=== PATIENT | female | born 1980 | race Caucasian/White ===

== ENCOUNTER 2020-08-15 17:21 | Emergency (ER) | payer BC, SELFPAY ==
--- NOTE | ~2020-08-15 | XR_ITS ---
EXAMINATION: XR hand LT min 3V EXAM DATE: 08/15/2020 17:31 INDICATION: pain after lifting bag yesterday. Pain1-2nd metacarpals . TECHNIQUE: Left hand frontal, lateral and oblique projections obtained and reviewed. Comparison is ma de to prior examination from 07/24/2017. FINDINGS: Left metacarpal bones are unremarkable. There are no acute fractures or dislocations ident ified. There is no subcutaneous gas. The soft tissue is unremarkable. There are no radiopaque for eign bodies. IMPRESSION: 1. Unremarkable XR hand LT min 3V exam. Reviewed, dictated and finalized at location A.
[2020-08-15 17:33] VITALS: BP 154/100; PULSE 81; RESP 20; TEMP 36.4; O2SAT 100
--- NOTE | 2020-08-15 17:37 | ED.UPPEXIN ---
HPI - Extremity Injury (Upper) General Chief Complaint: Extremity Injury, Upper Stated Complaint: L HAND INJURY Time Seen by Provider: 08/15/20 17:38 Source: patient and RN notes reviewed Mode of arrival: ambulatory Limitations: no limitations History of Present Illness HPI narrative: 32-year-old female presents with concern for hand pain between the first and second digits. Reports yesterday she was picking up a bag using her first and second digits of her left hand when she heard a pop and felt pain in that area. She reports swelling. Reports she has been using ice and elevation with no pain relief. MD complaint: injury to: left and hand Related Data Home Medications Medication Instructions Recorded Confirmed norgestimate-ethinyl estradiol tablet 09/02/19 [Tri-Sprintec (28)] Allergies Allergy/AdvReac Type Severity Reaction Status Date / Time No Known Allergies Allergy Verified 09/26/19 16:38 Review of Systems Review of Systems: Narrative: CONSTITUTIONAL: Denies malaise, chills, sweats, or fever. SKIN: Denies bruising, redness, open skin MUSCULOSKELETAL: Reports hand pain between the first and second digits NEUROLOGIC: Denies numbness, weakness All systems reviewed & are unremarkable except as noted in HPI and below PMFSH Comments At time of signature, agree with nursing past medical, surgical, social and family history. There is no relevant family history pertinent to the presenting complaint Exam Narrative: Exam Narrative: GENERAL: Well-appearing, well-nourished, and in no acute distress. HEAD: Normocephalic EYES: PERRLA, conjunctivae clear NECK: Supple. CHEST: Speaks in full sentences. No respiratory distress. HEART: Regular rate and rhythm. Normal and equal peripheral pulses. EXTREMITIES: First and second digits of left hand have normal sensation. 4/5 strength with digit flexion, extension. Range of motion right-sided, likely due to swelling and pain. No clubbing, cyanosis. Small amount of edema and tenderness between the first and second digits. Skin intact. Normal digital cascade with flexion of fingers, median, ulnar and radial nerve intact. Normal sensation of each side of finger. Can perform 'okay' sign, and 'thumbs up' sign. Patient unable to fully ' complete cross over finger test of index and middle fingers'. no scissoring. Normal thumb opposition. Good capillary refill and radial pulse. Distal capillary refill less than 3 seconds. SKIN: Warn, dry, intact, pink. No rash NEURO: Alert and oriented x3. PSYCH: Normal mood and affect Course Course Emergency Course: Patient is aware of diagnosis, understands and agrees to treatment plan. Anticipatory guidance given. Patient agrees to follow-up as directed and is aware of reasons to seek care at the emergency department. Portions of this record may have been created with voice recognition software Vital Signs Vital signs: Vital Signs Temperature 97.6 F 08/15/20 17:33 Pulse Rate 81 08/15/20 17:33 Respiratory Rate 20 08/15/20 17:33 Blood Pressure 154/100 H 08/15/20 17:33 Pulse Oximetry 100 08/15/20 17:33 Temperature 97.6 F 08/15/20 17:33 Pulse Rate 81 08/15/20 17:33 Respiratory Rate 20 08/15/20 17:33 Blood Pressure 154/100 H 08/15/20 17:33 Pulse Oximetry 100 08/15/20 17:33 Reviewed. MDM - Extremity Injury (Upper) MDM Narrative Medical decision making narrative: Patients injury and pain is consistent with musculoskeletal etiology. No signs of neurological or vascular compromise on exam. Compartments and tissues are soft without signs of compartment syndrome. Pain is felt appropriate for further evaluation on an outpatient basis. Imaging Data My impression: Images reviewed, interpreted by radiologist, agree, see report. Radiologist's impression: EXAMINATION: XR hand LT min 3V EXAM DATE: 08/15/2020 17:31 INDICATION: pain after lifting bag yesterday. Pain1-2nd metacarpals . TECHNIQUE: Left hand frontal, lat
== END 2020-08-15 17:55 | disposition home or self-care (01) ==
PROVIDERS: Emergency Provider Nurse Practitioner
DX: S69.92XA Unspecified injury of left wrist, hand and finger(s), initial encounter (principal); X50.0XXA Overexertion from strenuous movement or load, initial encounter
CPT/HCPCS: 73130; 99213; G0463

== ENCOUNTER 2021-09-24 12:41 | Emergency (ER) | payer BC, SELFPAY ==
[2021-09-24] VITALS (32 sets, daily range): BP systolic 131–165; BP diastolic 85–104; PULSE 91–112; RESP 18; TEMP 36.2; O2SAT 96–100
--- NOTE | ~2021-09-24 | CT_ITS ---
EXAMINATION: CT abdomen pelvis w con DATE: 09/24/2021 22:36 INDICATION: Epigastric abdominal pain. TECHNIQUE: Computed tomography (CT) of the abdomen and pelvis was performed with 100 mL Omnipaque 350 intravenous contrast. Automated exposure control and iterative reconstruction technique were employe d. The dose-length product was 1284.25 mGy-cm. COMPARISON: None. FINDINGS: The visualized portions of the lung bases demonstrate mild atelectasis. No pleural effusion . The heart size is normal. No pericardial effusion. The liver, gallbladder, spleen, adrenal glands, and kidneys are normal. There is fat stranding between the duodenum and pancreas. There are no dilate d loops of bowel. The appendix is not visualized. There are no pathologically enlarged lymph nodes. T here is no free intraperitoneal fluid. There is lumbar levoscoliosis and mild spondylosis. IMPRESSION: 1. Fat stranding between the duodenum and pancreas suspicious for duodenitis versus acute interstitia l pancreatitis. Reviewed, dictated and finalized at location A. ER SERVICE TECHNICIAN IMPRESSION: 1. Fat stranding between the duodenum and pancreas suspicious for duodenitis ve rsus acute interstitial pancreatitis.
--- NOTE | 2021-09-24 13:34 | ECG_ITS ---
Measurements Intervals [place] Rate: 95 P: 52 WI: 150 QRS: 15 QRSD: 87 T: 30 QT: 325 QTc: 410 Interpretive Statements SINUS RHYTHM LOW QRS VOLTAGE IN PRECORDIAL LEADS BASELINE ARTIFACT- I, III, AVR, AVL, AVF BORDERLINE ECG Electronically Signed On 09-24-2021 17:51:57 ANVIL WORKER by Ken Robert D.O.
--- NOTE | 2021-09-24 18:59 | ED.ABDPAIN ---
HPI - Abdominal Pain General Chief Complaint: Abdominal Pain Stated Complaint: ABD PAIN X2WKS Time Seen by Provider: 09/24/21 18:48 Source: patient Mode of arrival: ambulatory Limitations: no limitations History of Present Illness HPI narrative: Patient is a 41-year-old female complaining of epigastric pain, burning, nonradiating, 5 out of 10, intermittent x1 month but constant today. Patient denies any chest pain, shortness of breath, nausea, vomiting, diarrhea, fever or chills. Related Data Home Medications Medication Instructions Recorded Confirmed norgestimate-ethinyl estradiol tablet 09/02/19 [Tri-Sprintec (28)] Allergies Allergy/AdvReac Type Severity Reaction Status Date / Time No Known Allergies Allergy Verified 09/26/19 16:38 Review of Systems Review of Systems: All systems reviewed & are unremarkable except as noted in HPI and below Constitutional: Constitutional: Denies body ache(s), Denies chills, Denies excessive sweating, Denies fatigue, Denies fever(s), Denies headache(s), Denies lethargy, Denies malaise, Denies weakness and Denies weight loss Eyes: Eyes: Denies blurry vision, Denies change in vision and Denies loss of vision ENT: Denies dizziness, Denies ear discharge, Denies headache(s), Denies lip swelling, Denies epistaxis, Denies nasal congestion, Denies neck pain, Denies throat swelling and Denies tongue swelling Cardiovascular: Cardiovascular: Denies chest pain, Denies chest pain at rest, Denies chest pain with activity, Denies diaphoresis, Denies rapid heart rate, Denies edema, Denies irregular heart rhythm, Denies lightheadedness, Denies palpitations, Denies dyspnea and Denies dyspnea on exertion Respiratory: Respiratory: Denies chest congestion, Denies cough, Denies hemoptysis, Denies dyspnea and Denies dyspnea on exertion Gastrointestinal: Gastrointestinal: Denies melena, Denies hematochezia, Denies diarrhea, Denies nausea, Denies vomiting and Denies hematemesis Musculoskeletal: Musculoskeletal: Denies abnormal gait, Denies deformity, Denies joint swelling, Denies limited range of motion, Denies neck pain and Denies numbness Neurologic: Denies Abnormal speech present, Denies abnormal gait, Denies confusion, Denies dizziness, Denies headache(s), Denies focal weakness, Denies loss of vision, Denies numbness, Denies Other visual disturbances, Denies Sensory deficit (Neuro) and Denies weakness Psychiatric: Psychiatric: Denies confusion, Denies depression, Denies auditory hallucinations, Denies homicidal ideation and Denies suicidal ideation Endocrine: Endocrine: Denies cold intolerance, Denies excessive sweating, Denies fatigue, Denies heat intolerance and Denies palpitations Hematologic/Lymphatic: Hematologic/Lymphatic: Denies easy bleeding and Denies easy bruising Allergic/Immunologic: Allergic/Immunologic: Denies lip swelling, Denies throat swelling and Denies tongue swelling PMFSH Comments Past medical history: None Family history: Unknown Social history: Non-smoker no EtOH or drug use Exam Const: General: cooperative, healthy appearing, comfortable, no acute distress, well developed, alert and awake; No confusion Orientation/consciousness: oriented to person, oriented to place, oriented to time, patient oriented x3 and No confusion Limitations: no limitations HENMT: Head: normal to inspection, normocephalic and atraumatic Ears: hearing grossly normal bilaterally, TM normal on the right and TM normal on the left General nose exam: Normal external nose present, Normal nares present and No nasal discharge present Face and sinus: normal facial exam Mouth: Yes Normal oral and palatal mucosa present, Yes lip normal, Yes tongue normal and Yes oropharynx normal Throat: posterior oropharynx normal, tonsils normal and uvula midline Eyes: General: appearance normal, both eyes and all related structures Pupils: Equal, round and reactive pupils present EOM: EOMs intact bilaterally Neck: Neck
[2021-09-24 19:41] LABS: Alanine Aminotransferase 22 U/L (4-35); Albumin Level 4.4 g/dL (3.5-5.1); Alkaline Phosphatase 81 U/L (38-126); Anion Gap 8 mmol/L (8-16); Aspartate Amino Transferase 27 U/L (14-36); Bilirubin,Total 0.5 mg/dL (0.2-1.3); Blood Urea Nitrogen 12 mg/dL (7-17); Calcium 9.2 mg/dL (8.4-10.2); Carbon Dioxide 24 mmol/L (22-30); Chloride 102 mmol/L (98-107); Estimated CRCL calculation 115 ml/min; Estimated Glomerular Filt Rate > 60; Glucose 92 mg/dL (65-110); Lipase 80 U/L (23-300); Sodium 134 mmol/L (137-145)
[2021-09-24 19:53] LABS: Basophils Percent Auto 0.4 % (0.2-1.2); Eosinophils Absolute Auto 0.1 K/mm3 (0-0.3); Eosinophils Percent Auto 1.9 % (0-4.4); Hematocrit 37.5 % (37.0-47.0); Hemoglobin 12.4 g/dL (12.0-15.0); Immature Granulocyte Absolute 0.01 K/mm3 (0.00-0.031); Immature Granulocyte Percent A 0.2 % (0-0.5); Lymphocytes Absolute Auto 1.46 K/mm3 (0.9-3.2); Lymphocytes Percent Auto 31.3 % (18.3-44.2); Mean Corpuscular HGB Conc 33.1 g/dl (32-36); Mean Corpuscular Volume 90.8 fl (80-100); Mean Platelet Volume 9.1 fl (7.4-10.4); Monocytes Absolute Auto 0.4 K/mm3 (0.1-0.6); Monocytes Percent Auto 9.2 % (2.6-8.5); Neutrophils Absolute Auto 2.7 K/mm3 (1.3-6.7); Platelet Count Result 242 k/mm3 (150-375); Red Blood Count 4.13 M/mm3 (4.2-5.4); Red Cell Distribution Width 12.7 % (11.5-14.5); White Blood Count 4.7 K/mm3 (4.5-10.0)
[2021-09-24 19:53] LABS: Troponin I < 0.012 ng/mL (0.000-0.034)
--- NOTE | 2021-09-24 23:00 | PC.NURSE ---
Assuming care of pt.
[2021-09-24] MEDS: PANTOPRAZOLE 40 MG TABLET PO (23:55)
[2021-09-25 00:20] VITALS: BP 134/86; PULSE 88; RESP 16; O2SAT 97
== END 2021-09-25 00:21 | disposition home or self-care (01) ==
PROVIDERS: Emergency Provider Emergency Medicine; PCP Internal Medicine
DX: K29.80 Duodenitis without bleeding (principal)
CPT/HCPCS: 36415; 74177; 80053; 81025; 83690; 84484; 85025; 93005; 99284; A9270; Q9967

== ENCOUNTER 2021-11-13 17:01 | Emergency (ER) | payer BC, SELFPAY ==
--- NOTE | ~2021-11-13 | XR_ITS ---
EXAMINATION: XR forearm RT 2V DATE: 11/13/2021 17:14 INDICATION: Right forearm pain. Fall. TECHNIQUE: 2 views of right forearm were obtained. COMPARISON: Right forearm radiograph 07/22/2015 FINDINGS: Bone alignment is normal. No fracture. 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 No elbow joint effusion. IMPRESSION: 1. No fracture. Reviewed, dictated and finalized at location A. NEERING SUPERVISOR IMPRESSION: 1. No fracture.
[2021-11-13 17:07] VITALS: BP 136/102; PULSE 86; RESP 16; TEMP 36.4; O2SAT 99
--- NOTE | 2021-11-13 17:20 | ED.UPPEXIN ---
HPI - Extremity Injury (Upper) General Chief Complaint: Extremity Injury, Upper Stated Complaint: fall/injured r arm History of Present Illness HPI narrative: This is a 41-year-old female comes in complaining of a fall states that she fell coming down some stairs before coming on her right forearm patient is worried that she might have fractured her arm. Patient denies taking anything for symptoms Related Data Home Medications Medication Instructions Recorded Confirmed norgestimate-ethinyl estradiol tablet 09/02/19 [Tri-Sprintec (28)] Allergies Allergy/AdvReac Type Severity Reaction Status Date / Time No Known Allergies Allergy Verified 09/26/19 16:38 Review of Systems Review of Systems: Right forearm pain with some erythema All systems reviewed & are unremarkable except as noted in HPI and below PMFSH Comments At time as signature, I have reviewed and agree with nursing past medical, social, surgical and family history. Please see nursing chart for further information. There is no relevant family history pertinent to the presenting complaint. Exam Narrative: GENERAL:Well-appearing, well-nourished, and in no acute distress. HEAD:Normocephalic HEART: Regular rate and rhythm. ABDOMEN: Soft, EXTREMITIES: Decreased right arm range of motion. Mild edema with erythema. SKIN: Warm, dry, no rash. NEURO: No focal deficits. Alert and oriented x3. Course Course Emergency Course: X-ray shows no fractures noted Level of Care: Express Care Visit Vital Signs Vital signs: Vital Signs Temperature 97.6 F 11/13/21 17:07 Pulse Rate 86 11/13/21 17:07 Respiratory Rate 16 11/13/21 17:07 Blood Pressure 136/102 H 11/13/21 17:07 Pulse Oximetry 99 11/13/21 17:07 Temperature 97.6 F 11/13/21 17:07 Pulse Rate 86 11/13/21 17:07 Respiratory Rate 16 11/13/21 17:07 Blood Pressure 136/102 H 11/13/21 17:07 Pulse Oximetry 99 11/13/21 17:07 MDM - Extremity Injury (Upper) Differential Diagnosis Differential diagnosis: Likely sprain and strain of wrist, fracture of wrist, finger sprain, dislocation of finger, fracture of hand, fracture of humerus and fracture of clavicle Discharge Plan Discharge Clinical Impression: Forearm sprain Qualifiers: Encounter type: initial encounter Laterality: right Qualified Code(s): S63.501A - Unspecified sprain of right wrist, initial encounter Patient Disposition: Home, Self-Care Condition: Stable Instructions: Antibiotic Form, Elbow Sprain (ED), Fall Prevention (ED) Additional Instructions: Avoid weight bearing until the pain subsides. Ice to the area 20-30 minutes 4-6 times a day Elevate above heart Elastic wrap or orthopedic splint as directed for comfort for the next 5-7 days Tylenol for lesser pain Ibuprofen regularly for the next 2-3 days for the inflammation Follow up with your primary care provider if the condition is not improving within 1 week or sooner if the condition worsens with numbness, tingling, decrease sensation with weakness to seek ER. Prescriptions: New ibuprofen 600 mg tablet 600 mg PO TID PRN (Reason: fever or pain) Qty: 20 RF: 0 No Action norgestimate-ethinyl estradiol [Tri-Sprintec (28)] 0.18/0.215/0.25 mg-35 mcg (28) tablet RF: 0 esomeprazole magnesium [Nexium] 40 mg capsule,delayed release(DR/EC) 40 mg PO DAILY Qty: 7 RF: 0 Follow-up/Referrals: Phuong,[place] [Primary Care Provider] - Time of Disposition: 17:22
== END 2021-11-13 17:32 | disposition home or self-care (01) ==
PROVIDERS: Emergency Provider Nurse Practitioner Family; PCP Registered Nurse
DX: S63.501A Unspecified sprain of right wrist, initial encounter (principal); W10.9XXA Fall (on) (from) unspecified stairs and steps, initial encounter
CPT/HCPCS: 73090; 99213; A4565; G0463

== ENCOUNTER 2024-04-12 18:26 | Emergency (ER) | payer BC, SELFPAY ==
--- NOTE | ~2024-04-12 | XR_ITS ---
EXAM: XR wrist RT min 3V DATE: 04/12/2024 18:48 HISTORY: rt medial wrist pain , injury . COMPARISON: 11/13/2021. FINDINGS: Normal mineralization. Old ulnar styloid fracture. No acute fracture or dislocation. No ly tic or blastic lesion. Joint spaces are maintained. No erosion or periosteal change. Soft tissues wit hin normal limits. IMPRESSION: No acute osseous finding in the right wrist. Reviewed, dictated and finalized at location K.
[2024-04-12 18:32] VITALS: BP 130/96; PULSE 100; RESP 16; TEMP 36.4; O2SAT 100
--- NOTE | 2024-04-12 18:33 | ED.UPPEXIN ---
HPI - Extremity Injury (Upper) General Chief Complaint: Extremity Injury, Upper Stated Complaint: Injured Right wrist Time Seen by Provider: 04/12/24 18:28 Source: patient Mode of arrival: ambulatory Limitations: no limitations History of Present Illness HPI narrative: Patient is a 43-year-old female who presents with right wrist pain after picking up heavy bag 2 days ago. Patient states she felt pop now has pain to pinky side of hand and wrist. Patient still able to move all fingers but it does hurt to move 4th and 5th digits. Denies any numbness, tingling or weakness. Has been alternating Tylenol and ibuprofen. Has splint from previous surgery that she has been wearing. Related Data Allergies Allergy/AdvReac Type Severity Reaction Status Date / Time No Known Allergies Allergy Verified 04/12/24 18:39 Review of Systems Review of Systems: All systems reviewed & are unremarkable except as noted in HPI and below Constitutional: Constitutional: Denies body ache(s), Denies chills, Denies fatigue, Denies fever(s), Denies headache(s), Denies malaise and Denies weakness Eyes: Eyes: Denies blurry vision, Denies irritation and Denies loss of vision ENT: Denies otalgia, Denies headache(s), Denies nasal discharge, Denies sinus pain and Denies sore throat Cardiovascular: Cardiovascular: Denies chest pain, Denies irregular heart rhythm and Denies dyspnea Respiratory: Respiratory: Denies dyspnea Gastrointestinal: Gastrointestinal: Denies abdominal pain, Denies melena, Denies hematochezia, Denies diarrhea, Denies nausea and Denies vomiting Musculoskeletal: Musculoskeletal: Denies back pain, Denies myalgias and Reports arthralgias Integumentary/Breasts: Skin/Breast: Denies pruritus and Denies rash Neurologic: Denies headache(s), Denies loss of vision and Denies weakness Psychiatric: Psychiatric: Reports no additional psychiatric complaints Endocrine: Endocrine: Denies fatigue PMFSH Past Medical History Medical History Chronic GERD Morbid obesity with BMI of 40.0-44.9, adult Partial thickness tear of left rotator cuff PONV (postoperative nausea and vomiting) Social History Social History Smoking status: Never smoker Alcohol intake: current Alcohol use details: RARE Substance use: never Substance use type: does not use Living arrangements: with family Spiritual care concerns: No Comments At time of signature, agree with nursing past medical, surgical, social and family history. There is no relevant family history pertinent to the presenting complaint. Exam Const: General: cooperative, healthy appearing, comfortable, no acute distress and well nourished Nutritional Appearance: well nourished Orientation/consciousness: patient oriented x3 Limitations: no limitations HENMT: Head: normal to inspection, normocephalic and atraumatic Ears: hearing grossly normal bilaterally and external ears normal Face/Nose/Sinus: Normal external nose present, normal facial exam and face symmetric Face and sinus: normal facial exam and face symmetric Mouth: Yes lip normal Eyes: General: appearance normal, both eyes and all related structures Alignment and Position: alignment normal and position normal Periorbital: periorbital findings normal Eyelids: eyelids normal Pupils: Equal, round and reactive pupils present EOM: EOMs intact bilaterally Neck: Neck: normal visual inspection, full ROM and supple Chest: Chest palpation & inspection: normal inspection of the chest Resp: Effort & Inspection: normal respiratory effort and able to speak in complete sentences Auscultation: clear to auscultation bilaterally Cardio: Rate: regular rate Rhythm: regular rhythm Heart sounds: S1 normal heart sound present and S2 normal heart sound present GI: Inspection: normal to inspection Skin: General skin exam: normal color a
== END 2024-04-12 19:11 | disposition home or self-care (01) ==
PROVIDERS: Emergency Provider Nurse Practitioner Family
DX: S63.501A Unspecified sprain of right wrist, initial encounter (principal); S66.911A Strain of unspecified muscle, fascia and tendon at wrist and hand level, right hand, initial encounter; X50.0XXA Overexertion from strenuous movement or load, initial encounter; K21.9 Gastro-esophageal reflux disease without esophagitis; E66.01 Morbid (severe) obesity due to excess calories; Z68.38 Body mass index [BMI] 38.0-38.9, adult
CPT/HCPCS: 73110; 99213; G0463

== ENCOUNTER 2024-05-20 16:35 | Outpatient (CLI) | payer BC, SELFPAY ==
--- NOTE | ~2024-05-20 | MR_ITS ---
MRI of the right wrist Technique: Coronal T1 weighted and proton density fat sat images, and axial and sagittal proton-densi ty and proton-density fat-sat images were acquired. Following intravenous administration of 20 cc Mul tiHance gadolinium, T1-weighted fat-sat imaging was performed in the axial, coronal, and sagittal duane marcie. Clinical History: Sprain Findings: Scapholunate ligament appears intact, and there is no widening of the scapholunate interval . Lunotriquetral ligament is probably intact. Central articular disc of the TFCC is probably intact. No TFCC tear/perforation evident. No significant bone marrow signal abnormality seen. Joint spaces in the wrist are relatively well-pre served. No evidence for erosive arthropathy or synovitis. No significant joint effusion. Flexor tendons in the carpal tunnel are unremarkable. Extensor tendons are intact. No soft tissue mas s or fluid collection evident. No abnormal or suspicious postcontrast enhancement identified. IMPRESSION: No significant abnormality seen. Reviewed, dictated and finalized at location .
== END 2024-05-20 16:36 | disposition home or self-care (01) ==
LOC: ANHIMG 16:38
PROVIDERS: Visit Provider Physician Assistant Surgical
DX: S66.911A Strain of unspecified muscle, fascia and tendon at wrist and hand level, right hand, initial encounter (principal); Z87.39 Personal history of other diseases of the musculoskeletal system and connective tissue; X58.XXXA Exposure to other specified factors, initial encounter
CPT/HCPCS: 73223; A9577

== ENCOUNTER 2024-09-07 16:40 | Emergency (ER) | payer BC, SELFPAY ==
--- NOTE | ~2024-09-07 | XR_ITS ---
EXAMINATION: XR elbow RT min 3V DATE: 09/07/2024 16:58 INDICATION: Right elbow injury. Fall. TECHNIQUE: 4 views of right elbow were obtained. COMPARISON: Right forearm radiograph 11/13/2021 FINDINGS: Alignment is normal. No fracture. There is mild osteoarthritis of the elbow joint character ized by tiny osteophytes. No elbow joint effusion. IMPRESSION: 1. Mild elbow joint osteoarthritis. Reviewed, dictated and finalized at location A. [employer]
--- NOTE | 2024-09-07 16:48 | ED.UPPEXIN ---
HPI - Extremity Injury (Upper) General Chief Complaint: Extremity Injury, Upper Stated Complaint: Right Elbow injury Time Seen by Provider: 09/07/24 16:48 Source: patient Mode of arrival: ambulatory Limitations: no limitations History of Present Illness HPI narrative: 44 y/o female presented for c/o right elbow pain after falling this morning. States she slipped in the bathtub, and struck the elbow on the tub. Endorses pain with range of motion. Denies numbness, tingling or weakness, or pain radiating to the wrist. Taking Tylenol and ibuprofen today. Denies any other injury. Related Data Home Medications Medication Instructions Recorded Confirmed loratadine 10 mg tablet (Claritin) 10 mg PO DAILY 04/18/24 Allergies Allergy/AdvReac Type Severity Reaction Status Date / Time No Known Allergies Allergy Verified 09/07/24 16:51 Review of Systems Review of Systems: CONSTITUTIONAL: Denies body aches, fever, chills CARDIOVASCULAR: Denies chest pain, palpitations, or edema. RESPIRATORY: Denies cough or dyspnea. SKIN: Denies rash, itching, or wounds. MUSCULOSKELETAL: per HPI NEUROLOGIC: Denies numbness, tingling, or weakness. All systems reviewed & are unremarkable except as noted in HPI and below PMFSH Past Medical History Medical History Chronic GERD Morbid obesity with BMI of 40.0-44.9, adult Partial thickness tear of left rotator cuff PONV (postoperative nausea and vomiting) Social History Social History Social History: Caffeine-daily Smoking status: Never smoker Alcohol intake: current Alcohol use details: RARE Substance use: never Substance use type: does not use Do You Feel Safe in your Home?: Yes Lack of Transportation: No Lack of Food: Never True Current Housing: I Have Housing Concerned About Future Housing: No Difficulty Paying Gas/Electric Bills: No Difficulty Paying for Meds: No Currently Unemployed: No Education: Bachelor's Degree Difficulty w/ Childcare or Family Care: No Living arrangements: with family Spiritual care concerns: No Comments At time of signature, I have reviewed and agree with nursing past medical, surgical, social and family history unless otherwise noted. Please see nursing chart for further information. There is no relevant family history pertinent to the presenting complaint Exam Narrative: GENERAL: Well-appearing, CHEST: Speaks in full sentences. No respiratory distress. HEART: Regular rate and rhythm. Normal and equal peripheral pulses. EXTREMITIES: RURoberth has normal strength and sensation, decreased range of motion at elbow due to pain with flexion/extension. Mild swelling noted to elbow; tender with palpation. No ecchymosis, No open wounds, or obvious deformity; alignment normal, pulse palpable and equal bilaterally, skin warm, dry, pink. Capillary refill less than 3 seconds. SKIN: Warm, dry, no wound NEURO: Alert and oriented x3. PSYCH: Normal mood and affect Course Course Emergency Course: Patient is aware of diagnosis, understands and agrees to treatment plan. Anticipatory guidance given. Patient agrees to follow-up as directed and is aware of reasons to seek care at the emergency department. Portions of this record may have been created with voice recognition software Level of Care: Express Care Visit Vital Signs Vital signs: Reviewed MDM - Extremity Injury (Upper) MDM Narrative Medical decision making narrative: Discussed physical exam findings and elbow xray. CHENCHO applied. Advised supportive measures and signs/symptoms to go to the ER. Pt is appropriate for outpt treatment and f/u. Differential Diagnosis Differential diagnosis: Likely other (osteoarthritis, elbow dislocation, septic bursitis, epicondylitis, biceps tendon rupture) Imaging Data Radiologist's impression: Patient: Kaitlin Abraham : 1980 MR#: [id number] Age: 44 Acct:[id number] Loc: [facility] ADM Date: 09/07/24Attending Dr: Ordering Physician: Fiona Bañuelos APRN Date of Service: 09/07/24 Procedure(s): XR elbow RT min 3V Accession Number(s): [id number] cc: Fiona Bañuelos APRN; [employer] SURVEYOR PHYSICIAN~ EXAMINATION: XR elbow RT min 3V DATE: 09/07/2024 16:58 INDICATION: Right elbow injury. Fall. TECHNIQUE: 4 views of right elbow were obtained. COMPARISON: Right forearm radiograph 11/13/2021 FINDINGS: Alignment is normal. No fracture. There is mild osteoarthritis of the elbow joint characterized by tiny osteophytes. No elbow joint effusion. IMPRESSION: 1. Mild elbow joint osteoarthritis. Discharge Plan Discharge Clinical Impression: Contusion of elbow, right Patient Disposition: Home, Self-Care Condition: Stable Instructions: Antibiotic Form, Elbow Fracture (ED) Additional Instructions: Rest. Avoid pushing, pulling, lifting or anything that worsens the symptoms Tylenol 1000mg every 8 hours as needed, You can alternate with ibuprofen 800mg Alternate ice/heat to the site. Lidocaine or salon pas pain patch or use pain cream like icy/hot or biofreeze. Recommended Chencho wrap or a soft elbow support sleeve Follow up with your primary care provider as needed in 1 week Go to the ER for worsening symptoms or concerns Prescriptions: New ibuprofen 800 mg tablet 800 mg PO TID PRN (Reason: pain) Qty: 15 0RF No Action loratadine [Claritin] 10 mg tablet 10 mg PO DAILY Follow-up/Referrals: PHYSICIAN,SHIP'S SURVEYOR [Primary Care Provider] - Time of Disposition: 17:10
[2024-09-07 16:49] VITALS: BP 153/96; PULSE 85; RESP 16; TEMP 36.5; O2SAT 99
--- NOTE | 2024-09-07 17:14 | PC.NURSE ---
+PMS POST LUCILA APPLICATION
== END 2024-09-07 17:15 | disposition home or self-care (01) ==
PROVIDERS: Emergency Provider Nurse Practitioner Family
DX: S50.01XA Contusion of right elbow, initial encounter (principal); W18.2XXA Fall in (into) shower or empty bathtub, initial encounter; K21.9 Gastro-esophageal reflux disease without esophagitis; E66.01 Morbid (severe) obesity due to excess calories; Z68.38 Body mass index [BMI] 38.0-38.9, adult
CPT/HCPCS: 73080; 99213; G0463

== ENCOUNTER 2024-12-02 20:01 | Emergency (ER) | payer BC, SELFPAY ==
--- NOTE | ~2024-12-02 | CT_ITS ---
EXAMINATION: CT abdomen pelvis w con DATE: 12/03/2024 00:48 INDICATION: Right lower quadrant abdominal pain. TECHNIQUE: Computed tomography (CT) of the abdomen and pelvis was performed with 100 mL Omnipaque 350 intravenous contrast. Automated exposure control and iterative reconstruction technique were employe d. The dose-length product was 1437.55 mGy-cm. COMPARISON: CT abdomen and pelvis 09/24/2021 FINDINGS: The visualized portions of the lung bases demonstrate mild atelectasis. No pleural effusion . The heart size is normal. No pericardial effusion. The liver, gallbladder, spleen, pancreas, adrena l glands, and right kidney are normal. There is a 2 mm stone in left kidney. There is a 3.4 cm cyst i n the right ovary. There are no dilated loops of bowel. The appendix is normal. There are no patholog ically enlarged lymph nodes. There is no free intraperitoneal fluid. There is mild thoracic and lumba r spondylosis. Lumbar levoscoliosis is noted. IMPRESSION: 1. 3.4 cm cyst in the right ovary, likely a follicular cyst. Reviewed, dictated and finalized at location A. DOCK OPERATOR
--- NOTE | ~2024-12-02 | US_ITS ---
EXAMINATION: US pelvic complete w TV DATE: 12/03/2024 03:51 INDICATION: Right lower quadrant abdominal pain. Right ovarian torsion. TECHNIQUE: Multiple transabdominal and transvaginal sonographic images of the pelvis were obtained. COMPARISON: CT abdomen and pelvis 12/03/2024 FINDINGS: TRANSABDOMINAL ULTRASOUND: The uterus measures 10.7 x 5.5 x 5.7 cm. There is no free fluid in the pelvis. TRANSVAGINAL ULTRASOUND: The endometrial complex measures 12 mm in thickness. There is a scar in the low anterior uterine segm ent from prior section. The right ovary measures 4.8 x 2.9 x 4.0 cm. There is a 3.4 cm cyst in right ovary. The left ovary measures 2.9 x 0.9 x 2.4 cm. There is normal vascular flow in the ovar ies. IMPRESSION: 1. 3.4 cm cyst in right ovary, likely a follicular cyst. Reviewed, dictated and finalized at location A. STERED NURSE TEACHER
--- OUTSIDE RECORDS SUMMARY | 2024-12-02 20:03 | XMS_ITS | Data Portability ---
Author Organization [place] - [facility], Main Office Address [address] [place] [id number] Assessment Encounter Date Assessment Date Assessment LastModified by Organization Details LastModified Time 01/13/2023 01/13/2023 Patient returns shoulder pain left. She has got tenderness over the left shoulder particularly the AC joint she has pain to palpation manipulation worse with activity somewhat relieved by rest. She has got a whole lot of relief from conservative treatment if it does get better she is probably headed for surgical debridement repair she has at least partial-thickness tearing of the rotator cuff and arthritis in the AC joint. We will try an injection through the AC joint this was done with 20 mg Kenalog 4 cc 1% lidocaine. She will continue with exercises with follow-up in a month if no better we will reassess and discuss surgery with her. [email or web address] Not available 01/13/2023 14:34:31 02/10/2023 02/10/2023 Patient returns shoulder pain left. She has not really had a lot a lot much response she had from injections and therapy and medicine. She remains symptomatic rating her pain 5/6 most of the time with activity and 2-3 when she is not doing much Most of the pain is tender over the AC joint she has pain to palpation manipulation I injected the AC joint 8 mg of numbing medicine this took away most of the pain told her we could take out do a distal clavicle excision see if helps possibly debriding rotator cuff. MRI scan shows tendinitis but not a complete tear mainly AC joint degeneration. She is well aware of the fact that surgery has no guarantee that it would relieve all of her symptoms discussed. [email or web address] Not available 02/10/2023 15:31:29 04/13/2023 04/13/2023 Patient returns status rotator cuff debridement repair distal clavicle excision. This is on the left shoulder. Pain is resolving she is doing fairly well at this point. Recommend she get out and start using it for little things have instructed her on Codman exercises and pendulum swings will begin active and active assisted motion about 3 or 4 weeks in the meantime she can do passive range of motion with somebody helping her. rain Not available 04/13/2023 10:15:20 05/04/2023 05/04/2023 Patient returns status post rotator cuff debridement distal clavicle excision left shoulder. The pain is much better than before the operation she seems to be progressing well. Neurologically she is intact she seemingly has had a nice response to conservative treatment. I am pleased with her progress and will begin active and active assisted motion a week. If she has any changes or problems she will call discussed. [email or web address] Not available 05/04/2023 10:42:29 06/09/2023 06/09/2023 Patient returns status post shoulder surgery left. The pain for the most part is resolved she has had a nice response to surgical intervention she has full motion she is getting her strength back recommend she continue with exercises that she is doing. I will see her back in a month for hopefully final follow-up if she has any changes or problems she will call. [email or web address] Not available 06/09/2023 14:44:24 Plan of Treatment Reminders Order Date Submit Date Provider Last Modified By Organization Details Last Modified Time Details Appointments None recorded. Lab None recorded. Referral physical therapist referral - Please contact patient to schedule.. ...should start week of May [id number] 023 [facility] [place] [facility], [address], [place], [address], 3 12:10:34 Procedures injection/ aspiration joint/burs a (PROC) - in office procedure, administer ed by provider 2022 023 [email or web address] In-Office Order, Internal Use Only DO Not Attach Compendium DO Not Attach Compendium, Do Not Delete/merge, [id number] 3 14:34:18 injection/ aspiration joint/burs a (PROC) - in office procedure, administer ed by provider 2022 023 [email or web address] In-Office Order, Internal Use Only DO Not Attach Compendium DO Not Attach Compendium, Do Not Delete/merge, [id number] 14:36:51 Surgeries None recorded. Imaging None recorded. Medication Orders Kenalog 10 mg/mL suspension for injection [facility] [facility] [address] [place], [place] [address], [address], [place], [id number], 3 14:35:02 ropivacain e (PF) 5 mg/mL (0.5 %) injection solution 2022 023 [address] [facility], [address] [place], [place], [id number], 3 14:35:02 Kenalog 10 mg/mL suspension for injection 2022 [address] [facility] [address] [place], [place] [address], [address], [place], [id number], 3 14:38:47 ropivacain e (PF) 5 mg/mL (0.5 %) injection solution [address] [facility]90767, [address], [place], [id number], 3 14:38:47 Patient TargetsNo targets recorded. Patient InstructionsNo instructions recorded. Reason for Referral Physical Therapist Referral for Strain of rotator cuff of shoulder Please contact patient to schedule.....should start week of May 11 active and active assisted Referring Physician: Michel Hong, Orthopedic Surgery, Encounter Date: 05/04/2023 Results Created Date Observation Date Name Description Value Unit Range Abnormal Flag Note LastModifiedBy Organization Detail LastModifiedTime 12/17/19 23 12/12/2022 MRI, caleb florin, w/o contr ast No observ ation record ed. [id number] [facility] [address], [place], [address], 12/25/2022 01:48:55 Result Notes None recorded. Problems Name Problem SNOMED Code Status Onset Date Resolution Date Notes Provider Name and Address Organization Details Recorded Time Pain of left shoulder joint 4943212300217 9109 Active 2022 Not Available [facility] 3 01:48:21 Tendinitis of left rotator cuff 1188220327477 9101 Active 2022 Not Available [facility] 3 01:48:21 Partial thickness rotator cuff tear 571321604 Active 2022 Not Available [facility] 3 01:48:21 Strain of rotator cuff of shoulder 813723903 Active 2022 Not Available [facility] 3 01:48:21 Arthritis of acromiocla vicular joint 520385248 Active 2022 Michel Hong MD [address], [place], [address] , [employer] [facility] [employer] 3 14:45:13 Problem Notes None recorded. Procedures Surgical History Date Name Laterality Status Provider Name and Address Organization Details Recorded Time 3 Ortho - Cortisone Injection completed Michel Hong MD [address], [place], [address], [employer] [facility] [employer] 02/10/2023 15:29:36 3 Ortho - Cortisone Injection completed Michel Hong MD [address], [place], [address], [employer] [facility] 01/13/2023 14:33:36 Knee completed Not Available [facility] 11/2022 01:47:59 section completed Not Available [facility] 12/25/2022 01:47:59 procedure on wrist completed Not Available [facility] 12/25/2022 01:47:59 Imaging Results Imaging Date Name Status LastModified by Organiz ation Details LastModified Time 12/12/2022 MRI, shoulder, w/o contrast completed [id number] [facility] [address], [place], [address], 12/25/2022 01:48:55 Procedure Notes None recorded. Medical Equipment None Reported. Medications Name Sig Start Date Stop Date Status Note LastModified by Organization Details LastModified Time prednisone 10 mg tablet active Not Available Not Available Not Available tizanidine 4 mg tablet TAKE 1 TABLET BY MOUTH EVERY 8 HOURS NEEDED active Not Available Not Available No t Available prednisone 10 mg tablets in a dose pack Take 1 tab by mouth, 3 times a day for 3 daysTake 1 tab by mouth 2 times a day for 2 daysTake 1 tab by mouth once a day for 1 day active Not Available Not Available No t Available Kenalog 10 mg/mL suspension for injection Take 40 mg by injection route. 2022 active [facility]: 0003- 0494- 20 Not Available Not Available Not Available hydrocodone 7.5 mg-acetamin ophen 325 mg tablet TAKE 1 TABLET BY MOUTH EVERY 4 HOURS NEEDED FOR PAIN active Not Available Not Available No t Available diclofenac sodium 75 mg tablet,pat yed release Take 1 tablet twice a day by oral route. active Not Available Not Available No t Available methylpredn isolone 4 mg tablets in a dose pack FOLLOW PACKAGE DIRECTION S 11/06 completed Not Available Not Available Not Available ropivacaine (PF) 5 mg/mL (0.5 %) injection solution Take 20 mg by injection route. 2022 active Not Available Not Available Not Avai lable Vitals Date Recorded Body height Body mass index (BMI) Body weight Provider Name and Address Organization Details Last Updated DateTime 01/13/2023 177.8 cm 40.2 kg/m2 765406.86 g ABBI Valdez [employer] 01/13/2023 14:24:20 Date Recorded Body height Body mass index (BMI) Body weight Provider Name and Address Organization Details Last Updated DateTime 02/10/2023 177.8 cm 40.2 kg/m2 858881.86 g ABBI Valdez [employer] [facility] 02/10/2023 14:11:36 Date Recorded Body height Body mass index (BMI) Body weight Provider Name and Address Organization Details Last Updated DateTime 04/13/2023 177.8 cm 39.5 kg/m2 879193.9 ABBI Valentin [facility] [employer] [facility] 04/13/2023 09:25:14 Date Recorded Body height Body mass index (BMI) Body weight Provider Name and Address Organization Details Last Updated DateTime 05/04/2023 177.8 cm 39.5 kg/m2 317387.9 gerardo Garcia CNA [facility] [employer] [facility] 05/04/2023 10:11:06 Date Recorded Body height Body mass index (BMI) Body weight Provider Name and Address Organization Details Last Updated DateTime 06/09/2023 177.8 cm 39.5 kg/m2 413553.9 gerardo Ramos Pro [facility] [employer] [facility] 06/09/2023 14:19:06 Social History Question Answer Notes LastModified by [employer] Details LastModified Time Tobacco Smoking Status Never Smoker [facility] [employer] [facility] 01/13/2023 14:21:15 What Is Your Level Of Alcohol Consumption? Occasional [id number] Information not available 12/25/2022 Sex: Unknown Functional Status None recorded. Mental Status None recorded. Family History Relationship Description Onset Age of this Age Resolved Age Notes LastModified by Organization Details LastModified Time Father Heart disease [id number] Not available 12/25/2022 01:48:00 Father Hypertensive disorder [id number] Not available 12/25/2022 01:48:00 Father Diabetes mellitus [id number] Not available 12/25/2022 01:48:00 Father Cerebrovascu lar accident [email or web address] Not available 14:21:15 Mother Family history of malignant neoplasm [email or web address] Not available 01/13 14:21:15 Mother Hypertensive disorder [id number] Not available 12/25/2022 01:48:00 Medical History No medical history recorded. Gynecological HistoryNo gynecological history recorded. Obstetrics History GPAL:G 0 P 0 0 0 0 Past Encounters Encounter ID Performer Location Encounter Start Date Encounter Closed Date Diagnosis/Indication Diagnosis SNOMED-CT Code Diagnosis ICD10 Code Diagnosis Note [id number] [facility] [address] [place] [address] 11/06/2022 00:00:00 11/06/2022 14:16:52 [id number] [facility] [place] [facility] [address] [place] [address] 12/04/2022 00:00:00 12/04/2022 15:31:33 [id number] [facility] [place] [address] [place] [address] 12/16/2022 00:00:00 12/16/2022 15:52:05 [id number] Michel Hong MD [facility] [place] [address] [place] [address] 01/13/2023 14:19:14 01/13/2023 15:17:10 Tendinitis of left rotator cuff 3361980280 5348238 M67.814 Strain of rotator cuff of shoulder 846602313 S46.011D [id number] Michel Hong MD [facility] [place] [address] [place] [address] 02/10/2023 14:07:16 02/10/2023 16:00:45 Tendinitis of left rotator cuff 8658982434 8969181 M67.814 Strain of rotator cuff of shoulder 625360258 S46.011D [id number] Michel Hong MD [facility] [place] [address] [place] [address] 04/13/2023 09:22:56 04/13/2023 11:08:14 Strain of rotator cuff of shoulder 599276701 S46.011D Tendinitis of left rotator cuff 9629858271 4587736 M67.814 [id number] Michel Hong MD [facility] [place] [address] [place] [address] 05/04/2023 10:04:56 05/04/2023 11:02:02 Tendinitis of left rotator cuff 3107111030 0107188 M67.814 Strain of rotator cuff of shoulder 652041252 S46.011D Postoperative visit 1836 03664 Z09 [id number] Michel Hong MD [facility] [address] [place] [address] 06/09/2023 14:14:51 06/09/2023 15:42:32 Tendinitis of left rotator cuff 2604410055 8824810 M67.814 Partial th ickness rotator cuff tear 740385850 M75.102 Arthritis of acromioclavicular joint 859211853 M13.819 M13.812 Health Concerns Section Related Observation LastModified by Organization Detai ls LastModified Time None Recorded Concern Status LastModified by Organization Details LastModified Time None Recorded Advance Directives Directive None Recorded Payers Encounter Date Sequence Insurance Name Policy Number Policy Schulte Covered Member ID Schulte Member ID Guarantor Name 01/13/2023 1 *SELF PAY* Kebede delacruz Singler 02/10/2023 1 *SELF PAY* Kebede delacruz Singler 04/13/2023 1 *SELF PAY* Kebede delacruz Singler 05/04/2023 1 *SELF PAY* Kebede delacruz Singler 06/09/2023 1 *SELF PAY* Kebede delacruz Singler Notes Date Note Type Note Provider Name and Address Organization Details Recorded Time 01/13/2023 text/html Patient returns shoulder pain left. She remains symptomatic has tenderness palpation pain to manipulation. Unfortunately despite cortisone therapy prednisone anti-inflammatory medication and time she has not gotten a whole lot better. Michel Hong MD [address] [place] [address], [place], [address], [employer] 01/13/2023 14:34:58 02/10/2023 text/html Patient returns shoulder pain left. She remains symptomatic as pain in left shoulder particularly with overhead activity. She is weak in abduction external rotation over lot of the pain is over acromioclavicular joint. She states she only got some relief from the injection unfortunately the pain persists she says the level of 5/6 when she is active in 2-3 otherwise. Michel Hong MD [address], [address] [address], [place], [address], [employer] 02/10/2023 15:31:32 04/13/2023 text/html Patient returns status post rotator cuff debridement repair left distal clavicle excision. She is doing okay pain is tolerable and she is moving arm reasonably well. Michel Hong MD [address], [place], [address], [employer] 04/13/2023 10:15:53 05/04/2023 text/html Patient returns status post rotator cuff debridement repair left distal clavicle excision. She is doing okay pain is tolerable and she is moving arm reasonably well. The pain is improved quite a bit over the last month and she is doing much better than she was before surgery. Michel Hong MD [address], [place], [address], [employer] 05/04/2023 11:00:40 06/09/2023 text/html Patient returns status post rotator cuff debridement repair left distal clavicle excision. She is doing okay pain is tolerable and she is moving arm reasonably well. The pain is improved quite a bit over the last month and she is doing much better than she was before surgery. Michel Hong MD [address], [place], [address], [employer] 06/09/2023 14:45:47 OBGyn Episode No OBEpisode recorded.
--- OUTSIDE RECORDS SUMMARY | 2024-12-02 20:03 | XMS_ITS | Clinical Summary ---
Author Organization [facility] [address] Address [address] [place] [address] [address] [place] [address] Care Team Providers Care Inspector And Sorter Name Role Phone Nicole Aguayo NP Primary Care Provider [phone] Allergies No known active allergies Medications No known medications Active Problems Problem Noted Date Diagnosed Date Mass of upper outer quadrant of right breast 09/2024 Encounter for medical examination to establish c are 10/06/2024 Arthralgia 10/06/2024 Screening for diabetes mellitus 10/06/2024 Screening, anemia, deficiency, iron 10/06/2024 Screening for lipid disorders 10/06/2024 Screening for thyroid disorder 10/06/2024 Encounter for hepatitis C sc reening test for low risk patient 10/06/2024 Need for hepatitis B screening test 10/06/2024 Encounter for screening mamm ogram for malignant neoplasm of breast 10/06/2024 Allergic rhinitis 10/06/2024 Encounters Date Type Department Care Team Description 11/17/2024 7:49 AM BROILER SUPERVISOR - 11/17/2024 11:59 PM BROILER SUPERVISOR Hospital Encounter [facility] [address] [place] [id number] Mass of upper outer quadrant of right breast Discharge Disposition: Discharge to home or self care 11/17/2024 7:48 AM BROILER SUPERVISOR - 11/17/2024 11:59 PM BROILER SUPERVISOR Hospital Encounter [facility] [address] [place] [id number] Mass of upper outer quadrant of right breast Discharge Disposition: Discharge to home or self care 10/06/2024 8:40 AM BROILER SUPERVISOR - 10/06/2024 11:59 PM BROILER SUPERVISOR Hospital Encounter [address] [address] Screening, anemia, deficiency, iron; Screening for diabetes mellitus; Screening for lipid disorders; Screening for thyroid disorder; Encounter for hepatitis C screening test for low risk patient; Need for hepatitis B screening test; Arthralgia, unspecified joint Discharge Disposition: Discharge to home or self care 10/06/2024 8:30 AM BROILER SUPERVISOR Lab [facility] Medical [facility] Outpatient Lab at [address] [phone] Pain in joint, multiple sites (Primary Dx); Screening examination for poliomyelitis; Screening for diabetes mellitus; Screening for thyroid disorder; Screening for lipoid disorders; Screening for iron deficiency anemia 10/06/2024 7:30 AM BROILER SUPERVISOR Office Visit [facility] Primary Care at [address] [phone] Nicole Aguayo NP Encounter for medical examination to establish care (Primary Dx); Mass of upper outer quadrant of right breast; Arthralgia, unspecified joint; Allergic rhinitis, unspecified seasonality, unspecified trigger; Screening for diabetes mellitus; Screening, anemia, deficiency, iron; Screening for lipid disorders; Screening for thyroid disorder; Encounter for hepatitis C screening test for low risk patient; Need for hepatitis B screening test; Encounter for screening mammogram for malignant neoplasm of breast from Last 3 Months Immunizations Name Administration Dates Next Due Influenza, Unspecified 10/05/2024(Deferr ed: Patient Refused),08/03/2023(Deferred: Patient Refused) Surgical History Surgery Date Site/Laterality Comments SECTION 2005 and 2008 Medical History Medical History Date Comments Arthritis Family History Medical History Relation Name Comments Diabetes Father Moe Heart disease Father Moe Hypertension Father Moe Stroke Father Moe Arthritis Mother Maggie Cancer Mother Maggie Hypertension Mother Maggie Melanoma Mother Maggie Breast cancer Mother's Sister Cancer Paternal Grandfather Kelvin Arthritis Sister Xi Diabetes Sister Xi Ovarian cancer Neg Hx Thyroid cancer Neg Hx Relation Name Status Comments Father Moe Mother Maggie Mother's Sister Paternal Grandfather Kelvin Sister Xi Social History Tobacco Use Types Packs/Day Years Used Date Smoking Tobacco: Never Cigarettes Smokeless Tobacco: Never Tobacco Cessation:Counseling Given: Not Answered Comments Unknown Sex and Gender Information Value Date Recorded Sex Assigned at Not on file Legal Sex Female 8:59 AM BROILER SUPERVISOR Gender Identity Not on file Sexual Orientation Not on file Obstetrics History Para Term AB IAB SAB Ectopic Multiple Livin g Live Births 2 Date Outcome GA Total Labor Labor/2nd/3rd Weight Sex Type Anes PTL Sivan A1 A5 Name Clin Last Filed Vital Signs Vital Sign Reading Time Taken Comments Blood Pressure 124/72 10/06/2024 7:23 AM BROILER SUPERVISOR Pulse 84 10/06/2024 7:23 AM BROILER SUPERVISOR Temperature 36.2 C (97.2 F) 10/06/2024 7:23 AM BROILER SUPERVISOR Respiratory Rate - - Oxygen Saturation 99% 10/06/2024 7:23 AM BROILER SUPERVISOR Inhaled Oxygen Concentration - - Weight 122.5 kg (270 lb) 10/06/2024 7:23 AM BROILER SUPERVISOR Height 177.8 cm (5' 10 ) 11/17/2024 8:02 AM BROILER SUPERVISOR Body Mass Index 38.74 10/06/2024 7:23 AM BROILER SUPERVISOR Plan of Treatment Health Maintenance Due Date Last Done Comments Cervical Cancer Screening 1982 Depression Screening 1982 DTaP/Tdap/Td Vaccine (1 - Tdap) 1993 Varicella Vaccines (1 of 2 - 13+ 2-dose series) 1995 Influenza Vaccine (#1) 2024 Regular Well Visit/Exam 18-64 10/06/2025 10/06/2024 Breast Cancer Screening-Mammogram 11/17/2025 025 Hepatitis B Screening Completed 10/06/2024 Hepatitis C Screening Completed 10/06/2024 HPV Vaccines Aged Out No longer eligi ble based on patient's age to complete this topic Pneumococcal vaccine <65 Aged Out No longer eligible based on patient's age to complete this topic Procedures Procedure Name Priority Date/Time Associated Diagnosis Comments US BREAST RIGHT LIMITED Schedule Routine, Read Routine (OP Routine) 11/17/2024 8:46 AM BROILER SUPERVISOR Mass of upper outer quadrant of right breast DIAGNOSTIC MAMMOGRAM BILATERAL W BETHANY Schedule Routine, Read Routine (OP Routine) 11/17/2024 8:03 AM BROILER SUPERVISOR Mass of upper outer quadrant of right breast EGFR Routine 10/06/2024 8:40 AM BROILER SUPERVISOR Screening for diabetes mellitus DIFFERENTIAL AUTO Routine 10/06/2024 8:4 0 AM BROILER SUPERVISOR Screening, anemia, deficiency, iron RHEUMATOID FACTOR Routine 10/06/2024 8:4 0 AM BROILER SUPERVISOR Arthralgia, unspecified joint ERYTHROCYTE SEDIMENTATION RATE Routine 10/06/2024 8:40 AM BROILER SUPERVISOR Arthralgia, unspecified joint HEMOGLOBIN A1C Routine 10/06/2024 8:40 AM BROILER SUPERVISOR Screening for diabetes mellitus TSH Routine 10/06/2024 8:40 AM BROILER SUPERVISOR Screening for thyroid disorder LIPID PANEL Routine 10/06/2024 8:40 AM BROILER SUPERVISOR Screening for lipid disorders COMPREHENSIVE METABOLIC PANEL Routine 10/06/2024 8:40 AM BROILER SUPERVISOR Screening for diabetes mellitus CBC WITH AUTO DIFFERENTIAL Routine 10/06/2024 8:40 AM BROILER SUPERVISOR Screening, anemia, deficiency, iron HEPATITIS B SURFACE ANTIGEN Routine 10/06/2024 8:40 AM BROILER SUPERVISOR Need for hepatitis B screening test HEPATITIS B SURFACE ANTIBODY (IMMUNE STATUS) Routine 10/06/2024 8:40 AM BROILER SUPERVISOR Need for hepatitis B screening test HEPATITIS B CORE ANTIBODY, TOTAL Routine 10/06/2024 8:40 AM BROILER SUPERVISOR Need for hepatitis B screening test HEPATITIS C ANTIBODY Routine 10/06/2024 8:40 AM BROILER SUPERVISOR Encounter for hepatitis C screening test for low risk patient from Last 3 Months Results * US Breast Right Limited (11/17/2024 8:46 AM BROILER SUPERVISOR) Anatomical Region Laterality Modality Breast Right Ultrasound 11/17/2024 9:00 AM BROILER SUPERVISOR Impressions 11/17/2024 9:00 AM BROILER SUPERVISOR No mammographic or sonographic evidence of malignancy. Clinical management of the palpable area of concern is recommended Follow-up in 1 year with screening mammography is recommended. BI-RADS: 1 - Negative. The patient has been or will be contacted. The patient will be entered into a reminder system with a target due date of 1 year for her next mammogram. Electronically signed by: Fitz Turcios M.D. Narrative 11/17/2024 9:00 AM BROILER SUPERVISOR EXAMINATION: DIAGNOSTIC MAMMOGRAM BILATERAL W BETHANY, US BREAST RIGHT LIMITED ORDERING HEALTHCARE PROVIDER: NICOLE AGUAYO HISTORY: Palpable mass right breast. COMPARISON: None TECHNIQUE: CC and MLO routine views of the Bilateral breasts were obtained with digital technique using breast tomosynthesis with C view. Computer aided detection was utilized. This was followed by targeted right breast sonography. FINDINGS: There are scattered areas of fibroglandular density. There are no suspicious masses, calcifications, or architectural distortion in either breast on the mammogram or targeted right breast ultrasound. us Nicole Aguayo WELDING EQUIPMENT REPAIRER SUPERVISOR IMG MAMMO PROCEDURES Final Re sult * DIAGNOSTIC MAMMOGRAM BILATERAL W BETHANY (11/17/2024 8:03 AM BROILER SUPERVISOR) Anatomical Region Laterality Modality Breast Bilateral Mammography 11/17/2024 9:00 AM BROILER SUPERVISOR Impressions 11/17/2024 9:00 AM BROILER SUPERVISOR No mammographic or sonographic evidence of malignancy. Clinical management of the palpable area of concern is recommended Follow-up in 1 year with screening mammography is recommended. BI-RADS: 1 - Negative. The patient has been or will be contacted. The patient will be entered into a reminder system with a target due date of 1 year for her next mammogram. Electronically signed by: Fitz Turcios M.D. Narrative 11/17/2024 9:00 AM BROILER SUPERVISOR EXAMINATION: DIAGNOSTIC MAMMOGRAM BILATERAL W BETHANY, US BREAST RIGHT LIMITED ORDERING HEALTHCARE PROVIDER: NICOLE AGUAYO HISTORY: Palpable mass right breast. COMPARISON: None TECHNIQUE: CC and MLO routine views of the Bilateral breasts were obtained with digital technique using breast tomosynthesis with C view. Computer aided detection was utilized. This was followed by targeted right breast sonography. FINDINGS: There are scattered areas of fibroglandular density. There are no suspicious masses, calcifications, or architectural distortion in either breast on the mammogram or targeted right breast ultrasound. Nicole Aguayo NP IMG MAMMO PROCEDURES Final Re sult * eGFR (10/06/2024 8:40 AM BROILER SUPERVISOR) eGFR >90 >=60 mL/min/1. 73 m2 Comment: Interpretive Data Reference Interval Normal >/= 90 mL/min/1.73m2 Mildly decreased* 60 - 89 mL/min/1.73m2 Mildly to moderately decreased 45 - 59 mL/min/1.73m2 Moderately to severely decreased 30 - 44 mL/min/1.73m2 Severely decreased 15 - 29 mL/min/1.73m2 Kidney Failure < 15 mL/min/1.73m2 *Relative to young adult level Estimated glomerular filtration rate is determined by the 2020 CKD-EPI equation recommended by the National Kidney Foundation (A Unifying Approach to GFR Estimation: Recommendations of the NKF-ASK Task Force on Reassessing the Inclusion of Race in Diagnosing Kidney Disease, JASN 2020). The CKD-EPI equation should not be used for patients with unstable renal function and has not been validated in children and those over 70. Current interpretive data was last reviewed 2021. Blood 10/06/2024 8:40 AM BROILER SUPERVISOR 10/06/2024 3:11 PM BROILER SUPERVISOR Nicole Aguayo NP LAB BLOOD ORDERABLES Final Re sult JOAN [id number] Department [place] [address] * Differential, auto (10/06/2024 8:40 AM BROILER SUPERVISOR) Neutrophil abs 2.6 1.5 - 6.5 K/cumm Imm gran abs 0.0 0.0 - 0.1 K/cumm [facility] Lymphocyte abs 0.9 0.8 - 3.3 K/cumm [facility] Monocyte abs 0.3 0.2 - 0.8 K/cumm [facility] Eosinophil abs 0.1 0.0 - 0.5 K/cumm [facility] Basophil abs 0.0 0.0 - 0.1 K/cumm [facility] Neutrophil pct 66.3 % [facility] Comment: Interpretive Data Percent cell count reference ranges are not reported, since discordance with absolute values may lead to misinterpretation of CBC data. Current Interpretive Data was last revised on 2018. Imm gran pct 0.3 % [facility] Comment: Interpretive Data Percent cell count reference ranges are not reported, since discordance with absolute values may lead to misinterpretation of CBC data. Current Interpretive Data was last revised on 2018. Lymphocyte pct 22.0 % [facility] Comment: Interpretive Data Percent cell count reference ranges are not reported, since discordance with absolute values may lead to misinterpretation of CBC data. Current Interpretive Data was last revised on 2018. Monocyte pct 8.6 % [facility] Comment: Interpretive Data Percent cell count reference ranges are not reported, since discordance with absolute values may lead to misinterpretation of CBC data. Current Interpretive Data was last revised on 2018. Eosinophil pct 2.0 % [facility] Comment: Interpretive Data Percent cell count reference ranges are not reported, since discordance with absolute values may lead to misinterpretation of CBC data. Current Interpretive Data was last revised on 2018. Basophil pct 0.8 % [facility] Comment: Interpretive Data Percent cell count reference ranges are not reported, since discordance with absolute values may lead to misinterpretation of CBC data. Current Interpretive Data was last revised on 2018. Blood 10/06/2024 8:40 AM BROILER SUPERVISOR 10/06/2024 3:05 PM BROILER SUPERVISOR us Nicole Aguayo NP LAB BLOOD ORDERABLES Final Re sult [address]AN [id number] Department [place] [address] * (ABNORMAL) CBC with auto differential (10/06/2024 8:40 AM BROILER SUPERVISOR) WBC 4.0 3.8 - 9.9 K/cumm Hgb 12.7 11.9 - 15.5 g/dL [facility] Hct 40.3 35.6 - 45.5 % [facility] Plt 297 150 - 400 K/cumm [facility] MPV 9.4 9.1 - 12.3 fL [facility] RBC 4.32 3.90 - 5.20 M/cumm [facility] MCV 93.3 81.3 - 96.4 fL [facility] MCH 29.4 27.1 - 33.3 pg [facility] MCHC 31.5(L) 32.3 - 35.7 g/dL [facility] RDW CV 12.9 11.1 - 14.9 % [facility] RDW SD 43.8 35.7 - 48.1 fL [facility] NRBC abs 0.00 0.00 - 0.01 K/cumm [facility] Blood 10/06/2024 8:40 AM BROILER SUPERVISOR 10/06/2024 3:05 PM BROILER SUPERVISOR Nicole Aguayo NP LAB BLOOD ORDERABLES Final Re sult Performing Organization Address [facility] de Phone Number JOAN PALOMINO [id number] [place] [address] * Hepatitis C antibody Blood (10/06/2024 8:40 AM BROILER SUPERVISOR) Hep C Ab Nonreactive Nonreactive Comment: Interpretive Data Nonreactive: Antibodies to HCV not detected. Does NOT exclude the possibility of recent exposure to HCV. Equivocal: Equivocal for HCV antibodies. Supplemental molecular testing will be automatically performed to determine infection status in accordance with current CDC screening recommendations. Reactive: Positive for HCV antibodies. This may represent current or past HCV infection. Supplemental molecular testing will be automatically performed to determine current infection status in accordance with current CDC screening recommendations. Interpretive data was last revised on 2020. Blood 10/06/2024 8:40 AM BROILER SUPERVISOR 10/06/2024 3:05 PM BROILER SUPERVISOR Nicole Aguayo NP LAB MICROBIOLOGY - GENERAL OR DERABLES Final Result Performing Organization Address [facility] Co de Phone Number [facility] [id number] [place] [address] * Hepatitis B core antibody, total Blood (10/06/2024 8:40 AM BROILER SUPERVISOR) Pathologist [facility] Hep B core IgG/IgM Nonreactive Nonreactive Comment:Testing performed by : [facility], [address] [facility], [place]., [address] Blood 10/06/2024 8:40 AM BROILER SUPERVISOR 10/07/2024 9:52 AM BROILER SUPERVISOR Nicole Aguayo NP LAB MICROBIOLOGY - GENERAL OR DERABLES Final Result Performing Organization Address [facility] Co de Phone Number ABHISHEK[facility] PALOMINO [id number] [place] [address] * Hepatitis B surface antibody (immune status) Blood (10/06/2024 8:40 AM BROILER SUPERVISOR) Pathologist [facility] HBsAb (immune status) Reactive Comment: Interpretive Data Nonreactive: This result is consistent with a lack of immunity to Hepatitis B Virus when used in the setting of routine screening. Equivocal: The immune status of the individual should be further assessed, if appropriate, after consideration of clinical status, risk factors, and additional diagnostic information. Reactive: This result is consistent with immunity to Hepatitis B Virus when used in the setting of routine screening. Current interpretive data was last revised on 20. HBsAb (immune status) index 27.6 mIUnits/m L JOAN Blood 10/06/2024 8:40 AM BROILER SUPERVISOR 10/06/2024 3:05 PM BROILER SUPERVISOR Nicole Aguayo NP LAB MICROBIOLOGY - GENERAL OR DERABLES Final Result Performing Organization Address [facility] Co de Phone Number JOAN PALOMINO [phone] [place] [address] * Hepatitis B Surface Antigen Blood (10/06/2024 8:40 AM BROILER SUPERVISOR) HepBsAg Nonreactive Nonreactive Blood 10/06/2024 8:40 AM BROILER SUPERVISOR 10/06/2024 3:05 PM BROILER SUPERVISOR us Nicole Aguayo NP LAB MICROBIOLOGY - GENERAL OR DERABLES Final Result Performing Organization Address [facility] Co de Phone Number JOAN PALOMINO [phone] [facility] [address] * Erythrocyte sedimentation rate (10/06/2024 8:40 AM BROILER SUPERVISOR) Erythrocyte sedimentation rate 17 1 - 20 mm/hr Blood 10/06/2024 8:40 AM BROILER SUPERVISOR 10/06/2024 3:05 PM BROILER SUPERVISOR Nicole Aguayo NP LAB BLOOD ORDERABLES Final Re sult Performing Organization Address [facility] de Phone Number JOAN PALOMINO [phone] [place] [address] * Rheumatoid factor (10/06/2024 8:40 AM BROILER SUPERVISOR) Rheumatoid factor, quant <10 <=15 IUnits/mL Blood 10/06/2024 8:40 AM BROILER SUPERVISOR 10/06/2024 3:05 PM BROILER SUPERVISOR us Nicole Aguayo NP LAB BLOOD ORDERABLES Final Re sult Performing Organization Address [facility] de Phone Number JOAN GEORGETTE [phone] [place] [address] * TSH (10/06/2024 8:40 AM BROILER SUPERVISOR) Thyroid Stimulating Hormone 0.78 0.30 - 4.20 mcIUnit/mL Blood 10/06/2024 8:40 AM BROILER SUPERVISOR 10/06/2024 3:05 PM BROILER SUPERVISOR us Nicole Aguayo NP LAB BLOOD ORDERABLES Final Re sult Performing Organization Address [facility] Co de Phone Number ABHISHEKIVON PALOMINO [phone] [place] [address] * Hemoglobin A1c (10/06/2024 8:40 AM BROILER SUPERVISOR) Hgb A1C 5.1 4.0 - 5.6 % Estimated Average Glucose 100 mg/dL JOAN PALOMINO Comment: The ADA recommends reporting an estimated Average Glucose (eAG) with all Hemoglobin A1c results using the equation derived from a study of 507 normal and diabetic adults. Minority populations were underrepresented and children were not included. (Diabetes Care 31:9480-3645, 2008). The eAG is not equivalent to a fasting glucose. Blood 10/06/2024 8:40 AM BROILER SUPERVISOR 10/06/2024 3:05 PM BROILER SUPERVISOR us Nicole Aguayo WELDING EQUIPMENT REPAIRER SUPERVISOR LAB BLOOD ORDERABLES Final Re sult JOAN [id number] [place] [address] * (ABNORMAL) Lipid panel (10/06/2024 8:40 AM BROILER SUPERVISOR) Cholesterol 208(H) 30 - 199 mg/dL Comment: Interpretive Data Ages < or = 19 years Acceptable: <170 mg/dL Borderline high: 170-199 mg/dL High: >or= 200 mg/dL Ages > or = 20 years Desirable: <200 mg/dL Borderline high: 200-239 mg/dL High: >or= 240 mg/dL Literature References: 1. Expert Panel on Integrated Guidelines for Cardiovascular Health and Risk Reduction in Children and Adolescents. Pediatrics 2011;128:S213 2. NCEP Expert Panel. Circulation 2004;110:227 Current Interpretive Data was last revised on 2018. Triglycerides 112 <=149 mg/dL JOAN PALOMINO Comment: Interpretive Data Ages < or = 9 years Acceptable: <75 mg/dL Borderline high: 75-99 mg/dL High: >or= 100 mg/dL Ages 10 to 20 years Acceptable: <90 mg/dL Borderline high: 90-129 mg/dL High: >or= 130 mg/dL Ages > or = 20 years Desirable: <150 mg/dL Borderline high: 150-199 mg/dL High: 200-499 mg/dL Very high: >or= 499 mg/dL Literature References: 1. Expert Panel on Integrated Guidelines for Cardiovascular Health and Risk Reduction in Children and Adolescents. Pediatrics 2011;128:S213 2. NCEP Expert Panel. Circulation 2004;110:227 Current Interpretive Data was last revised on 2018. HDL 63 >=40 mg/dL JOAN PALOMINO Comment: Interpretive Data Ages < or = 19 years Acceptable: >45 mg/dL Borderline low: 40-45 mg/dL Low: <40 mg/dL Ages > or = 20 years Desirable: >or= 60 mg/dL Low: <40 mg/dL Literature References: 1. Expert Panel on Integrated Guidelines for Cardiovascular Health and Risk Reduction in Children and Adolescents. Pediatrics 2011;128:S213 2. NCEP Expert Panel. Circulation 2004;110:227 Current Interpretive Data was last revised on 2018. LDL, calculated 125 <=129 mg/dL JOAN PALOMINO Comment: Interpretive Data Ages < or = 19 years Acceptable: <110 mg/dL Borderline high: 110-129 mg/dL High: >or= 130 mg/dL Ages > or = 20 years Optimal: <100 mg/dL Near optimal: 100-129 mg/dL Borderline high: 130-159 mg/dL High: >160 mg/dL Calculated using the Surjit LDL-C estimating equation. This equation was implemented on 2024. Prior to this date LDL-C was estimated using the Friedewald equation. Literature References: 1. Expert Panel on Integrated Guidelines for Cardiovascular Health and Risk Reduction in Children and Adolescents. Pediatrics 2011;128:S213 2. NCEP Expert Panel. Circulation 2004;110:227 3. Surjit Burgess al. DAHLIA Cardiol. 2020 February 23;5(5):540-548. doi: 10.1001/jamacardio.2020.0013 Current Interpretive Data was last revised on 2024. Non-HDL Cholesterol 145 mg/dL JOAN PALOMINO Comment: Interpretive Data Ages < or = 19 years Acceptable: <120 mg/dL Borderline high: 120-144 mg/dL High: >145 mg/dL Ages > or = 20 years When triglycerides are >200 mg/dL, Non-HDL cholesterol is a secondary target of therapy with treatment goals that are 30 mg/dL greater than the LDL cholesterol target. Literature References: 1. Expert Panel on Integrated Guidelines for Cardiovascular Health and Risk Reduction in Children and Adolescents. Pediatrics 2011;128:S213 2. NCEP Expert Panel. Circulation 2004;110:227 Current Interpretive Data was last revised on 2018. Chol/HDL ratio 3 [facility] Blood 10/06/2024 8:40 AM BROILER SUPERVISOR 10/06/2024 3:05 PM BROILER SUPERVISOR us Nicole Aguayo WELDING EQUIPMENT REPAIRER SUPERVISOR LAB BLOOD ORDERABLES Final Re sult [facility] [address] Department [place] [address] * Comprehensive metabolic panel (10/06/2024 8:40 AM BROILER SUPERVISOR) Sodium 137 135 - 145 mmol/L Potassium, pl 4.3 3.3 - 4.9 mmol/L [facility] Chloride 103 97 - 110 mmol/L [facility] CO2 23 22 - 32 mmol/L [facility] Anion gap 11 2 - 15 mmol/L [facility] BUN 9 6 - 25 mg/dL [facility] Creatinine 0.67 0.60 - 1.10 mg/dL [facility] Glucose 88 70 - 199 mg/dL [facility] Comment: Interpretive Data Fasting glucose >/= 126 mg/dl is diagnostic for diabetes. Fasting is defined as no caloric intake for at least 8 hours. Fasting glucose between 100 mg/dl to 125 mg/dl is diagnostic of prediabetes. In a patient with classic symptoms of hyperglycemia or hyperglycemic crisis, a random glucose >/= 200 mg/dl is diagnostic for diabetes. In the absence of unequivocal hyperglycemia, results should be confirmed by repeat testing. The classification and Diagnosis of Diabetes Diabetes Care 202; 46: S19-S40. Current interpretive data was last revised 2022. Calcium 9.5 8.5 - 10.3 mg/dL [facility] Bilirubin, total 0.3 0.1 - 1.2 mg/dL [facility] Protein, pl 8.0 6.5 - 8.5 g/dL [facility] Albumin 4.3 3.5 - 5.0 g/dL [facility] Alk phos 67 40 - 130 Units/L [facility] ALT 21 7 - 45 Units/L [facility] AST 25 10 - 45 Units/L [facility] Blood 10/06/2024 8:4 0 AM BROILER SUPERVISOR 10/06/2024 3:05 PM BROILER SUPERVISOR Nicole Aguayo NP LAB BLOOD ORDERABLES Final Re sult JOAN [id number] Department [place] [address] from Last 3 Months Insurance [facility] ACCESS CHOICE Care Teams Inspector And Sorter Relationship Specialty Start Date End Date Nicole Aguayo NP [phone] [facility] [address] [place] [address] PCP - General Family Medicine 10/06/24
--- OUTSIDE RECORDS SUMMARY | 2024-12-02 20:04 | XMS_ITS | Referral Summary ---
Author Organization [facility] [address] Address [address] [place] [address] [address] [place] [address] Care Team Providers Care Exhibition Designer Name Role Phone Fanny Aguayo NP Primary Care Provider [phone] Encounters Date Type Department Care Team Description 11/17/2024 7:49 AM SENIOR LIVING SALES COUNSELOR - 11/17/2024 11:59 PM SENIOR LIVING SALES COUNSELOR Hospital Encounter [facility] [address] [place] [address] Mass of upper outer quadrant of right breast Discharge Disposition: Discharge to home or self care 11/17/2024 7:48 AM SENIOR LIVING SALES COUNSELOR - 11/17/2024 11:59 PM SENIOR LIVING SALES COUNSELOR Hospital Encounter [facility] [address] [place] [address] Mass of upper outer quadrant of right breast Discharge Disposition: Discharge to home or self care 10/06/2024 8:40 AM SENIOR LIVING SALES COUNSELOR - 10/06/2024 11:59 PM SENIOR LIVING SALES COUNSELOR Hospital Encounter [address] [address] Screening, anemia, deficiency, iron; Screening for diabetes mellitus; Screening for lipid disorders; Screening for thyroid disorder; Encounter for hepatitis C screening test for low risk patient; Need for hepatitis B screening test; Arthralgia, unspecified joint Discharge Disposition: Discharge to home or self care 10/06/2024 8:30 AM SENIOR LIVING SALES COUNSELOR Lab [facility] Outpatient Lab at [address] [place] [phone] Pain in joint, multiple sites (Primary Dx); Screening examination for poliomyelitis; Screening for diabetes mellitus; Screening for thyroid disorder; Screening for lipoid disorders; Screening for iron deficiency anemia 10/06/2024 7:30 AM SENIOR LIVING SALES COUNSELOR Office Visit [facility] Primary Care at [address] [phone] Fanny Aguayo NP Encounter for medical examination to [...] neoplasm of breast from Last 3 Months Allergies No known active allergies Medications No [...] neoplasm of breast 10/06/2024 Allergic rhinitis 10/06/2024 Immunizations Name Administration Dates Next Due Influenza, Unspecified 10/05/2024(Deferr ed: Patient Refused),08/03/2023(Deferred: Patient Refused) Social History Tobacco Use Types Packs/Day Years Used Date Smoking Tobacco: Never Cigarettes Smokeless Tobacco: Never Tobacco Cessation:Counseling Given: Not Answered Comments Unknown Sex and Gender Information Value Date Recorded Sex Assigned at Not on file Legal Sex Female 8:59 AM SENIOR LIVING SALES COUNSELOR Gender Identity Not on file Sexual Orientation Not on file Last Filed Vital Signs Vital Sign Reading Time Taken Comments Blood Pressure 124/72 10/06/2024 7:23 AM SENIOR LIVING SALES COUNSELOR Pulse 84 10/06/2024 7:23 AM SENIOR LIVING SALES COUNSELOR Temperature 36.2 C (97.2 F) 10/06/2024 7:23 AM SENIOR LIVING SALES COUNSELOR Respiratory Rate - - Oxygen Saturation 99% 10/06/2024 7:23 AM SENIOR LIVING SALES COUNSELOR Inhaled Oxygen Concentration - - Weight 122.5 kg (270 lb) 10/06/2024 7:23 AM SENIOR LIVING SALES COUNSELOR Height 177.8 cm (5' 10 ) 11/17/2024 8:02 AM SENIOR LIVING SALES COUNSELOR Body Mass Index 38.74 10/06/2024 7:23 AM SENIOR LIVING SALES COUNSELOR Plan of Treatment Not on file Procedures Procedure Name Priority Date/Time Associated Diagnosis Comments US BREAST RIGHT LIMITED Schedule Routine, Read Routine (OP Routine) 11/17/2024 8:46 AM SENIOR LIVING SALES COUNSELOR Mass of upper outer quadrant of right breast DIAGNOSTIC MAMMOGRAM BILATERAL W BETHANY Schedule Routine, Read Routine (OP Routine) 11/17/2024 8:03 AM SENIOR LIVING SALES COUNSELOR Mass of upper outer quadrant of right breast EGFR Routine 10/06/2024 8:40 AM SENIOR LIVING SALES COUNSELOR Screening for diabetes mellitus DIFFERENTIAL AUTO Routine 10/06/2024 8:4 0 AM SENIOR LIVING SALES COUNSELOR Screening, anemia, deficiency, iron RHEUMATOID FACTOR Routine 10/06/2024 8:4 0 AM SENIOR LIVING SALES COUNSELOR Arthralgia, unspecified joint ERYTHROCYTE SEDIMENTATION RATE Routine 10/06/2024 8:40 AM SENIOR LIVING SALES COUNSELOR Arthralgia, unspecified joint HEMOGLOBIN A1C Routine 10/06/2024 8:40 AM SENIOR LIVING SALES COUNSELOR Screening for diabetes mellitus TSH Routine 10/06/2024 8:40 AM SENIOR LIVING SALES COUNSELOR Screening for thyroid disorder LIPID PANEL Routine 10/06/2024 8:40 AM SENIOR LIVING SALES COUNSELOR Screening for lipid disorders COMPREHENSIVE METABOLIC PANEL Routine 10/06/2024 8:40 AM SENIOR LIVING SALES COUNSELOR Screening for diabetes mellitus CBC WITH AUTO DIFFERENTIAL Routine 10/06/2024 8:40 AM SENIOR LIVING SALES COUNSELOR Screening, anemia, deficiency, iron HEPATITIS B SURFACE ANTIGEN Routine 10/06/2024 8:40 AM SENIOR LIVING SALES COUNSELOR Need for hepatitis B screening test HEPATITIS B SURFACE ANTIBODY (IMMUNE STATUS) Routine 10/06/2024 8:40 AM SENIOR LIVING SALES COUNSELOR Need for hepatitis B screening test HEPATITIS B CORE ANTIBODY, TOTAL Routine 10/06/2024 8:40 AM SENIOR LIVING SALES COUNSELOR Need for hepatitis B screening test HEPATITIS C ANTIBODY Routine 10/06/2024 8:40 AM SENIOR LIVING SALES COUNSELOR Encounter for hepatitis C screening test for low risk patient from Last 3 Months Results * US Breast Right Limited (11/17/2024 8:46 AM SENIOR LIVING SALES COUNSELOR) Anatomical Region Laterality Modality Breast Right Ultrasound 11/17/2024 9:00 AM SENIOR LIVING SALES COUNSELOR Impressions 11/17/2024 9:00 AM SENIOR LIVING SALES COUNSELOR No mammographic or sonographic evidence of malignancy. [...] Fitz Turcios M.D. Narrative 11/17/2024 9:00 AM SENIOR LIVING SALES COUNSELOR EXAMINATION: DIAGNOSTIC MAMMOGRAM BILATERAL W BETHANY, US BREAST RIGHT LIMITED ORDERING HEALTHCARE PROVIDER: FANNY AGUAYO HISTORY: Palpable mass right breast. COMPARISON: [...] mammogram or targeted right breast ultrasound. us Fanny Aguayo MERCHANDISE FOR RESALE PURCHASING AGENT IMG MAMMO PROCEDURES Final Re sult * DIAGNOSTIC MAMMOGRAM BILATERAL W BETHANY (11/17/2024 8:03 AM SENIOR LIVING SALES COUNSELOR) Anatomical Region Laterality Modality Breast Bilateral Mammography 11/17/2024 9:00 AM SENIOR LIVING SALES COUNSELOR Impressions 11/17/2024 9:00 AM SENIOR LIVING SALES COUNSELOR No mammographic or sonographic evidence of malignancy. [...] Fitz Turcios M.D. Narrative 11/17/2024 9:00 AM SENIOR LIVING SALES COUNSELOR EXAMINATION: DIAGNOSTIC MAMMOGRAM BILATERAL W BETHANY, US BREAST RIGHT LIMITED ORDERING HEALTHCARE PROVIDER: FANNY AGUAYO HISTORY: Palpable mass right breast. COMPARISON: [...] mammogram or targeted right breast ultrasound. us Fanny Aguayo MERCHANDISE FOR RESALE PURCHASING AGENT IMG MAMMO PROCEDURES Final Re sult * eGFR (10/06/2024 8:40 AM SENIOR LIVING SALES COUNSELOR) eGFR >90 >=60 mL/min/1. 73 m2 Comment: [...] last reviewed 2021. Blood 10/06/2024 8:40 AM SENIOR LIVING SALES COUNSELOR 10/06/2024 3:11 PM SENIOR LIVING SALES COUNSELOR us Fanny Aguayo MERCHANDISE FOR RESALE PURCHASING AGENT LAB BLOOD ORDERABLES Final Re sult JOAN [phone] Department [place] [address] * Differential, auto (10/06/2024 8:40 AM SENIOR LIVING SALES COUNSELOR) Neutrophil abs 2.6 1.5 - 6.5 K/cumm Imm gran abs 0.0 0.0 - 0.1 K/cumm [facility] Lymphocyte abs 0.9 0.8 - 3.3 K/cumm [facility] Monocyte abs 0.3 0.2 - 0.8 K/cumm [facility] Eosinophil abs 0.1 0.0 - 0.5 K/cumm [facility] Basophil abs 0.0 0.0 - 0.1 K/cumm [facility] Neutrophil pct 66.3 % [facility] Comment: Interpretive Data Percent cell count reference ranges are not reported, since discordance with absolute values may lead to misinterpretation of CBC data. Current Interpretive Data was last revised on 2018. Imm gran pct 0.3 % [facility] Comment: Interpretive Data Percent cell count reference ranges are not reported, since discordance with absolute values may lead to misinterpretation of CBC data. Current Interpretive Data was last revised on 2018. Lymphocyte pct 22.0 % [facility] Comment: Interpretive Data Percent cell count reference ranges are not reported, since discordance with absolute values may lead to misinterpretation of CBC data. Current Interpretive Data was last revised on 2018. Monocyte pct 8.6 % [facility] Comment: Interpretive Data Percent cell count reference ranges are not reported, since discordance with absolute values may lead to misinterpretation of CBC data. Current Interpretive Data was last revised on 2018. Eosinophil pct 2.0 % [facility] Comment: Interpretive Data Percent cell count reference ranges are not reported, since discordance with absolute values may lead to misinterpretation of CBC data. Current Interpretive Data was last revised on 2018. Basophil pct 0.8 % [facility] Comment: Interpretive Data Percent cell count reference ranges are not reported, since discordance with absolute values may lead to misinterpretation of CBC data. Current Interpretive Data was last revised on 2018. Blood 10/06/2024 8:40 AM SENIOR LIVING SALES COUNSELOR 10/06/2024 3:05 PM SENIOR LIVING SALES COUNSELOR Fanny Aguayo MERCHANDISE FOR RESALE PURCHASING AGENT LAB BLOOD ORDERABLES Final Re sult JOAN PALOMINO [id number] [place] [address] * (ABNORMAL) CBC with auto differential (10/06/2024 8:40 AM SENIOR LIVING SALES COUNSELOR) WBC 4.0 3.8 - 9.9 K/cumm Hgb 12.7 11.9 - 15.5 g/dL [facility] Hct 40.3 35.6 - 45.5 % [facility] Plt 297 150 - 400 K/cumm [facility] MPV 9.4 9.1 - 12.3 fL [facility] RBC 4.32 3.90 - 5.20 M/cumm [facility] MCV 93.3 81.3 - 96.4 fL [facility] MCH 29.4 27.1 - 33.3 pg [facility] MCHC 31.5(L) 32.3 - 35.7 g/dL [facility] RDW CV 12.9 11.1 - 14.9 % [facility] RDW SD 43.8 35.7 - 48.1 fL [facility] NRBC abs 0.00 0.00 - 0.01 K/cumm [facility] Blood 10/06/2024 8:40 AM SENIOR LIVING SALES COUNSELOR 10/06/2024 3:05 PM SENIOR LIVING SALES COUNSELOR Fanny Aguayo NP LAB BLOOD ORDERABLES Final Re sult Performing Organization Address City/[facility]/ZIP Co de Phone Number JOAN PALOMINO [phone] [facility] [place] [address] * Hepatitis C antibody Blood (10/06/2024 8:40 AM SENIOR LIVING SALES COUNSELOR) Hep C Ab Nonreactive Nonreactive Comment: Interpretive [...] revised on 2020. Blood 10/06/2024 8:40 AM SENIOR LIVING SALES COUNSELOR 10/06/2024 3:05 PM SENIOR LIVING SALES COUNSELOR Fanny Aguayo NP LAB MICROBIOLOGY - GENERAL OR DERABLES Final Result Performing Organization Address [facility]/ZIP Co de Phone Number ABHISHEKIVON [phone] [facility] [place] [address] * Hepatitis B core antibody, total Blood (10/06/2024 8:40 AM SENIOR LIVING SALES COUNSELOR) Hep B core IgG/IgM Nonreactive Nonreactive Comment:Testing performed by : [facility], [address] [facility], [place]., [address] Blood 10/06/2024 8:40 AM SENIOR LIVING SALES COUNSELOR 10/07/2024 9:52 AM SENIOR LIVING SALES COUNSELOR Fanny Aguayo NP LAB MICROBIOLOGY - GENERAL OR DERABLES Final Result Performing Organization Address City/[facility] Co de Phone Number JOAN [address] [place] [address] * Hepatitis B surface antibody (immune status) Blood (10/06/2024 8:40 AM SENIOR LIVING SALES COUNSELOR) HBsAb (immune status) Reactive Comment: Interpretive Data [...] HBsAb (immune status) index 27.6 mIUnits/m L [facility] Blood 10/06/2024 8:40 AM SENIOR LIVING SALES COUNSELOR 10/06/2024 3:05 PM SENIOR LIVING SALES COUNSELOR us Fanny Aguayo NP LAB MICROBIOLOGY - GENERAL OR DERABLES Final Result Performing Organization Address [facility] Co de Phone Number [facility] [address] [address] [facility] [place] [address] * Hepatitis B Surface Antigen Blood (10/06/2024 8:40 AM SENIOR LIVING SALES COUNSELOR) HepBsAg Nonreactive Nonreactive Blood 10/06/2024 8:40 AM SENIOR LIVING SALES COUNSELOR 10/06/2024 3:05 PM SENIOR LIVING SALES COUNSELOR Fanny Aguayo NP LAB MICROBIOLOGY - GENERAL OR DERABLES Final Result Performing Organization Address [facility] de Phone Number [facility] [address] [facility] [place] [address] * Erythrocyte sedimentation rate (10/06/2024 8:40 AM SENIOR LIVING SALES COUNSELOR) Pathologist [facility] Erythrocyte sedimentation rate 17 1 - 20 mm/hr Blood 10/06/2024 8:40 AM SENIOR LIVING SALES COUNSELOR 10/06/2024 3:05 PM SENIOR LIVING SALES COUNSELOR Fanny Aguayo NP LAB BLOOD ORDERABLES Final Re sult Performing Organization Address [facility] de Phone Number [facility] [phone] [facility] [place] [address] * Rheumatoid factor (10/06/2024 8:40 AM SENIOR LIVING SALES COUNSELOR) Rheumatoid factor, quant <10 <=15 IUnits/mL Blood 10/06/2024 8:40 AM SENIOR LIVING SALES COUNSELOR 10/06/2024 3:05 PM SENIOR LIVING SALES COUNSELOR Fanny L. Ruma MERCHANDISE FOR RESALE PURCHASING AGENT LAB BLOOD ORDERABLES Final Re sult Performing Organization Address [facility] de Phone Number JOAN [phone] [address] [facility] [place] [address] * TSH (10/06/2024 8:40 AM SENIOR LIVING SALES COUNSELOR) Pathologist [facility] Thyroid Stimulating Hormone 0.78 0.30 - 4.20 mcIUnit/mL Blood 10/06/2024 8:40 AM SENIOR LIVING SALES COUNSELOR 10/06/2024 3:05 PM SENIOR LIVING SALES COUNSELOR Fanny Aguayo NP LAB BLOOD ORDERABLES Final Re sult Performing Organization Address [facility] de Phone Number JOAN [phone] [address] [facility] [place] [address] * Hemoglobin A1c (10/06/2024 8:40 AM SENIOR LIVING SALES COUNSELOR) [facility] Hgb A1C 5.1 4.0 - 5.6 % Estimated Average Glucose 100 mg/dL JOAN PALOMINO Comment: The ADA recommends reporting an estimated Average Glucose (eAG) with all Hemoglobin A1c results using the equation derived from a study of 507 normal and diabetic adults. Minority populations were underrepresented and children were not included. (Diabetes Care 31:9315-3423, 2008). The eAG is not equivalent to a fasting glucose. Blood 10/06/2024 8:40 AM SENIOR LIVING SALES COUNSELOR 10/06/2024 3:05 PM SENIOR LIVING SALES COUNSELOR Fanny Aguayo NP LAB BLOOD ORDERABLES Final Re sult Performing Organization Address [facility] Co de Phone Number JOAN PALOMINO [phone] [place] [address] * (ABNORMAL) Lipid panel (10/06/2024 8:40 AM SENIOR LIVING SALES COUNSELOR) [facility] Cholesterol 208(H) 30 - 199 mg/dL Comment: [...] on 2018. Triglycerides 112 <=149 mg/dL JOAN Comment: Interpretive Data Ages < or = [...] on 2018. HDL 63 >=40 mg/dL JOAN Comment: Interpretive Data Ages < or = [...] 2018. LDL, calculated 125 <=129 mg/dL JOAN Comment: Interpretive Data Ages < or = 19 years Acceptable: <110 mg/dL Borderline high: 110-129 mg/dL High: >or= 130 mg/dL Ages > or = 20 years Optimal: <100 mg/dL Near optimal: 100-129 mg/dL Borderline high: 130-159 mg/dL High: >160 mg/dL Calculated using the Eddy LDL-C estimating equation. This equation was implemented on 2024. Prior to this date LDL-C was estimated using the Friedewald equation. Literature References: 1. Expert Panel on Integrated Guidelines for Cardiovascular Health and Risk Reduction in Children and Adolescents. Pediatrics 2011;128:S213 2. NCEP Expert Panel. Circulation 2004;110:227 3. Surjit M et al. DAHLIA Cardiol. 2020 February 23;5(5):540-548. doi: 10.1001/jamacardio.2020.0013 Current Interpretive Data was last revised on 2024. Non-HDL Cholesterol 145 mg/dL [facility] Comment: Interpretive Data Ages < or = [...] 3 [facility] Blood 10/06/2024 8:40 AM SENIOR LIVING SALES COUNSELOR 10/06/2024 3:05 PM SENIOR LIVING SALES COUNSELOR Fanny Aguayo NP LAB BLOOD ORDERABLES Final Re sult JOAN [phone] Department [place] [address] * Comprehensive metabolic panel (10/06/2024 8:40 AM SENIOR LIVING SALES COUNSELOR) Sodium 137 135 - 145 mmol/L Potassium, pl 4.3 3.3 - 4.9 mmol/L [facility] Chloride 103 97 - 110 mmol/L [facility] CO2 23 22 - 32 mmol/L [facility] Anion gap 11 2 - 15 mmol/L [facility] BUN 9 6 - 25 mg/dL [facility] Creatinine 0.67 0.60 - 1.10 mg/dL [facility] Glucose 88 70 - 199 mg/dL [facility] Comment: Interpretive Data Fasting glucose >/= 126 [...] classification and Diagnosis of Diabetes Diabetes Care 2021; 46: S19-S40. Current interpretive data was last [...] - 45 Units/L [facility] Blood 10/06/2024 8:40 AM SENIOR LIVING SALES COUNSELOR 10/06/2024 3:05 PM SENIOR LIVING SALES COUNSELOR us Fanny Aguayo NP LAB BLOOD ORDERABLES Final Re sult [facility] [phone] Department [place] [address] from Last 3 Months Insurance [facility] ACCESS CHOICE Care Teams Exhibition Designer Relationship Specialty Start Date End Date Fanny Aguayo NP [phone] [facility] [address] [place] [address] PCP - General Family Medicine 10/06/24
[2024-12-02 20:26] VITALS: BP 148/95; PULSE 83; RESP 16; TEMP 36.4; O2SAT 100
[2024-12-02 20:59] LABS: Add Urine Microscopic? YES; Appearance Urine Clear (Clear); Bacteria Urine 1+ /hpf; Bilirubin Urine Negative (Negative); Blood Urine 3+ (Negative); Color Urine Yellow (Yellow); Glucose Urine UA Negative (Negative); Ketones Urine Negative (Negative); Leukocyte Esterase Ur 1+ LEU/UL (Negative); Need Manual Microscopic Reviewed; Nitrate Urine Negative (Negative); Non Pathogenic Casts 0-2; Protein Urine Negative (Negative); RBC Urine 0-2 /hpf (0-2); Specific Grav Ur 1.016 (1.001-1.035); Squamous Epithelial Cell Urine Few /hpf (Few); WBC Urine 0-5 /hpf (0-3)
[2024-12-02 23:21] LABS: BEDSIDEPREGUCG Negative (Negative)
[2024-12-02 23:56] LABS: Basophils Percent Auto 0.8 % (0.2-1.2); Eosinophils Absolute Auto 0.1 K/mm3 (0-0.3); Eosinophils Percent Auto 2.5 % (0-4.4); Hematocrit 36.5 % (37.0-47.0); Immature Granulocyte Absolute 0.01 K/mm3 (0.00-0.031); Immature Granulocyte Percent A 0.2 % (0-0.5); Lymphocytes Absolute Auto 1.45 K/mm3 (0.9-3.2); Lymphocytes Percent Auto 30.3 % (18.3-44.2); Mean Corpuscular HGB Conc 32.9 g/dl (32-36); Mean Corpuscular Hemoglobin 29.7 pg (26-34); Mean Corpuscular Volume 90.3 fl (80-100); Mean Platelet Volume 8.8 fl (7.4-10.4); Monocytes Absolute Auto 0.4 K/mm3 (0.1-0.6); Neutrophils Absolute Auto 2.7 K/mm3 (1.3-6.7); Neutrophils Percent Auto 57.2 % (45.5-73.1); Platelet Count Result 260 k/mm3 (150-375); Red Blood Count 4.04 M/mm3 (4.2-5.4); Red Cell Distribution Width 12.8 % (11.5-14.5); White Blood Count 4.8 K/mm3 (4.5-10.0)
[2024-12-03] VITALS (8 sets, daily range): BP systolic 129–144; BP diastolic 90–96; PULSE 67–79; RESP 16–20; O2SAT 98–100
[2024-12-03 00:05] LABS: Alanine Aminotransferase 18 U/L (6-35); Alkaline Phosphatase 84 U/L (38-126); Anion Gap 11 mmol/L (4-12); Aspartate Amino Transferase 23 U/L (14-36); Bilirubin,Total 0.4 mg/dL (0.2-1.3); Blood Urea Nitrogen 17 mg/dL (7-17); Calcium 9.1 mg/dL (8.4-10.2); Carbon Dioxide 22 mmol/L (22-30); Chloride 105 mmol/L (98-107); Estimated CRCL calculation 133 ml/min; Estimated Glomerular Filt Rate > 60; Glucose 97 mg/dL (65-110); Lipase 79 U/L (23-300); Sodium 138 mmol/L (137-145)
--- OUTSIDE RECORDS SUMMARY | 2024-12-03 00:11 | XMS_ITS | Clinical Summary ---
Author Organization [facility] [address] [place] [address] [address] [place] [address] Care Team Providers Care Monumental Stonemason Name Role Phone Nicole Aguayo NP Primary Care Provider [phone] Allergies No known active allergies Medications No [...] Department Care Team Description 11/17/2024 7:[address] DRILL OPERATOR - 11/17/2024 11:[address] DRILL OPERATOR Hospital Encounter [facility] [address] [place] [id number] Mass of upper outer quadrant of right breast Discharge Disposition: Discharge to home or self care 11/17/2024 7:[address] DRILL OPERATOR - 11/17/2024 11:[address] DRILL OPERATOR Hospital Encounter [facility] [address] [place] [id number] Mass of upper outer quadrant of right breast Discharge Disposition: Discharge to home or self care 10/06/2024 8:[address] DRILL OPERATOR - 10/06/2024 11:[address] DRILL OPERATOR Hospital Encounter [address] [address] Screening, anemia, deficiency, iron; Screening for diabetes mellitus; Screening for lipid disorders; Screening for thyroid disorder; Encounter for hepatitis C screening test for low risk patient; Need for hepatitis B screening test; Arthralgia, unspecified joint Discharge Disposition: Discharge to home or self care 10/06/2024 8:[address] DRILL OPERATOR Lab [facility] Medical [facility] Outpatient Lab at [address] [address] Pain in joint, multiple sites (Primary Dx); Screening examination for poliomyelitis; Screening for diabetes mellitus; Screening for thyroid disorder; Screening for lipoid disorders; Screening for iron deficiency anemia 10/06/2024 7:[address] DRILL OPERATOR Office Visit [facility] Primary Care at [address] [address] Nicole Aguayo NP Encounter for [...] on file Legal Sex Female 8:[address] DRILL OPERATOR Gender Identity Not on file Sexual Orientation Not on file Obstetrics History Para Term AB IAB SAB Ectopic Multiple Livin g Live Births 2 Date Outcome GA Total Labor Labor/2nd/3rd Weight Sex Type Anes PTL Sivan A1 A5 Name Clin Last Filed Vital Signs Vital Sign Reading Time Taken Comments Blood Pressure 124/72 10/06/2024 7:[address] DRILL OPERATOR Pulse 84 10/06/2024 7:[address] DRILL OPERATOR Temperature 36.2 C (97.2 F) 10/06/2024 7:[address] DRILL OPERATOR Respiratory Rate - - Oxygen Saturation 99% 10/06/2024 7:[address] DRILL OPERATOR Inhaled Oxygen Concentration - - Weight 122.5 kg (270 lb) 10/06/2024 7:[address] DRILL OPERATOR Height 177.8 cm (5' 10 ) 11/17/2024 8:[address] DRILL OPERATOR Body Mass Index 38.74 10/06/2024 7:[address] DRILL OPERATOR Plan of Treatment Health Maintenance Due Date [...] Read Routine (OP Routine) 11/17/2024 8:[address] DRILL OPERATOR Mass of upper outer quadrant of right breast DIAGNOSTIC MAMMOGRAM BILATERAL W BETHANY Schedule Routine, Read Routine (OP Routine) 11/17/2024 8:[address] DRILL OPERATOR Mass of upper outer quadrant of right breast EGFR Routine 10/06/2024 8:[address] DRILL OPERATOR Screening for diabetes mellitus DIFFERENTIAL AUTO Routine 10/06/2024 8:[address] DRILL OPERATOR Screening, anemia, deficiency, iron RHEUMATOID FACTOR Routine 10/06/2024 8:[address] DRILL OPERATOR Arthralgia, unspecified joint ERYTHROCYTE SEDIMENTATION RATE Routine 10/06/2024 8:[address] DRILL OPERATOR Arthralgia, unspecified joint HEMOGLOBIN A1C Routine 10/06/2024 8:[address] DRILL OPERATOR Screening for diabetes mellitus TSH Routine 10/06/2024 8:[address] DRILL OPERATOR Screening for thyroid disorder LIPID PANEL Routine 10/06/2024 8:[address] DRILL OPERATOR Screening for lipid disorders COMPREHENSIVE METABOLIC PANEL Routine 10/06/2024 8:[address] DRILL OPERATOR Screening for diabetes mellitus CBC WITH AUTO DIFFERENTIAL Routine 10/06/2024 8:[address] DRILL OPERATOR Screening, anemia, deficiency, iron HEPATITIS B SURFACE ANTIGEN Routine 10/06/2024 8:[address] DRILL OPERATOR Need for hepatitis B screening test HEPATITIS B SURFACE ANTIBODY (IMMUNE STATUS) Routine 10/06/2024 8:[address] DRILL OPERATOR Need for hepatitis B screening test HEPATITIS B CORE ANTIBODY, TOTAL Routine 10/06/2024 8:[address] DRILL OPERATOR Need for hepatitis B screening test HEPATITIS C ANTIBODY Routine 10/06/2024 8:[address] DRILL OPERATOR Encounter for hepatitis C screening test for low risk patient from Last 3 Months Results * US Breast Right Limited (11/17/2024 8:[address] DRILL OPERATOR) Anatomical Region Laterality Modality Breast Right Ultrasound 11/17/2024 9:[address] DRILL OPERATOR Impressions 11/17/2024 9:[address] DRILL OPERATOR No mammographic or sonographic evidence of malignancy. [...] Fitz Turcios M.D. Narrative 11/17/2024 9:[address] DRILL OPERATOR EXAMINATION: DIAGNOSTIC MAMMOGRAM BILATERAL W BETHANY, US [...] targeted right breast ultrasound. us Nicole Aguayo NURSING INFORMATICS CLINICAL ANALYST IMG MAMMO PROCEDURES Final Re sult * DIAGNOSTIC MAMMOGRAM BILATERAL W BETHANY (11/17/2024 8:[address] DRILL OPERATOR) Anatomical Region Laterality Modality Breast Bilateral Mammography 11/17/2024 9:[address] DRILL OPERATOR Impressions 11/17/2024 9:[address] DRILL OPERATOR No mammographic or sonographic evidence of malignancy. [...] Fitz Turcios M.D. Narrative 11/17/2024 9:[address] DRILL OPERATOR EXAMINATION: DIAGNOSTIC MAMMOGRAM BILATERAL W BETHANY, US [...] Re sult * eGFR (10/06/2024 8:[address] DRILL OPERATOR) eGFR >90 >=60 mL/min/1. 73 m2 Comment: [...] last reviewed 2021. Blood 10/06/2024 8:[address] DRILL OPERATOR 10/06/2024 3:[address] DRILL OPERATOR Nicole Aguayo NP LAB BLOOD ORDERABLES Final Re sult JOAN [id number] [place] [address] * Differential, auto (10/06/2024 8:[address] DRILL OPERATOR) Neutrophil abs 2.6 1.5 - 6.5 K/cumm Imm gran abs 0.0 0.0 - 0.1 K/cumm [facility] Lymphocyte abs 0.9 0.8 - 3.3 K/cumm [facility] Monocyte abs 0.3 0.2 - 0.8 K/cumm [facility] Eosinophil abs 0.1 0.0 - 0.5 K/cumm [facility] Basophil abs 0.0 0.0 - 0.1 K/cumm [facility] Neutrophil pct 66.3 % [facility] Comment: Interpretive Data Percent cell count reference ranges are not reported, since discordance with absolute values may lead to misinterpretation of CBC data. Current Interpretive Data was last revised on 2018. Imm gran pct 0.3 % [facility] Comment: Interpretive Data Percent cell count reference ranges are not reported, since discordance with absolute values may lead to misinterpretation of CBC data. Current Interpretive Data was last revised on 2018. Lymphocyte pct 22.0 % [facility] Comment: Interpretive Data Percent cell count reference ranges are not reported, since discordance with absolute values may lead to misinterpretation of CBC data. Current Interpretive Data was last revised on 2018. Monocyte pct 8.6 % [facility] Comment: Interpretive Data Percent cell count reference ranges are not reported, since discordance with absolute values may lead to misinterpretation of CBC data. Current Interpretive Data was last revised on 2018. Eosinophil pct 2.0 % [facility] Comment: Interpretive Data Percent cell count reference ranges are not reported, since discordance with absolute values may lead to misinterpretation of CBC data. Current Interpretive Data was last revised on 2018. Basophil pct 0.8 % [facility] Comment: Interpretive Data Percent cell count reference ranges are not reported, since discordance with absolute values may lead to misinterpretation of CBC data. Current Interpretive Data was last revised on 2018. Blood 10/06/2024 8:[address] DRILL OPERATOR 10/06/2024 3:[address] DRILL OPERATOR us Nicole Aguayo NP LAB BLOOD ORDERABLES Final Re sult JOAN [id number] [place] [address] * (ABNORMAL) CBC with auto differential (10/06/2024 8:[address] DRILL OPERATOR) WBC 4.0 3.8 - 9.9 K/cumm Hgb 12.7 11.9 - 15.5 g/dL [facility] Hct 40.3 35.6 - 45.5 % [facility] Plt 297 150 - 400 K/cumm [facility] MPV 9.4 9.1 - 12.3 fL [facility] RBC 4.32 3.90 - 5.20 M/cumm [facility] MCV 93.3 81.3 - 96.4 fL [facility] MCH 29.4 27.1 - 33.3 pg [facility] MCHC 31.5(L) 32.3 - 35.7 g/dL [facility] RDW CV 12.9 11.1 - 14.9 % [facility] RDW SD 43.8 35.7 - 48.1 fL [facility] NRBC abs 0.00 0.00 - 0.01 K/cumm [facility] Blood 10/06/2024 8:[address] DRILL OPERATOR 10/06/2024 3:[address] DRILL OPERATOR Nicole Aguayo NP LAB BLOOD ORDERABLES Final Re sult Performing Organization Address [facility] de Phone Number JOAN PALOMINO [phone] [place] [address] * Hepatitis C antibody Blood (10/06/2024 8:[address] DRILL OPERATOR) Hep C Ab Nonreactive Nonreactive Comment: Interpretive [...] revised on 2020. Blood 10/06/2024 8:[address] DRILL OPERATOR 10/06/2024 3:[address] DRILL OPERATOR Nicole Aguayo NP LAB MICROBIOLOGY - GENERAL OR DERABLES Final Result Performing Organization Address [facility] Co de Phone Number [facility] [address] [place] [address] * Hepatitis B core antibody, total Blood (10/06/2024 8:[address] DRILL OPERATOR) Pathologist [facility] Hep B core IgG/IgM Nonreactive Nonreactive Comment:Testing performed by : [facility], [address] [facility], [place]., [address] Blood 10/06/2024 8:[address] DRILL OPERATOR 10/07/2024 9:[address] DRILL OPERATOR Nicole Aguayo NP LAB MICROBIOLOGY - GENERAL OR DERABLES Final Result Performing Organization Address [facility] Co de Phone Number ABHISHEKIVON PALOMINO [address] [place] [address] * Hepatitis B surface antibody (immune status) Blood (10/06/2024 8:[address] DRILL OPERATOR) Pathologist [facility] HBsAb (immune status) Reactive Comment: Interpretive Data [...] mIUnits/m L JOAN Blood 10/06/2024 8:[address] DRILL OPERATOR 10/06/2024 3:[address] DRILL OPERATOR Nicole Aguayo NP LAB MICROBIOLOGY - GENERAL OR DERABLES Final Result Performing Organization Address [facility] Co de Phone Number JOAN PALOMINO [phone] [place] [address] * Hepatitis B Surface Antigen Blood (10/06/2024 8:[address] DRILL OPERATOR) HepBsAg Nonreactive Nonreactive Blood 10/06/2024 8:[address] DRILL OPERATOR 10/06/2024 3:[address] DRILL OPERATOR us Nicole Aguayo NP LAB MICROBIOLOGY - GENERAL OR DERABLES Final Result Performing Organization Address [facility] Co de Phone Number JOAN PALOMINO [phone] [facility] [address] [place] [address] * Erythrocyte sedimentation rate (10/06/2024 8:[address] DRILL OPERATOR) Erythrocyte sedimentation rate 17 1 - 20 mm/hr Blood 10/06/2024 8:[address] DRILL OPERATOR 10/06/2024 3:[address] DRILL OPERATOR Nicole Aguayo NP LAB BLOOD ORDERABLES Final Re sult Performing Organization Address [facility] de Phone Number JOAN PALOMINO [phone] [facility] [address] [place] [address] * Rheumatoid factor (10/06/2024 8:[address] DRILL OPERATOR) Rheumatoid factor, quant <10 <=15 IUnits/mL Blood 10/06/2024 8:[address] DRILL OPERATOR 10/06/2024 3:[address] DRILL OPERATOR us Nicole Aguayo NP LAB BLOOD ORDERABLES Final Re sult Performing Organization Address [facility] de Phone Number JOAN GEORGETTE [phone] [facility] [address] [place] [address] * TSH (10/06/2024 8:[address] DRILL OPERATOR) Thyroid Stimulating Hormone 0.78 0.30 - 4.20 mcIUnit/mL Blood 10/06/2024 8:[address] DRILL OPERATOR 10/06/2024 3:[address] DRILL OPERATOR us Nicole Aguayo NP LAB BLOOD ORDERABLES Final Re sult Performing Organization Address [facility] Co de Phone Number ABHISHEKIVON PALOMINO [phone] [facility] [address] [place] [address] * Hemoglobin A1c (10/06/2024 8:[address] DRILL OPERATOR) Hgb A1C 5.1 4.0 - 5.6 % Estimated Average Glucose 100 mg/dL JOAN PALOMINO Comment: The ADA recommends reporting an estimated Average Glucose (eAG) with all Hemoglobin A1c results using the equation derived from a study of 507 normal and diabetic adults. Minority populations were underrepresented and children were not included. (Diabetes Care 31:7205-5116, 2008). The eAG is not equivalent to a fasting glucose. Blood 10/06/2024 8:[address] DRILL OPERATOR 10/06/2024 3:[address] DRILL OPERATOR us Nicole Aguayo NURSING INFORMATICS CLINICAL ANALYST LAB BLOOD ORDERABLES Final Re sult JOAN [id number] [place] [address] * (ABNORMAL) Lipid panel (10/06/2024 8:[address] DRILL OPERATOR) Cholesterol 208(H) 30 - 199 mg/dL Comment: [...] 3 CERNER CH Blood 10/06/2024 8:[address] DRILL OPERATOR 10/06/2024 3:[address] DRILL OPERATOR us Nicole Aguayo NURSING INFORMATICS CLINICAL ANALYST LAB BLOOD ORDERABLES Final Re sult CERNER [address] Department [place] [address] * Comprehensive metabolic panel (10/06/2024 8:[address] DRILL OPERATOR) Sodium 137 135 - 145 mmol/L Potassium, [...] CERNER CH Blood 10/06/2024 8:4 [address] DRILL OPERATOR 10/06/2024 3:[address] DRILL OPERATOR Nicole Aguayo NP LAB BLOOD ORDERABLES Final Re sult JOAN [id number] [place] [address] from Last 3 Months Insurance [facility] ACCESS CHOICE Care Teams Monumental Stonemason Relationship Specialty Start Date End Date Nicole Aguayo NP [id number] [facility] [address] [place] [address] PCP - General Family Medicine 10/06/24
--- OUTSIDE RECORDS SUMMARY | 2024-12-03 00:12 | XMS_ITS | Referral Summary ---
Author Organization [facility] [place] [address] Address [address] [place] [address] [address] [place] [address] Care Team Providers Care Welding Production Supervisor Name Role Phone Fanny Aguayo NP Primary Care Provider [phone] Encounters Date Type Department Care Team Description 11/17/2024 7:49 AM TREE CUTTER - 11/17/2024 11:59 PM TREE CUTTER Hospital Encounter [facility] [address] [place] [address] Mass of upper outer quadrant of right breast Discharge Disposition: Discharge to home or self care 11/17/2024 7:48 AM TREE CUTTER - 11/17/2024 11:59 PM TREE CUTTER Hospital Encounter [facility] [address] [place] [address] Mass of upper outer quadrant of right breast Discharge Disposition: Discharge to home or self care 10/06/2024 8:40 AM TREE CUTTER - 10/06/2024 11:59 PM TREE CUTTER Hospital Encounter [address] [address] Screening, anemia, deficiency, iron; Screening for diabetes mellitus; Screening for lipid disorders; Screening for thyroid disorder; Encounter for hepatitis C screening test for low risk patient; Need for hepatitis B screening test; Arthralgia, unspecified joint Discharge Disposition: Discharge to home or self care 10/06/2024 8:30 AM TREE CUTTER Lab [facility] Outpatient Lab at [address] [place] [phone] Pain in joint, multiple sites (Primary Dx); Screening examination for poliomyelitis; Screening for diabetes mellitus; Screening for thyroid disorder; Screening for lipoid disorders; Screening for iron deficiency anemia 10/06/2024 7:30 AM TREE CUTTER Office Visit [facility] Primary Care at [address] [phone] Fanny Aguayo NP Encounter for [...] on file Legal Sex Female 8:59 AM TREE CUTTER Gender Identity Not on file Sexual Orientation Not on file Last Filed Vital Signs Vital Sign Reading Time Taken Comments Blood Pressure 124/72 10/06/2024 7:23 AM TREE CUTTER Pulse 84 10/06/2024 7:23 AM TREE CUTTER Temperature 36.2 C (97.2 F) 10/06/2024 7:23 AM TREE CUTTER Respiratory Rate - - Oxygen Saturation 99% 10/06/2024 7:23 AM TREE CUTTER Inhaled Oxygen Concentration - - Weight 122.5 kg (270 lb) 10/06/2024 7:23 AM TREE CUTTER Height 177.8 cm (5' 10 ) 11/17/2024 8:02 AM TREE CUTTER Body Mass Index 38.74 10/06/2024 7:23 AM TREE CUTTER Plan of Treatment Not on file Procedures Procedure Name Priority Date/Time Associated Diagnosis Comments US BREAST RIGHT LIMITED Schedule Routine, Read Routine (OP Routine) 11/17/2024 8:46 AM TREE CUTTER Mass of upper outer quadrant of right breast DIAGNOSTIC MAMMOGRAM BILATERAL W BETHANY Schedule Routine, Read Routine (OP Routine) 11/17/2024 8:03 AM TREE CUTTER Mass of upper outer quadrant of right breast EGFR Routine 10/06/2024 8:40 AM TREE CUTTER Screening for diabetes mellitus DIFFERENTIAL AUTO Routine 10/06/2024 8:4 0 AM TREE CUTTER Screening, anemia, deficiency, iron RHEUMATOID FACTOR Routine 10/06/2024 8:4 0 AM TREE CUTTER Arthralgia, unspecified joint ERYTHROCYTE SEDIMENTATION RATE Routine 10/06/2024 8:40 AM TREE CUTTER Arthralgia, unspecified joint HEMOGLOBIN A1C Routine 10/06/2024 8:40 AM TREE CUTTER Screening for diabetes mellitus TSH Routine 10/06/2024 8:40 AM TREE CUTTER Screening for thyroid disorder LIPID PANEL Routine 10/06/2024 8:40 AM TREE CUTTER Screening for lipid disorders COMPREHENSIVE METABOLIC PANEL Routine 10/06/2024 8:40 AM TREE CUTTER Screening for diabetes mellitus CBC WITH AUTO DIFFERENTIAL Routine 10/06/2024 8:40 AM TREE CUTTER Screening, anemia, deficiency, iron HEPATITIS B SURFACE ANTIGEN Routine 10/06/2024 8:40 AM TREE CUTTER Need for hepatitis B screening test HEPATITIS B SURFACE ANTIBODY (IMMUNE STATUS) Routine 10/06/2024 8:40 AM TREE CUTTER Need for hepatitis B screening test HEPATITIS B CORE ANTIBODY, TOTAL Routine 10/06/2024 8:40 AM TREE CUTTER Need for hepatitis B screening test HEPATITIS C ANTIBODY Routine 10/06/2024 8:40 AM TREE CUTTER Encounter for hepatitis C screening test for low risk patient from Last 3 Months Results * US Breast Right Limited (11/17/2024 8:46 AM TREE CUTTER) Anatomical Region Laterality Modality Breast Right Ultrasound 11/17/2024 9:00 AM TREE CUTTER Impressions 11/17/2024 9:00 AM TREE CUTTER No mammographic or sonographic evidence of malignancy. [...] Fitz Turcios M.D. Narrative 11/17/2024 9:00 AM TREE CUTTER EXAMINATION: DIAGNOSTIC MAMMOGRAM BILATERAL W BETHANY, US [...] targeted right breast ultrasound. us Fanny Aguayo VEHICLE INSPECTOR IMG MAMMO PROCEDURES Final Re sult * DIAGNOSTIC MAMMOGRAM BILATERAL W BETHANY (11/17/2024 8:03 AM TREE CUTTER) Anatomical Region Laterality Modality Breast Bilateral Mammography 11/17/2024 9:00 AM TREE CUTTER Impressions 11/17/2024 9:00 AM TREE CUTTER No mammographic or sonographic evidence of malignancy. [...] Fitz Turcios M.D. Narrative 11/17/2024 9:00 AM TREE CUTTER EXAMINATION: DIAGNOSTIC MAMMOGRAM BILATERAL W BETHANY, US [...] targeted right breast ultrasound. us Fanny Aguayo VEHICLE INSPECTOR IMG MAMMO PROCEDURES Final Re sult * eGFR (10/06/2024 8:40 AM TREE CUTTER) eGFR >90 >=60 mL/min/1. 73 m2 Comment: [...] last reviewed 2021. Blood 10/06/2024 8:40 AM TREE CUTTER 10/06/2024 3:11 PM TREE CUTTER us Fanny Aguayo VEHICLE INSPECTOR LAB BLOOD ORDERABLES Final Re sult [address]AN [id number] Department [place] [address] * Differential, auto (10/06/2024 8:40 AM TREE CUTTER) Neutrophil abs 2.6 1.5 - 6.5 K/cumm Imm gran abs 0.0 0.0 - 0.1 K/cumm [facility] Lymphocyte abs 0.9 0.8 - 3.3 K/cumm [facility] Monocyte abs 0.3 0.2 - 0.8 K/cumm [facility] Eosinophil abs 0.1 0.0 - 0.5 K/cumm [facility] Basophil abs 0.0 0.0 - 0.1 K/cumm [facility] Neutrophil pct 66.3 % CERNER Comment: Interpretive Data Percent cell count reference ranges are not reported, since discordance with absolute values may lead to misinterpretation of CBC data. Current Interpretive Data was last revised on 2018. Imm gran pct 0.3 % [facility] Comment: Interpretive Data Percent cell count reference ranges are not reported, since discordance with absolute values may lead to misinterpretation of CBC data. Current Interpretive Data was last revised on 2018. Lymphocyte pct 22.0 % [facility] Comment: Interpretive Data Percent cell [...] revised on 2018. Eosinophil pct 2.0 % [facility] Comment: Interpretive Data Percent cell count reference ranges are not reported, since discordance with absolute values may lead to misinterpretation of CBC data. Current Interpretive Data was last revised on 2018. Basophil pct 0.8 % [facility] Comment: Interpretive Data Percent cell count reference ranges are not reported, since discordance with absolute values may lead to misinterpretation of CBC data. Current Interpretive Data was last revised on 2018. Blood 10/06/2024 8:40 AM TREE CUTTER 10/06/2024 3:05 PM TREE CUTTER Fanny Aguayo VEHICLE INSPECTOR LAB BLOOD ORDERABLES Final Re sult [address]AN [address] [address] * (ABNORMAL) CBC with auto differential (10/06/2024 8:40 AM TREE CUTTER) WBC 4.0 3.8 - 9.9 K/cumm Hgb 12.7 11.9 - 15.5 g/dL [facility] Hct 40.3 35.6 - 45.5 % [facility] Plt 297 150 - 400 K/cumm [facility] MPV 9.4 9.1 - 12.3 fL [facility] RBC 4.32 3.90 - 5.20 M/cumm [facility] MCV 93.3 81.3 - 96.4 fL [facility] MCH 29.4 27.1 - 33.[address] [facility] MCHC 31.5(L) 32.3 - 35.7 g/dL [facility] CH RDW CV 12.9 11.1 - 14.9 % [facility] CH RDW SD 43.8 35.7 - 48.1 fL [facility] NRBC abs 0.00 0.00 - 0.01 K/cumm [facility] Blood 10/06/2024 8:40 AM TREE CUTTER 10/06/2024 3:05 PM TREE CUTTER Fanny Aguayo NP LAB BLOOD ORDERABLES Final Re sult Performing Organization Address City/[facility]/ZIP Co de Phone Number JOAN [address] [facility] [place] [address] * Hepatitis C antibody Blood (10/06/2024 8:40 AM TREE CUTTER) Hep C Ab Nonreactive Nonreactive Comment: Interpretive [...] revised on 2020. Blood 10/06/2024 8:40 AM TREE CUTTER 10/06/2024 3:05 PM TREE CUTTER Fanny Aguayo NP LAB MICROBIOLOGY - GENERAL OR DERABLES Final Result Performing Organization Address [facility]/ZIP Co de Phone Number ABHIS[place]ON [address] [facility] [place] [address] * Hepatitis B core antibody, total Blood (10/06/2024 8:40 AM TREE CUTTER) Hep B core IgG/IgM Nonreactive Nonreactive Comment:Testing performed by : [facility], [address], [place]., [address] Blood 10/06/2024 8:40 AM TREE CUTTER 10/07/2024 9:52 AM TREE CUTTER Fanny Aguayo NP LAB MICROBIOLOGY - GENERAL OR DERABLES Final Result Performing Organization Address City/[facility] Co de Phone Number JOAN [address] [place] [address] * Hepatitis B surface antibody (immune status) Blood (10/06/2024 8:40 AM TREE CUTTER) HBsAb (immune status) Reactive Comment: Interpretive Data [...] HBsAb (immune status) index 27.6 mIUnits/m L [facility] Blood 10/06/2024 8:40 AM TREE CUTTER 10/06/2024 3:05 PM TREE CUTTER us Fanny Aguayo NP LAB MICROBIOLOGY - GENERAL OR DERABLES Final Result Performing Organization Address [facility] Co de Phone Number [facility] [address] [facility] [place] [address] * Hepatitis B Surface Antigen Blood (10/06/2024 8:40 AM TREE CUTTER) HepBsAg Nonreactive Nonreactive Blood 10/06/2024 8:40 AM TREE CUTTER 10/06/2024 3:05 PM TREE CUTTER Fanny Aguayo NP LAB MICROBIOLOGY - GENERAL OR DERABLES Final Result Performing Organization Address [facility] de Phone Number [facility] [address] [facility] [place] [address] * Erythrocyte sedimentation rate (10/06/2024 8:40 AM TREE CUTTER) Pathologist [facility] Erythrocyte sedimentation rate 17 1 - 20 mm/hr Blood 10/06/2024 8:40 AM TREE CUTTER 10/06/2024 3:05 PM TREE CUTTER Fanny Aguayo NP LAB BLOOD ORDERABLES Final Re sult Performing Organization Address [facility] de Phone Number [facility] [address] [facility] [place] [address] * Rheumatoid factor (10/06/2024 8:40 AM TREE CUTTER) Rheumatoid factor, quant <10 <=15 IUnits/mL Blood 10/06/2024 8:40 AM TREE CUTTER 10/06/2024 3:05 PM TREE CUTTER Fanny L. Ruma VEHICLE INSPECTOR LAB BLOOD ORDERABLES Final Re sult Performing Organization Address [facility] de Phone Number JOAN [address] [facility] [place] [address] * TSH (10/06/2024 8:40 AM TREE CUTTER) Pathologist [facility] Thyroid Stimulating Hormone 0.78 0.30 - 4.20 mcIUnit/mL Blood 10/06/2024 8:40 AM TREE CUTTER 10/06/2024 3:05 PM TREE CUTTER Fanny Aguayo NP LAB BLOOD ORDERABLES Final Re sult Performing Organization Address [facility] de Phone Number JOAN [address] [address] [facility] [place] [address] * Hemoglobin A1c (10/06/2024 8:40 AM TREE CUTTER) [facility] Hgb A1C 5.1 4.0 - 5.6 % Estimated Average Glucose 100 mg/dL JOAN PALOMINO Comment: The ADA recommends reporting an estimated Average Glucose (eAG) with all Hemoglobin A1c results using the equation derived from a study of 507 normal and diabetic adults. Minority populations were underrepresented and children were not included. (Diabetes Care 31:6162-7399, 2008). The eAG is not equivalent to a fasting glucose. Blood 10/06/2024 8:40 AM TREE CUTTER 10/06/2024 3:05 PM TREE CUTTER Fanny Aguayo NP LAB BLOOD ORDERABLES Final Re sult Performing Organization Address [facility] Co de Phone Number JOAN PALOMINO [address] [place] [address] * (ABNORMAL) Lipid panel (10/06/2024 8:40 AM TREE CUTTER) [facility] Cholesterol 208(H) 30 - 199 mg/dL Comment: [...] 3 [facility] CH Blood 10/06/2024 8:40 AM TREE CUTTER 10/06/2024 3:05 PM TREE CUTTER Fanny Aguayo NP LAB BLOOD ORDERABLES Final Re sult JOAN [address] Department [place] [address] * Comprehensive metabolic panel (10/06/2024 8:40 AM TREE CUTTER) Sodium 137 135 - 145 mmol/L Potassium, [...] Units/L [facility] CH Blood 10/06/2024 8:40 AM TREE CUTTER 10/06/2024 3:05 PM TREE CUTTER us Fanny Aguayo NP LAB BLOOD ORDERABLES Final Re s[facility] [address] [facility] [place] [address] from Last 3 Months Insurance [facility] Care Teams Welding Production Supervisor Relationship Specialty Start Date End Date Fanny Aguayo NP [address] [facility] [address] [place] [address] PCP - General Family Medicine 10/06/24
[2024-12-03] MEDS: SODIUM CHLORIDE 0.9% IV 2,000 ML 999 ML IV CONT (00:35)
[2024-12-03] MEDS: HYDROmorphone HCL INJ (*CRX) 1 MG/ML SYR 0.5 MG IV PUSH ×3 (00:36→06:36)
[2024-12-03] MEDS: KETOROLAC 15 MG/ML VIAL (*BKC) IV PUSH (00:36)
--- NOTE | 2024-12-03 02:17 | ED.GENADULT ---
HPI - General Adult General Chief complaint: Abdominal Pain Stated complaint: abd pain Time Seen by Provider: 12/03/24 00:02 History of Present Illness HPI narrative: This is a 44-year-old female presenting ED with chief complaint of abdominal pain. Abdominal pain is located the right lower quadrant, it is sharp, nonradiating 8/10 intensity and worsening throughout the day. She has never had symptoms like this before there are no exacerbating alleviating factors. She has had loose stools. She denies fevers chills nausea vomiting chest pain or difficulty breathing or urinary symptoms. She has a history of ovarian cyst. Related Data Home Medications ?Medication ?Instructions ?Recorded ?Confirmed ?Last Taken ?Type loratadine 10 mg tablet (Claritin) 10 mg PO DAILY 04/18/24 Unknown History Allergies Allergy/AdvReac Type Severity Reaction Status Date / Time No Known Allergies Allergy Verified 09/07/24 16:51 [facility] Past Medical History Medical History Morbid obesity with BMI of 40.0-44.9, adult PONV (postoperative nausea and vomiting) Chronic GERD Partial thickness tear of left rotator cuff Social History Social History Social History: Caffeine-daily Smoking status: Never smoker Alcohol intake: current Alcohol use details: RARE Substance use: never Substance use type: does not use Do You Feel Safe in your Home?: Yes Lack of Transportation: No Lack of Food: Never True Current Housing: I Have Housing Concerned About Future Housing: No Difficulty Paying Gas/Electric Bills: No Difficulty Paying for Meds: No Currently Unemployed: No Education: Bachelor's Degree Difficulty w/ Childcare or Family Care: No Living arrangements: with family Spiritual care concerns: No Exam Narrative: APPEARANCE: No apparent distress., well-appearing Head: atraumatic. EYES: EOMI, NOSE: Atraumatic NECK: Trachea midline RESPIRATORY: No increased rate of breathing CTAB CARDIOVASCULAR: RRR, ABDOMINAL: Non-distended, tenderness the right lower quadrant, without guarding or rebound MUSCULOSKELETAl: No obvious deformities NEURO: Alert. Moving 4/4 extremities SKIN:: Warm, dry. Normal color PSYCHIATRIC: Normal affect Course Vital Signs Vital signs: Vital Signs Temperature 97.5 F L 12/02/24 20:26 Pulse Rate 83 12/02/24 20:26 Respiratory Rate 16 12/02/24 20:26 Blood Pressure 148/95 H 12/02/24 20:26 Pulse Oximetry 100 12/02/24 20:26 Oxygen Delivery Room Air 12/02/24 20:26 Temperature 97.5 F L 12/02/24 20:26 Pulse Rate 71 12/03/24 05:31 Respiratory Rate 16 12/03/24 05:31 Blood Pressure 129/90 12/03/24 05:31 Pulse Oximetry 99 12/03/24 05:31 Oxygen Delivery Room Air 12/02/24 20:26 Medical Decision Making MDM Narrative Medical decision making narrative: -Course: 44-year-old female presenting with right lower quadrant pain. CT abdomen pelvis showed no evidence of appendicitis but she does have a 3.5 cm cyst w/ enlarged right ovary. No evidence of torsion on TV ultrasound. Patient's pain was controlled ED. She will be discharged follow-up with her OBGYN. -DDX includes but is not limited to: Ovarian cyst, appendicitis, colitis, ovarian torsion -Co-morbidities complicating care: History of ovarian cysts Vital Signs Vital Signs: Vital Signs Temperature 97.5 F L 12/02/24 20:26 Pulse Rate 83 12/02/24 20:26 Respiratory Rate 16 12/02/24 20:26 Blood Pressure 148/95 H 12/02/24 20:26 Pulse Oximetry 100 12/02/24 20:26 Oxygen Delivery Room Air 12/02/24 20:26 Temperature 97.5 F L 12/02/24 20:26 Pulse Rate 71 12/03/24 05:31 Respiratory Rate 16 12/03/24 05:31 Blood Pressure 129/90 12/03/24 05:31 Pulse Oximetry 99 12/03/24 05:31 Oxygen Delivery Room Air 12/02/24 20:26 Lab Data 12/02/24 23:52 12/02/24 23:52 Labs: Lab Results 12/02/24 12/02/24 12/02/24 Range/Units 20:38 23:19 23:52 WBC 4.8 (4.5-10.0) K/mm3 RBC 4.04 L (4.2-5.4) M/mm3 Hgb 12.0 (12.0-15.0) g/dL Hct 36.5 L (37.0-47.0) % MCV 90.3 (80-100) fl MCH 29.7 (26-34) pg MCHC 32.9 (32-36) g/dl RDW 12.8 (11.5-14.5) % Plt Count 260 (150-375) k/mm3 MPV 8.8 (7.4-10.4) fl Immature Gran % (Auto) 0.2 (0-0.5) % Neut % (Auto) 57.2 (45.5-73.1) % Lymph % (Auto) 30.3 (18.3-44.2) % [place] % (Auto) 9.0 H (2.6-8.5) % Eos % (Auto) 2.5 (0-4.4) % Baso % (Auto) 0.8 (0.2-1.2) % Lymph # (Auto) 1.45 (0.9-3.2) K/mm3 [place] # (Auto) 0.4 (0.1-0.6) K/mm3 Eos # (Auto) 0.1 (0-0.3) K/mm3 Baso # (Auto) 0.0 (0.0-0.1) K/mm3 Abs Immat Gran (auto) 0.01 (0.00-0.031) K/mm3 Absolute Neuts (auto) 2.7 (1.3-6.7) K/mm3 Absolute Nucleated RBC 0.000 (0.0-0.012) K/mm3 Nucleated RBC % 0.0 (0.0-0.2) % Sodium 138 (137-145) mmol/L Potassium 4.0 (3.4-5.0) mmol/L Chloride 105 (98-107) mmol/L Carbon Dioxide 22 (22-30) mmol/L Anion Gap 11 (4-12) mmol/L BUN 17 (7-17) mg/dL Creatinine 0.66 L (0.7-1.0) mg/dL Estim Creat Clear Calc 133 ml/min Estimated GFR > 60 (59 - ) Glucose 97 (65-110) mg/dL Calcium 9.1 (8.4-10.2) mg/dL Total Bilirubin 0.4 (0.2-1.3) mg/dL AST 23 (14-36) U/L ALT 18 (6-35) U/L Alkaline Phosphatase 84 (38-126) U/L Total Protein 8.0 (6.3-8.2) g/dL Albumin 4.0 (3.5-5.1) g/dL Lipase 79 (23-300) U/L Urine Color Yellow (Yellow) Urine Appearance Clear (Clear) Urine pH 6.0 (5.0-9.0) Ur Specific [place] 1.016 (1.001-1.035) Urine Protein Negative (Negative) mg/dL Urine Glucose (UA) Negative (Negative) mg/dL Urine Ketones Negative (Negative) mg/dL Ur Blood (Man) 3+ H (Negative) Urine Nitrate Negative (Negative) Urine Bilirubin Negative (Negative) Urine Urobilinogen 1.0 (<2.0) mg/dL Add Ur Microanalysis Reviewed Leukocyte Esterase Rfl 1+ H (Negative) TOSHIA/UL Urine RBC 0-2 (0-2) /hpf Urine WBC 0-5 (0-3) /hpf Ur Squamous Epith Cells Few (Few) /hpf Urine Bacteria 1+ H /hpf Urine Casts 0-2 POC Urine HCG, Qual Negative (Negative) Discharge Plan Discharge Clinical Impression: Ovarian cyst Patient Disposition: Home, Self-Care Condition: Stable Instructions: Antibiotic Form, Ovarian Cyst (ED) Additional Instructions: You were seen in the emergency department for right lower quadrant pain. You have an ovarian cyst that is causing her pain. Please use Motrin and Tylenol for pain. Please follow-up with your OBGYN for further management. If you develop severe pain, intractable nausea vomiting or feel your condition is getting worse please return to the ED for re-evaluation. Patient Language: Vietnamese Prescriptions: New ibuprofen 800 mg tablet 800 mg PO TID PRN (Reason: pain) 7 Days Qty: 21 0RF acetaminophen 500 mg tablet 1,000 mg PO TID PRN (Reason: arianna) 7 Days Qty: 42 0RF No Action ibuprofen 800 mg tablet 800 mg PO TID PRN (Reason: pain) Qty: 15 0RF loratadine [Claritin] 10 mg tablet 10 mg PO DAILY Follow-up/Referrals: Ruma,Fanny Ayala, CATERING OPERATIONS MANAGER [Primary Care Provider] -
[2024-12-03] MEDS: ACETAMINOPHEN 500 MG TABLET 1000 MG PO (03:07)
== END 2024-12-03 06:44 | disposition home or self-care (01) ==
PROVIDERS: Emergency Provider Emergency Medicine; PCP Nurse Practitioner
DX: N83.201 Unspecified ovarian cyst, right side (principal); K21.9 Gastro-esophageal reflux disease without esophagitis; E66.9 Obesity, unspecified; Z68.37 Body mass index [BMI] 37.0-37.9, adult
CPT/HCPCS: 36415; 74177; 76830; 76856; 80053; 81001; 81025; 83690; 85025; 87086; 96361; 96374; 96375; 96376; 99284; A9270; J1171; J1885; J7030; Q9967

== ENCOUNTER 2024-12-08 09:32 | Day surgery (SDC) | payer BC, SELFPAY ==
[2024-12-08] VITALS (9 sets, daily range): BP systolic 132–150; BP diastolic 75–98; PULSE 67–94; RESP 8–20; TEMP 36.1–36.8; O2SAT 99–100; BMI 39.2
--- NOTE | 2024-12-08 09:43 | P.PNAN_ITS ---
Anes - Initial Pre Proc Eval Procedure: Operation Date: 12/08/24 11:00 Proposed Procedures p Diagnostic Laparoscopy - Oliver Patricia MD Date/Time: 12/08/24 09:43 Surgeon: Oliver Patricia MD Pre Op Diagnosis: ovarian torsion Patient Data Age: 44 Gender: F Height: Weight: Allergies Allergy/AdvReac Type Severity Reaction Status Date / Time No Known Allergies Allergy Verified 09/07/24 16:51 Home Medications ?Medication ?Instructions ?Recorded ?Confirmed ?Type loratadine 10 mg tablet (Claritin) 10 mg PO DAILY 04/18/24 History ibuprofen 800 mg tablet 800 mg PO TID PRN pain #15 tabs 09/07/24 Rx acetaminophen 500 mg tablet 1,000 mg (2 x 500 mg) PO TID PRN 12/03/24 Rx arianna 7 days #42 tabs ibuprofen 800 mg tablet 800 mg PO TID PRN pain 7 days #21 12/03/24 Rx tabs Patient hx anesthesia problems: none Family hx anesthesia problems: none Results Review: All pre-operative results and documents have been reviewed as part of the pre- operative evaluation. [facility] Past Medical History Medical History Morbid obesity with BMI of 40.0-44.9, adult PONV (postoperative nausea and vomiting) Chronic GERD Partial thickness tear of left rotator cuff Surgical History Surgical History (Updated 12/08/24 @ 09:43 by Rah Campbell MD) History of shoulder surgery Social History Social History Social History: Caffeine-daily Smoking status: Never smoker Alcohol intake: current Alcohol use details: RARE Substance use: never Substance use type: does not use Do You Feel Safe in your Home?: Yes Lack of Transportation: No Lack of Food: Never True Current Housing: I Have Housing Concerned About Future Housing: No Difficulty Paying Gas/Electric Bills: No Difficulty Paying for Meds: No Currently Unemployed: No Education: Bachelor's Degree Difficulty w/ Childcare or Family Care: No Living arrangements: with family Spiritual care concerns: No Anes - Eval Final PreProcedure Day of Procedure 12/08/24 09:43 Patient weight: morbidly obese Heart: regular rate and rhythm Lungs: clear to auscultation Airway: Mallampati scale class II Neurological: alert and oriented ASA classification: III Emergent: yes Anesthetic plan: proceed Anesthesia type and monitoring: general ETT and standard monitoring Results Review: All pre-operative results and documents have been reviewed as part of the pre- operative evaluation. Informed Consent: The patient's anesthetic plan and its attendant risks and benefits were discussed with the patient/family/POA. Questions were solicited and answers provided to the satisfaction of the patient/family/POA.
--- OUTSIDE RECORDS SUMMARY | 2024-12-08 09:52 | XMS_ITS | Clinical Summary ---
Author Organization [facility] [address] Address [address] [place] [address] [address] [place] [address] Care Team Providers Care Discovery Manager Name Role Phone Nicole Aguayo NP Primary Care Provider [phone] Allergies No known active allergies Medications No [...] Department Care Team Description 11/17/2024 7:49 AM BACK FACER - 11/17/2024 11:59 PM BACK FACER Hospital Encounter [facility] [address] [place] [id number] Mass of upper outer quadrant of right breast Discharge Disposition: Discharge to home or self care 11/17/2024 7:48 AM BACK FACER - 11/17/2024 11:59 PM BACK FACER Hospital Encounter [facility] [address] [place] [address] Mass of upper outer quadrant of right breast Discharge Disposition: Discharge to home or self care 10/06/2024 8:40 AM BACK FACER - 10/06/2024 11:59 PM BACK FACER Hospital Encounter [address] [address] Screening, anemia, deficiency, iron; Screening for diabetes mellitus; Screening for lipid disorders; Screening for thyroid disorder; Encounter for hepatitis C screening test for low risk patient; Need for hepatitis B screening test; Arthralgia, unspecified joint Discharge Disposition: Discharge to home or self care 10/06/2024 8:30 AM BACK FACER Lab [facility] at [address] [phone] Pain in joint, multiple sites (Primary Dx); Screening examination for poliomyelitis; Screening for diabetes mellitus; Screening for thyroid disorder; Screening for lipoid disorders; Screening for iron deficiency anemia 10/06/2024 7:30 AM BACK FACER Office Visit [facility] at [address] [phone] Nicole Aguayo NP Encounter for [...] on file Legal Sex Female 8:59 AM BACK FACER Gender Identity Not on file Sexual Orientation Not on file Obstetrics History Para Term AB IAB SAB Ectopic Multiple Livin g Live Births 2 Date Outcome GA Total Labor Labor/2nd/3rd Weight Sex Type Anes PTL Sivan A1 A5 Name Clin Last Filed Vital Signs Vital Sign Reading Time Taken Comments Blood Pressure 124/72 10/06/2024 7:23 AM BACK FACER Pulse 84 10/06/2024 7:23 AM BACK FACER Temperature 36.2 C (97.2 F) 10/06/2024 7:23 AM BACK FACER Respiratory Rate - - Oxygen Saturation 99% 10/06/2024 7:23 AM BACK FACER Inhaled Oxygen Concentration - - Weight 122.5 kg (270 lb) 10/06/2024 7:23 AM BACK FACER Height 177.8 cm (5' 10 ) 11/17/2024 8:02 AM BACK FACER Body Mass Index 38.74 10/06/2024 7:23 AM BACK FACER Plan of Treatment Health Maintenance Due Date [...] Read Routine (OP Routine) 11/17/2024 8:46 AM BACK FACER Mass of upper outer quadrant of right breast DIAGNOSTIC MAMMOGRAM BILATERAL W BETHANY Schedule Routine, Read Routine (OP Routine) 11/17/2024 8:03 AM BACK FACER Mass of upper outer quadrant of right breast EGFR Routine 10/06/2024 8:40 AM BACK FACER Screening for diabetes mellitus DIFFERENTIAL AUTO Routine 10/06/2024 8:4 0 AM BACK FACER Screening, anemia, deficiency, iron RHEUMATOID FACTOR Routine 10/06/2024 8:4 0 AM BACK FACER Arthralgia, unspecified joint ERYTHROCYTE SEDIMENTATION RATE Routine 10/06/2024 8:40 AM BACK FACER Arthralgia, unspecified joint HEMOGLOBIN A1C Routine 10/06/2024 8:40 AM BACK FACER Screening for diabetes mellitus TSH Routine 10/06/2024 8:40 AM BACK FACER Screening for thyroid disorder LIPID PANEL Routine 10/06/2024 8:40 AM BACK FACER Screening for lipid disorders COMPREHENSIVE METABOLIC PANEL Routine 10/06/2024 8:40 AM BACK FACER Screening for diabetes mellitus CBC WITH AUTO DIFFERENTIAL Routine 10/06/2024 8:40 AM BACK FACER Screening, anemia, deficiency, iron HEPATITIS B SURFACE ANTIGEN Routine 10/06/2024 8:40 AM BACK FACER Need for hepatitis B screening test HEPATITIS B SURFACE ANTIBODY (IMMUNE STATUS) Routine 10/06/2024 8:40 AM BACK FACER Need for hepatitis B screening test HEPATITIS B CORE ANTIBODY, TOTAL Routine 10/06/2024 8:40 AM BACK FACER Need for hepatitis B screening test HEPATITIS C ANTIBODY Routine 10/06/2024 8:40 AM BACK FACER Encounter for hepatitis C screening test for low risk patient from Last 3 Months Results * US Breast Right Limited (11/17/2024 8:46 AM BACK FACER) Anatomical Region Laterality Modality Breast Right Ultrasound 11/17/2024 9:00 AM BACK FACER Impressions 11/17/2024 9:00 AM BACK FACER No mammographic or sonographic evidence of malignancy. [...] Fitz Turcios M.D. Narrative 11/17/2024 9:00 AM BACK FACER EXAMINATION: DIAGNOSTIC MAMMOGRAM BILATERAL W BETHANY, US [...] targeted right breast ultrasound. us Nicole Aguayo [employer] IMG MAMMO PROCEDURES Final Re sult * DIAGNOSTIC MAMMOGRAM BILATERAL W BETHANY (11/17/2024 8:03 AM BACK FACER) Anatomical Region Laterality Modality Breast Bilateral Mammography 11/17/2024 9:00 AM BACK FACER Impressions 11/17/2024 9:00 AM BACK FACER No mammographic or sonographic evidence of malignancy. [...] Fitz Turcios M.D. Narrative 11/17/2024 9:00 AM BACK FACER EXAMINATION: DIAGNOSTIC MAMMOGRAM BILATERAL W BETHANY, US [...] Re sult * eGFR (10/06/2024 8:40 AM BACK FACER) eGFR >90 >=60 mL/min/1. 73 m2 Comment: [...] last reviewed 2021. Blood 10/06/2024 8:40 AM BACK FACER 10/06/2024 3:11 PM BACK FACER Nicole Aguayo NP LAB BLOOD ORDERABLES Final Re sult JOAN [id number] Department [place] [address] * Differential, auto (10/06/2024 8:40 AM BACK FACER) Neutrophil abs 2.6 1.5 - 6.5 K/cumm Imm gran abs 0.0 0.0 - 0.1 K/cumm [facility] Lymphocyte abs 0.9 0.8 - 3.3 K/cumm [facility] Monocyte abs 0.3 0.2 - 0.8 K/cumm [facility] Eosinophil abs 0.1 0.0 - 0.5 K/cumm [facility] Basophil abs 0.0 0.0 - 0.1 K/cumm [facility] Neutrophil pct 66.3 % [facility] Comment: Interpretive Data Percent cell count reference ranges are not reported, since discordance with absolute values may lead to misinterpretation of CBC data. Current Interpretive Data was last revised on 2018. Imm gran pct 0.3 % [facility] Comment: Interpretive Data Percent cell count reference ranges are not reported, since discordance with absolute values may lead to misinterpretation of CBC data. Current Interpretive Data was last revised on 2018. Lymphocyte pct 22.0 % [facility] Comment: Interpretive Data Percent cell count reference ranges are not reported, since discordance with absolute values may lead to misinterpretation of CBC data. Current Interpretive Data was last revised on 2018. Monocyte pct 8.6 % [facility] Comment: Interpretive Data Percent cell count reference ranges are not reported, since discordance with absolute values may lead to misinterpretation of CBC data. Current Interpretive Data was last revised on 2018. Eosinophil pct 2.0 % [facility] Comment: Interpretive Data Percent cell count reference ranges are not reported, since discordance with absolute values may lead to misinterpretation of CBC data. Current Interpretive Data was last revised on 2018. Basophil pct 0.8 % [facility] Comment: Interpretive Data Percent cell count reference ranges are not reported, since discordance with absolute values may lead to misinterpretation of CBC data. Current Interpretive Data was last revised on 2018. Blood 10/06/2024 8:40 AM BACK FACER 10/06/2024 3:05 PM BACK FACER us Nicole Aguayo NP LAB BLOOD ORDERABLES Final Re sult JOAN [id number] [place] [address] * (ABNORMAL) CBC with auto differential (10/06/2024 8:40 AM BACK FACER) WBC 4.0 3.8 - 9.9 K/cumm Hgb 12.7 11.9 - 15.5 g/dL [facility] Hct 40.3 35.6 - 45.5 % [facility] Plt 297 150 - 400 K/cumm [facility] MPV 9.4 9.1 - 12.3 fL [facility] RBC 4.32 3.90 - 5.20 M/cumm [facility] MCV 93.3 81.3 - 96.4 fL [facility] MCH 29.4 27.1 - 33.3 pg [facility] MCHC 31.5(L) 32.3 - 35.7 g/dL [facility] RDW CV 12.9 11.1 - 14.9 % [facility] RDW SD 43.8 35.7 - 48.1 fL [facility] NRBC abs 0.00 0.00 - 0.01 K/cumm [facility] Blood 10/06/2024 8:40 AM BACK FACER 10/06/2024 3:05 PM BACK FACER Nicole Aguayo NP LAB BLOOD ORDERABLES Final Re sult Performing Organization Address [facility] de Phone Number JOAN PALOMINO [phone] [place] [address] * Hepatitis C antibody Blood (10/06/2024 8:40 AM BACK FACER) Hep C Ab Nonreactive Nonreactive Comment: Interpretive [...] revised on 2020. Blood 10/06/2024 8:40 AM BACK FACER 10/06/2024 3:05 PM BACK FACER Nicole Aguayo NP LAB MICROBIOLOGY - GENERAL OR DERABLES Final Result Performing Organization Address [facility] Co de Phone Number [facility] [phone] [place] [address] * Hepatitis B core antibody, total Blood (10/06/2024 8:40 AM BACK FACER) Pathologist [facility] Hep B core IgG/IgM Nonreactive Nonreactive Comment:Testing performed by : [facility], [address] [facility], [place]., [address] Blood 10/06/2024 8:40 AM BACK FACER 10/07/2024 9:52 AM BACK FACER Nicole Aguayo NP LAB MICROBIOLOGY - GENERAL OR DERABLES Final Result Performing Organization Address [facility] Co de Phone Number ABHISHEK[facility]ON PALOMINO [phone] [place] [address] * Hepatitis B surface antibody (immune status) Blood (10/06/2024 8:40 AM BACK FACER) Pathologist [facility] HBsAb (immune status) Reactive Comment: Interpretive Data [...] mIUnits/m L JOAN Blood 10/06/2024 8:40 AM BACK FACER 10/06/2024 3:05 PM BACK FACER Nicole Aguayo NP LAB MICROBIOLOGY - GENERAL OR DERABLES Final Result Performing Organization Address [facility] Co de Phone Number JOAN PALOMINO [phone] [place] [address] * Hepatitis B Surface Antigen Blood (10/06/2024 8:40 AM BACK FACER) HepBsAg Nonreactive Nonreactive Blood 10/06/2024 8:40 AM BACK FACER 10/06/2024 3:05 PM BACK FACER us Nicole Aguayo NP LAB MICROBIOLOGY - GENERAL OR DERABLES Final Result Performing Organization Address [facility] Co de Phone Number JOAN PALOMINO [phone] [facility] [place] [address] * Erythrocyte sedimentation rate (10/06/2024 8:40 AM BACK FACER) Erythrocyte sedimentation rate 17 1 - 20 mm/hr Blood 10/06/2024 8:40 AM BACK FACER 10/06/2024 3:05 PM BACK FACER Nicole Aguayo NP LAB BLOOD ORDERABLES Final Re sult Performing Organization Address [facility] de Phone Number JOAN PALOMINO [phone] [facility] [place] [address] * Rheumatoid factor (10/06/2024 8:40 AM BACK FACER) Rheumatoid factor, quant <10 <=15 IUnits/mL Blood 10/06/2024 8:40 AM BACK FACER 10/06/2024 3:05 PM BACK FACER us Nicole Aguayo NP LAB BLOOD ORDERABLES Final Re sult Performing Organization Address [facility] de Phone Number JOAN GEORGETTE [phone] [facility] [place] [address] * TSH (10/06/2024 8:40 AM BACK FACER) Thyroid Stimulating Hormone 0.78 0.30 - 4.20 mcIUnit/mL Blood 10/06/2024 8:40 AM BACK FACER 10/06/2024 3:05 PM BACK FACER us Nicole Aguayo NP LAB BLOOD ORDERABLES Final Re sult Performing Organization Address [facility] Co de Phone Number ABHISHEKIVON PALOMINO [phone] [facility] [place] [address] * Hemoglobin A1c (10/06/2024 8:40 AM BACK FACER) Hgb A1C 5.1 4.0 - 5.6 % Estimated Average Glucose 100 mg/dL JOAN PALOMINO Comment: The ADA recommends reporting an estimated Average Glucose (eAG) with all Hemoglobin A1c results using the equation derived from a study of 507 normal and diabetic adults. Minority populations were underrepresented and children were not included. (Diabetes Care 31:4191-9448, 2008). The eAG is not equivalent to a fasting glucose. Blood 10/06/2024 8:40 AM BACK FACER 10/06/2024 3:05 PM BACK FACER us Nicole Aguayo [employer] LAB BLOOD ORDERABLES Final Re sult JOAN [id number] [place] [address] * (ABNORMAL) Lipid panel (10/06/2024 8:40 AM BACK FACER) Cholesterol 208(H) 30 - 199 mg/dL Comment: [...] 3 CERNER CH Blood 10/06/2024 8:40 AM BACK FACER 10/06/2024 3:05 PM BACK FACER us Nicole Aguayo [employer] LAB BLOOD ORDERABLES Final Re sult CERNER [address] Department [place] [address] * Comprehensive metabolic panel (10/06/2024 8:40 AM BACK FACER) Sodium 137 135 - 145 mmol/L Potassium, [...] CERNER CH Blood 10/06/2024 8:4 0 AM BACK FACER 10/06/2024 3:05 PM BACK FACER Nicole Aguayo NP LAB BLOOD ORDERABLES Final Re sult JOAN [id number] [place] [address] from Last 3 Months Insurance [facility] ACCESS CHOICE Care Teams Discovery Manager Relationship Specialty Start Date End Date Nicole Aguayo NP [id number] [facility] [address] [place] [address] PCP - General Family Medicine 10/06/24
--- OUTSIDE RECORDS SUMMARY | 2024-12-08 09:53 | XMS_ITS | Referral Summary ---
Author Organization [facility] [address] Address [address] [place] [address] [address] [place] [address] Care Team Providers Care Child Development Specialist Name Role Phone Fanny Aguayo NP Primary Care Provider [phone] Encounters Date Type Department Care Team Description 11/17/2024 7:49 AM MANAGER STARS - 11/17/2024 11:59 PM MANAGER STARS Hospital Encounter [facility] [address] [place] [address] Mass of upper outer quadrant of right breast Discharge Disposition: Discharge to home or self care 11/17/2024 7:48 AM MANAGER STARS - 11/17/2024 11:59 PM MANAGER STARS Hospital Encounter [facility] [address] [place] [address] Mass of upper outer quadrant of right breast Discharge Disposition: Discharge to home or self care 10/06/2024 8:40 AM MANAGER STARS - 10/06/2024 11:59 PM MANAGER STARS Hospital Encounter [address] [address] Screening, anemia, deficiency, iron; Screening for diabetes mellitus; Screening for lipid disorders; Screening for thyroid disorder; Encounter for hepatitis C screening test for low risk patient; Need for hepatitis B screening test; Arthralgia, unspecified joint Discharge Disposition: Discharge to home or self care 10/06/2024 8:30 AM MANAGER ST[address] Lab [facility] Outpatient Lab at [address] [place] [phone] Pain in joint, multiple sites (Primary Dx); Screening examination for poliomyelitis; Screening for diabetes mellitus; Screening for thyroid disorder; Screening for lipoid disorders; Screening for iron deficiency anemia 10/06/2024 7:30 AM MANAGER STARS Office Visit [facility] Primary Care at [address] [phone] Fanny Aguayo NP Encounter for [...] on file Legal Sex Female 8:59 AM MANAGER STARS Gender Identity Not on file Sexual Orientation Not on file Last Filed Vital Signs Vital Sign Reading Time Taken Comments Blood Pressure 124/72 10/06/2024 7:23 AM MANAGER STARS Pulse 84 10/06/2024 7:23 AM MANAGER STARS Temperature 36.2 C (97.2 F) 10/06/2024 7:23 AM MANAGER STARS Respiratory Rate - - Oxygen Saturation 99% 10/06/2024 7:23 AM MANAGER STARS Inhaled Oxygen Concentration - - Weight 122.5 kg (270 lb) 10/06/2024 7:23 AM MANAGER STARS Height 177.8 cm (5' 10 ) 11/17/2024 8:02 AM MANAGER STARS Body Mass Index 38.74 10/06/2024 7:23 AM MANAGER STARS Plan of Treatment Not on file Procedures Procedure Name Priority Date/Time Associated Diagnosis Comments US BREAST RIGHT LIMITED Schedule Routine, Read Routine (OP Routine) 11/17/2024 8:46 AM MANAGER STARS Mass of upper outer quadrant of right breast DIAGNOSTIC MAMMOGRAM BILATERAL W BETHANY Schedule Routine, Read Routine (OP Routine) 11/17/2024 8:03 AM MANAGER STARS Mass of upper outer quadrant of right breast EGFR Routine 10/06/2024 8:40 AM MANAGER STARS Screening for diabetes mellitus DIFFERENTIAL AUTO Routine 10/06/2024 8:4 0 AM MANAGER STARS Screening, anemia, deficiency, iron RHEUMATOID FACTOR Routine 10/06/2024 8:4 0 AM MANAGER STARS Arthralgia, unspecified joint ERYTHROCYTE SEDIMENTATION RATE Routine 10/06/2024 8:40 AM MANAGER STARS Arthralgia, unspecified joint HEMOGLOBIN A1C Routine 10/06/2024 8:40 AM MANAGER STARS Screening for diabetes mellitus TSH Routine 10/06/2024 8:40 AM MANAGER STARS Screening for thyroid disorder LIPID PANEL Routine 10/06/2024 8:40 AM MANAGER STARS Screening for lipid disorders COMPREHENSIVE METABOLIC PANEL Routine 10/06/2024 8:40 AM MANAGER STARS Screening for diabetes mellitus CBC WITH AUTO DIFFERENTIAL Routine 10/06/2024 8:40 AM MANAGER STARS Screening, anemia, deficiency, iron HEPATITIS B SURFACE ANTIGEN Routine 10/06/2024 8:40 AM MANAGER STARS Need for hepatitis B screening test HEPATITIS B SURFACE ANTIBODY (IMMUNE STATUS) Routine 10/06/2024 8:40 AM MANAGER STARS Need for hepatitis B screening test HEPATITIS B CORE ANTIBODY, TOTAL Routine 10/06/2024 8:40 AM MANAGER STARS Need for hepatitis B screening test HEPATITIS C ANTIBODY Routine 10/06/2024 8:40 AM MANAGER STARS Encounter for hepatitis C screening test for low risk patient from Last 3 Months Results * US Breast Right Limited (11/17/2024 8:46 AM MANAGER STARS) Anatomical Region Laterality Modality Breast Right Ultrasound 11/17/2024 9:00 AM MANAGER STARS Impressions 11/17/2024 9:00 AM MANAGER STARS No mammographic or sonographic evidence of malignancy. [...] Fitz Turcios M.D. Narrative 11/17/2024 9:00 AM MANAGER STARS EXAMINATION: DIAGNOSTIC MAMMOGRAM BILATERAL W BETHANY, US [...] targeted right breast ultrasound. us Fanny Aguayo HOSPITAL EDUCATOR IMG MAMMO PROCEDURES Final Re sult * DIAGNOSTIC MAMMOGRAM BILATERAL W BETHANY (11/17/2024 8:03 AM MANAGER STARS) Anatomical Region Laterality Modality Breast Bilateral Mammography 11/17/2024 9:00 AM MANAGER STARS Impressions 11/17/2024 9:00 AM MANAGER STARS No mammographic or sonographic evidence of malignancy. [...] Fitz Turcios M.D. Narrative 11/17/2024 9:00 AM MANAGER STARS EXAMINATION: DIAGNOSTIC MAMMOGRAM BILATERAL W BETHANY, US [...] targeted right breast ultrasound. us Fanny Aguayo HOSPITAL EDUCATOR IMG MAMMO PROCEDURES Final Re sult * eGFR (10/06/2024 8:40 AM MANAGER STARS) eGFR >90 >=60 mL/min/1. 73 m2 Comment: [...] last reviewed 2021. Blood 10/06/2024 8:40 AM MANAGER STARS 10/06/2024 3:11 PM MANAGER STARS us Fanny Aguayo HOSPITAL EDUCATOR LAB BLOOD ORDERABLES Final Re sult [address]AN [id number] [facility] [place] [address] * Differential, auto (10/06/2024 8:40 AM MANAGER STARS) Neutrophil abs 2.6 1.5 - 6.5 K/cumm Imm gran abs 0.0 0.0 - 0.1 K/cumm [facility] Lymphocyte abs 0.9 0.8 - 3.3 K/cumm [facility] Monocyte abs 0.3 0.2 - 0.8 K/cumm [facility] Eosinophil abs 0.1 0.0 - 0.5 K/cumm [facility] Basophil abs 0.0 0.0 - 0.1 K/cumm [facility] Neutrophil pct 66.3 % [facility] Comment: Interpretive Data Percent cell count reference ranges are not reported, since discordance with absolute values may lead to misinterpretation of CBC data. Current Interpretive Data was last revised on 2018. Imm gran pct 0.3 % [facility] Comment: Interpretive Data Percent cell count reference ranges are not reported, since discordance with absolute values may lead to misinterpretation of CBC data. Current Interpretive Data was last revised on 2018. Lymphocyte pct 22.0 % [facility] Comment: Interpretive Data Percent cell [...] revised on 2018. Eosinophil pct 2.0 % [facility] Comment: Interpretive Data Percent cell count reference ranges are not reported, since discordance with absolute values may lead to misinterpretation of CBC data. Current Interpretive Data was last revised on 2018. Basophil pct 0.8 % [facility] Comment: Interpretive Data Percent cell count reference ranges are not reported, since discordance with absolute values may lead to misinterpretation of CBC data. Current Interpretive Data was last revised on 2018. Blood 10/06/2024 8:40 AM MANAGER STARS 10/06/2024 3:05 PM MANAGER STARS Fanny Aguayo HOSPITAL EDUCATOR LAB BLOOD ORDERABLES Final Re sult JOAN [address] [place] [address] * (ABNORMAL) CBC with auto differential (10/06/2024 8:40 AM MANAGER STARS) WBC 4.0 3.8 - 9.9 K/cumm Hgb 12.7 11.9 - 15.5 g/dL [facility] Hct 40.3 35.6 - 45.5 % [facility] Plt 297 150 - 400 K/cumm [facility] MPV 9.4 9.1 - 12.3 fL [facility] RBC 4.32 3.90 - 5.20 M/cumm [facility] MCV 93.3 81.3 - 96.4 fL [facility] MCH 29.4 27.1 - 33.3 pg [facility] MCHC 31.5(L) 32.3 - 35.7 g/dL [facility] RDW CV 12.9 11.1 - 14.9 % [facility] RDW SD 43.8 35.7 - 48.1 fL [facility] NRBC abs 0.00 0.00 - 0.01 K/cumm [facility] Blood 10/06/2024 8:40 AM MANAGER STARS 10/06/2024 3:05 PM MANAGER STARS Fanny Aguayo NP LAB BLOOD ORDERABLES Final Re sult Performing Organization Address City/[facility]/ZIP Co de Phone Number JOAN PALOM[address] [facility] [address] * Hepatitis C antibody Blood (10/06/2024 8:40 AM MANAGER STARS) Hep C Ab Nonreactive Nonreactive Comment: Interpretive [...] revised on 2020. Blood 10/06/2024 8:40 AM MANAGER STARS 10/06/2024 3:05 PM MANAGER STARS Fanny Aguayo NP LAB MICROBIOLOGY - GENERAL OR DERABLES Final Result Performing Organization Address [facility]/ZIP Co de Phone Number ABHISHEK[facility]ON [address] [address] [facility] [place] [address] * Hepatitis B core antibody, total Blood (10/06/2024 8:40 AM MANAGER STARS) Hep B core IgG/IgM Nonreactive Nonreactive Comment:Testing performed by : [facility], [address] [facility], [place]., [address] Blood 10/06/2024 8:40 AM MANAGER STARS 10/07/2024 9:52 AM MANAGER STARS Fanny Aguayo NP LAB MICROBIOLOGY - GENERAL OR DERABLES Final Result Performing Organization Address City/[facility] Co de Phone Number JOAN [address] [address] [place] [address] * Hepatitis B surface antibody (immune status) Blood (10/06/2024 8:40 AM MANAGER STARS) HBsAb (immune status) Reactive Comment: Interpretive Data [...] HBsAb (immune status) index 27.6 mIUnits/m L [facility] Blood 10/06/2024 8:40 AM MANAGER STARS 10/06/2024 3:05 PM MANAGER STARS us Fanny Aguayo NP LAB MICROBIOLOGY - GENERAL OR DERABLES Final Result Performing Organization Address [facility] Co de Phone Number [facility] [address] [address] [facility] [place] [address] * Hepatitis B Surface Antigen Blood (10/06/2024 8:40 AM MANAGER STARS) HepBsAg Nonreactive Nonreactive Blood 10/06/2024 8:40 AM MANAGER STARS 10/06/2024 3:05 PM MANAGER STARS Fanny Aguayo NP LAB MICROBIOLOGY - GENERAL OR DERABLES Final Result Performing Organization Address [facility] de Phone Number [facility] [address] [address] [facility] [place] [address] * Erythrocyte sedimentation rate (10/06/2024 8:40 AM MANAGER STARS) Pathologist [facility] Erythrocyte sedimentation rate 17 1 - 20 mm/hr Blood 10/06/2024 8:40 AM MANAGER STARS 10/06/2024 3:05 PM MANAGER STARS Fanny Aguayo NP LAB BLOOD ORDERABLES Final Re sult Performing Organization Address [facility] de Phone Number [facility] [address] [address] [facility] [place] [address] * Rheumatoid factor (10/06/2024 8:40 AM MANAGER STARS) Rheumatoid factor, quant <10 <=15 IUnits/mL Blood 10/06/2024 8:40 AM MANAGER STARS 10/06/2024 3:05 PM MANAGER STARS Fanny L. Ruma HOSPITAL EDUCATOR LAB BLOOD ORDERABLES Final Re sult Performing Organization Address [facility] de Phone Number JOAN [address] [address] [facility] [place] [address] * TSH (10/06/2024 8:40 AM MANAGER STARS) Pathologist [facility] Thyroid Stimulating Hormone 0.78 0.30 - 4.20 mcIUnit/mL Blood 10/06/2024 8:40 AM MANAGER STARS 10/06/2024 3:05 PM MANAGER STARS Fanny Aguayo NP LAB BLOOD ORDERABLES Final Re sult Performing Organization Address [facility] de Phone Number JOAN [address] [address] [facility] [place] [address] * Hemoglobin A1c (10/06/2024 8:40 AM MANAGER STARS) [facility] Hgb A1C 5.1 4.0 - 5.6 % Estimated Average Glucose 100 mg/dL JOAN PALOMINO Comment: The ADA recommends reporting an estimated Average Glucose (eAG) with all Hemoglobin A1c results using the equation derived from a study of 507 normal and diabetic adults. Minority populations were underrepresented and children were not included. (Diabetes Care 31:0544-9884, 2008). The eAG is not equivalent to a fasting glucose. Blood 10/06/2024 8:40 AM MANAGER STARS 10/06/2024 3:05 PM MANAGER STARS Fanny Aguayo NP LAB BLOOD ORDERABLES Final Re sult Performing Organization Address [facility] Co de Phone Number JOAN PALOMINO [address] [address] [place] [address] * (ABNORMAL) Lipid panel (10/06/2024 8:40 AM MANAGER STARS) [facility] Cholesterol 208(H) 30 - 199 mg/dL [...] 3 [facility] Blood 10/06/2024 8:40 AM MANAGER STARS 10/06/2024 3:05 PM MANAGER STARS Fanny Aguayo NP LAB BLOOD ORDERABLES Final Re sult JOAN [address] [address] [place] [address] * Comprehensive metabolic panel (10/06/2024 8:40 AM MANAGER STARS) Sodium 137 135 - 145 mmol/L Potassium, [...] Units/L [facility] Blood 10/06/2024 8:40 AM MANAGER STARS 10/06/2024 3:05 PM MANAGER STARS us Fanny Aguayo NP LAB BLOOD ORDERABLES Final Re sult [facility] [address] [address] [place] [address] from Last 3 Months Insurance [facility] ACCESS CHOICE Care Teams Child Development Specialist Relationship Specialty Start Date End Date Fanny Aguayo NP [phone] [facility] [address] [place] [address] PCP - General Family Medicine 10/06/24
--- OUTSIDE RECORDS SUMMARY | 2024-12-08 09:53 | XMS_ITS | Data Portability ---
Author Organization [place] [facility], Main Office Address [address] [place] [id number] Assessment Encounter Date Assessment Date Assessment LastModified [...] will reassess and discuss surgery with her. [email or web address] Not available 01/13/2023 14:34:31 02/10/2023 02/10/2023 Patient [...] would relieve all of her symptoms discussed. [email or web address] Not available 02/10/2023 15:31:29 04/13/2023 04/13/2023 Patient [...] changes or problems she will call discussed. rain Not available 05/04/2023 10:42:29 06/09/2023 06/09/2023 Patient [...] ...should start week of May [id number] 023 [facility], [address], [place], [address], 3 12:10:34 Procedures injection/ aspiration joint/burs a (PROC) - in office procedure, administer ed by provider 2022 023 [email or web address] In-Office Order, Internal Use Only DO Not Attach Compendium DO Not Attach Compendium, Do Not Delete/merge, [id number] 3 14:36:51 injection/ aspiration joint/burs a (PROC) - in office procedure, administer ed by provider 2022 023 [email or web address] In-Office Order, Internal Use Only DO Not Attach Compendium DO Not Attach Compendium, Do Not Delete/merge, [id number] 3 14:34:18 Surgeries None recorded. Imaging None recorded. Medication Orders Kenalog 10 mg/mL suspension for injection 2022 023 [facility], [address], [place], [id number], 3 14:38:47 ropivacain e (PF) 5 mg/mL (0.5 %) injection solution 2022 023 [facility] [place], [place] [address], [address], [place], [id number], 3 14:38:47 Kenalog 10 mg/mL suspension for injection [address] [place], [place] [address] [facility]98097, [address], [place], [id number], 3 14:35:02 ropivacain e (PF) 5 mg/mL (0.5 %) injection solution 2022 023 [facility] [place] [address] [facility]69385, [address], [place], [id number], 3 14:35:02 Patient TargetsNo targets recorded. Patient InstructionsNo instructions [...] contr ast No observ ation record ed. [id number] [facility] [address], [place], [address], 12/25/2022 01:48:55 Result Notes None recorded. Problems Name Problem SNOMED Code Status Onset Date Resolution Date Notes Provider Name and Address Organization Details Recorded Time Pain of left shoulder joint 1459369327145 9109 Active 2022 Not Available [facility] 3 01:48:21 Tendinitis of left rotator cuff 7829739136094 9101 Active 2022 Not Available [facility] 3 01:48:21 Partial thickness rotator cuff tear 590288478 Active 2022 Not Available [facility] 3 01:48:21 Strain of rotator cuff of shoulder 199303177 Active 2022 Not Available [facility] 3 01:48:21 Arthritis of acromiocla vicular joint 137806050 Active 2022 Michel Hong MD [address], [place], [address] , [email or web address] [facility] [employer] 3 14:45:13 Problem Notes None recorded. Procedures Surgical History Date Name Laterality Status Provider Name and Address Organization Details Recorded Time 3 Ortho - Cortisone Injection completed Michel Hong MD [address], [place], [address], [email or web address] [facility] [email or web address] 02/10/2023 15:29:36 3 Ortho - Cortisone Injection completed Michel Hogn MD [address], [place], [address], [email or web address] [facility] 01/13/2023 14:33:36 Knee completed Not Available [facility] 11/2022 01:47:59 section completed Not Available [facility] 12/25/2022 01:47:59 procedure on wrist completed Not Available [facility] 12/25/2022 01:47:59 Imaging Results Imaging Date Name Status LastModified by Organiz ation Details LastModified Time 12/12/2022 MRI, shoulder, w/o contrast completed [id number] [facility] [address], [place], [address], 12/25/2022 01:48:55 Procedure Notes None recorded. Medical [...] 40 mg by injection route. 2022 active [facility]: [id number] Not Available Not Available [...] Updated DateTime 01/13/2023 177.8 cm 40.2 kg/m2 258790.86 g ABBI Valdez [employer] 01/13/2023 14:24:20 Date Recorded Body height Body mass index (BMI) Body weight Provider Name and Address Organization Details Last Updated DateTime 02/10/2023 177.8 cm 40.2 kg/m2 175924.86 g ABBI Valdez [employer] 02/10/2023 14:11:36 Date Recorded Body height Body mass index (BMI) Body weight Provider Name and Address Organization Details Last Updated DateTime 04/13/2023 177.8 cm 39.5 kg/m2 881573.9 ABBI Valentin [facility] [employer] [facility] 04/13/2023 09:25:14 Date Recorded Body height Body mass index (BMI) Body weight Provider Name and Address Organization Details Last Updated DateTime 05/04/2023 177.8 cm 39.5 kg/m2 060467.9 gerardo Garcia CNA [facility] [employer] [facility] 05/04/2023 10:11:06 Date Recorded Body height Body mass index (BMI) Body weight Provider Name and Address Organization Details Last Updated DateTime 06/09/2023 177.8 cm 39.5 kg/m2 469050.9 gerardo Ramos Pro [facility] [employer] [facility] 06/09/2023 14:19:06 Social History Question Answer Notes LastModified by [employer] Details LastModified Time Tobacco Smoking Status Never Smoker [facility]ln [facility] [employer] [facility] 01/13/2023 14:21:15 What Is Your Level Of Alcohol Consumption? Occasional [id number] Information not available 12/25/2022 Sex: Unknown Functional Status None recorded. Mental Status None recorded. Family History Relationship Description Onset Age of this Age Resolved Age Notes LastModified by Organization Details LastModified Time Father Heart disease [id number] Not available 12/25/2022 01:48:00 Father Hypertensive disorder [id number] Not available 12/25/2022 01:48:00 Father Diabetes mellitus [id number] Not available 12/25/2022 01:48:00 Father Cerebrovascu lar accident [email or web address] Not available 14:21:15 Mother Family history of malignant neoplasm [email or web address] Not available 01/13 14:21:15 Mother Hypertensive disorder [id number] Not available 12/25/2022 01:48:00 Medical History No medical history recorded. Gynecological HistoryNo gynecological history recorded. Obstetrics History GPAL:G 0 P 0 0 0 0 Past Encounters Encounter ID Performer Location Encounter Start Date Encounter Closed Date Diagnosis/Indication Diagnosis SNOMED-CT Code Diagnosis ICD10 Code Diagnosis Note [id number] [facility] [place] [address] [place] [address] 11/06/2022 00:00:00 11/06/2022 14:16:52 [id number] [facility] [place] [address] [place] [address] 12/04/2022 00:00:00 12/04/2022 15:31:33 [id number] [facility] [place] [address] [place] [address] 12/16/2022 00:00:00 12/16/2022 15:52:05 [id number] Michel Hong MD [facility] [place] [address] [place] [address] 01/13/2023 14:19:14 01/13/2023 15:17:10 Tendinitis of left rotator cuff 2290333018 3997164 M67.814 Strain of rotator cuff of shoulder 310771631 S46.011D [id number] Michel Hong MD [facility] [place] [address] [place] [address] 02/10/2023 14:07:16 02/10/2023 16:00:45 Tendinitis of left rotator cuff 1167272360 6157409 M67.814 Strain of rotator cuff of shoulder 124749007 S46.011D [id number] Michel Hong MD [facility] [place] [address] [place] [address] 04/13/2023 09:22:56 04/13/2023 11:08:14 Strain of rotator cuff of shoulder 963839160 S46.011D Tendinitis of left rotator cuff 5553167069 1054017 M67.814 [id number] Michel Hong MD [facility] [place] [address] [place] [address] 05/04/2023 10:04:56 05/04/2023 11:02:02 Tendinitis of left rotator cuff 4588121418 5533514 M67.814 Strain of rotator cuff of shoulder 154964207 S46.011D Postoperative visit 1836 40657 Z09 [id number] Michel Hong MD [facility] [place] [address] [place] [address] 06/09/2023 14:14:51 06/09/2023 15:42:32 Tendinitis of left rotator cuff 7424856406 2411200 M67.814 Partial th ickness rotator cuff tear 966230290 M75.102 Arthritis of acromioclavicular joint 461341136 M13.819 M13.812 Health Concerns Section Related Observation [...] better. Michel Hong MD [address] [place] [address], [place], [address], [employer] 01/13/2023 14:34:58 02/10/2023 text/html Patient returns shoulder [...] otherwise. Michel Hong MD [address], [place] [address], [place], [address], [employer] 02/10/2023 15:31:32 04/13/2023 text/html Patient returns status post rotator cuff debridement repair left distal clavicle excision. She is doing okay pain is tolerable and she is moving arm reasonably well. Michel Hong MD [address], [place], [address], [employer] 04/13/2023 10:15:53 05/04/2023 text/html Patient returns status post rotator cuff debridement repair left distal clavicle excision. She is doing okay pain is tolerable and she is moving arm reasonably well. The pain is improved quite a bit over the last month and she is doing much better than she was before surgery. Michel Hong MD [address], [place], [address], [employer] 05/04/2023 11:00:40 06/09/2023 text/html Patient returns status post rotator cuff debridement repair left distal clavicle excision. She is doing okay pain is tolerable and she is moving arm reasonably well. The pain is improved quite a bit over the last month and she is doing much better than she was before surgery. Michel Hong MD [address], [place], [address], [employer] 06/09/2023 14:45:47 OBGyn Episode No OBEpisode recorded.
[2024-12-08] MEDS: KETOROLAC 15 MG/ML VIAL (*BKC) IV PUSH (10:00)
[2024-12-08] MEDS: ACETAMINOPHEN 500 MG TABLET 1000 MG PO (10:00)
[2024-12-08] MEDS: LACTATED RINGERS 1,000 ML 30 ML IV CONT ×2 (10:00→11:55)
[2024-12-08] MEDS: SCOPOLAMINE 1 MG PATCH 1 PATCH TRANSDERM (10:00)
--- NOTE | 2024-12-08 10:31 | WPDHPUPDATE1 ---
History and Physical Update Update Date/Time: 12/08/24 10:31 History and Physical has been reviewed, including an updated exam of the patient. There are NO changes in the patient's condition. Risks, benefits, and alternatives have been discussed and questions answered. Patient agrees to proceed with procedure.
[2024-12-08 10:49] LABS: BEDSIDEPREGUCG Negative (Negative)
--- NOTE | 2024-12-08 11:49 | W.PM.PROC2 ---
Procedure Note - Detailed Date of Procedure 12/08/24 Pre-op Diagnosis Pelvic pain Post-op Diagnosis Same (Endometriosis, endometrioma) Procedure Performed Diagnostic laparoscopy, right ovarian cystectomy Surgeon Oliver Patricia MD Anesthesia General Indications Pelvic pain Findings Hemoperitoneum, Endometriosis throughout the posterior cul-de-sac. Scarring between the ovaries and the posterior cul-de-sac and pelvic sidewall. Endometrioma the right ovary. Approximate 3 cm. Description of Procedure The patient was taken to the operating room. She was prepped and draped in the dorsal lithotomy position after induction general anesthesia. A 5 mm incision was made with a scalpel on the abdominal skin in the left upper quadrant of the abdomen. A 5 mm trocar was inserted into the intra-abdominal cavity under direct visualization the scope. In the same fashion a 5 mm left lower quadrant trocar was inserted and a 5 mm infraumbilical trocar was inserted. Right ovarian cystectomy was performed using sharp and blunt dissection. Adhesiolysis was also performed to separate the ovaries from the pelvic sidewall. This was done with blunt sharp dissection. Pelvis and abdomen were irrigated. Active bleeding could not be identified. The pelvis was irrigated. The pneumoperitoneum was reduced. The trocars were removed. Skin was closed with subcuticular 4 micro. The patient's incisions were covered with Dermabond. She was taken recovery room in stable condition. Sponge lap and needle counts were correct x2. Complications No immediate complications Condition Stable Disposition Same day
[2024-12-08] MEDS: fentaNYL CITRATE INJ (*CRX) 100 MCG/2 ML VIAL 25 MCG IV PUSH ×3 (12:19→12:39)
[2024-12-08] MEDS: oxyCODONE HCL (*CRX) 5 MG TAB IR PO (13:34)
== END 2024-12-08 14:08 | disposition home or self-care (01) ==
PROVIDERS: PCP Nurse Practitioner; Visit Provider Obstetrics & Gynecology
PROC: (CPT 49320; principal; 2024-12-08 11:00)
DX: N80.121 Deep endometriosis of right ovary (principal); N80.329 Endometriosis of the posterior cul-de-sac, unspecified depth; G89.18 Other acute postprocedural pain; K21.9 Gastro-esophageal reflux disease without esophagitis; E66.01 Morbid (severe) obesity due to excess calories; Z68.39 Body mass index [BMI] 39.0-39.9, adult; Z79.891 Long term (current) use of opiate analgesic; Z79.1 Long term (current) use of non-steroidal anti-inflammatories (NSAID); Z98.890 Other specified postprocedural states
CPT/HCPCS: 58662; A9270; J1100; J1885; J2250; J2405; J2704; J3010; J7030; J7120

== ENCOUNTER 2025-01-18 15:31 | Outpatient (CLI) | payer BC, SELFPAY ==
--- OUTSIDE RECORDS SUMMARY | 2025-01-18 16:47 | XMS_ITS | Clinical Summary ---
Author Organization [facility] [address] [place] [address] [address] [place] [address] Care Team Providers Care Clip Coater Name Role Phone Fanny Aguayo NP Primary Care Provider [phone] Allergies No known active allergies Medications No [...] Department Care Team Description 11/17/2024 7:49 AM SOLVENT PLANT OPERATOR - 11/17/2024 11:59 PM SOLVENT PLANT OPERATOR Hospital Encounter [facility] [address] [place] [address] Mass of upper outer quadrant of right breast Discharge Disposition: Discharge to home or self care 11/17/2024 7:48 AM SOLVENT PLANT OPERATOR - 11/17/2024 11:59 PM SOLVENT PLANT OPERATOR Hospital Encounter [facility] [address] [place] [address] Mass of upper outer quadrant of right breast Discharge Disposition: Discharge to home or self care from Last 3 Months Immunizations Immunization Administration Dates Next Due Influenza, Unspecified 10/05/2024(Deferr [...] on file Legal Sex Female 8:59 AM SOLVENT PLANT OPERATOR Gender Identity Not on file Sexual Orientation Not on file Obstetrics History Para Term AB IAB SAB Ectopic Multiple Livin g Live Births 2 Date Outcome GA Total Labor Labor/2nd/3rd Weight Sex Type Anes PTL Sivan A1 A5 Name Clin Last Filed Vital Signs Vital Sign Reading Time Taken Comments Blood Pressure 124/72 10/06/2024 7:23 AM [employer] PLANT OPERATOR Pulse 84 10/06/2024 7:23 AM [employer] PLANT OPERATOR Temperature 36.2 C (97.2 F) 10/06/2024 7:23 AM [employer] PLANT OPERATOR Respiratory Rate - - Oxygen Saturation 99% 10/06/2024 7:23 AM [employer] PLANT OPERATOR Inhaled Oxygen Concentration - - Weight 122.5 kg (270 lb) 10/06/2024 7:23 AM SOL[employer] PLANT OPERATOR Height 177.8 cm (5' 10 ) 11/17/2024 8:02 AM [employer] PLANT OPERATOR Body Mass Index 38.74 10/06/2024 7:23 AM [employer] PLANT OPERATOR Plan of Treatment Health Maintenance Due [...] Read Routine (OP Routine) 11/17/2024 8:46 AM [employer] PLANT OPERATOR Mass of upper outer quadrant of right breast DIAGNOSTIC MAMMOGRAM BILATERAL W BETHANY Schedule Routine, Read Routine (OP Routine) 11/17/2024 8:03 AM [employer] PLANT OPERATOR Mass of upper outer quadrant of right breast HEPATITIS C ANTIBODY Routine 10/06/2024 8:40 AM [employer] PLANT OPERATOR Encounter for hepatitis C screening test for low risk patient from Last 3 Months or Most Recently Relevant to Health Maintenance Results * US Breast Right Limited (11/17/2024 8:46 AM SOLVENT PLANT OPERATOR) Anatomical Region Laterality Modality Breast Right Ultrasound 11/17/2024 9:00 AM [employer] PLANT OPERATOR Impressions 11/17/2024 9:00 AM [employer] PLANT OPERATOR No mammographic or sonographic evidence of [...] Fitz Turcios M.D. Narrative 11/17/2024 9:00 AM [employer] PLANT OPERATOR EXAMINATION: DIAGNOSTIC MAMMOGRAM BILATERAL W BETHANY, [...] targeted right breast ultrasound. us Fanny Aguayo EPIC CADENCE ANALYST IMG MAMMO PROCEDURES Final Re sult * DIAGNOSTIC MAMMOGRAM BILATERAL W BETHANY (11/17/2024 8:03 AM SOL[employer] PLANT OPERATOR) Anatomical Region Laterality Modality Breast Bilateral Mammography 11/17/2024 9:00 AM SOL[employer] PLANT OPERATOR Impressions 11/17/2024 9:00 AM SOL[employer] PLANT OPERATOR No mammographic or sonographic evidence of [...] Fitz Turcios M.D. Narrative 11/17/2024 9:00 AM [employer] PLANT OPERATOR EXAMINATION: DIAGNOSTIC MAMMOGRAM BILATERAL W BETHANY, [...] the mammogram or targeted right breast ultrasound. Result [facility] Fanny Aguayo EPIC CADENCE ANALYST IMG MAMMO PROCEDURES Final Re sult * Hepatitis C antibody Blood (10/06/2024 8:40 AM SOLVENT PLANT OPERATOR) Hep C Ab Nonreactive Nonreactive Comment: [...] revised on 2020. Blood 10/06/2024 8:40 AM SOLVENT PLANT OPERATOR 10/06/2024 3:05 PM SOLVENT PLANT OPERATOR us Fanny Aguayo NP LAB MICROBIOLOGY - GENERAL OR DERABLES Final Result [facility]OM[facility] [address] [place] [address] from Last 3 Months or Most Recently Relevant to Health Maintenance Insurance [employer] Care Teams Clip Coater Relationship Specialty Start Date End Date Fanny Aguayo NP [address] [phone] PCP - General Family Medicine 10/06/24
--- OUTSIDE RECORDS SUMMARY | 2025-01-18 16:48 | XMS_ITS | Referral Summary ---
Author Organization [id number] [address] Address [address] [place] [address] [address] [place] [address] Care Team Providers Care Community Ambassador Name Role Phone Fanny Aguayo NP Primary Care Provider [phone] Encounters Date Type Department Care Team Description 11/17/2024 7:49 AM MINE EXPLORATION ENGINEER - 11/17/2024 11:59 PM MINE EXPLORATION ENGINEER Hospital Encounter [facility] [address] [place] [address] Mass of upper outer quadrant of right breast Discharge Disposition: Discharge to home or self care 11/17/2024 7:48 AM MINE EXPLORATION ENGINEER - 11/17/2024 11:59 PM MINE EXPLORATION ENGINEER Hospital Encounter [facility] [address] [place] [address] Mass of upper outer quadrant of right breast Discharge Disposition: Discharge to home or self care from Last 3 Months Allergies No known [...] of breast 10/06/2024 Allergic rhinitis 10/06/2024 Immunizations Immunization Administration Dates Next Due Influenza, Unspecified 10/05/2024(Deferr ed: Patient Refused),08/03/2023(Deferred: Patient Refused) Social History Tobacco Use Types Packs/Day Years Used Date Smoking Tobacco: Never Cigarettes Smokeless Tobacco: Never Tobacco Cessation:Counseling Given: Not Answered Comments Unknown Sex and Gender Information Value Date Recorded Sex Assigned at Not on file Legal Sex Female 8:59 AM MINE EXPLORATION ENGINEER Gender Identity Not on file Sexual Orientation Not on file Last Filed Vital Signs Vital Sign Reading Time Taken Comments Blood Pressure 124/72 10/06/2024 7:23 AM MINE EXPLORATION ENGINEER Pulse 84 10/06/2024 7:23 AM MINE EXPLORATION ENGINEER Temperature 36.2 C (97.2 F) 10/06/2024 7:23 AM MINE EXPLORATION ENGINEER Respiratory Rate - - Oxygen Saturation 99% 10/06/2024 7:23 AM MINE EXPLORATION ENGINEER Inhaled Oxygen Concentration - - Weight 122.5 kg (270 lb) 10/06/2024 7:23 AM MINE EXPLORATION ENGINEER Height 177.8 cm (5' 10 ) 11/17/2024 8:02 AM MINE EXPLORATION ENGINEER Body Mass Index 38.74 10/06/2024 7:23 AM MINE EXPLORATION ENGINEER Plan of Treatment Not on file Procedures Procedure Name Priority Date/Time Associated Diagnosis Comments US BREAST RIGHT LIMITED Schedule Routine, Read Routine (OP Routine) 11/17/2024 8:46 AM MINE EXPLORATION ENGINEER Mass of upper outer quadrant of right breast DIAGNOSTIC MAMMOGRAM BILATERAL W BETHANY Schedule Routine, Read Routine (OP Routine) 11/17/2024 8:03 AM MINE EXPLORATION ENGINEER Mass of upper outer quadrant of right breast HEPATITIS C ANTIBODY Routine 10/06/2024 8:40 AM MINE EXPLORATION ENGINEER Encounter for hepatitis C screening test for low risk patient from Last 3 Months or Most Recently Relevant to Health Maintenance Results * US Breast Right Limited (11/17/2024 8:46 AM MINE EXPLORATION ENGINEER) Anatomical Region Laterality Modality Breast Right Ultrasound 11/17/2024 9:00 AM MINE EXPLORATION ENGINEER Impressions 11/17/2024 9:00 AM MINE EXPLORATION ENGINEER No mammographic or sonographic evidence of malignancy. [...] Fitz Turcios M.D. Narrative 11/17/2024 9:00 AM MINE EXPLORATION ENGINEER EXAMINATION: DIAGNOSTIC MAMMOGRAM BILATERAL W BETHANY, US [...] the mammogram or targeted right breast ultrasound. Fanny Aguayo OFFICE ADMIN IMG MAMMO PROCEDURES Final Re sult * DIAGNOSTIC MAMMOGRAM BILATERAL W BETHANY (11/17/2024 8:03 AM MINE EXPLORATION ENGINEER) Anatomical Region Laterality Modality Breast Bilateral Mammography 11/17/2024 9:00 AM MINE EXPLORATION ENGINEER Impressions 11/17/2024 9:00 AM MINE EXPLORATION ENGINEER No mammographic or sonographic evidence of malignancy. [...] Fitz Turcios M.D. Narrative 11/17/2024 9:00 AM MINE EXPLORATION ENGINEER EXAMINATION: DIAGNOSTIC MAMMOGRAM BILATERAL W BETHANY, US [...] the mammogram or targeted right breast ultrasound. Fanny Aguayo OFFICE ADMIN IMG MAMMO PROCEDURES Final Re sult * Hepatitis C antibody Blood (10/06/2024 8:40 AM MINE EXPLORATION ENGINEER) Hep C Ab Nonreactive Nonreactive Comment: Interpretive [...] revised on 2020. Blood 10/06/2024 8:40 AM MINE EXPLORATION ENGINEER 10/06/2024 3:05 PM MINE EXPLORATION ENGINEER us Fanny Aguayo NP LAB MICROBIOLOGY - GENERAL OR DERABLES Final Result [facility] [id number] Department [place] [address] from Last 3 Months or Most Recently Relevant to Health Maintenance Insurance [facility] ACCESS CHOICE Care Teams Community Ambassador Relationship Specialty Start Date End Date Fanny Aguayo NP [address] [facility] [address] [place] [address] PCP - General Family Medicine 10/06/24
--- OUTSIDE RECORDS SUMMARY | 2025-01-18 16:48 | XMS_ITS | Continuity of Care Document ---
Author Organization [facility] Address [address] [place] [address] Care Team Providers Care Bath Tester Name Role Phone NICOLE AGUAYO Primary Care Provider [phone] Assessment No assessment recorded. Plan of Treatment Reminders Order Date Submit Date Provider Last Modified By Organization Details Last Modified Time Details Appointments SURG PRE OP 2024 02:45P Sherri PATRICIA MD Not available Not available Not available [facility] 2024 07:30A Sherri PATRICIA MD Not available Not available Not available SURG POST OP 2024 10:45A Sherri PATRICIA MD Not available Not available Not available Lab None recorded . Referral None recorded . Procedures None recorded . Surgeries None recorded . Imaging None recorded . Medication Orders None recorded . Patient TargetsNo targets recorded. Patient InstructionsNo instructions recorded. Reason for Referral None Reported. 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 findings;R ecorded Elsewhere: No Locatio n: [facility] rce: EHR Chroni c: N Practice ID: 0001 Billa ble Time: 04:30:00 PM Not Available [facility] 0 17:27:18 Pain of breast 24811721 Active 2011 Mastodynia ;Recorded Elsewhere: No Locatio n: [facility] rce: EHR Chroni c: N Practice ID: 0001 Billa ble Time: 01:45:00 PM Not Available [facility] 0 17:27:18 Adult health examinati on Active 2013 ROUTINE MEDICAL EXAM;Recor ded Elsewhere: No Locatio n: [facility] rce: EHR Chroni c: N Practice ID: 0001 Billa ble Time: 01:30:00 PM Not Available [facility] 0 17:27:18 test negative 305159162 Active 2018 Encounter for test, result negative;R ecorded Elsewhere: No Locatio n: [facility] rce: EHR Chroni c: N Practice ID: 0001 Billa ble Time: 08:30:00 AM Not Available [facility] 0 17:27:[address] Concept Active 2015 Encntr for general adult medical exam w/o abnormal findings;R ecorded Elsewhere: No Locatio n: [facility] rce: EHR Chroni c: N Practice ID: 0001 Billa ble Time: 11:30:00 AM Not Available [facility] 0 17:27:18 Disorder of uterus 09811724 Active 2018 Disorder of uterus;Rec orded Elsewhere: No Locatio n: [facility] rce: EHR Chroni c: N Practice ID: 0001 Billa ble Time: 08:30:00 AM Not Available [facility] 0 17:27:18 Breast lump 64190665 Active 2011 Lump or mass in breast;Rec orded Elsewhere: No Locatio n: [facility] rce: EHR Chroni c: N Practice ID: 0001 Billa ble Time: 01:45:00 PM Not Available [facility] 0 17:27:18 Bleeding 910309707 Active 2018 Abnormal uterine and vaginal bleeding, unspecifie d;Recorded Elsewhere: No Locatio n: [facility] rce: EHR Chroni c: N Practice ID: 0001 Billa ble Time: 03:00:00 PM Not Available [facility] 0 17:27:19 Specializ ed medical examinati on Active 2013 Gynecologi dk Examinatio n;Recorded Elsewhere: No Locatio n: [facility] rce: EHR Chroni c: N Practice ID: 0001 Billa ble Time: 01:30:00 PM Not Available [facility] 0 17:27:19 Body mass index 30+ - obesity 338602065 Active 2014 Body mass index (BMI) 35.0-35.9, adult;Aaron rded Elsewhere: No Locatio n: [facility] rce: EHR Chroni c: N Practice ID: 0001 Billa ble Time: 08:15:00 AM Not Available [facility] 0 17:27:19 Cyst of ovary Active 2018 Ovarian cyst;Recor ded Elsewhere: No Locatio n: [facility] rce: EHR Chroni c: N Practice ID: 0001 Billa ble Time: 03:30:00 PM Not Available [facility] 0 17:27:19 Screening for malignant neoplasm of cervix Active 2011 Screening for malignant neoplasms of the cervix;Rec orded Elsewhere: No Locatio n: [facility] rce: EHR Chroni c: N Practice ID: 0001 Billa ble Time: 08:30:00 AM Not Available [facility] 0 17:27:20 Problem Notes None recorded. Procedures Surgical History Date Name Laterality Status Provider Name and Address Organization Details Recorded Time 12/08/19 25 LAPAROSCOPIC OVARIAN CYSTECTOMY (SURG) completed Nallely Medina [facility] 12/08/2024 14:34:43 10/26/19 24 Date of Last Mammogram completed Hanane Faustin [facility] 01/18/2025 16:12:07 10/26/19 22 complete repair of rotator cuff completed Hanane Faustin [facility] 12/07/2024 17:59:12 03/12/20 20 Date of Last Pap Smear completed [facility] 12/07/2024 17:55:26 01/21/20 19 Hysteroscopy completed [facility] 12/07/2024 17:58:24 10/26/19 19 Orthopedic Surgery completed [facility] 12/07/2024 17:59:59 10/26/19 12 Orthopedic Surgery completed [facility] 12/07/2024 18:00:05 10/26/19 10 Orthopedic Surgery completed [facility] 12/07/2024 18:00:19 06/27/20 09 Caesarean Section completed [facility] 12/07/2024 17:58:50 08/19/20 06 Caesarean Section completed [facility] 12/07/2024 17:54:52 Imaging Results None recorded. Procedure Notes None recorded. Medical Equipment None Reported. Allergies No known drug allergies Medications Name Sig Start Date Stop Date Status Note LastModified by Organization Details LastModified Time ibuprofen 800 mg tablet TAKE 1 TABLET BY MOUTH THREE TIMES DAILY FOR 7 DAYS NEEDED FOR PAIN active Not Available Not Available No t Available acetamino phen 500 mg tablet TAKE 2 TABLETS BY MOUTH THREE TIMES DAILY NEEDED active Not Available Not Available No t Available Celebrex 200 mg capsule take 1 capsule by oral route night before procedur e and 400mg po morning of procedur e 02/23 completed Prescrib ed Elsewher e: No Locat ion: [facility] odify By: tono restrepo DateTime : 01/19/20 19 04:15:00 PM Not Available Not Available Not Available oxycodone -acetamin ophen 5 mg-325 mg tablet TAKE 1 TABLET BY MOUTH EVERY 6 HOURS active Not Available Not Available No t Available Zofran 8 mg tablet take 1 tablet by oral route 2 hourse befor procedur e 01/19 completed Prescrib ed Elsewher e: No Locat ion: [facility] odify By: tono Encounte r DateTime : 01/19/20 19 04:15:00 PM Not Available Not Available Not Available diazepam 10 mg tablet take 1 tablet by oral route 1 hour before procedur e 02/23 completed Prescrib ed Elsewher e: No Locat ion: [facility] odify By: tono Encounte r DateTime : 01/19/20 19 04:15:00 PM Not Available Not Available Not Available Vitamin D2 1,250 mcg (50,000 unit) capsule take 1 capsule by oral route every week 12/07 completed Prescrib ed Elsewher e: No Locat ion: [facility] odify By: vani Carballo ter DateTime : 01/10/20 11:23:56 AM Not Available Not Available Not Available Lima 5 mg-325 mg tablet take 2 tablets by oral route 2 hours before procedur e 02/23 completed Prescrib ed Elsewher e: No Locat ion: [facility] odify By: tono Encounte r DateTime : 01/19/20 19 04:15:00 PM Not Available Not Available Not Available multivita min capsule take 1 capsule by oral route every day 02/23 completed Prescrib ed Elsewher e: Yes Loca tion: [facility] odify By: tono Encounte r DateTime : 07/13/20 14 01:30:00 PM Not Available Not Available Not Available Ortho Tri-Cycle n (28) 0.18 mg(7)/0.2 15mg(7)/0 .25 mg(7)-0.0 35 mg tablet take 1 tablet by oral route every day 12/07 completed Prescrib ed Elsewher e: No Locat ion: [facility] odify By: andrea Carballo ter DateTime : 01/06/20 08:55:43 AM Not Available Not Available Not Available Vitamins and Minerals tablet active Prescrib ed Elsewher e: Yes Loca tion: [facility] odify By: tono restrepo DateTime : 02/24/20 19 01:30:00 PM Not Available Not Available Not Available Claritin 12/07 completed Not Available Not Available Not Available meloxicam 7.5 mg/5 mL oral suspensio n take 5 millilit er by oral route every day 07/13 completed Prescrib ed Elsewher e: Yes Loca tion: [facility] odify By: juan ozuna DateTime : 07/12/20 13 08:30:00 AM Not Available Not Available Not Available Vitals Date Recorded Body height Body mass index (BMI) Body weight Systolic blood pressure Diastolic blood pressure Provider Name and Address Organization Details Last Updated DateTime 01/18/2025 177.8 cm 39.7 kg/m2 982171.0 9 g 142 mm[Hg] 88 mm[Hg] Hanane Faustin [facility] 16:11:30 Social History Question Answer Notes LastModified by Organizat ion Details LastModified Time Do You Have An Advance Directive? No Information n ot available 12/07/2024 What Is Your Level Of Alcohol Consumption? Occasional Information not available 12/07/2024 How Many Years Have You Consumed Alcohol? 21 Information not available 12/07/2024 Are You Blind Or Do You Have Difficulty Seeing? No Information n ot available 12/07/2024 What Is Your Level Of Caffeine Consumption? Moderate Information not available 12/07/2024 How Much Tobacco Do You Chew? None Information not available 12/07/2024 In The 14 Days Before Symptom Onset, Have You Had Close Contact With A Laboratory-confirm ed COVID-19 While That Case Was Ill? No Information n ot available 12/07/2024 In The 14 Days Before Symptom Onset, Have You Had Close Contact With A Person Who Is Under Investigation For COVID-19 While That Person Was Ill? No Information not available 12/07/2024 Have You Been To An Area Known To Be High Risk For COVID-19? No Information not available 12/07/2024 Are You Deaf Or Do You Have Serious Difficulty Hearing? No Information not available 12/07/2024 What Type Of Diet Are You Following? REGULAR Information n ot available 12/07/2024 What Is The Highest Grade Or Level Of School You Have Completed Or The Highest Degree You Have Received? 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 No Information not available 12/07/2024 Do You Use Protection During Sex? Always Information not available 12/07/2024 Do You Use Your Seat Belt Or Car Seat Routinely? Yes Information not available 12/07/2024 Do You Have Smoke And Carbon Monoxide Detectors In Your Home? Yes Information not available 12/07/2024 How Much Tobacco Do You Smoke? No Information not available 12/07/2024 Do You Feel Stressed (tense, Restless, Nervous, Or Anxious, Or Unable To Sleep At Night)? [id number] Information not available 12/07/2024 Do You Use Any Illicit Or Recreational Drugs? No Information not available 12/07/2024 Do You Use Sunscreen Routinely? Yes Information not available 12/07/2024 Have You Used IV Drugs? No Information not available 12/07/2024 Sex: Unknown Functional Status Question Answer Note LastModified by Organizat ion Details LastModified Time Are you able to walk? YESWOREST Information not available 12/07/2024 What is your exercise level? Occasional Information not available 12/07/2024 Mental Status None recorded. Family History Relationship Description Onset Age of this Age Resolved Age Notes LastModified by Organization Details LastModified Time Mother Disorder of thyroid gland Not available 2024 17:54:41 Mother Hypercholest erolemia Not available 2024 18:02:12 Mother Hypertensive disorder Not available 2024 18:02:26 Father Heart disease Not available 2024 17:54:41 Father Diabetes mellitus Not available 2024 18:01:07 Father Hypercholest erolemia Not available 2024 18:02:12 Father Hypertensive disorder Not available 2024 18:02:26 Maternal Aunt Malignant tumor of cervix Not available 2024 18:01:24 Maternal Aunt Malignant tumor of breast Not available 2024 18:01:34 Maternal Grandmother Malignant tumor of colon Not available 2024 18:01:49 Sister Polycystic ovary syndrome [id number] Not available 2024 15:32:01 Notes:Father: Bypass surgery , Diabetes mellitus Maternal aunt: Cancer, cervical Mother: melanoma, Thyroid disease Sister: Ovarian Cyst, Polycystic ovarian syndrome Medical History Condition Response Other Y Blood Transfusion N Dermatologic Disorders N Gestational Diabetes N Anxiety Disorder N Autoimmune disease N Arthritis N Polyps N Infertility N Acid Reflux (GERD) N Cancer N Varicosities N Stroke N Neurologic/Epilepsy N Fibromyalgia N Headaches N Kidney Disease N Heart Problems N Kidney or Bladder Problems N Eating Disorder N Art (IVF or FET) N Hepatitis/Liver Disease N No Past Medical History N Urinary Tract Infection N Asthma N Trauma/Violence N Thrombophilias N Allergies (Food, seasonal, environmental ) N Breast Cancer N Drug/Latex Allergies/Reactions N Lung Disease N Defects or Inherited Disease N Breast Problem N Hematologic disorders N Anesthesia Complications N History of STI N Deep Vein Thrombosis N Polycystic ovary syndrome N History of abnormal pap N Endometriosis N High Cholesterol N Thyroid Problems N GI Problems N Anemia N Psychiatric Illness N Ovarian Cancer N Diabetes N Pulmonary (TB, Asthma) N Eczema N Abuse/Domestic Violence N Depression/ depression N Heart Disease N Pre-Eclampsia N Hypertension N Osteoporosis N Gynecological History Statement/Question Response Abnormal Pap N Date of Last Mammogram 10/26/2023 Flow Moderate Date of LMP 12/24/2024 On BCP's at Conception? N Was last menstrual period normal Y STIs/STDs N Duration of Flow (days) 5 Current Control Method None Age at First Child 26 Are cycles usually normal Y Frequency of Cycle (Q days) 29 Sexually Active? N Menses Monthly Y Age of first menstrual cycle 15 Date of Last Pap Smear 01/05/2020 Sexual Problems? N LMP Definite Obstetrics History GPAL:G 2 P 2 0 0 2 Type Value Full Term 2 Living 2 Total 2 Past Encounters Encounter ID Performer Location Encounter Start Date Encounter Closed Date Diagnosis/Indication Diagnosis SNOMED-CT Code Diagnosis ICD10 Code Diagnosis Note [id number] Oliver Patricia MD [place] [address] [address] 01/18/2025 15:31:58 01/18/2025 16:39:47 Dysmenorrhea 900264939 N94.6 Pain in pelvis 08417788 R10.2 Endometrio sis of pelvis 31723125 N80.9 Dyspareunia 72675499 N94 .10 Menorrhagia 507447016 N9 2.0 this patient is a 44-year-ol d female with dysmenorrh ea, pelvic pain, dyspareuni a, endometrio sis, menorrhagi a. We have agreed to perform robotic assisted hysterecto my with bilateral salpingo-o ophorectom y. She understand s risks, benefits, and alternativ es. She has completed the informed consent process and is ready to proceed. Health Concerns Section Related Observation LastModified by Organization Detai ls LastModified Time None Recorded Concern Status LastModified by Organization Details LastModified Time None Recorded Payers Encounter Date Sequence Insurance Name Policy Number Policy Schulte Covered Member ID Schulte Member ID Guarantor Name 01/18/2025 1 [place] [id number] Kaitlin Marrero Singler [id number] AB Kaitlin Singler Notes Date Note Type Note Provider Name and Address Organization Details Recorded Time 01/18/2025 text/html this patient is a 44-year-old female with severe menorrhagia and dysmenorrhea and pelvic pain and dyspareunia. We have agreed to perform robotic assisted hysterectomy with bilateral salpingo-oophorect noemi. The patient understands the procedure. The procedure was described to the patient in great detail. the patient also understands the risks. The risks were also explained in detail. She understands that injuries May occur during surgery. She understands these injuries can result in hospitalization, more surgery, and severe illness. She understands there is risk of hemorrhage and infection. Oliver Patricia MD [address], [place], [address], [facility] 01/18/2025 16:35:57 OBGyn Episode No OBEpisode recorded.
--- OUTSIDE RECORDS SUMMARY | 2025-01-18 16:48 | XMS_ITS | Data Portability ---
Author Organization [facility] Address [address] [place] [address] Care Team Providers Care Medical Claims Examiner Name Role Phone OLIVIER NICOLE Primary Care Provider [phone] Assessment Encounter Date Assessment Date Assessment LastModified by Organization Details LastModified Time 12/07/2024 12/07/2024 44-year-old female with severe sudden onset pain [email or web address] Not available 12/07/2024 18:41:23 Plan of Treatment Reminders Order Date Submit Date Provider Last Modified By Organization Details Last Modified Time Details Appointments SURG PRE OP 2024 02:45P Sherri GRACE MD Not available Not available Not available Robotic [facility]H 2024 07:30A Sherri GRACE MD Not available Not available Not available SURG POST OP 2024 10:45A Sherri GRACE MD Not available Not available Not available Lab None recorded. Referral None recorded. Procedures None recorded. Surgeries robotic assisted hysterect noemi w/bilater al salpingo- oophorect noemi (SURG) 2024 025 [id number] [facility], [address], [address], 01/18/2025 16:46:53 laparosco pic ovarian cystectom y (SURG) 2024 025 [id number] [facility], [address], [address], 12/09/2024 11:56:40 Imaging None recorded. Medication Orders oxycodone -acetamin ophen 5 mg-325 mg tablet 2024 025 [id number], [address], [place], [id number], 12/07/2024 18:29:30 Patient TargetsNo targets recorded. Patient InstructionsNo instructions recorded. Reason for Referral None Reported. Results Created Date Observation Date Name Description Value Unit Range Abnormal Flag Note LastModifiedBy Organization Detail LastModifiedTime Result Notes None recorded. 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) w/o abn findings;R ecorded Elsewhere: No Locatio n: [facility] rce: EHR Chroni c: N Practice ID: 0001 Billa ble Time: 04:30:00 PM Not Available [facility] 0 17:27:18 Pain of breast 05365265 Active 2011 Mastodynia ;Recorded Elsewhere: No Locatio n: [facility] rce: EHR Chroni c: N Practice ID: 0001 Billa ble Time: 01:45:00 PM Not Available [facility] 0 17:27:18 Adult health examinati on Active 2013 ROUTINE MEDICAL EXAM;Recor ded Elsewhere: No Locatio n: [facility] rce: EHR Chroni c: N Practice ID: 0001 Billa ble Time: 01:30:00 PM Not Available [facility] 0 17:27:18 test negative 577700313 Active 2018 Encounter for test, result negative;R ecorded Elsewhere: No Locatio n: [facility] rce: EHR Chroni c: N Practice ID: 0001 Billa ble Time: 08:30:00 AM Not Available [facility] 0 17:27:[address] Concept Active 2015 Encntr for general adult medical exam w/o abnormal findings;R ecorded Elsewhere: No Locatio n: [facility] rce: EHR Chroni c: N Practice ID: 0001 Billa ble Time: 11:30:00 AM Not Available [facility] 0 17:27:18 Disorder of uterus 79339040 Active 2018 Disorder of uterus;Rec orded Elsewhere: No Locatio n: [facility] rce: EHR Chroni c: N Practice ID: 0001 Billa ble Time: 08:30:00 AM [facility] 0 17:27:18 Breast lump 12106442 Active 2011 Lump or mass in breast;Rec orded Elsewhere: No Locatio n: [facility] rce: EHR Chroni c: N Practice ID: 0001 Billa ble Time: 01:45:00 PM [facility] 0 17:27:18 Bleeding 714117900 Active 2018 Abnormal uterine and vaginal bleeding, unspecifie d;Recorded Elsewhere: No Locatio n: [facility] rce: EHR Chroni c: N Practice ID: 0001 Billa ble Time: 03:00:00 PM Not Available [facility] 0 17:27:19 Specializ ed medical examinati on Active 2013 Gynecologi dk Examinatio n;Recorded Elsewhere: No Locatio n: [facility] rce: EHR Chroni c: N Practice ID: 0001 Billa ble Time: 01:30:00 PM Not Available [facility] 0 17:27:19 Body mass index 30+ - obesity 859333315 Active 2014 Body mass index (BMI) 35.0-35.9, adult;Aaron rded Elsewhere: No Locatio n: [facility] rce: EHR Chroni c: N Practice ID: 0001 Billa ble Time: 08:15:00 AM Not Available [facility] 0 17:27:19 Cyst of ovary Active 2018 Ovarian cyst;Recor ded Elsewhere: No Locatio n: [facility] rce: EHR Chroni c: N Practice ID: 0001 Billa ble Time: 03:30:00 PM Not Available [facility] 0 17:27:19 Screening for malignant neoplasm of cervix Active 2011 Screening for malignant neoplasms of the cervix;Rec orded Elsewhere: No Locatio n: [facility] rce: EHR Chroni c: N Practice ID: 0001 Billa ble Time: 08:30:00 AM Not Available [facility] 0 17:27:20 Problem Notes None recorded. Procedures Surgical History Date Name Laterality Status Provider Name and Address Organization Details Recorded Time 12/08/19 25 LAPAROSCOPIC OVARIAN CYSTECTOMY (SURG) completed Nallely Medina [facility] 12/08/2024 14:34:43 10/26/19 24 Date of Last Mammogram completed [facility] 01/18/2025 16:12:07 10/26/19 22 complete repair of rotator cuff completed [facility] 12/07/2024 17:59:12 01/05/20 20 Date of Last Pap Smear completed [facility] 12/07/2024 17:55:26 01/21/20 19 Hysteroscopy completed [facility] 12/07/2024 17:58:24 10/26/19 19 Orthopedic Surgery completed [facility] 12/07/2024 17:59:59 10/26/19 12 Orthopedic Surgery completed [facility] 12/07/2024 18:00:05 10/26/19 10 Orthopedic Surgery completed [facility] 12/07/2024 18:00:19 06/27/20 09 Caesarean Section completed Hanane Ramin [facility] 12/07/2024 17:58:50 08/19/20 06 Caesarean Section completed Hanane Faustin [facility] 12/07/2024 17:54:52 Imaging Results None recorded. [...] Elsewher e: No Locat ion: [facility] odify By: tono Encounte r DateTime : [...] Elsewher e: No Locat ion: [facility] odify By: tono Encounte r DateTime : 01/19/20 19 04:15:00 PM Not Available Not Available Not Available diazepam 10 mg tablet take 1 tablet by oral route 1 hour before procedur e 02/23 completed Prescrib ed Elsewher e: No Locat ion: [facility] odify By: tono Encounte r DateTime : 01/19/20 19 04:15:00 PM Not Available Not Available Not Available Vitamin D2 1,250 mcg (50,000 unit) capsule take 1 capsule by oral route every week 12/07 completed Prescrib ed Elsewher e: No Locat ion: [facility] odify By: wmhampso juanjose ozuna DateTime : 01/10/20 11:23:56 AM Not Available Not Available Not Available Oto 5 mg-325 mg tablet take 2 tablets by oral route 2 hours before procedur e 02/23 completed Prescrib ed Elsewher e: No Locat ion: [facility] odify By: tono Kaitte r DateTime : 01/19/20 04:15:00 PM Not Available Not Available Not Available multivita min capsule take 1 capsule by oral route every day 02/23 completed Prescrib ed Elsewher e: Yes Loca tion: [facility] odify By: tono Encounte r DateTime : 07/13/20 14 01:30:00 PM Not Available Not Available Not Available Ortho Tri-Cycle n (28) 0.18 mg(7)/0.2 15mg(7)/0 .25 mg(7)-0.0 35 mg tablet take 1 tablet by oral route every day 12/07 completed Prescrib ed Elsewher e: No Locat ion: [facility] odify By: andrea ozuna DateTime : 01/06/20 08:55:43 AM Not Available Not Available Not Available Vitamins and Minerals tablet active Prescrib ed Elsewher e: Yes [facility] By: tono Encounjorje r DateTime : 02/24/20 19 01:30:00 PM Not Available Not Available Not Available Claritin 12/07 completed Not Available Not Available Not Available meloxicam 7.5 mg/5 mL oral suspensio n take 5 millilit er by oral route every day 07/13 completed Prescrib ed Elsewher e: Yes Loca tion: [facility] odify By: juan ozuna DateTime : 07/12/20 13 08:30:00 AM Not Available Not Available Not Available Vitals Date Recorded Body height Body mass index (BMI) Body weight Systolic blood pressure Diastolic blood pressure Provider Name and Address Organization Details Last Updated DateTime 12/07/2024 177.8 cm 39.5 kg/m2 208275.9 g 146 mm[Hg] 104 mm[Hg] Hanane Faustin [facility] 18:10:20 Date Recorded Body height Body mass index (BMI) Body weight Systolic blood pressure Diastolic blood pressure Provider Name and Address Organization Details Last Updated DateTime 12/13/2024 177.8 cm 39 kg/m2 065164.1 2 g 134 mm[Hg] 90 mm[Hg] [facility] 10:09:09 Date Recorded Body height Body mass index (BMI) Body weight Systolic blood pressure Diastolic blood pressure Provider Name and Address Organization Details Last Updated DateTime 01/18/2025 177.8 cm 39.7 kg/m2 329013.0 9 g 142 mm[Hg] 88 mm[Hg] Hanane [facility] 16:11:30 Social History Question Answer Notes [...] Or The Highest Degree You Have Received? [id number] Information not available 12/07/2024 What Is Your [...] Anxious, Or Unable To Sleep At Night)? [id number] Information not available 12/07/2024 Do You Use [...] available 2024 18:01:49 Sister Polycystic ovary syndrome Not available 2024 15:32:01 Notes:Father: Bypass surgery , Diabetes mellitus Maternal aunt: Cancer, cervical Mother: melanoma, Thyroid disease Sister: Ovarian Cyst, Polycystic ovarian syndrome Medical History Condition Response Allergies (Food, seasonal, environmental ) N Other Y Breast Cancer N Drug/Latex Allergies/Reactions N Blood Transfusion N Dermatologic Disorders N Lung Disease N Defects or Inherited Disease N Breast Problem N Gestational Diabetes N Hematologic disorders N Anesthesia Complications N History of STI N Deep Vein Thrombosis N Polycystic ovary syndrome N Anxiety Disorder N Autoimmune disease N Arthritis N Infertility N Polyps N Acid Reflux (GERD) N History of abnormal pap N Cancer N Stroke N Varicosities N Neurologic/Epilepsy N Endometriosis N High Cholesterol N Headaches N Fibromyalgia N Kidney Disease N Heart Problems N Kidney or Bladder Problems N Thyroid Problems N GI Problems N Eating Disorder N Anemia N Art (IVF or FET) N Psychiatric Illness N Ovarian Cancer N Diabetes N Pulmonary (TB, Asthma) N Hepatitis/Liver Disease N No Past Medical History N Eczema N Urinary Tract Infection N Abuse/Domestic Violence N Asthma N Trauma/Violence N Depression/ depression N Heart Disease N Pre-Eclampsia N Hypertension N Osteoporosis N Thrombophilias N Gynecological History Statement/Question Response Abnormal Pap [...] SNOMED-CT Code Diagnosis ICD10 Code Diagnosis Note [id number] Oliver Grace MD [address] [address] 12/07/2024 17:45:14 12/08/2024 08:12:27 Pain in pelvis 39841246 R10.2 44-year-ol d female with severe pain and right ovarian cyst. Possible ovarian torsion. We have agreed to perform laparoscop ic right ovarian cystectomy . She understand s the risks, benefits, and alternativ es. She has completed the informed consent process and is ready to proceed. [id number] Oliver Grace MD Reva [address] [address] 12/08/2024 10:46:03 12/09/2024 11:13:04 [id number] Oliver Grace MD Reva [address] [address] 12/13/2024 09:46:08 12/13/2024 10:58:53 Pain in pelvis 59412500 R10.2 44-year-ol d female presents for postop follow-up. Patient had severe endometrio sis with severe scarring. This was observed on a diagnostic laparoscop y. Patient has pain and heavy bleeding. There was a hemoperito neum at the time of the diagnostic laparoscop y. Patient needs a hysterecto my. We discussed the treatment options. She would like definitive surgical treatment. We agreed to robotic hysterecto my with bilateral salpingo-o ophorectom y. She understand s that removing the ovaries will place her in menopause. She understand s the estrogen will be required until she is 52. Or it is strongly recommende d. The patient understand s the procedure. The procedure was described to the patient in great detail. the patient also understand s the risks. The risks were also explained in detail. She understand s that injuries May occur during surgery. She understand s these injuries can result in hospitaliz ation, more surgery, and severe illness. She understand s there is risk of hemorrhage and infection. Endometrio sis of pelvis 92703663 N80.9 Nontraumat ic hemoperitoneum 76802678 K66.1 [id number] Oliver Grace MD [facility]a [address] [address] 01/18/2025 15:31:58 01/18/2025 16:39:47 Dysmenorrhea 464440666 N94.6 Pain in pelvis 29471856 R10.2 Endometrio sis of pelvis 68951634 N80.9 Dyspareunia 46867652 N94 .10 Menorrhagia 467762542 N9 2.0 this patient is a 44-year-ol [...] LastModified Time None Recorded Advance Directives Directive N: Payers Encounter Date Sequence Insurance Name Policy Number Policy Schulte Covered Member ID Schulte Member ID Guarantor Name 12/07/2024 1 [place] [employer] [id number] 4 Kaitlin E Singler [id number] AB Kaitlin Singler 12/08/2024 1 [employer] [employer] [id number] 4 Kaitlin E Singler [id number] AB Kaitlin Singler 12/13/2024 1 [employer] [employer] [id number] 4 Kaitlin E Singler [id number] AB Kaitlin Singler 01/18/2025 1 [place] [employer] [id number] 4 Kaitlin E Singler [id number] AB Kaitlin Singler Notes Date Note Type Note Provider Name and Address Organization Details Recorded Time 12/07/2024 text/html this patient is 44-year-old female with sudden onset severe pelvic pain. It is on the right side. She has a right-sided ovarian cyst. This was found when she was evaluated in the emergency department for severe sudden-onset pain. She has been nonfunctional since that time. She has had pain with walking and pain with standing. We reviewed her ultrasound findings and radiology reports from the hospital. We talked about potential diagnoses. She is likely to have a twisted ovary. We reviewed her treatment options. We agreed to proceed with laparoscopic right ovarian cystectomy. I spent over 30 minutes on her care in total. The patient understands the procedure. The procedure was described to the patient in great detail. the patient also understands the risks. The risks were also explained in detail. She understands that injuries May occur during surgery. She understands these injuries can result in hospitalization, more surgery, and severe illness. She understands there is risk of hemorrhage and infection. Oliver Grace MD [address], [place], [address], [facility] 12/08/2024 11:34:04 12/13/2024 text/html 44-year-old carmen mott presents for postop follow-up. Patient had severe endometriosis with severe scarring. This was observed on a diagnostic laparoscopy. Patient has pain and heavy bleeding. There was a hemoperitoneum at the time of the diagnostic laparoscopy. Patient needs a hysterectomy. We discussed the treatment options. She would like definitive surgical treatment. We agreed to robotic hysterectomy with bilateral salpingo-oophorectom y. She understands that removing the ovaries will place her in menopause. She understands the estrogen will be required until she is 52. Or it is strongly recommended. The patient understands the procedure. The procedure was described to the patient in great detail. the patient also understands the risks. The risks were also explained in detail. She understands that injuries May occur during surgery. She understands these injuries can result in hospitalization, more surgery, and severe illness. She understands there is risk of hemorrhage and infection. Oliver Grace MD [address], [place], [address], [facility] 12/13/2024 10:58:16 01/18/2025 text/html this patient is a 44-year-old female with severe menorrhagia and dysmenorrhea and pelvic pain and dyspareunia. We have agreed to perform robotic assisted hysterectomy with bilateral salpingo-oophorectom y. The patient understands the procedure. The procedure was described to the patient in great detail. the patient also understands the risks. The risks were also explained in detail. She understands that injuries May occur during surgery. She understands these injuries can result in hospitalization, more surgery, and severe illness. She understands there is risk of hemorrhage and infection. Oliver Grace MD [address], [place], [address], [facility] 01/18/2025 16:35:57 OBGyn Episode Ob Episode Information Episode Created Date Number of Fetuses Patient Bloodtype Patient rh Status Prepregnancy Weight lbs Domestic Partner Domestic Partner Phone Father Name Obstetrics Gynecology Md Status 12/07/19 1 CLOSED Fetus Data First Name Last Name Admitted to NICU Weight (g) Sex Living Outcome Pediatric Complications Fetus ID Race Codes Race Delivery Type 4053.75 1704 M Full Term [id number] Primary Viet Calculation Initial Viet Date Initial Exam Date Initial Exam Provider Initial Ultrasound Date Last Menstrual Period Date Ultra Sound Weeks Gestation 0 Eighteen To Twenty Week Viet Update Ultra Sound Date Fundal Height At Umbil Quickening Date Ultra Sound Latest Weeks Gestation Final Viet Confirmed By Final Viet Confirmed Date Final Viet Date Ultra Sound Latest Days Gestation 0 0 Menstrual History Last Menstrual Date Menses Monthly On Bcp Conception Prior Menses Frequency Hcg Plus Date Menarche Onset Age Delivery Information Delivery Date Delivery Type Labor Anesthesia Weeks Gestation Incision Type Labor Labor Length Hrs Delivered By Post Complications Tubal Sterilization Discharge Date Comments 6 Discharge Information Feeding Method Contraceptive Method Maternal HG B and HCT Levels Ob Episode Information Episode Created Date Number of Fetuses Patient Bloodtype Patient rh Status Prepregnancy Weight lbs Domestic Partner Domestic Partner Phone Father Name Obstetrics Gynecology Md Status 12/07/19 1 CLOSED Fetus Data First Name Last Name Admitted to NICU Weight (g) Sex Living Outcome Pediatric Complications Fetus ID Race Codes Race Delivery Type 4139.02 7 M Full Term [id number] Repeat Viet Calculation Initial Viet Date Initial Exam Date Initial Exam Provider Initial Ultrasound Date Last Menstrual Period Date Ultra Sound Weeks Gestation 0 Eighteen To Twenty Week Viet Update Ultra Sound Date Fundal Height At Umbil Quickening Date Ultra Sound Latest Weeks Gestation Final Viet Confirmed By Final Viet Confirmed Date Final Viet Date Ultra Sound Latest Days Gestation 0 0 Menstrual History Last Menstrual Date Menses Monthly On Bcp Conception Prior Menses Frequency Hcg Plus Date Menarche Onset Age Delivery Information Delivery Date Delivery Type Labor Anesthesia Weeks Gestation Incision Type Labor Labor Length Hrs Delivered By Post Complications Tubal Sterilization Discharge Date Comments 9 Discharge Information Feeding Method Contraceptive Method Maternal HG B and HCT Levels
--- OUTSIDE RECORDS SUMMARY | 2025-01-18 16:48 | XMS_ITS | Data Portability ---
Author Organization [place] - [facility] [employer], Main Office Address [address] [place] [id number] Assessment Encounter Date Assessment Date Assessment LastModified [...] will reassess and discuss surgery with her. [email or web address] Not available 01/13/2023 14:34:31 02/10/2023 02/10/2023 Patient [...] would relieve all of her symptoms discussed. [email or web address] Not available 02/10/2023 15:31:29 04/13/2023 04/13/2023 Patient [...] ...should start week of May [id number] 023 [facility] [place] [facility], [address], [place], [address], 3 12:10:34 Procedures injection/ aspiration joint/burs a (PROC) - in office procedure, administer ed by provider 2022 023 [email or web address] In-Office Order, Internal Use Only DO Not Attach Compendium DO Not Attach Compendium, Do Not Delete/merge, [id number] 3 14:36:51 injection/ aspiration joint/burs a (PROC) - in office procedure, administer ed by provider 2022 023 [email or web address] In-Office Order, Internal Use Only DO Not Attach Compendium DO Not Attach Compendium, Do Not Delete/merge, [id number] 3 14:34:18 Surgeries None recorded. Imaging None recorded. Medication Orders Kenalog 10 mg/mL suspension for injection 2022 023 [id number], [address], [place], [id number], 3 14:38:47 ropivacain e (PF) 5 mg/mL (0.5 %) injection solution 20[address] [facility] [address] [place], [place] [id number], [address] [place], [place], [id number], 3 14:38:47 Kenalog 10 mg/mL suspension for injection [address] [place], [place] [address], [address], [place], [id number], 3 14:35:02 ropivacain e (PF) 5 mg/mL (0.5 %) injection solution [address] [place] [address] [facility] #[id number], [address], [place], [id number], 3 14:35:02 Patient TargetsNo targets recorded. Patient [...] contr ast No observ ation record ed. [id number] [facility] [address], [place], [address], 12/25/2022 01:48:55 Result Notes None recorded. Problems Name Problem SNOMED Code Status Onset Date Resolution Date Notes Provider Name and Address Organization Details Recorded Time Pain of left shoulder joint 1724453797245 9109 Active 2022 Not Available [facility] 3 01:48:21 Tendinitis of left rotator cuff 3954121726945 9101 Active 2022 Not Available [facility] 3 01:48:21 Partial thickness rotator cuff tear 736639885 Active 2022 Not Available [facility] 3 01:48:21 Strain of rotator cuff of shoulder 546891380 Active 2022 Not Available [facility] 3 01:48:21 Arthritis of acromiocla vicular joint 236038125 Active 2022 Michel Hong MD [address], [place], [address] , [employer] [facility] [employer] 3 14:45:13 Problem Notes None recorded. Procedures Surgical History Date Name Laterality Status Provider Name and Address Organization Details Recorded Time 3 Ortho - Cortisone Injection completed Michel Hong MD [address], [place], [address], [employer] [facility] [employer] 02/10/2023 15:29:36 3 Ortho - Cortisone Injection completed Michel Hong MD [address], [place], [address], [employer] [facility] [employer] [facility] 01/13/2023 14:33:36 Knee completed Not Available [facility] 11/2022 01:47:59 section completed Not Available [facility] 12/25/2022 01:47:59 procedure on wrist completed Not Available [facility] 12/25/2022 01:47:59 Imaging Results Imaging Date Name Status LastModified by Organiz ation Details LastModified Time 12/12/2022 MRI, shoulder, w/o contrast completed [id number] [facility] [address], [place], [address], 12/25/2022 01:48:55 Procedure Notes None recorded. Medical [...] 40 mg by injection route. 2022 active [facility]: 0003- 0494- 20 Not Available Not Available [...] Updated DateTime 01/13/2023 177.8 cm 40.2 kg/m2 951362.86 g ABBI Valdez [employer] 01/13/2023 14:24:20 Date Recorded Body height Body mass index (BMI) Body weight Provider Name and Address Organization Details Last Updated DateTime 02/10/2023 177.8 cm 40.2 kg/m2 898712.86 g ABBI Valdez [employer] 02/10/2023 14:11:36 Date Recorded Body height Body mass index (BMI) Body weight Provider Name and Address Organization Details Last Updated DateTime 04/13/2023 177.8 cm 39.5 kg/m2 850613.9 ABBI Valentin [facility] [employer] [facility] 04/13/2023 09:25:14 Date Recorded Body height Body mass index (BMI) Body weight Provider Name and Address Organization Details Last Updated DateTime 05/04/2023 177.8 cm 39.5 kg/m2 284251.9 gerardo Garcia CNA [facility] [employer] [facility] 05/04/2023 10:11:06 Date Recorded Body height Body mass index (BMI) Body weight Provider Name and Address Organization Details Last Updated DateTime 06/09/2023 177.8 cm 39.5 kg/m2 497948.9 gerardo Ramos Pro [facility] [employer] [facility] 06/09/2023 14:19:06 Social History Question Answer Notes LastModified by Kin Community[employer] ion Details LastModified Time Tobacco Smoking Status Never Smoker [facility] [employer] [facility] 01/13/2023 14:21:15 What Is Your Level Of Alcohol Consumption? Occasional [id number] Information not available 12/25/2022 Sex: Unknown Functional Status None recorded. Mental Status None recorded. Family History Relationship Description Onset Age of this Age Resolved Age Notes LastModified by Organization Details LastModified Time Father Heart disease [id number] [id number] Not available 12/25/2022 01:48:00 Father Hypertensive disorder [id number] Not available 12/25/2022 01:48:00 Father Diabetes mellitus [id number] Not available 12/25/2022 01:48:00 Father Cerebrovascu lar accident [email or web address] Not available 14:21:15 Mother Family history of malignant neoplasm [email or web address] Not available 01/13 14:21:15 Mother Hypertensive disorder [id number] Not available 12/25/2022 01:48:00 Medical History No medical history recorded. Gynecological HistoryNo gynecological history recorded. Obstetrics History GPAL:G 0 P 0 0 0 0 Past Encounters Encounter ID Performer Location Encounter Start Date Encounter Closed Date Diagnosis/Indication Diagnosis SNOMED-CT Code Diagnosis ICD10 Code Diagnosis Note [id number] [facility] [address] [place] [address] 11/06/2022 00:00:00 11/06/2022 14:16:52 [id number] [facility] [address] [place] [address] 12/04/2022 00:00:00 12/04/2022 15:31:33 [id number] [facility] [address] [place] [address] 12/16/2022 00:00:00 12/16/2022 15:52:05 [id number] Michel Hong MD [facility] [address] [place] [address] 01/13/2023 14:19:14 01/13/2023 15:17:10 Tendinitis of left rotator cuff 7505147990 3920296 M67.814 Strain of rotator cuff of shoulder 318838885 S46.011D [id number] Michel Hong MD [facility] [address] [place] [address] 02/10/2023 14:07:16 02/10/2023 16:00:45 Tendinitis of left rotator cuff 6487652700 2143777 M67.814 Strain of rotator cuff of shoulder 981400992 S46.011D [id number] Michel Hong MD [facility] [address] [place] [address] 04/13/2023 09:22:56 04/13/2023 11:08:14 Strain of rotator cuff of shoulder 190071866 S46.011D Tendinitis of left rotator cuff 5737580529 0457608 M67.814 [id number] Michel Hong MD [facility] [address] [place] [address] 05/04/2023 10:04:56 05/04/2023 11:02:02 Tendinitis of left rotator cuff 0700326315 2688156 M67.814 Strain of rotator cuff of shoulder 606269364 S46.011D Postoperative visit 1836 78232 Z09 [id number] Michel Hong MD [facility] [address] [place] [address] 06/09/2023 14:14:51 06/09/2023 15:42:32 Tendinitis of left rotator cuff 1173726905 2217204 M67.814 Partial th ickness rotator cuff tear 702368698 M75.102 Arthritis of acromioclavicular joint 684489112 M13.819 M13.812 Health Concerns Section Related Observation [...] better. Michel Hong MD [address] [address], [place], [address], [employer] 01/13/2023 14:34:58 02/10/2023 text/html Patient returns shoulder [...] otherwise. Michel Hong MD [address] [place] [address] [address], [place], [address], [employer] 02/10/2023 15:31:32 04/13/2023 text/html Patient returns status post rotator cuff debridement repair left distal clavicle excision. She is doing okay pain is tolerable and she is moving arm reasonably well. Michel Hong MD [address], [place], [address], [employer] 04/13/2023 10:15:53 05/04/2023 text/html Patient returns status post rotator cuff debridement repair left distal clavicle excision. She is doing okay pain is tolerable and she is moving arm reasonably well. The pain is improved quite a bit over the last month and she is doing much better than she was before surgery. Michel Hong MD [address], [place], [address], [employer] 05/04/2023 11:00:40 06/09/2023 text/html Patient returns status post rotator cuff debridement repair left distal clavicle excision. She is doing okay pain is tolerable and she is moving arm reasonably well. The pain is improved quite a bit over the last month and she is doing much better than she was before surgery. Michel Hong MD [address], [place], [address], [employer] 06/09/2023 14:45:47 OBGyn Episode No OBEpisode recorded.
== END 2025-01-18 15:32 | disposition home or self-care (01) ==
LOC: ANHSURGERY 15:34
PROVIDERS: PCP Nurse Practitioner; Visit Provider Obstetrics & Gynecology
DX: R10.2 Pelvic and perineal pain (principal)
CPT/HCPCS: 36415; 86850; 86900; 86901

== ENCOUNTER 2025-01-24 02:20 | Day surgery (SDC) | payer BC, SELFPAY ==
[2025-01-10 10:30] VITALS: BMI 37.3
--- NOTE | 2025-01-10 10:34 | SUR.PREOP ---
Report to the Outpatient Waiting Room, entrance under the green pavilion located off [facility], at time 0600 on date 01/24/2025. Planned Procedure Time: 0730.? Time changes happen often and if your time is changed the preop area will call you the afternoon before. - You and your visitor will be asked to self-screen and do not enter if you have any COVID symptoms. Please call surgeon if you need to reschedule. - A mask is optional within the hospital at this time. Patients may have clear liquids (water, carbonated beverages, clear teas, apple juice) until 3 hours prior to surgery with a maximum of 20 ounces. - No food from midnight until time of surgery and no smoking, or chewing tobacco (or any form of nicotine). No chewing gum, candy or mints. - Infants may have breast milk until 4 hours before surgery, formula 6 hours prior to surgery. - Children will be allowed to drink immediately following surgery.? If applicable, please bring a bottle or sippy cup to assist with drinking. Juice, water, soda, and popsicles are readily available.? For infants on formula, please bring formula the day of surgery.? Pacifiers are allowed. Take only the following medications with a SIP of water on the morning of surgery: na DO NOT STOP ANY OF YOUR OTHER PRESCRIPTION MEDICATIONS PRIOR TO SURGERY EXCEPT THE FOLLOWING Hold all vitamins and supplements for 3 days per anesthesiologist. Medications to discontinue per physician na Date to take last dose Please no make-up, nail urdu, hairspray, perfume, deodorant, or body powder the day of surgery.? No jewelry (including any body piercings) or valuables the day of surgery, leave them at home.? Please take a shower or bath the night before, or the morning of, surgery with an antibacterial soap.? Wear comfortable, loose fitting clothing.? Children are encouraged to wear pajamas. - Jewelry must be removed prior to entering the operating room.? Rings and piercings that are not removed may be cut off. - The hospital will not accept responsibility for valuables.? - Please leave all valuables, including medications, at home the day of surgery. If you are going home after surgery, a licensed semi truck driver must drive you home.? - NO public transportation without another adult if you receive anesthesia. - We recommend that an adult stay with you for 24 hours following discharge. - We also recommend that you do not drive, make important decision, drink alcoholic beverages, or take any drugs that were not prescribed by your health care provider for at least 24 hours after your discharge time. For Pediatric surgeries, we recommend two adults accompany the child home. Follow any additional instructions given to you from your surgeon. Telephone instructions given to ___patient___and asked if any additional questions and then verbalized understanding. Patient advised to call surgeon office or pre surgery nurse liaison [phone] if any additional questions.
[2025-01-24] VITALS (13 sets, daily range): BP systolic 136–155; BP diastolic 80–98; PULSE 67–88; RESP 12–18; TEMP 36.2–36.7; O2SAT 97–100
--- NOTE | ~2025-01-24 | XR_ITS ---
EXAMINATION: XR retrograde pyelo w/stent BI DATE: 01/24/2025 08:17 INDICATION: Bilateral stent placement TECHNIQUE: Fluoroscopic images from a bilateral stent placement are submitted for review. 15 seconds of fluoroscopy time. 4 fluoroscopic images FINDINGS: There are bilateral double-J internal ureteral stent projecting in expected position. Please refer to procedural report for details. IMPRESSION: 1. Bilateral internal ureteral stent placement. Please refer to real-time procedural findings for d etails. Reviewed, dictated and finalized at location A. IMPRESSION: 1. Bilateral internal ureteral stent placement. Please refer to real-time pro cedural findings for details.
--- OUTSIDE RECORDS SUMMARY | 2025-01-24 02:24 | XMS_ITS | Referral Summary ---
Author Organization [facility] [address] Address [address] [place] [address] [address] [place] [address] Care Team Providers Care Grocery Carrier Name Role Phone Fanny Aguayo NP Primary Care Provider [phone] Encounters Date Type Department Care Team Description 11/17/2024 7:49 AM DIRECTOR OF ACCREDITATION - 11/17/2024 11:59 PM DIRECTOR OF ACCREDITATION Hospital Encounter [facility] [address] [place] [address] Mass of upper outer quadrant of right breast Discharge Disposition: Discharge to home or self care 11/17/2024 7:48 AM DIRECTOR OF ACCREDITATION - 11/17/2024 11:59 PM DIRECTOR OF ACCREDITATION Hospital Encounter [facility] [address] [place] [address] Mass of upper outer quadrant of right [...] on file Legal Sex Female 8:59 AM DIRECTOR OF ACCREDITATION Gender Identity Not on file Sexual Orientation Not on file Last Filed Vital Signs Vital Sign Reading Time Taken Comments Blood Pressure 124/72 10/06/2024 7:23 AM DIRECTOR OF ACCREDITATION Pulse 84 10/06/2024 7:23 AM DIRECTOR OF ACCREDITATION Temperature 36.2 C (97.2 F) 10/06/2024 7:23 AM DIRECTOR OF ACCREDITATION Respiratory Rate - - Oxygen Saturation 99% 10/06/2024 7:23 AM DIRECTOR OF ACCREDITATION Inhaled Oxygen Concentration - - Weight 122.5 kg (270 lb) 10/06/2024 7:23 AM DIRECTOR OF ACCREDITATION Height 177.8 cm (5' 10 ) 11/17/2024 8:02 AM DIRECTOR OF ACCREDITATION Body Mass Index 38.74 10/06/2024 7:23 AM DIRECTOR OF ACCREDITATION Plan of Treatment Not on file Procedures Procedure Name Priority Date/Time Associated Diagnosis Comments US BREAST RIGHT LIMITED Schedule Routine, Read Routine (OP Routine) 11/17/2024 8:46 AM DIRECTOR OF ACCREDITATION Mass of upper outer quadrant of right breast DIAGNOSTIC MAMMOGRAM BILATERAL W BETHANY Schedule Routine, Read Routine (OP Routine) 11/17/2024 8:03 AM DIRECTOR OF ACCREDITATION Mass of upper outer quadrant of right breast HEPATITIS C ANTIBODY Routine 10/06/2024 8:40 AM DIRECTOR OF ACCREDITATION Encounter for hepatitis C screening test for low risk patient from Last 3 Months or Most Recently Relevant to Health Maintenance Results * US Breast Right Limited (11/17/2024 8:46 AM DIRECTOR OF ACCREDITATION) Anatomical Region Laterality Modality Breast Right Ultrasound 11/17/2024 9:00 AM DIRECTOR OF ACCREDITATION Impressions 11/17/2024 9:00 AM DIRECTOR OF ACCREDITATION No mammographic or sonographic evidence of malignancy. [...] Fitz Turcios M.D. Narrative 11/17/2024 9:00 AM DIRECTOR OF ACCREDITATION EXAMINATION: DIAGNOSTIC MAMMOGRAM BILATERAL W BETHANY, US [...] or targeted right breast ultrasound. Fanny Aguayo ARCHITECTURAL DESIGN LECTURER IMG MAMMO PROCEDURES Final Re sult * DIAGNOSTIC MAMMOGRAM BILATERAL W BETHANY (11/17/2024 8:03 AM DIRECTOR OF ACCREDITATION) Anatomical Region Laterality Modality Breast Bilateral Mammography 11/17/2024 9:00 AM DIRECTOR OF ACCREDITATION Impressions 11/17/2024 9:00 AM DIRECTOR OF ACCREDITATION No mammographic or sonographic evidence of malignancy. [...] Fitz Turcios M.D. Narrative 11/17/2024 9:00 AM DIRECTOR OF ACCREDITATION EXAMINATION: DIAGNOSTIC MAMMOGRAM BILATERAL W BETHANY, US [...] or targeted right breast ultrasound. Fanny Aguayo ARCHITECTURAL DESIGN LECTURER IMG MAMMO PROCEDURES Final Re sult * Hepatitis C antibody Blood (10/06/2024 8:40 AM DIRECTOR OF ACCREDITATION) Hep C Ab Nonreactive Nonreactive Comment: Interpretive [...] revised on 2020. Blood 10/06/2024 8:40 AM DIRECTOR OF ACCREDITATION 10/06/2024 3:05 PM DIRECTOR OF ACCREDITATION us Fanny Aguayo NP LAB MICROBIOLOGY - GENERAL OR DERABLES Final Result [facility] [id number] [place] [address] from Last 3 Months or Most Recently Relevant to Health Maintenance Insurance [facility] ACCESS CHOICE Care Teams Grocery Carrier Relationship Specialty Start Date End Date Fanny Aguayo NP [address] [facility] [address] [place] [address] PCP - General Family Medicine 10/06/24
--- OUTSIDE RECORDS SUMMARY | 2025-01-24 02:24 | XMS_ITS | Clinical Summary ---
Author Organization [facility] [address] Address [address] [place] [address] [address] [place] [address] Care Team Providers Care Group Worker Name Role Phone Fanny Aguayo NP Primary Care Provider [phone] Allergies No known active allergies Medications No [...] Department Care Team Description 11/17/2024 7:49 AM VETERINARY SURGEON - 11/17/2024 11:59 PM VETERINARY SURGEON Hospital Encounter [facility] [address] [place] [address] Mass of upper outer quadrant of right breast Discharge Disposition: Discharge to home or self care 11/17/2024 7:48 AM VETERINARY SURGEON - 11/17/2024 11:59 PM VETERINARY SURGEON Hospital Encounter [facility] [address] [place] [address] Mass of upper outer quadrant of right [...] on file Legal Sex Female 8:59 AM VETERINARY SURGEON Gender Identity Not on file Sexual Orientation Not on file Obstetrics History Para Term AB IAB SAB Ectopic Multiple Livin g Live Births 2 Date Outcome GA Total Labor Labor/2nd/3rd Weight Sex Type Anes PTL Sivan A1 A5 Name Clin Last Filed Vital Signs Vital Sign Reading Time Taken Comments Blood Pressure 124/72 10/06/2024 7:23 AM VETERINARY SURGEON Pulse 84 10/06/2024 7:23 AM VETERINARY SURGEON Temperature 36.2 C (97.2 F) 10/06/2024 7:23 AM VETERINARY SURGEON Respiratory Rate - - Oxygen Saturation 99% 10/06/2024 7:23 AM VETERINARY SURGEON Inhaled Oxygen Concentration - - Weight 122.5 kg (270 lb) 10/06/2024 7:23 AM VETERINARY SURGEON Height 177.8 cm (5' 10 ) 11/17/2024 8:02 AM VETERINARY SURGEON Body Mass Index 38.74 10/06/2024 7:23 AM VETERINARY SURGEON Plan of Treatment Health Maintenance Due Date [...] Read Routine (OP Routine) 11/17/2024 8:46 AM VETERINARY SURGEON Mass of upper outer quadrant of right breast DIAGNOSTIC MAMMOGRAM BILATERAL W BETHANY Schedule Routine, Read Routine (OP Routine) 11/17/2024 8:03 AM VETERINARY SURGEON Mass of upper outer quadrant of right breast HEPATITIS C ANTIBODY Routine 10/06/2024 8:40 AM VETERINARY SURGEON Encounter for hepatitis C screening test for low risk patient from Last 3 Months or Most Recently Relevant to Health Maintenance Results * US Breast Right Limited (11/17/2024 8:46 AM VETERINARY SURGEON) Anatomical Region Laterality Modality Breast Right Ultrasound 11/17/2024 9:00 AM VETERINARY SURGEON Impressions 11/17/2024 9:00 AM VETERINARY SURGEON No mammographic or sonographic evidence of malignancy. [...] Fitz Turcios M.D. Narrative 11/17/2024 9:00 AM VETERINARY SURGEON EXAMINATION: DIAGNOSTIC MAMMOGRAM BILATERAL W BETHANY, US [...] or targeted right breast ultrasound. us Fanny Aguyao PR INTERN IMG MAMMO PROCEDURES Final Re sult * DIAGNOSTIC MAMMOGRAM BILATERAL W BETHANY (11/17/2024 8:03 AM VETERINARY SURGEON) Anatomical Region Laterality Modality Breast Bilateral Mammography 11/17/2024 9:00 AM VETERINARY SURGEON Impressions 11/17/2024 9:00 AM VETERINARY SURGEON No mammographic or sonographic evidence of malignancy. [...] Fitz Turcios M.D. Narrative 11/17/2024 9:00 AM VETERINARY SURGEON EXAMINATION: DIAGNOSTIC MAMMOGRAM BILATERAL W BETHANY, US [...] mammogram or targeted right breast ultrasound. Result [facility] Fanny Aguayo PR INTERN IMG MAMMO PROCEDURES Final Re sult * Hepatitis C antibody Blood (10/06/2024 8:40 AM VETERINARY SURGEON) Hep C Ab Nonreactive Nonreactive Comment: Interpretive [...] revised on 2020. Blood 10/06/2024 8:40 AM VETERINARY SURGEON 10/06/2024 3:05 PM VETERINARY SURGEON us Fanny Aguayo NP LAB MICROBIOLOGY - GENERAL OR DERABLES Final Result [facility] [id number] [place] [address] from Last 3 Months or Most Recently Relevant to Health Maintenance Insurance [facility] ACCESS CHOICE Care Teams Group Worker Relationship Specialty Start Date End Date Fanny Aguayo NP [address] [id number] PCP - General Family Medicine 10/06/24
--- OUTSIDE RECORDS SUMMARY | 2025-01-24 02:24 | XMS_ITS | Data Portability ---
Author Organization [place] - [facility] [employer], Main Office Address [address] [place] [id number] Assessment Encounter Date Assessment Date Assessment LastModified [...] will reassess and discuss surgery with her. [email or web address] Not available 01/13/2023 14:34:31 02/10/2023 02/10/2023 Patient [...] would relieve all of her symptoms discussed. [email or web address] Not available 02/10/2023 15:31:29 04/13/2023 04/13/2023 Patient [...] ...should start week of May [id number] [address] [facility], [address], [place], [address], 3 12:10:34 Procedures injection/ aspiration joint/burs a (PROC) - in office procedure, administer ed by provider 2022 023 [email or web address] In-Office Order, Internal Use Only DO Not Attach Compendium DO Not Attach Compendium, Do Not Delete/merge, [id number] 3 14:36:51 injection/ aspiration joint/burs a (PROC) - in office procedure, administer ed by provider 2022 023 [email or web address] In-Office Order, Internal Use Only DO Not Attach Compendium DO Not Attach Compendium, Do Not Delete/merge, [id number] 3 14:34:18 Surgeries None recorded. Imaging None recorded. Medication Orders Kenalog 10 mg/mL suspension for injection 2022 023 [id number], [address], [place], [phone], 3 14:38:47 ropivacain e (PF) 5 mg/mL (0.5 %) injection solution 2022 023 [facility] [place], [place] [id number], [address] [place] [address], [place], [phone], 3 14:38:47 Kenalog 10 mg/mL suspension for injection [address] [employer] [place], [place] [address][id number], [address], [place], [phone], 3 14:35:02 ropivacain e (PF) 5 mg/mL (0.5 %) injection solution 2022 023 [facility] [place] [address] [facility] #58457, [address], [place], [phone], 3 14:35:02 Patient TargetsNo targets recorded. Patient [...] contr ast No observ ation record ed. [id number] [facility] [address], [place], [address], 12/25/2022 01:48:55 Result Notes None recorded. Problems Name Problem SNOMED Code Status Onset Date Resolution Date Notes Provider Name and Address Organization Details Recorded Time Pain of left shoulder joint 0987862569208 9109 Active 2022 Not Available [facility] 3 01:48:21 Tendinitis of left rotator cuff 4063031057411 9101 Active 2022 Not Available [facility] 3 01:48:21 Partial thickness rotator cuff tear 682118048 Active 2022 Not Available [facility] 3 01:48:21 Strain of rotator cuff of shoulder 343950418 Active 2022 Not Available [facility] 3 01:48:21 Arthritis of acromiocla vicular joint 487478585 Active 2022 Michel Hong MD [address], [place], [address] , [employer] [facility] [employer] 3 14:45:13 Problem Notes None recorded. Procedures Surgical History Date Name Laterality Status Provider Name and Address Organization Details Recorded Time 3 Ortho - Cortisone Injection completed Michel Hong MD [address], [place], [address], [employer] [facility] [employer] 02/10/2023 15:29:36 3 Ortho - Cortisone Injection completed Michel Hong MD [address], [place], [address], [employer] [facility] 01/13/2023 14:33:36 Knee completed Not Available [facility] 11/2022 01:47:59 section completed Not Available [facility] 12/25/2022 01:47:59 procedure on wrist completed Not Available [facility] 12/25/2022 01:47:59 Imaging Results Imaging Date Name Status LastModified by Organiz ation Details LastModified Time 12/12/2022 MRI, shoulder, w/o contrast completed [id number] [facility] [address], [place], [address], 12/25/2022 01:48:55 Procedure Notes None recorded. Medical [...] 40 mg by injection route. 2022 active [facility]: 0003- 0494- 20 Not Available Not Available [...] Updated DateTime 01/13/2023 177.8 cm 40.2 kg/m2 216041.86 g ABBI Valdez [employer] 01/13/2023 14:24:20 Date Recorded Body height Body mass index (BMI) Body weight Provider Name and Address Organization Details Last Updated DateTime 02/10/2023 177.8 cm 40.2 kg/m2 873123.86 g ABBI Valdez [employer] 02/10/2023 14:11:36 Date Recorded Body height Body mass index (BMI) Body weight Provider Name and Address Organization Details Last Updated DateTime 04/13/2023 177.8 cm 39.5 kg/m2 601856.9 ABBI Valentin [facility] [employer] [facility] 04/13/2023 09:25:14 Date Recorded Body height Body mass index (BMI) Body weight Provider Name and Address Organization Details Last Updated DateTime 05/04/2023 177.8 cm 39.5 kg/m2 512108.9 gerardo Garcia CNA [facility] [employer] [facility] 05/04/2023 10:11:06 Date Recorded Body height Body mass index (BMI) Body weight Provider Name and Address Organization Details Last Updated DateTime 06/09/2023 177.8 cm 39.5 kg/m2 084256.9 gerardo Ramos Pro [facility] [employer] [facility] 06/09/2023 14:19:06 Social History Question Answer Notes LastModified by [employer] Details LastModified Time Tobacco Smoking Status Never Smoker [facility] Head[facility] [employer] 01/13/2023 14:21:15 What Is Your Level Of Alcohol Consumption? Occasional [id number] Information not available 12/25/2022 Sex: Unknown Functional Status None recorded. Mental Status None recorded. Family History Relationship Description Onset Age of this Age Resolved Age Notes LastModified by Organization Details LastModified Time Father Heart disease [id number] Not available 12/25/2022 01:48:00 Father Hypertensive disorder [id number] Not available 12/25/2022 01:48:00 Father Diabetes mellitus [id number] Not available 12/25/2022 01:48:00 Father Cerebrovascu lar accident Not available 14:21:15 Mother Family history of malignant neoplasm [email or web address] Not available 01/13 14:21:15 Mother Hypertensive disorder [id number] Not available 12/25/2022 01:48:00 Medical History No medical history recorded. Gynecological HistoryNo gynecological history recorded. Obstetrics History GPAL:G 0 P 0 0 0 0 Past Encounters Encounter ID Performer Location Encounter Start Date Encounter Closed Date Diagnosis/Indication Diagnosis SNOMED-CT Code Diagnosis ICD10 Code Diagnosis Note [id number] [facility] [address] [place] [address] 11/06/2022 00:00:00 11/06/2022 14:16:52 [id number] [facility] [address] [place] [address] 12/04/2022 00:00:00 12/04/2022 15:31:33 [id number] [facility] [address] [place] [address] 12/16/2022 00:00:00 12/16/2022 15:52:05 [id number] Michel Hong MD [facility] [address] [place] [address] 01/13/2023 14:19:14 01/13/2023 15:17:10 Tendinitis of left rotator cuff 0890490751 9135334 M67.814 Strain of rotator cuff of shoulder 160481511 S46.011D [id number] Michel Hong MD [facility] [address] [place] [address] 02/10/2023 14:07:16 02/10/2023 16:00:45 Tendinitis of left rotator cuff 3063516002 8142558 M67.814 Strain of rotator cuff of shoulder 993016441 S46.011D [id number] Michel Hong MD [facility] [address] [place] [address] 04/13/2023 09:22:56 04/13/2023 11:08:14 Strain of rotator cuff of shoulder 516071647 S46.011D Tendinitis of left rotator cuff 2274807007 5153304 M67.814 [id number] Michel Hong MD [facility] [address] [place] [address] 05/04/2023 10:04:56 05/04/2023 11:02:02 Tendinitis of left rotator cuff 7894365470 7722775 M67.814 Strain of rotator cuff of shoulder 883137468 S46.011D Postoperative visit 1836 60392 Z09 [id number] Michel Hong MD [facility] [address] [place] [address] 06/09/2023 14:14:51 06/09/2023 15:42:32 Tendinitis of left rotator cuff 5423749724 4259332 M67.814 Partial th ickness rotator cuff tear 676383450 M75.102 Arthritis of acromioclavicular joint 787385784 M13.819 M13.812 Health Concerns Section Related Observation [...] better. Michel Hong MD [address] [place] [address], [place], [address], [employer] 01/13/2023 14:34:58 02/10/2023 text/html Patient returns shoulder [...] otherwise. Michel Hong MD [address] [place] [address], [place], [address], [employer] 02/10/2023 15:31:32 04/13/2023 text/html Patient returns status post rotator cuff debridement repair left distal clavicle excision. She is doing okay pain is tolerable and she is moving arm reasonably well. Michel Hong MD [address], [place], [address], [employer] 04/13/2023 10:15:53 05/04/2023 text/html Patient returns status post rotator cuff debridement repair left distal clavicle excision. She is doing okay pain is tolerable and she is moving arm reasonably well. The pain is improved quite a bit over the last month and she is doing much better than she was before surgery. Michel Hong MD [address], [place], [address], [employer] 05/04/2023 11:00:40 06/09/2023 text/html Patient returns status post rotator cuff debridement repair left distal clavicle excision. She is doing okay pain is tolerable and she is moving arm reasonably well. The pain is improved quite a bit over the last month and she is doing much better than she was before surgery. Michel Hong MD [address], [place], [address], [employer] 06/09/2023 14:45:47 OBGyn Episode No OBEpisode recorded.
[2025-01-24] MEDS: LACTATED RINGERS 1,000 ML 30 ML IV CONT ×2 (06:30→10:26)
[2025-01-24] MEDS: ACETAMINOPHEN 500 MG TABLET 1000 MG PO ×3 (06:30→18:49)
[2025-01-24] MEDS: KETOROLAC 15 MG/ML VIAL (*BKC) IV PUSH (06:30)
--- NOTE | 2025-01-24 06:53 | WPDANESEPPF ---
Anes - Initial Pre Proc Eval Procedure: Operation Date: 01/24/25 07:30 Proposed Procedures p Robotic Assisted Hysterectomy with Bilateral Salpingo-oophorectomy, - Oliver Patricia MD s Bilateral Ureteral Stent Placement for Abdominal Surgery - Torsten Fairbanks MD Date/Time: 01/24/25 06:53 Surgeon: Oliver Patricia MD Pre Op Diagnosis: pelvic pain Patient Data Age: 44 Gender: F Height: 1.78 m Weight: 125.1 kg Allergies Allergy/AdvReac Type Severity Reaction Status Date / Time No Known Allergies Allergy Verified 01/24/25 05:56 Home Medications ?Medication ?Instructions ?Recorded ?Confirmed ?Type loratadine 10 mg tablet (Claritin) 10 mg PO HS 04/18/24 01/10/25 History Patient hx anesthesia problems: post op nausea/vomiting (She has done well w scop patch in the past. ) Family hx anesthesia problems: none Results Review: All pre-operative results and documents have been reviewed as part of the pre-operative evaluation. [facility] Past Medical History Medical History Morbid obesity with BMI of 40.0-44.9, adult PONV (postoperative nausea and vomiting) Chronic GERD Partial thickness tear of left rotator cuff Surgical History Surgical History History of shoulder surgery Social History Social History Social History: Caffeine-daily Smoking status: Never smoker Alcohol intake: current Alcohol use details: RARE Substance use: never Substance use type: does not use Do You Feel Safe in your Home?: Yes Lack of Transportation: No Lack of Food: Never True Current Housing: I Have Housing Concerned About Future Housing: No Difficulty Paying Gas/Electric Bills: No Difficulty Paying for Meds: No Currently Unemployed: No Education: Bachelor's Degree Difficulty w/ Childcare or Family Care: No Living arrangements: with family Spiritual care concerns: No Anes - Eval Final PreProcedure Day of Procedure 01/24/25 06:53 Patient weight: morbidly obese Lungs: normal air movement Airway: Mallampati scale class II and special considerations (Lower perm retainer. ) Neurological: alert and oriented Last oral intake: >/= 8 hours ASA classification: III Emergent: no Anesthetic plan: proceed Anesthesia type and monitoring: general ETT and standard monitoring Results Review: All pre-operative results and documents have been reviewed as part of the pre-operative evaluation. 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 Informed Consent: The patient's anesthetic plan and its attendant risks and benefits were discussed with the patient/family/POA. Questions were solicited and answers provided to the satisfaction of the patient/family/POA.
--- NOTE | 2025-01-24 07:06 | WPDHPUPDATE1 ---
History and Physical Update Update Date/Time: 01/24/25 07:06 History and Physical has been reviewed, including an updated exam of the patient. There are NO changes in the patient's condition. Risks, benefits, and alternatives have been discussed and questions answered. Patient agrees to proceed with procedure.
[2025-01-24] MEDS: SCOPOLAMINE 1 MG PATCH 1 PATCH TRANSDERM (07:10)
[2025-01-24 07:17] LABS: BEDSIDEPREGUCG Negative (Negative)
--- NOTE | 2025-01-24 07:26 | WPDURCON ---
Assessment and Plan Assessment and plan (1) Pelvic pain: Code(s): R10.2 - Pelvic and perineal pain Status: Acute Assessment and Plan: Proceed with cystoscopy with retrogrades, bilateral external stent placement. Urology Consult Note HPI Date Seen: 01/24/25 Time Seen: 07:26 Requesting Physician: Oliver Patricia MD Primary Care Provider: Ruma,Fanny [facility] TECHNICIAN Consult Narrative Reason for consult: bilateral ureteral stent placement Narrative: Kaitlin Abraham is a 44 year old female to undergo robotic assist hysterectomy by Dr Patricia. Asked to place bilateral ureteral external stents. Review of Systems Review of Systems: All systems reviewed & are unremarkable except as noted in HPI and below PMFSH Past Medical History Medical History Morbid obesity with BMI of 40.0-44.9, adult PONV (postoperative nausea and vomiting) Chronic GERD Partial thickness tear of left rotator cuff Surgical History Surgical History History of shoulder surgery Social History Social History Social History: Caffeine-daily Smoking status: Never smoker Alcohol intake: current Alcohol use details: RARE Substance use: never Substance use type: does not use Do You Feel Safe in your Home?: Yes Lack of Transportation: No Lack of Food: Never True Current Housing: I Have Housing Concerned About Future Housing: No Difficulty Paying Gas/Electric Bills: No Difficulty Paying for Meds: No Currently Unemployed: No Education: Bachelor's Degree Difficulty w/ Childcare or Family Care: No Living arrangements: with family Spiritual care concerns: No Meds Home Medications and Allergies Home Medications ?Medication ?Instructions ?Recorded ?Confirmed ?Type loratadine 10 mg tablet (Claritin) 10 mg PO HS 04/18/24 01/10/25 History Allergies Allergy/AdvReac Type Severity Reaction Status Date / Time No Known Allergies Allergy Verified 01/24/25 05:56 Vital Signs Vital Signs - 24 hr 01/24/25 07:00 Temperature 36.2 C L Pulse Rate 88 Respiratory Rate 16 Blood Pressure 137/95 H Pulse Oximetry 99 Oxygen Delivery Room Air Exam Const: General: cooperative and comfortable Resp: Effort & Inspection: normal respiratory effort Cardio: Rate: regular rate Rhythm: regular rhythm
--- NOTE | 2025-01-24 07:30 | WPDHPUPDATE1 ---
History and Physical Update Update Date/Time: 01/24/25 07:30 History and Physical has been reviewed, including an updated exam of the patient. There are NO changes in the patient's condition. Risks, benefits, and alternatives have been discussed and questions answered. Patient agrees to proceed with procedure.
[2025-01-24] MEDS: ceFAZolin 3 GM/D5W 100 ML 100 ML IVPB (07:32)
[2025-01-24] MEDS: INDOCYANINE GREEN 25 MG VIAL WITH DILUENT 3.75 MG IV PUSH (07:56)
--- NOTE | 2025-01-24 08:00 | P.OP_ITS ---
Procedure Note - Detailed Date of Procedure 01/24/25 Pre-op Diagnosis pelvic pain Post-op Diagnosis Same Procedure Performed Cystoscopy, bilateral retrogrades, bilateral external ureteral stent placement with ICG installation Surgeon Torsten Fairbanks MD Anesthesia General Description of Procedure Patient is taken to the operative suite correctly identified. Once anesthesia was obtained she was placed in dorsal lithotomy position prepped and draped usual sterile fashion. Twenty-two Indonesian scope was inserted in the bladder. There were no tumors noted. Both ureteral orifices normal anatomic position. Both orifices were cannulated with a Sensor wire. Ureteral catheters were then placed over those up into the renal pelvis. Pyelogram performed to confirm placement of the stents. 3 cc of ICG was then injected into each catheter. These were then secured to a 16 Indonesian Mancilla. Catheters will be removed at termination procedure. Dr. Patricia will then perform his procedure. This completes dictation. Please send a copy of op note to my office Estimated Blood Loss 0 Drains Yes Packing No Pathology None sent Complications No immediate complications Condition Stable
--- NOTE | 2025-01-24 10:28 | P.OP_ITS ---
Procedure Note - Detailed Date of Procedure 01/24/25 Pre-op Diagnosis pelvic pain, menorrhagia Post-op Diagnosis Same Procedure Performed Robot assisted Total hysterectomy with bilateral salpingo-oophorectomy.. Surgeon Oliver Patricia MD Anesthesia General Indications heavy vaginal bleeding, pelvic pain Findings widespread endometriosis with dense scarring of the parametrium, normal- appearing ovaries, densely scarred adnexa normal appearing fallopian tube Description of Procedure This patient was taken to the operating room. She was prepped and draped in the dorsal lithotomy position after induction of general anesthesia. Stents were placed by Dr. Chuck zepeda case, ICG was used to illuminate the ureters throughout the case. The uterine manipulator and James cup were placed. This was done with a speculum and tenaculum. The speculum was placed. The cervix was grasped with a tenaculum. The stay sutures were placed at 3 and 9:00 a.m.. The stay sutures of 0 Vicryl were tied to the appropriately Size scope after it was slipped around the cervix.. The tip of the NEIL manipulator was placed in the intrauterine cavity. The cup was slid into place around the cervix and into the fornices. It was locked into place. The sutures were then wrapped around the handle and tied under tension. A 8 mm skin incision was made in the left upper quadrant the abdomen. a 5 mm Visiport trocar was inserted into abdominal cavity and pneumoperitoneum was achieved. A 8 mm supraumbilical incision was made and a 8 mm trocar was inserted into the intrauterine cavity under direct visualization of the scope. an 8 mm incision was made in the right upper quadrant of the abdomen and an 8 mm robotic trocar was placed the inter uterine cavity under direct visualization the scope. An 11 mm trocar was inserted in the right upper quadrant of the abdomen rectal is a cystoscope after an incision was made there as well. The robot was docked. Electronic Orientation of the robot was performed. Bilateral ureteral lysis was performed. This was done from the pelvic brim down to the uterine artery. This was done with careful dissection using sharp and blunt dissection.Bilateral salpingo-oophorectomy was performed. The bilateral infundibulopelvic ligaments were cauterized thoroughly and transected after visualization of the ureter passing over the pelvic brim. In stepwise fashion around the ovary the mesosalpinx was cauterized transected. The Fallopian tube tissue/ mesosalpinx was cauterized transected a stepwise fashion medially to the cornua of the uterus. the tube was transected at the cornua and cauterized thoroughly. The bilateral tubes and ovaries were taken out through the large air lock port. Then In a stepwise fashion along the lateral aspects of the uterus the round ligament and broad ligaments were cauterized transected down to the level of the uterine arteries. A bladder flap was created in the bladder was moved distally to the end of the cervix and over the James cup. The bilateral uterine arteries were cauterized and transected. Colpotomy was then performed. In a circumferential fashion the vagina was transected using unipolar cautery. The incision was made down on the James cup. The uterus and cervix were taken out through the vagina. A pneumo occluder was placed in the vagina. The vaginal cuff was closed with a 0 V lock suture in a running fashion. The pelvis was irrigated with copious amounts antibiotic irrigation. The ureters were again examined and found to be intact and flowing freely under the uterine arteries into the bladder. The bladder was intact. It was examined directly. Cystoscopy was performed after administration of methylene blue. The cystoscope was inserted. Bladder was distended with fluid. The ureteric meatus was observed bilaterally. Urine was seen to egress bilaterally. The bladder was drained and the cystoscope was withdrawn. The vagina was irrigated with Betadine solution after removal of the Pneumo occluder. the trocars were removed after the robot was undocked. The skin was closed with subacute or Dermabond. The patient was taken to recovery room. She was stable condition. Sponge lap and needle counts were correct x2. Estimated Blood Loss 0 Urine Output 800 Drains Yes Packing No Pathology Yes Complications No immediate complications Condition Stable Disposition Floor
[2025-01-24] MEDS: fentaNYL CITRATE INJ (*CRX) 100 MCG/2 ML VIAL 25 MCG IV PUSH ×6 (11:20→11:50)
[2025-01-24] MEDS: SIMETHICONE 80 MG TAB.CHEW PO ×2 (12:29→16:15)
[2025-01-24] MEDS: KETOROLAC 30 MG/ML VIAL (*BKC) IV PUSH ×2 (12:31→18:49)
[2025-01-24] MEDS: DEXTROSE 5%/0.45% SOD CHL 1,000 ML 125 ML IV CONT ×2 (12:34→21:22)
--- NOTE | 2025-01-24 12:39 | ADMGEN ---
This patient, Kaitlin Abraham, was admitted to OB 2nd Floor Room 289-00. Patient/family oriented to hospital policies and general routines including ID bracelet, bed and alarms, visiting hours, pain management, procedures, bathroom and other care routines, personal items, smoking policy, room service/diet, and visiting hours. Information on how to activate the Rapid Response Team has been discussed. Patient/Family are encouraged to report perceived risks to care and to ask questions if they do not understand what they are told or what they should do.
[2025-01-24] MEDS: oxyCODONE HCL (*CRX) 5 MG TAB IR PO ×2 (15:30→21:21)
[2025-01-24] MEDS: DOCUSATE SODIUM 100 MG CAPSULE PO (16:16)
[2025-01-24] MEDS: ONDANSETRON INJ 4 MG/2 ML VIAL IV PUSH (17:45)
[2025-01-24] MEDS: LORATADINE 10 MG TABLET PO (21:21)
[2025-01-25] MEDS: KETOROLAC 30 MG/ML VIAL (*BKC) IV PUSH (00:47)
[2025-01-25] MEDS: ACETAMINOPHEN 500 MG TABLET 1000 MG PO ×2 (00:48→07:10)
[2025-01-25 00:54] VITALS: BP 134/81; PULSE 90; RESP 16; TEMP 37.3; O2SAT 100
[2025-01-25 05:08] VITALS: BP 148/78; PULSE 87; RESP 16; TEMP 37.3; O2SAT 100
[2025-01-25] MEDS: IBUPROFEN 600 MG TABLET PO (07:10)
[2025-01-25] MEDS: DOCUSATE SODIUM 100 MG CAPSULE PO (07:10)
[2025-01-25] MEDS: SIMETHICONE 80 MG TAB.CHEW PO (07:10)
--- NOTE | 2025-01-25 07:40 | PM.GYNPNOP ---
PROFESSOR OF GEOGRAPHY - A/P Postoperative Procedures: Procedures Operation Date: 01/24/25 07:30 Actual Procedure Side Surgeon p Robotic Assisted Hysterectomy with Bilateral Salpingo-oophorectomy, Oliver Patricia MD s Bilateral Ureteral Stent Placement for Abdominal Surgery Torsten Fairbanks MD Postoperative day: 1 Postoperative status: doing well Postoperative plan: see orders Time Spent With Patient Time: Total time spent is greater than 50% in coordination of care (as documented) at patient's floor/unit and/or counseling patient: Time with patient: less than 15 minutes PROFESSOR OF GEOGRAPHY- PN:Subj Post-Op Subjective Date/time seen: 01/25/25 07:40 Subjective: patient reports feeling better, patient has no complaints and pain is well controlled Exam Const: General: healthy appearing, comfortable and no acute distress Resp: Auscultation: clear to auscultation bilaterally, no rales, no rhonchi and no wheezes Cardio: Rate: regular rate Heart sounds: no click, no murmurs and no rubs GI: Inspection: non-distended Auscultation: normal bowel sounds Extrem: General: normal to inspection, no pedal edema and no calf tenderness PROFESSOR OF GEOGRAPHY - PN: Obj Data Vital Signs Vital Signs: Vital Signs - 24 hr 01/24/25 10:26 01/24/25 10:38 01/24/25 10:50 Temperature 97.6 F Pulse Rate 85 83 77 Respiratory Rate 12 14 16 Blood Pressure 139/86 136/92 H 141/94 H Pulse Oximetry 100 100 100 Oxygen Delivery Simple Face Mask Simple Face Mask Simple Face Mask Oxygen Flow Rate 8 8 8 01/24/25 11:05 01/24/25 11:20 01/24/25 11:30 Temperature 97.4 F L Pulse Rate 76 70 77 Respiratory Rate 14 16 16 Blood Pressure 141/98 H 142/87 H 142/98 H Pulse Oximetry 100 98 97 Oxygen Delivery Simple Face Mask Room Air Room Air Oxygen Flow Rate 8 01/24/25 11:45 01/24/25 12:00 01/24/25 12:30 Temperature Pulse Rate 76 77 Respiratory Rate 14 16 Blood Pressure 145/95 H 154/89 H Pulse Oximetry 100 100 Oxygen Delivery Room Air Room Air Room Air Oxygen Flow Rate 01/24/25 12:30 01/24/25 15:21 01/24/25 16:09 Temperature 97.9 F 97.5 F L Pulse Rate 76 67 Respiratory Rate 16 18 Blood Pressure 138/80 155/95 H Pulse Oximetry 100 100 Oxygen Delivery Room Air Oxygen Flow Rate 01/24/25 19:12 01/24/25 19:14 01/25/25 00:54 Temperature 98.0 F 99.2 F Pulse Rate 73 73 90 Respiratory Rate 16 16 16 Blood Pressure 140/89 134/81 Pulse Oximetry 99 99 100 Oxygen Delivery Room Air Oxygen Flow Rate 01/25/25 05:08 Temperature 99.2 F Pulse Rate 87 Respiratory Rate 16 Blood Pressure 148/78 H Pulse Oximetry 100 Oxygen Delivery Oxygen Flow Rate Intake/Output Intake/Output: Intake & Output 01/22/25 01/23/25 01/24/25 01/25/25 23:59 23:59 23:59 23:59 Intake Total 3100 700 Output Total 1565 1500 Balance 1535 -800 Meds/Results Medications: Active Medications Generic Name Dose Route Start Last Admin Trade Name Freq PRN Reason Stop Dose Admin Acetaminophen 1,000 mg 01/24/25 12:08 01/25/25 07:10 Acetaminophen 500 Mg Tablet PO 1,000 mg Q6HR SLADE Administration Docusate Sodium 100 mg 01/24/25 17:00 01/25/25 07:10 Docusate Sodium 100 Mg Capsule PO 100 mg BID SLADE Administration Dextrose/Sodium Chloride 1,000 mls @ 125 mls/hr 01/24/25 12:08 01/24/25 21:22 Dextrose 5% Sodium Chloride 0.45% IV CONT 125 mls/hr .Q8H SLADE Administration Ibuprofen 600 mg 01/25/25 06:00 01/25/25 07:10 Ibuprofen 600 Mg Tablet PO 600 mg Q6HR SLADE Administration Loratadine 10 mg 01/24/25 21:00 01/24/25 21:21 Loratadine 10 Mg Tablet PO 10 mg HS SLADE Administration Naloxone HCl 0.1 mg 01/24/25 12:08 Naloxone Hcl 0.4 Mg/Ml Vial IV PUSH Q2M PRN Respiratory rate less than 10 Ondansetron HCl 4 mg 01/24/25 12:08 01/24/25 17:45 Ondansetron Inj 4 Mg/2 Ml Vial IV PUSH 4 mg Q6H PRN Administration Nausea And Vomiting Oxycodone HCl 5 mg 01/24/25 12:08 01/24/25 21:21 Oxycodone Hcl (*Crx) 5 Mg Tab Ir PO 5 mg Q4H PRN Administration Pain Rated 4-6 Oxycodone HCl 10 mg 01/24/25 12:08 Oxycodone Hcl (*Crx) 5 Mg Tab Ir PO Q6H PRN Pain Rated 7-10 Simethicone 80 mg 01/24/25 12:08 01/25/25 07:10 Simethicone 80 Mg Tab.Chew PO 80 mg TIDWM SLADE Administration Radiology Results: ITS Impressions Retrograde Pyelogram 01/24/25 08:17 IMPRESSION: 1. Bilateral internal ureteral stent placement. Please refer to real-time procedural findings for details.
[2025-01-25 07:55] VITALS: BP 140/79; PULSE 90; RESP 18; TEMP 37.1; O2SAT 100
== END 2025-01-25 09:44 | disposition home or self-care (01) ==
LOC: ANHSURGERY 06:12 → ANHOB2 12:11
PROVIDERS: Urology; PCP Nurse Practitioner; Visit Provider Obstetrics & Gynecology
PROC: (CPT 58571; principal; 2025-01-24 07:30)
DX: D25.1 Intramural leiomyoma of uterus (principal); D25.0 Submucous leiomyoma of uterus; N83.292 Other ovarian cyst, left side; N83.291 Other ovarian cyst, right side; N80.103 Endometriosis of bilateral ovaries, unspecified depth; N72 Inflammatory disease of cervix uteri; N83.8 Other noninflammatory disorders of ovary, fallopian tube and broad ligament; N88.8 Other specified noninflammatory disorders of cervix uteri; N80.03 Adenomyosis of the uterus; G89.18 Other acute postprocedural pain; K21.9 Gastro-esophageal reflux disease without esophagitis; E66.01 Morbid (severe) obesity due to excess calories; Z68.39 Body mass index [BMI] 39.0-39.9, adult; Z79.1 Long term (current) use of non-steroidal anti-inflammatories (NSAID); Z79.891 Long term (current) use of opiate analgesic; Z98.890 Other specified postprocedural states; Z80.49 Family history of malignant neoplasm of other genital organs; Z82.49 Family history of ischemic heart disease and other diseases of the circulatory system
CPT/HCPCS: 58571; 52005; S2900; 74420; 88307; 99199; A9270; C1758; C1769; J0690; J1100; J1171; J1885; J2003; J2250; J2405; J2704; J3010; J7030; J7120; Q9968

== ENCOUNTER 2025-01-28 21:50 | Inpatient (IN) | payer BC, SELFPAY ==
[2025-01-28] VITALS (7 sets, daily range): BP systolic 143–147; BP diastolic 77–86; PULSE 94–112; RESP 9–23; TEMP 36.8–36.9; O2SAT 93–100
--- NOTE | ~2025-01-28 | CT_ITS ---
CT abdomen pelvis w con Ordering provider: Burt Sam History: 44 years Female with . flank pain, UTI . Comparison: December 03, 2024 Technique: CT abdomen and pelvis with IV and without oral contrast. Automated exposure control and it erative reconstruction technique were employed. The dose-length product was 1655.13 mGy-cm. 100 mL Om nipaque 350 was given IV. Findings: VISUALIZED LOWER CHEST: Dependent atelectatic changes. UPPER ABDOMINAL ORGANS: Liver: Hepatomegaly. Fat infiltration. Gallbladder: Normal. Spleen: Normal. Stomach/duodenum: Small sliding hiatus hernia. Pancreas: Normal. Adrenals: Normal. Kidneys: Mild fullness of the ureters most likely due to partial obstruction by the abscess seen in t he pelvis. PELVIC ORGANS: The bladder is normal. An abscess seen in the pelvis which measures 9.8 x 6.1 cm and seen in the abdomen to the sigmoid colo n which is most likely due to perforated: Sigmoid colon or diverticulitis. Further evaluation advised . BOWEL AND MESENTERY: Colon: Possibility of diverticulitis sigmoid colon cannot be excluded. Appendix is not demonstrated. Small Bowel: Normal. No obstruction. Peritoneum/mesentery: No free air. Minimal Free fluid in the paracolic gutters and in the pelvis post eriorly.. No mesenteric lymphadenopathy. RETROPERITONEUM: Normal aorta. No retroperitoneal lymphadenopathy. MUSCULOSKELETAL: Superficial soft tissues: The superficial soft tissues are normal. Bones: Normal spine. Bilateral sacroiliacs. Levoscoliosis. IMPRESSION: 1. Pelvic abscess which may be due to perforated bowel due to colitis or diverticulitis. 2. Minimal fullness of the renal pelvis and ureters bilaterally. 3. Hepatomegaly with fat infiltration. Reviewed, dictated and finalized at location A. IMPRESSION: 1. Pelvic abscess which may be due to perforated bowel due to colitis or diver ticulitis. 2. Minimal fullness of the renal pelvis and ureters bilaterally. 3. Hepatomegaly with fat infiltration.
--- NOTE | ~2025-01-28 | XR_ITS ---
EXAMINATION: XR enema water soluble DATE: 01/31/2025 11:26 INDICATION: Pelvic abscess post hysterectomy. Assess for colon Injury . TECHNIQUE: A lapel baster radiograph was obtained. A catheter was inserted into the patient's rectum. Water- soluble contrast was infused by gravity. Fluoroscopic spot images of the pelvis were obtained in brai n obliquities. Fluoroscopy exposure time was 1.1 minutes. A total of 12 fluoroscopic images and one o verhead radiograph were obtained. Total DAP was 95.53 Gycm^2. COMPARISON: None. FINDINGS: The loop of a percutaneous abscess drain projects over the central pelvis. Contrast extends from the rectum into the transverse colon. No evident extraluminal leakage of contrast identified. N o contrast is seen around or within the drainage catheter. IMPRESSION: 1. No evident colon leak. 2. Loop of a percutaneous abscess drain projecting over the central pelvis. Reviewed, dictated and finalized at location A.
--- NOTE | ~2025-01-28 | CT_ITS ---
EXAMINATION: CT pelvis wo con DATE: 02/03/2025 12:05 INDICATION: Pelvic abscess TECHNIQUE: Computed tomography (CT) of the pelvis was performed without intravenous contrast as a sco ut for planned drainage catheter placement. The abscess seen on the prior study has resolved and the planned drainage catheter placement was canceled. Automated exposure control and iterative reconstruc tion technique were employed. The dose-length product was 72.43 mGy-cm. COMPARISON: 02/02/2025 FINDINGS: Again seen is a left pelvic pigtail abscess drainage catheter with loop formed at the uterine fossa p ost recent hysterectomy. No residual abscess identified at the uterine fossa. The second abscess prev iously seen more anteriorly along the dome of the bladder also appears to have resolved. Bladder is u nremarkable.. Visualized portions of bowels are unremarkable with no obstruction. IMPRESSION: 1. Unchanged abscess drainage catheter in the uterine fossa with no residual abscess identified in th e pelvis. Reviewed, dictated and finalized at location A. IMPRESSION: 1. Unchanged abscess drainage catheter in the uterine fossa with no residual ab scess identified in the pelvis.
--- NOTE | ~2025-01-28 | CT_ITS ---
EXAMINATION: CT guide absc cath placement DATE: 01/30/2025 15:55 INDICATION: Pelvic abscess TECHNIQUE: The procedure including the risks and benefits was discussed with the patient. Risks discu ssed included bleeding and infection. The patient understood the risks and benefits and agreed to pro ceed. The patient was confirmed to be receiving appropriate antibiotic coverage. The skin overlying the lower abdomen to the left of midline was prepped and draped in usual sterile fashion. Anesthetic was administered with 1% lidocaine subcutaneously. Conscious sedation was also provided with 50 mcg fentanyl and 1 mg Versed IV. An 18-gauge trochar needle was inserted into the peritoneal fluid collec tion by trocar technique and utilizing CT guidance. The inner stylette was removed and a J-wire was a dvanced into the fluid collection with position confirmed by CT. Utilizing Seldinger technique the ne edle was removed over the wire and the tract serially dilated to 10 Tajik and a 10 Tajik drainage c atheter advanced into the fluid collection. Position was confirmed by CT and the loop was formed and locked. The metal stiffener wire were removed. The catheter was stitched to the skin with suture and antibiotic appointment and a sterile dressing were applied. Fluid was aspirated for Gram stain and cu ltures. The catheter was then attached to suction drainage and was draining additional fluid at the c onclusion of the procedure. There were no immediate complications. The dose-length product was 202.90 mGy-cm. FINDINGS: CT images demonstrate the catheter within the fluid collection. 20 mL of opaque reddish-gunderson fluid was aspirated for testing. IMPRESSION: 1. Successful CT-guided pelvic abscess drainage catheter placement. 2. 20 mL fluid was sent for Gram stain and aerobic and anaerobic cultures. 3. The catheter will be managed by Dr. Clark. Reviewed, dictated and finalized at location A.
--- NOTE | ~2025-01-28 | CT_ITS ---
EXAMINATION: CT abdomen pelvis w con DATE: 02/02/2025 09:35 INDICATION: Follow-up pelvic abscess post drainage catheter placement TECHNIQUE: Computed tomography (CT) of the abdomen and pelvis was performed with 100 mL Omnipaque-350 intravenous contrast. Automated exposure control and iterative reconstruction technique were employe d. The dose-length product was 1530.39 mGy-cm. COMPARISON: 01/29/2025 FINDINGS: Cold Roll Packer Sheet Iron atelectasis in the bilateral lower lobes. Heart size normal. No pericardial or pleural effusion . Liver, gallbladder, spleen, pancreas and bilateral adrenal glands are normal. There is mild bilater al hydroureteronephrosis extending to the pelvis with some residual inflammatory stranding surroundin g a partially decompressed abscess cavity at the uterine fossa post reported recent hysterectomy. Per cutaneous abscess drainage catheter was performed within the partially collapsed abscess cavity which contains small amount of fluid and small foci of gas. The main abscess cavity measures partially 4.7 x 1.8 x 2.4 cm versus 9.9 x 5.8 x 6.2 cm prior to drainage catheter placement. There is a now more o rganized appearance and increased size of a second more anterior loculated fluid collection without g as positioned along the anterior dome of the bladder and which measures 6.6 x 4.1 x 3.7 cm. Bladder i s normal. Visualized portions of bowels are unremarkable. Moderate lumbar and lower thoracic spondylo sis. IMPRESSION: 1. Significant decrease in size of a abscess cavity at the uterine fossa post percutaneous abscess dr ainage catheter placement. 2. Increase in size and more organized appearance to a second abscess more anteriorly in the pelvis a long the anterior dome of the bladder. 3. Mild bilateral hydroureteronephrosis without evident obstructing stone and likely secondary to the residual postoperative inflammatory changes in the pelvis. Reviewed, dictated and finalized at location B. IMPRESSION: 1. Significant decrease in size of a abscess cavity at the uterine fossa post p ercutaneous abscess drainage catheter placement. 2. Increase in size and more organized appearance to a second abscess more ante riorly in the pelvis along the anterior dome of the bladder. 3. Mild bilateral hydroureteronephrosis without evident obstructing stone and l ikely secondary to the residual postoperative inflammatory changes in the pelvi s.
--- OUTSIDE RECORDS SUMMARY | 2025-01-28 21:52 | XMS_ITS | Clinical Summary ---
Author Organization [facility] [address] [place] [address] [address] [place] [address] Care Team Providers Care Hairmasters Manager Name Role Phone Fanny Aguayo NP Primary Care Provider [phone] Allergies No known active allergies Medications No [...] Department Care Team Description 11/17/2024 7:49 AM CUT OFF WORKER - 11/17/2024 11:59 PM CUT OFF WORKER Hospital Encounter [facility] [address] [place] [id number] Mass of upper outer quadrant of right breast Discharge Disposition: Discharge to home or self care 11/17/2024 7:48 AM CUT OFF WORKER - 11/17/2024 11:59 PM CUT OFF WORKER Hospital Encounter [facility] [address] [place] [id number] Mass of upper outer quadrant of right [...] on file Legal Sex Female 8:59 AM CUT OFF WORKER Gender Identity Not on file Sexual Orientation Not on file Obstetrics History Para Term AB IAB SAB Ectopic Multiple Livin g Live Births 2 Date Outcome GA Total Labor Labor/2nd/3rd Weight Sex Type Anes PTL Sivan A1 A5 Name Clin Last Filed Vital Signs Vital Sign Reading Time Taken Comments Blood Pressure 124/72 10/06/2024 7:23 AM CUT OFF WORKER Pulse 84 10/06/2024 7:23 AM CUT OFF WORKER Temperature 36.2 C (97.2 F) 10/06/2024 7:23 AM CUT OFF WORKER Respiratory Rate - - Oxygen Saturation 99% 10/06/2024 7:23 AM CUT OFF WORKER Inhaled Oxygen Concentration - - Weight 122.5 kg (270 lb) 10/06/2024 7:23 AM CUT OFF WORKER Height 177.8 cm (5' 10 ) 11/17/2024 8:02 AM CUT OFF WORKER Body Mass Index 38.74 10/06/2024 7:23 AM CUT OFF WORKER Plan of Treatment Health Maintenance Due Date [...] Read Routine (OP Routine) 11/17/2024 8:46 AM CUT OFF WORKER Mass of upper outer quadrant of right breast DIAGNOSTIC MAMMOGRAM BILATERAL W BETHANY Schedule Routine, Read Routine (OP Routine) 11/17/2024 8:03 AM CUT OFF WORKER Mass of upper outer quadrant of right breast HEPATITIS C ANTIBODY Routine 10/06/2024 8:40 AM CUT OFF WORKER Encounter for hepatitis C screening test for low risk patient from Last 3 Months or Most Recently Relevant to Health Maintenance Results * US Breast Right Limited (11/17/2024 8:46 AM CUT OFF WORKER) Anatomical Region Laterality Modality Breast Right Ultrasound 11/17/2024 9:00 AM CUT OFF WORKER Impressions 11/17/2024 9:00 AM CUT OFF WORKER No mammographic or sonographic evidence of malignancy. [...] Fitz Turcios M.D. Narrative 11/17/2024 9:00 AM CUT OFF WORKER EXAMINATION: DIAGNOSTIC MAMMOGRAM BILATERAL W BETHANY, US [...] targeted right breast ultrasound. us Fanny Aguayo LINE THERAPIST IMG MAMMO PROCEDURES Final Re sult * DIAGNOSTIC MAMMOGRAM BILATERAL W BETHANY (11/17/2024 8:03 AM CUT OFF WORKER) Anatomical Region Laterality Modality Breast Bilateral Mammography 11/17/2024 9:00 AM CUT OFF WORKER Impressions 11/17/2024 9:00 AM CUT OFF WORKER No mammographic or sonographic evidence of malignancy. [...] Fitz Turcios M.D. Narrative 11/17/2024 9:00 AM CUT OFF WORKER EXAMINATION: DIAGNOSTIC MAMMOGRAM BILATERAL W BETHANY, US [...] mammogram or targeted right breast ultrasound. Result [facility] Fanny Aguayo LINE THERAPIST IMG MAMMO PROCEDURES Final Re sult * Hepatitis C antibody Blood (10/06/2024 8:40 AM CUT OFF WORKER) Hep C Ab Nonreactive Nonreactive Comment: Interpretive [...] revised on 2020. Blood 10/06/2024 8:40 AM CUT OFF WORKER 10/06/2024 3:05 PM CUT OFF WORKER us Fanny Aguayo NP LAB MICROBIOLOGY - GENERAL OR DERABLES Final Result [facility] [address] Department [place] [address] from Last 3 Months or Most Recently Relevant to Health Maintenance Insurance [facility] ACCESS CHOICE Care Teams Hairmasters Manager Relationship Specialty Start Date End Date Fanny Aguayo NP [address] [id number] PCP - General Family Medicine 10/06/24
--- OUTSIDE RECORDS SUMMARY | 2025-01-28 21:52 | XMS_ITS | Referral Summary ---
Author Organization [facility] [address] [place] [address] [address] [place] [address] Care Team Providers Care Pediatric Dentist Name Role Phone Fanny Aguayo NP Primary Care Provider [phone] Encounters Date Type Department Care Team Description 11/17/2024 7:49 AM NEEDLE MOLDER - 11/17/2024 11:59 PM NEEDLE MOLDER Hospital Encounter [facility] Center [address] [place] [address] Mass of upper outer quadrant of right breast Discharge Disposition: Discharge to home or self care 11/17/2024 7:48 AM NEEDLE MOLDER - 11/17/2024 11:59 PM NEEDLE MOLDER Hospital Encounter [facility] [address] [place] [address] Mass of upper outer quadrant of right [...] on file Legal Sex Female 8:59 AM NEEDLE MOLDER Gender Identity Not on file Sexual Orientation Not on file Last Filed Vital Signs Vital Sign Reading Time Taken Comments Blood Pressure 124/72 10/06/2024 7:23 AM NEEDLE MOLDER Pulse 84 10/06/2024 7:23 AM NEEDLE MOLDER Temperature 36.2 C (97.2 F) 10/06/2024 7:23 AM NEEDLE MOLDER Respiratory Rate - - Oxygen Saturation 99% 10/06/2024 7:23 AM NEEDLE MOLDER Inhaled Oxygen Concentration - - Weight 122.5 kg (270 lb) 10/06/2024 7:23 AM NEEDLE MOLDER Height 177.8 cm (5' 10 ) 11/17/2024 8:02 AM NEEDLE MOLDER Body Mass Index 38.74 10/06/2024 7:23 AM NEEDLE MOLDER Plan of Treatment Not on file Procedures Procedure Name Priority Date/Time Associated Diagnosis Comments US BREAST RIGHT LIMITED Schedule Routine, Read Routine (OP Routine) 11/17/2024 8:46 AM NEEDLE MOLDER Mass of upper outer quadrant of right breast DIAGNOSTIC MAMMOGRAM BILATERAL W BETHANY Schedule Routine, Read Routine (OP Routine) 11/17/2024 8:03 AM NEEDLE MOLDER Mass of upper outer quadrant of right breast HEPATITIS C ANTIBODY Routine 10/06/2024 8:40 AM NEEDLE MOLDER Encounter for hepatitis C screening test for low risk patient from Last 3 Months or Most Recently Relevant to Health Maintenance Results * US Breast Right Limited (11/17/2024 8:46 AM NEEDLE MOLDER) Anatomical Region Laterality Modality Breast Right Ultrasound 11/17/2024 9:00 AM NEEDLE MOLDER Impressions 11/17/2024 9:00 AM NEEDLE MOLDER No mammographic or sonographic evidence of malignancy. [...] Fitz Turcios M.D. Narrative 11/17/2024 9:00 AM NEEDLE MOLDER EXAMINATION: DIAGNOSTIC MAMMOGRAM BILATERAL W BETHANY, US [...] or targeted right breast ultrasound. Fanny Aguayo BUZZSAW OPERATOR HELPER IMG MAMMO PROCEDURES Final Re sult * DIAGNOSTIC MAMMOGRAM BILATERAL W BETHANY (11/17/2024 8:03 AM NEEDLE MOLDER) Anatomical Region Laterality Modality Breast Bilateral Mammography 11/17/2024 9:00 AM NEEDLE MOLDER Impressions 11/17/2024 9:00 AM NEEDLE MOLDER No mammographic or sonographic evidence of malignancy. [...] Fitz Turcios M.D. Narrative 11/17/2024 9:00 AM NEEDLE MOLDER EXAMINATION: DIAGNOSTIC MAMMOGRAM BILATERAL W BETHANY, US [...] or targeted right breast ultrasound. Fanny Aguayo BUZZSAW OPERATOR HELPER IMG MAMMO PROCEDURES Final Re sult * Hepatitis C antibody Blood (10/06/2024 8:40 AM NEEDLE MOLDER) Hep C Ab Nonreactive Nonreactive Comment: Interpretive [...] revised on 2020. Blood 10/06/2024 8:40 AM NEEDLE MOLDER 10/06/2024 3:05 PM NEEDLE MOLDER us Fanny Aguayo NP LAB MICROBIOLOGY - GENERAL OR DERABLES Final Result [facility] [id number] Department [place] [address] from Last 3 Months or Most Recently Relevant to Health Maintenance Insurance [facility] ACCESS CHOICE Care Teams Pediatric Dentist Relationship Specialty Start Date End Date Fanny Aguayo NP [address] [facility] [address] [place] [address] PCP - General Family Medicine 10/06/24
--- OUTSIDE RECORDS SUMMARY | 2025-01-28 21:52 | XMS_ITS | Data Portability ---
Author Organization 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 Referral None recorded. Procedures None recorded. Surgeries robotic assisted hysterect noemi w/bilater al salpingo- oophorect noemi (SURG) [address], [address], 01/24/2025 18:39:12 laparosco pic ovarian cystectom y (SURG) [address], [facility] [address], [address], 12/09/2024 11:56:40 Imaging None recorded. Medication Orders oxycodone -acetamin ophen 5 mg-325 mg tablet 2024 025 [id number], [address], [place], [id number], 12/07/2024 18:29:30 Patient TargetsNo targets recorded. Patient InstructionsNo instructions recorded. Reason for Referral None Reported. Results Created Date Observation Date Name Description Value Unit Range Abnormal Flag Note LastModifiedBy Organization Detail LastModifiedTime 01/25/2001/24/2025 fluor oscop y (PROC ) No observ ation record ed. [address] [facility] [address], [place], [address], 01/24/2025 22:20:41 Result Notes None recorded. Problems Name Problem SNOMED Code Status Onset Date Resolution Date Notes Provider Name and Address Organization Details Recorded Time Lesion of ovary Active 2018 Other ovarian cyst, left side;Recor ded Elsewhere: No Locatio n: [facility] rce: EHR Chroni c: N Practice ID: 0001 Billa ble Time: 01:00:00 PM Not Available [facility] 0 17:27:[address] Concept Active 2018 Encntr for [employer] exam (general) (routine) w/o abn findings;R ecorded Elsewhere: No Locatio n: [facility] rce: EHR Chroni c: N Practice ID: 0001 Billa ble Time: 04:30:00 PM Not Available [facility] 0 17:27:18 Pain of breast 12255467 Active 2011 Mastodynia ;Recorded Elsewhere: No Locatio n: [facility] rce: EHR Chroni c: N Practice ID: 0001 Billa ble Time: 01:45:00 PM Not Available [facility] 0 17:27:18 Adult health examinati on Active 2013 ROUTINE MEDICAL EXAM;Recor ded Elsewhere: No Locatio n: [facility] rce: EHR Chroni c: N Practice ID: 0001 Billa ble Time: 01:30:00 PM Not Available [facility] 0 17:27:18 test negative 338857459 Active 2018 Encounter for test, result negative;R ecorded Elsewhere: No Locatio n: [facility] rce: EHR Chroni c: N Practice ID: 0001 Billa ble Time: 08:30:00 AM Not Available [facility] 0 17:27:[address] Concept Active 2015 Encntr for general adult medical exam w/o abnormal findings;R ecorded Elsewhere: No Locatio n: [facility] rce: EHR Chroni c: N Practice ID: 0001 Billa ble Time: 11:30:00 AM Not Available [facility] 0 17:27:18 Disorder of uterus 39572062 Active 2018 Disorder of uterus;Rec orded Elsewhere: No Locatio n: [facility] rce: EHR Chroni c: N Practice ID: 0001 Billa ble Time: 08:30:00 AM Not Available [facility] 0 17:27:18 Breast lump 73367442 Active 2011 Lump or mass in breast;Rec orded Elsewhere: No Locatio n: [facility] rce: EHR Chroni c: N Practice ID: 0001 Billa ble Time: 01:45:00 PM Not Available [facility] 0 17:27:18 Bleeding 216157987 Active 2018 Abnormal uterine and vaginal bleeding, unspecifie d;Recorded Elsewhere: No Locatio n: [facility] rce: EHR Chroni c: N Practice ID: 0001 Billa ble Time: 03:00:00 PM Not Available [facility] 0 17:27:19 Specializ ed medical examinati on Active 2013 Gynecologi dk Examinatio n;Recorded Elsewhere: No Locatio n: [facility] rce: EHR Chroni c: N Practice ID: 0001 Billa ble Time: 01:30:00 PM Not Available [facility] 0 17:27:19 Body mass index 30+ - obesity 964150307 Active 2014 Body mass index (BMI) 35.0-35.9, adult;Aaron rded Elsewhere: No Locatio n: [facility] rce: EHR Chroni c: N Practice ID: 0001 Billa ble Time: 08:15:00 AM Not Available [facility] 0 17:27:19 Cyst of ovary Active 2018 Ovarian cyst;Recor ded Elsewhere: No Locatio n: [facility] rce: EHR Chroni c: N Practice ID: 0001 Billa ble Time: 03:30:00 PM Not Available [facility] 0 17:27:19 Screening for malignant neoplasm of cervix Active 2011 Screening for malignant neoplasms of the cervix;Rec orded Elsewhere: No Locatio n: [facility] rce: EHR Chroni c: N Practice ID: 0001 Billa ble Time: 08:30:00 AM Not Available [facility] 0 17:27:20 Problem Notes None recorded. Procedures Surgical History Date Name Laterality Status Provider Name and Address Organization Details Recorded Time 01/25/20 25 LAPAROSCOPIC OVARIAN CYSTECTOMY (SURG) completed [facility] 01/24/2025 18:39:59 01/25/20 25 ROBOTIC ASSISTED HYSTERECTOMY W/BILATERAL SALPINGO-OOPHORE CTOMY (SURG) [facility] 01/24/2025 18:39:12 12/08/19 25 LAPAROSCOPIC OVARIAN CYSTECTOMY (SURG) completed Nallely Medina [facility] 12/08/2024 14:34:43 10/26/19 24 Date of Last Mammogram completed [facility] 01/18/2025 16:12:07 10/26/19 22 complete repair of rotator cuff completed [facility] 12/07/2024 17:59:12 01/05/20 20 Date of Last Pap Smear completed [facility] 12/07/2024 17:55:26 01/21/20 19 Hysteroscopy completed [facility] 12/07/2024 17:58:24 10/26/19 19 Orthopedic Surgery completed [facility] 12/07/2024 17:59:59 10/26/19 12 Orthopedic Surgery completed [facility] 12/07/2024 18:00:05 10/26/19 10 Orthopedic Surgery completed [facility] 12/07/2024 18:00:19 06/27/20 09 Caesarean Section completed [facility] 12/07/2024 17:58:50 08/19/20 06 Caesarean Section completed [facility] 12/07/2024 17:54:52 Imaging Results Imaging Date Name Status LastModified by Organiz ation Details LastModified Time 01/24/2025 fluoroscopy (PROC) completed [address] [place] [address], [address], 01/24/2025 22:20:41 Procedure Notes None recorded. Medical Equipment None [...] Prescrib ed Elsewher e: No Locat ion: [facility] odify By: tono Shea r DateTime : 01/19/20 04:15:00 PM Not Available Not Available Not Available oxycodone -acetamin ophen 5 mg-325 mg tablet TAKE 1 TABLET BY MOUTH EVERY 6 HOURS active Not Available Not Available No t Available Zofran 8 mg tablet take 1 tablet by oral route 2 hourse befor procedur e 01/19 completed Prescrib ed Elsewher e: No [facility] odify By: [email or web address] Encounte r DateTime : 01/19/20 19 04:15:00 PM Not Available Not Available Not Available diazepam 10 mg tablet take 1 tablet by oral route 1 hour before procedur e 02/23 completed Prescrib ed Elsewher e: No Locat ion: [facility] odify By: tono Encounte r DateTime : 01/19/20 19 04:15:00 PM Not Available Not Available Not Available Vitamin D2 1,250 mcg (50,000 unit) capsule take 1 capsule by oral route every week 12/07 completed Prescrib ed Elsewher e: No Locat ion: [facility] odify By: vani ozuna DateTime : 01/10/20 11:23:56 AM Not Available Not Available Not Available [place] 5 mg-325 mg tablet take 2 tablets by oral route 2 hours before procedur e 02/23 completed Prescrib ed Elsewher e: No Locat ion: [facility] odify By: tono Encounte r DateTime : 01/19/20 19 04:15:00 PM Not Available Not Available Not Available multivita min capsule take 1 capsule by oral route every day 02/23 completed Prescrib ed Elsewher e: Yes Loca tion: [facility] odify By: tono Encounte r DateTime : 07/13/20 14 01:30:00 PM Not Available Not Available Not Available Ortho Tri-Cycle n (28) 0.18 mg(7)/0.2 15mg(7)/0 .25 mg(7)-0.0 35 mg tablet take 1 tablet by oral route every day 12/07 completed Prescrib ed Elsewher e: No Locat ion: [facility] odify By: andrea ouzna DateTime : 01/06/20 08:55:43 AM Not Available Not Available Not Available Vitamins and Minerals tablet active Prescrib ed Elsewher e: Yes Loca tion: [facility] odify By: tono Encounte r DateTime : 02/24/20 19 01:30:00 PM Not Available Not Available Not Available Claritin 02/12 /2025 completed Not Available Not Available Not Available meloxicam 7.5 mg/5 mL oral suspensio n take 5 millilit er by oral route every day 07/13 completed Prescrib melissa Ho e: Yes Loca tion: [facility] odify By: juan ozuna DateTime : 07/12/20 08:30:00 AM Not Available Not Available Not Available Vitals Date Recorded Body height Body mass index (BMI) Body weight Systolic blood pressure Diastolic blood pressure Provider Name and Address Organization Details Last Updated DateTime 12/07/2024 177.8 cm 39.5 kg/m2 152931.9 g 146 mm[Hg] 104 mm[Hg] [facility] 18:10:20 Date Recorded Body height Body mass index (BMI) Body weight Systolic blood pressure Diastolic blood pressure Provider Name and Address Organization Details Last Updated DateTime 12/13/2024 177.8 cm 39 kg/m2 360111.1 2 g 134 mm[Hg] 90 mm[Hg] [facility] 5 10:09:09 Date Recorded Body height Body mass index (BMI) Body weight Systolic blood pressure Diastolic blood pressure Provider Name and Address Organization Details Last Updated DateTime 01/18/2025 177.8 cm 39.7 kg/m2 029043.0 9 g 142 mm[Hg] 88 mm[Hg] [facility] 16:11:30 Social History Question Answer Notes [...] Or The Highest Degree You Have Received? [id number] Information not available 12/07/2024 What Is Your [...] Anxious, Or Unable To Sleep At Night)? [id number] Information not available 12/07/2024 Do You Use [...] available 2024 18:01:49 Sister Polycystic ovary syndrome [email or web address] Not available 2024 15:32:01 Notes:Father: Bypass surgery , Diabetes mellitus Maternal aunt: Cancer, cervical Mother: melanoma, Thyroid disease Sister: Ovarian Cyst, Polycystic ovarian syndrome Medical History Condition Response Allergies (Food, seasonal, environmental ) N Other Y Drug/Latex Allergies/Reactions N Blood Transfusion N Breast Cancer N Dermatologic Disorders N Lung Disease N Defects or Inherited Disease N Breast Problem N Gestational Diabetes N Hematologic disorders N Anesthesia Complications N History of STI N Deep Vein Thrombosis N Polycystic ovary syndrome N Anxiety Disorder N Autoimmune disease N Arthritis N Polyps N Infertility N Acid Reflux (GERD) N History of abnormal pap N Cancer N Varicosities N Stroke N Neurologic/Epilepsy N Endometriosis N High Cholesterol N Fibromyalgia N Headaches N Kidney Disease N Heart Problems N Thyroid Problems N Kidney or Bladder Problems N GI Problems N Eating Disorder [...] SNOMED-CT Code Diagnosis ICD10 Code Diagnosis Note [id number] Oliver Patricia MD [place] [address] [address] 12/07/2024 17:45:14 12/08/2024 08:12:27 Pain in pelvis 01944526 R10.2 44-year-ol d female with severe pain and right ovarian cyst. Possible ovarian torsion. We have agreed to perform laparoscop ic right ovarian cystectomy . She understand s the risks, benefits, and alternativ es. She has completed the informed consent process and is ready to proceed. [id number] Oliver Patricia MD [place] [address],[place] [address] 12/08/2024 10:46:03 12/09/2024 11:13:04 [id number] Oliver Patricia MD [place] [address],[place] [address] 12/13/2024 09:46:08 12/13/2024 10:58:53 Pain in pelvis 40525560 R10.2 44-year-ol d female presents for postop [...] hemorrhage and infection. Endometrio sis of pelvis 75894439 N80.9 Nontraumat ic hemoperitoneum 40423976 K66.1 [id number] Oliver Patricia MD [place] [address] [address] 01/18/2025 15:31:58 01/18/2025 16:39:47 Dysmenorrhea 505245037 N94.6 Pain in pelvis 02734587 R10.2 Endometrio sis of pelvis 28105748 N80.9 Dyspareunia 69202118 N94 .10 Menorrhagia 783025622 N9 2.0 this patient is a 44-year-ol d female with dysmenorrh ea, pelvic pain, dyspareuni a, endometrio sis, menorrhagi a. We have agreed to perform robotic assisted hysterecto my with bilateral salpingo-o ophorectom y. She understand s risks, benefits, and alternativ es. She has completed the informed consent process and is ready to proceed. [id number] Oliver Patricia MD [place] [address] [address] 01/24/2025 09:24:32 01/26/2025 10:36:35 Health Concerns Section Related Observation LastModified by Organization Detai ls LastModified Time None Recorded Concern Status LastModified by Organization Details LastModified Time None Recorded Advance Directives Directive N: Payers Encounter Date Sequence Insurance Name Policy Number Policy Schulte Covered Member ID Schulte Member ID Guarantor Name 12/07/2024 1 ERNESTO GARCIA-ANDREW (PPO) [id number] 4 Kaitlin Marrero Singler [id number] Kaitlin Singler 12/08/2024 1 ANTHEM [employer] [id number] 4 Kaitlin E Singler [id number] AB Kaitlin Singler 12/13/2024 1 [place]NESTO [employer] [id number] 4 Kaitlin E Singler [id number] AB Kaitlin Singler 01/18/2025 1 [place] [employer] [id number] 4 Kaitlin E Singler [id number] AB Kaitlin Singler 01/24/2025 1 [place] [employer] [id number] 4 Kaitlin E Singler [id number] AB Kaitlin Singler Notes Date Note Type [...] infection. Oliver Patricia MD [address], [place], [address], [facility] 12/08/2024 11:34:04 12/13/2024 text/html 44-year-old carmen [...] infection. Oliver Patricia MD [address], [place], [address], [facility] 12/13/2024 10:58:16 01/18/2025 text/html this patient [...] infection. Oliver Patricia MD [address], [place], [address], [facility] 01/18/2025 16:35:57 OBGyn Episode Ob Episode Information Episode Created Date Number of Fetuses Patient Bloodtype Patient rh Status Prepregnancy Weight lbs Domestic Partner Domestic Partner Phone Father Name Human Resources Executive Assistant Status 12/07/19 25 1 CLOSED Fetus Data First Name Last Name Admitted to NICU Weight (g) Sex Living Outcome Pediatric Complications Fetus ID Race Codes Race Delivery Type 4053.75 1704 M Full Term [id number] Primary Viet Calculation Initial Viet Date Initial [...] Domestic Partner Domestic Partner Phone Father Name Human Resources Executive Assistant Status 12/07/19 1 CLOSED Fetus Data First Name Last Name Admitted to NICU Weight (g) Sex Living Outcome Pediatric Complications Fetus ID Race Codes Race Delivery Type 4139.02 7 M Full Term [id number] Repeat Ivet Calculation Initial Viet Date Initial Exam Date [...]
--- OUTSIDE RECORDS SUMMARY | 2025-01-28 21:52 | XMS_ITS | Data Portability ---
Author Organization [place] [facility] RMI, Main Office Address [address] [place] [id number] Assessment Encounter Date Assessment Date Assessment LastModified [...] will reassess and discuss surgery with her. Not available 01/13/2023 14:34:31 02/10/2023 02/10/2023 Patient [...] would relieve all of her symptoms discussed. [email or web address] Not available 02/10/2023 15:31:29 04/13/2023 04/13/2023 Patient [...] ...should start week of May [id number] 023 [facility], [address], [place], [address], 3 12:10:34 Procedures injection/ aspiration joint/burs a (PROC) - in office procedure, administer ed by provider 2022 023 [email or web address] In-Office Order, Internal Use Only DO Not Attach Compendium DO Not Attach Compendium, Do Not Delete/merge, [id number] 3 14:36:51 injection/ aspiration joint/burs a (PROC) - in office procedure, administer ed by provider 2022 023 [email or web address] In-Office Order, Internal Use Only DO Not Attach Compendium DO Not Attach Compendium, Do Not Delete/merge, [id number] 3 14:34:18 Surgeries None recorded. Imaging None recorded. Medication Orders Kenalog 10 mg/mL suspension for injection 2022 023 [id number], [address], [place], [id number], 3 14:38:47 ropivacain e (PF) 5 mg/mL (0.5 %) injection solution 2022 023 [facility] [place], [place] [id number], [address], [place], [id number], 3 14:38:47 Kenalog 10 mg/mL suspension for injection [address] [place], [place] [address]11003, [address], [place], [id number], 3 14:35:02 ropivacain e (PF) 5 mg/mL (0.5 %) injection solution 2022 023 [facility] [place] [address] [facility] #[id number], [address], [place], [id number], 3 14:35:02 Patient TargetsNo targets recorded. Patient [...] contr ast No observ ation record ed. [id number] [facility] [address], [place], [address], 12/25/2022 01:48:55 Result Notes None recorded. Problems Name Problem SNOMED Code Status Onset Date Resolution Date Notes Provider Name and Address Organization Details Recorded Time Pain of left shoulder joint 9601269937592 9109 Active 2022 Not Available [facility] 3 01:48:21 Tendinitis of left rotator cuff 0397481133322 9101 Active 2022 Not Available [facility] 3 01:48:21 Partial thickness rotator cuff tear 663017785 Active 2022 Not Available [facility] 3 01:48:21 Strain of rotator cuff of shoulder 125786392 Active 2022 Not Available [facility] 3 01:48:21 Arthritis of acromiocla vicular joint 099128994 Active 2022 Michel Hong MD [address], [place], [address] , [employer] [facility] [employer] 3 14:45:13 Problem Notes None recorded. Procedures Surgical History Date Name Laterality Status Provider Name and Address Organization Details Recorded Time 3 Ortho - Cortisone Injection completed Michel Hong MD [address], [place], [address], [employer] [facility] [employer] 02/10/2023 15:29:36 3 Ortho - Cortisone Injection completed Michel Hong MD [address], [place], [address], [employer] [facility] [employer] [facility] 01/13/2023 14:33:36 Knee completed Not Available [facility] 11/2022 01:47:59 section completed Not Available [facility] 12/25/2022 01:47:59 procedure on wrist completed Not Available [facility] 12/25/2022 01:47:59 Imaging Results Imaging Date Name Status LastModified by Organiz ation Details LastModified Time 12/12/2022 MRI, shoulder, w/o contrast completed [id number] [facility] [address], [place], [address], 12/25/2022 01:48:55 Procedure Notes None recorded. Medical [...] 40 mg by injection route. 2022 active [facility]: [id number]- [id number] Not Available Not Available [...] Updated DateTime 01/13/2023 177.8 cm 40.2 kg/m2 986781.86 g ABBI Valdez [employer] 01/13/2023 14:24:20 Date Recorded Body height Body mass index (BMI) Body weight Provider Name and Address Organization Details Last Updated DateTime 02/10/2023 177.8 cm 40.2 kg/m2 301165.86 g ABBI Valdez [employer] [facility] 02/10/2023 14:11:36 Date Recorded Body height Body mass index (BMI) Body weight Provider Name and Address Organization Details Last Updated DateTime 04/13/2023 177.8 cm 39.5 kg/m2 848586.9 ABBI Valentin [facility] [email or web address] [facility] 04/13/2023 09:25:14 Date Recorded Body height Body mass index (BMI) Body weight Provider Name and Address Organization Details Last Updated DateTime 05/04/2023 177.8 cm 39.5 kg/m2 419264.9 gerardo Garcia CNA [facility] [email or web address] [facility] 05/04/2023 10:11:06 Date Recorded Body height Body mass index (BMI) Body weight Provider Name and Address Organization Details Last Updated DateTime 06/09/2023 177.8 cm 39.5 kg/m2 631830.9 gerardo Ramos Pro [facility] [email or web address] [facility] 06/09/2023 14:19:06 Social History Question Answer Notes LastModified by [employer] ion Details LastModified Time Tobacco Smoking Status Never Smoker [facility] Head[facility] [email or web address] [facility] 01/13/2023 14:21:15 What Is Your Level Of Alcohol Consumption? Occasional [id number] Information not available 12/25/2022 Sex: Unknown Functional Status None recorded. Mental Status None recorded. Family History Relationship Description Onset Age of this Age Resolved Age Notes LastModified by Organization Details LastModified Time Father Heart disease [id number] Not available 12/25/2022 01:48:00 Father Hypertensive disorder [id number] Not available 12/25/2022 01:48:00 Father Diabetes mellitus [id number] Not available 12/25/2022 01:48:00 Father Cerebrovascu lar accident [email or web address] Not available 14:21:15 Mother Family history of malignant neoplasm Not available 01/13 14:21:15 Mother Hypertensive disorder [email or web address] [id number] Not available 12/25/2022 01:48:00 Medical History No medical history recorded. Gynecological HistoryNo gynecological history recorded. Obstetrics History GPAL:G 0 P 0 0 0 0 Past Encounters Encounter ID Performer Location Encounter Start Date Encounter Closed Date Diagnosis/Indication Diagnosis SNOMED-CT Code Diagnosis ICD10 Code Diagnosis Note [id number] [facility] [address] [place] [address] 11/06/2022 00:00:00 11/06/2022 14:16:52 [id number] [facility] [place] [address] [place] [address] 12/04/2022 00:00:00 12/04/2022 15:31:33 [id number] [facility] [place] [facility] [address] [place] [address] 12/16/2022 00:00:00 12/16/2022 15:52:05 [id number] Michel Hong MD [facility] [address] [place] [address] 01/13/2023 14:19:14 01/13/2023 15:17:10 Tendinitis of left rotator cuff 3548866740 2810536 M67.814 Strain of rotator cuff of shoulder 739617804 S46.011D [id number] Michel Hong MD [facility] [place] [facility] [address] [place] [address] 02/10/2023 14:07:16 02/10/2023 16:00:45 Tendinitis of left rotator cuff 7663323195 2828143 M67.814 Strain of rotator cuff of shoulder 499861532 S46.011D [id number] Michel Hong MD [facility] [address] [place] [address] 04/13/2023 09:22:56 04/13/2023 11:08:14 Strain of rotator cuff of shoulder 331274680 S46.011D Tendinitis of left rotator cuff 0600636323 5200463 M67.814 [id number] Michel Hong MD [facility] [address] [place] [address] 05/04/2023 10:04:56 05/04/2023 11:02:02 Tendinitis of left rotator cuff 4796156253 0661675 M67.814 Strain of rotator cuff of shoulder 400107545 S46.011D Postoperative visit 1836 [id number] [id number] [id number] Michel Hong MD [facility] [address] [place] [address] 06/09/2023 14:14:51 06/09/2023 15:42:32 Tendinitis of left rotator cuff 0372056559 0377066 M67.814 Partial th ickness rotator cuff tear 080837170 M75.102 Arthritis of acromioclavicular joint 453795674 M13.819 M13.812 Health Concerns Section Related Observation [...] better. Michel Hong MD [address] [place] [address], [place], [address], [employer] 01/13/2023 14:34:58 02/10/2023 text/html Patient returns shoulder [...] otherwise. Michel Hong MD [address], [place] [address], [place], [address], [employer] 02/10/2023 15:31:32 04/13/2023 text/html Patient returns status post rotator cuff debridement repair left distal clavicle excision. She is doing okay pain is tolerable and she is moving arm reasonably well. Michel Hong MD [address], [place], [address], [employer] 04/13/2023 10:15:53 05/04/2023 text/html Patient returns status post rotator cuff debridement repair left distal clavicle excision. She is doing okay pain is tolerable and she is moving arm reasonably well. The pain is improved quite a bit over the last month and she is doing much better than she was before surgery. Michel Hong MD [address], [place], [address], [employer] 05/04/2023 11:00:40 06/09/2023 text/html Patient returns status post rotator cuff debridement repair left distal clavicle excision. She is doing okay pain is tolerable and she is moving arm reasonably well. The pain is improved quite a bit over the last month and she is doing much better than she was before surgery. Michel Hong MD [address], [place], [address], [employer] 06/09/2023 14:45:47 OBGyn Episode No OBEpisode recorded.
[2025-01-28 23:40] LABS: Add Urine Microscopic? YES; Appearance Urine Cloudy (Clear); Bacteria Urine 4+ /hpf; Bilirubin Urine Negative (Negative); Blood Urine 3+ (Negative); Color Urine Yellow (Yellow); Glucose Urine UA Negative (Negative); Ketones Urine Negative (Negative); Leukocyte Esterase Ur 3+ LEU/UL (Negative); Nitrate Urine Negative (Negative); Non Pathogenic Casts 0-2; Protein Urine 2+ mg/dL (Negative); RBC Urine 0-2 /hpf (0-2); Specific Grav Ur 1.003 (1.001-1.035); Squamous Epithelial Cell Urine Few /hpf (Few); WBC Urine >100 /hpf (0-3); pH Urine 6.5 (5.0-9.0)
--- OUTSIDE RECORDS SUMMARY | 2025-01-28 23:54 | XMS_ITS | Clinical Summary ---
Author Organization [facility] [address] [place] [address] [address] [place] [address] Care Team Providers Care Comsec Manager Name Role Phone Fanny Aguayo NP Primary Care Provider [phone] Allergies No known active allergies Medications No [...] Department Care Team Description 11/17/2024 7:49 AM CUPOLA HOIST OPERATOR - 11/17/2024 11:59 PM CUPOLA HOIST OPERATOR [facility]counter [facility] [address] [place] [address] Mass of upper outer quadrant of right breast Discharge Disposition: Discharge to home or self care 11/17/2024 7:48 AM CUPOLA HOIST OPERATOR - 11/17/2024 11:59 PM CUPOLA HOIST OPERATOR Hospital Encounter [facility] [address] [place] [address] Mass of upper outer quadrant of right [...] on file Legal Sex Female 8:59 AM CUPOLA HOIST OPERATOR Gender Identity Not on file Sexual Orientation Not on file Obstetrics History Para Term AB IAB SAB Ectopic Multiple Livin g Live Births 2 Date Outcome GA Total Labor Labor/2nd/3rd Weight Sex Type Anes PTL Sivan A1 A5 Name Clin Last Filed Vital Signs Vital Sign Reading Time Taken Comments Blood Pressure 124/72 10/06/2024 7:23 AM CUPOLA HOIST OPERATOR Pulse 84 10/06/2024 7:23 AM CUPOLA HOIST OPERATOR Temperature 36.2 C (97.2 F) 10/06/2024 7:23 AM CUPOLA HOIST OPERATOR Respiratory Rate - - Oxygen Saturation 99% 10/06/2024 7:23 AM CUPOLA HOIST OPERATOR Inhaled Oxygen Concentration - - Weight 122.5 kg (270 lb) 10/06/2024 7:23 AM CUPOLA HOIST OPERATOR Height 177.8 cm (5' 10 ) 11/17/2024 8:02 AM CUPOLA HOIST OPERATOR Body Mass Index 38.74 10/06/2024 7:23 AM CUPOLA HOIST OPERATOR Plan of Treatment Health Maintenance Due [...] Read Routine (OP Routine) 11/17/2024 8:46 AM CUPOLA HOIST OPERATOR Mass of upper outer quadrant of right breast DIAGNOSTIC MAMMOGRAM BILATERAL W BETHANY Schedule Routine, Read Routine (OP Routine) 11/17/2024 8:03 AM CUPOLA HOIST OPERATOR Mass of upper outer quadrant of right breast HEPATITIS C ANTIBODY Routine 10/06/2024 8:40 AM CUPOLA HOIST OPERATOR Encounter for hepatitis C screening test for low risk patient from Last 3 Months or Most Recently Relevant to Health Maintenance Results * US Breast Right Limited (11/17/2024 8:46 AM CUPOLA HOIST OPERATOR) Anatomical Region Laterality Modality Breast Right Ultrasound 11/17/2024 9:00 AM CUPOLA HOIST OPERATOR Impressions 11/17/2024 9:00 AM CUPOLA HOIST OPERATOR No mammographic or sonographic evidence of [...] Fitz Turcios M.D. Narrative 11/17/2024 9:00 AM CUPOLA HOIST OPERATOR EXAMINATION: DIAGNOSTIC MAMMOGRAM BILATERAL W BETHANY, [...] targeted right breast ultrasound. us Fanny Aguayo PHOTO PRINT SPECIALIST IMG MAMMO PROCEDURES Final Re sult * DIAGNOSTIC MAMMOGRAM BILATERAL W BETHANY (11/17/2024 8:03 AM CUPOLA HOIST OPERATOR) Anatomical Region Laterality Modality Breast Bilateral Mammography 11/17/2024 9:00 AM CUPOLA HOIST OPERATOR Impressions 11/17/2024 9:00 AM CUPOLA HOIST OPERATOR No mammographic or sonographic evidence of [...] Fitz Turcios M.D. Narrative 11/17/2024 9:00 AM CUPOLA HOIST OPERATOR EXAMINATION: DIAGNOSTIC MAMMOGRAM BILATERAL W BETHANY, [...] mammogram or targeted right breast ultrasound. Result [facility] Fanny Aguayo PHOTO PRINT SPECIALIST IMG MAMMO PROCEDURES Final Re sult * Hepatitis C antibody Blood (10/06/2024 8:40 AM CUPOLA HOIST OPERATOR) Hep C Ab Nonreactive Nonreactive Comment: [...] revised on 2020. Blood 10/06/2024 8:40 AM CUPOLA HOIST OPERATOR 10/06/2024 3:05 PM CUPOLA HOIST OPERATOR us Fanny Aguayo NP LAB MICROBIOLOGY - GENERAL OR DERABLES Final Result [facility] [id number] Department [place] [address] from Last 3 Months or Most Recently Relevant to Health Maintenance Insurance [facility] ACCESS CHOICE Care Teams Comsec Manager Relationship Specialty Start Date End Date Fanny Aguayo NP [address] [id number] PCP - General Family Medicine 10/06/24
--- OUTSIDE RECORDS SUMMARY | 2025-01-28 23:54 | XMS_ITS | Referral Summary ---
Author Organization [facility] [address] Address [address] [place] [address] [address] [place] [address] Care Team Providers Care Grout Pump Operator Name Role Phone Fanny Aguayo NP Primary Care Provider [phone] Encounters Date Type Department Care Team Description 11/17/2024 7:49 AM COMMUNICATIONS TECHNOLOGIST - 11/17/2024 11:59 PM COMMUNICATIONS TECHNOLOGIST Hospital Encounter [facility] [address] [place] [address] Mass of upper outer quadrant of right breast Discharge Disposition: Discharge to home or self care 11/17/2024 7:48 AM COMMUNICATIONS TECHNOLOGIST - 11/17/2024 11:59 PM COMMUNICATIONS TECHNOLOGIST Hospital Encounter [facility] [address] [place] [address] Mass of upper outer quadrant of right [...] on file Legal Sex Female 8:59 AM COMMUNICATIONS TECHNOLOGIST Gender Identity Not on file Sexual Orientation Not on file Last Filed Vital Signs Vital Sign Reading Time Taken Comments Blood Pressure 124/72 10/06/2024 7:23 AM COMMUNICATIONS TECHNOLOGIST Pulse 84 10/06/2024 7:23 AM COMMUNICATIONS TECHNOLOGIST Temperature 36.2 C (97.2 F) 10/06/2024 7:23 AM COMMUNICATIONS TECHNOLOGIST Respiratory Rate - - Oxygen Saturation 99% 10/06/2024 7:23 AM COMMUNICATIONS TECHNOLOGIST Inhaled Oxygen Concentration - - Weight 122.5 kg (270 lb) 10/06/2024 7:23 AM COMMUNICATIONS TECHNOLOGIST Height 177.8 cm (5' 10 ) 11/17/2024 8:02 AM COMMUNICATIONS TECHNOLOGIST Body Mass Index 38.74 10/06/2024 7:23 AM COMMUNICATIONS TECHNOLOGIST Plan of Treatment Not on file Procedures Procedure Name Priority Date/Time Associated Diagnosis Comments US BREAST RIGHT LIMITED Schedule Routine, Read Routine (OP Routine) 11/17/2024 8:46 AM COMMUNICATIONS TECHNOLOGIST Mass of upper outer quadrant of right breast DIAGNOSTIC MAMMOGRAM BILATERAL W BETHANY Schedule Routine, Read Routine (OP Routine) 11/17/2024 8:03 AM COMMUNICATIONS TECHNOLOGIST Mass of upper outer quadrant of right breast HEPATITIS C ANTIBODY Routine 10/06/2024 8:40 AM COMMUNICATIONS TECHNOLOGIST Encounter for hepatitis C screening test for low risk patient from Last 3 Months or Most Recently Relevant to Health Maintenance Results * US Breast Right Limited (11/17/2024 8:46 AM COMMUNICATIONS TECHNOLOGIST) Anatomical Region Laterality Modality Breast Right Ultrasound 11/17/2024 9:00 AM COMMUNICATIONS TECHNOLOGIST Impressions 11/17/2024 9:00 AM COMMUNICATIONS TECHNOLOGIST No mammographic or sonographic evidence of malignancy. [...] Fitz Turcios M.D. Narrative 11/17/2024 9:00 AM COMMUNICATIONS TECHNOLOGIST EXAMINATION: DIAGNOSTIC MAMMOGRAM BILATERAL W BETHANY, US [...] or targeted right breast ultrasound. Fanny Aguayo INFECTION CONTROL RN IMG MAMMO PROCEDURES Final Re sult * DIAGNOSTIC MAMMOGRAM BILATERAL W BETHANY (11/17/2024 8:03 AM COMMUNICATIONS TECHNOLOGIST) Anatomical Region Laterality Modality Breast Bilateral Mammography 11/17/2024 9:00 AM COMMUNICATIONS TECHNOLOGIST Impressions 11/17/2024 9:00 AM COMMUNICATIONS TECHNOLOGIST No mammographic or sonographic evidence of malignancy. [...] Fitz Turcios M.D. Narrative 11/17/2024 9:00 AM COMMUNICATIONS TECHNOLOGIST EXAMINATION: DIAGNOSTIC MAMMOGRAM BILATERAL W BETHANY, US [...] or targeted right breast ultrasound. Fanny Aguayo INFECTION CONTROL RN IMG MAMMO PROCEDURES Final Re sult * Hepatitis C antibody Blood (10/06/2024 8:40 AM COMMUNICATIONS TECHNOLOGIST) Hep C Ab Nonreactive Nonreactive Comment: Interpretive [...] revised on 2020. Blood 10/06/2024 8:40 AM COMMUNICATIONS TECHNOLOGIST 10/06/2024 3:05 PM COMMUNICATIONS TECHNOLOGIST us Fanny Aguayo NP LAB MICROBIOLOGY - GENERAL OR DERABLES Final Result [facility] [id number] Department [place] [address] from Last 3 Months or Most Recently Relevant to Health Maintenance Insurance [facility] Care Teams Grout Pump Operator Relationship Specialty Start Date End Date Fanny Aguayo NP [address] [facility] [address] [place] [address] PCP - General Family Medicine 10/06/24
[2025-01-29] VITALS (38 sets, daily range): BP systolic 133–183; BP diastolic 71–95; PULSE 95–117; RESP 12–24; TEMP 36.4–37.7; O2SAT 94–100; BMI 39.2
--- NOTE | 2025-01-29 00:07 | ED.FEVER ---
HPI - Fever General Chief Complaint: Fever <SERGO Ku Last Filed: 01/29/25 02:09> Stated Complaint: s/p hyst fever <SERGO Ku Last Filed: 01/29/25 02:09> Time Seen by Provider: 01/28/25 23:41 <SERGO Ku Last Filed: 01/29/25 02:09> Source: patient <SERGO Ku Last Filed: 01/29/25 02:09> Mode of arrival: ambulatory <SERGO Ku Last Filed: 01/29/25 02:09> Limitations: no limitations <SERGO Ku Last Filed: 01/29/25 02:09> History of Present Illness HPI Narrative: This is a 44-year-old female who presents to the ED for chief complaint of back pain and fevers onset x2 days. Patient reports that she has status post total hysterectomy on 01/24/[address] Patricia. States that she started to have more focal right flank pain today and recorded temperature of a 101.4? F. endorses malaise, lightheadedness, as well as dysuria that started today. Denies vaginal discharge or significant abdominal pain. <SERGO Ku Last Filed: 01/29/25 02:09> Related Data Home Medications: Home Medications ?Medication ?Instructions ?Recorded ?Confirmed ?Last Taken ?Type loratadine 10 mg tablet (Claritin) 10 mg PO HS 04/18/24 01/29/25 01/28/25 08:00 History <SERGO Ku Last Filed: 01/29/25 02:09> Allergies/Adverse Reactions: Allergies Allergy/AdvReac Type Severity Reaction Status Date / Time No Known Allergies Allergy Verified 01/28/25 23:27 <SERGO Ku Last Filed: 01/29/25 02:09> Review of Systems Review of Systems: All systems as dictated in HPI <SERGO Ku Last Filed: 01/29/25 02:09> [facility] Past Medical History Medical History: Medical History Morbid obesity with BMI of 40.0-44.9, adult PONV (postoperative nausea and vomiting) Chronic GERD Partial thickness tear of left rotator cuff <Burt Sam PA-C - Last Filed: 01/29/25 02:09> Surgical History Surgical History: Surgical History History of shoulder surgery <Burt Sam PA-C - Last Filed: 01/29/25 02:09> Family History Family History: Family History (Updated 01/29/25 @ 11:04 by Paola Corral RN) Father Diabetes mellitus Cerebrovascular accident Mother Melanoma Sibling PCOS (polycystic ovarian syndrome) <Burt Sam PA-C - Last Filed: 01/29/25 02:09> Social History Social History: Social History Social History: Caffeine-daily Smoking status: Never smoker Alcohol intake: never Alcohol use details: RARE Substance use: never Substance use type: does not use Do You Feel Safe in your Home?: Yes Lack of Transportation: No Lack of Food: Never True Current Housing: I Have Housing Concerned About Future Housing: No Difficulty Paying Gas/Electric Bills: No Difficulty Paying for Meds: No Currently Unemployed: No Education: Bachelor's Degree Difficulty w/ Childcare or Family Care: No Living arrangements: with family Spiritual care concerns: No <Burt Sam PA-C - Last Filed: 01/29/25 02:09> Exam Narrative: GENERAL: Well-appearing, well-nourished, and in no acute distress. HEAD: Normocephalic, atraumatic. EYES: PERRLA and EOMI. ENT: Nares clear, no rhinorrhea or epistaxis. Mucous membranes moist. Oropharynx without tonsillar hypertrophy exudate or other lesions. NECK: Supple. No adenopathy or masses. CHEST: No respiratory distress. Clear to auscultation. No wheezes rales or rhonchi HEART: Regular rate and rhythm. No murmur heard. Normal peripheral pulses. ABDOMEN: Left flank tenderness present. Soft, otherwise nontender, nondistended, normal active bowel sounds. MSK: Normal range of motion. No edema. SKIN: Warm, dry, no rash. NEURO: Alert and oriented x4. No focal deficits. PSYCH: Normal mood and affect. <Burt Sam PA-C - Last Filed: 01/29/25 02:09> Course Course Emergency Course: CT results with concern for abscess and possibly due to adjacent perforation as below. Zosyn antibiotic started. Patient given another 1L IV fluids for persistent tachycardic. She is reassessed and states she is feeling a bit better after another dose of analgesia. Updated her on the findings and concerns/next steps. Discussed with general surgeon Dr Clark who recommends IR for drainage. No IR capabilities at [place] on this date. Dr Patricia updated. Will trial transfer. Patient's PCP is through [facility]. Called [facility] transfer center. Discussed with ObGyn at [place] Dr Xi [place]. Accepted at 06:05am as direct admit to [facility] to [facility] pending bed assignment. Once admitted they will consult IR. Agreed with management thus far. Discussed again with Dr Chapito Clark after learning that per the schedule, due to have IR capabilities tomorrow morning, Thursday01/30/25. Given she is otherwise relatively stable, reasonable to pursue the option of admitting at [place] [facility] if Dr Patricia amenable. Dr. Patricia was consulted again and discuss this plan. He concurs that for continuity of care and given that she is otherwise relatively stable, reasonable to admit to [facility] under him with Dr. Clark on consult and plan for IR intervention tomorrow morning, for which Dr Clark had noted he would connect with radiology to arrange/discuss. Dr Patricia did ask that we look into getting her on the schedule in advance and charge nurse Peter to look into this matter with warehouse order puller to arrange. Patient given another dose of analgesia and pain returning. Bed orders placed including PRN orders. Patient has been NPO and is to remain this way per Dr Clark. <Erica Norman MD - Last Filed: 01/29/25 18:29> Vital Signs Vital signs: Vital Signs Temperature 98.2 F 01/28/25 21:52 Pulse Rate 110 H 01/28/25 21:52 Respiratory Rate 16 01/28/25 21:52 Blood Pressure 147/86 H 01/28/25 21:52 Pulse Oximetry 100 01/28/25 21:52 Oxygen Delivery Room Air 01/28/25 21:52 Temperature 97.6 F 01/29/25 14:00 Pulse Rate 105 H 01/29/25 14:00 Respiratory Rate 16 01/29/25 14:00 Blood Pressure 145/81 H 01/29/25 14:00 Pulse Oximetry 100 01/29/25 14:00 Oxygen Delivery Room Air 01/29/25 10:43 <Burt Sam PA-C - Last Filed: 01/29/25 02:09> Vital Signs Temperature 98.2 F 01/28/25 21:52 Pulse Rate 110 H 01/28/25 21:52 Respiratory Rate 16 01/28/25 21:52 Blood Pressure 147/86 H 01/28/25 21:52 Pulse Oximetry 100 01/28/25 21:52 Oxygen Delivery Room Air 01/28/25 21:52 Temperature 97.6 F 01/29/25 14:00 Pulse Rate 105 H 01/29/25 14:00 Respiratory Rate 16 01/29/25 14:00 Blood Pressure 145/81 H 01/29/25 14:00 Pulse Oximetry 100 01/29/25 14:00 Oxygen Delivery Room Air 01/29/25 10:43 <Erica Norman MD - Last Filed: 01/29/25 18:29> MDM - Fever MDM Narrative Medical decision making narrative: This is a 44-year-old female who presents to the ED for chief complaint of fevers, low back pain and dysuria. Vitals show elevated heart rate on arrival but no fever. Exam remarkable for right flank tenderness. Lab work on arrival showing elevated white count of 11.3. Mild anemia with hemoglobin of 10.9. CMP unremarkable. Urinalysis does show evidence of infection with 3+ leuk esterase, greater than 100 whites, 4+ bacteria. Patient will be handed off at the time should change pending CT abdomen IV contrast. <Burt Sam PA-C - Last Filed: 01/29/25 02:09> This is a 44-year-old female who presents to the ED for chief complaint of fevers, low back pain and dysuria. Vitals show elevated heart rate on arrival but no fever. Exam remarkable for right flank tenderness. Lab work on arrival showing elevated white count of 11.3. Mild anemia with hemoglobin of 10.9. CMP unremarkable. Urinalysis does show evidence of infection with 3+ leuk esterase, greater than 100 whites, 4+ bacteria. Patient will be handed off at the time should change pending CT abdomen IV contrast. <Erica Norman MD - Last Filed: 01/29/25 18:29> Lab Data Result diagrams: 01/29/25 00:55 01/29/25 00:55 <Burt Sam PA-C - Last Filed: 01/29/25 02:09> Labs: Lab Results 01/28/25 01/29/25 Range/Units 23:28 00:55 WBC 11.3 H (4.5-10.0) K/mm3 RBC 3.76 L (4.2-5.4) M/mm3 Hgb 10.9 L (12.0-15.0) g/dL Hct 34.4 L (37.0-47.0) % MCV 91.5 (80-100) fl MCH 29.0 (26-34) pg MCHC 31.7 L (32-36) g/dl RDW 12.5 (11.5-14.5) % Plt Count 329 (150-375) k/mm3 MPV 8.9 (7.4-10.4) fl Immature Gran % (Auto) 2.1 H (0-0.5) % Neut % (Auto) 80.3 H (45.5-73.1) % Lymph % (Auto) 8.3 L (18.3-44.2) % [place] % (Auto) 8.1 (2.6-8.5) % Eos % (Auto) 0.9 (0-4.4) % Baso % (Auto) 0.3 (0.2-1.2) % Lymph # (Auto) 0.94 (0.9-3.2) K/mm3 [place] # (Auto) 0.9 H (0.1-0.6) K/mm3 Eos # (Auto) 0.1 (0-0.3) K/mm3 Baso # (Auto) 0.0 (0.0-0.1) K/mm3 Abs Immat Gran (auto) 0.24 H (0.00-0.031) K/mm3 Absolute Neuts (auto) 9.1 H (1.3-6.7) K/mm3 Absolute Nucleated RBC 0.000 (0.0-0.012) K/mm3 Nucleated RBC % 0.0 (0.0-0.2) % Sodium 134 L (137-145) mmol/L Potassium 3.5 (3.4-5.0) mmol/L Chloride 101 (98-107) mmol/L Carbon Dioxide 22 (22-30) mmol/L Anion Gap 11 (4-12) mmol/L BUN 8 D (7-17) mg/dL Creatinine 0.62 L (0.7-1.0) mg/dL Estim Creat Clear Calc 143 ml/min Estimated GFR > 60 (59 - ) Glucose 121 H (65-110) mg/dL Lactic Acid 0.8 (0.7-2.0) mmol/L Calcium 9.0 (8.4-10.2) mg/dL Total Bilirubin 0.8 (0.2-1.3) mg/dL AST 25 (14-36) U/L ALT 27 (6-35) U/L Alkaline Phosphatase 119 (38-126) U/L Total Protein 8.0 (6.3-8.2) g/dL Albumin 3.9 (3.5-5.1) g/dL Lipase 23 (23-300) U/L Urine Color Yellow (Yellow) Urine Appearance Cloudy H (Clear) Urine pH 6.5 (5.0-9.0) Ur Specific [place] 1.003 (1.001-1.035) Urine Protein 2+ H (Negative) mg/dL Urine Glucose (UA) Negative (Negative) mg/dL Urine Ketones Negative (Negative) mg/dL Ur Blood (Man) 3+ H (Negative) Urine Nitrate Negative (Negative) Urine Bilirubin Negative (Negative) Urine Urobilinogen 1.0 (<2.0) mg/dL Leukocyte Esterase Rfl 3+ H (Negative) TOSHIA/UL Urine RBC 0-2 (0-2) /hpf Urine WBC >100 H (0-3) /hpf Ur Squamous Epith Cells Few (Few) /hpf Urine Bacteria 4+ H /hpf Urine Casts 0-2 <Burt Sam PA-C - Last Filed: 01/29/25 02:09> Lab Results 01/28/25 01/29/25 Range/Units 23:28 00:55 WBC 11.3 H (4.5-10.0) K/mm3 RBC 3.76 L (4.2-5.4) M/mm3 Hgb 10.9 L (12.0-15.0) g/dL Hct 34.4 L (37.0-47.0) % MCV 91.5 (80-100) fl MCH 29.0 (26-34) pg MCHC 31.7 L (32-36) g/dl RDW 12.5 (11.5-14.5) % Plt Count 329 (150-375) k/mm3 MPV 8.9 (7.4-10.4) fl Immature Gran % (Auto) 2.1 H (0-0.5) % Neut % (Auto) 80.3 H (45.5-73.1) % Lymph % (Auto) 8.3 L (18.3-44.2) % [place] % (Auto) 8.1 (2.6-8.5) % Eos % (Auto) 0.9 (0-4.4) % Baso % (Auto) 0.3 (0.2-1.2) % Lymph # (Auto) 0.94 (0.9-3.2) K/mm3 [place] # (Auto) 0.9 H (0.1-0.6) K/mm3 Eos # (Auto) 0.1 (0-0.3) K/mm3 Baso # (Auto) 0.0 (0.0-0.1) K/mm3 Abs Immat Gran (auto) 0.24 H (0.00-0.031) K/mm3 Absolute Neuts (auto) 9.1 H (1.3-6.7) K/mm3 Absolute Nucleated RBC 0.000 (0.0-0.012) K/mm3 Nucleated RBC % 0.0 (0.0-0.2) % Sodium 134 L (137-145) mmol/L Potassium 3.5 (3.4-5.0) mmol/L Chloride 101 (98-107) mmol/L Carbon Dioxide 22 (22-30) mmol/L Anion Gap 11 (4-12) mmol/L BUN 8 D (7-17) mg/dL Creatinine 0.62 L (0.7-1.0) mg/dL Estim Creat Clear Calc 143 ml/min Estimated GFR > 60 (59 - ) Glucose 121 H (65-110) mg/dL Lactic Acid 0.8 (0.7-2.0) mmol/L Calcium 9.0 (8.4-10.2) mg/dL Total Bilirubin 0.8 (0.2-1.3) mg/dL AST 25 (14-36) U/L ALT 27 (6-35) U/L Alkaline Phosphatase 119 (38-126) U/L Total Protein 8.0 (6.3-8.2) g/dL Albumin 3.9 (3.5-5.1) g/dL Lipase 23 (23-300) U/L Urine Color Yellow (Yellow) Urine Appearance Cloudy H (Clear) Urine pH 6.5 (5.0-9.0) Ur Specific [place] 1.003 (1.001-1.035) Urine Protein 2+ H (Negative) mg/dL Urine Glucose (UA) Negative (Negative) mg/dL Urine Ketones Negative (Negative) mg/dL Ur Blood (Man) 3+ H (Negative) Urine Nitrate Negative (Negative) Urine Bilirubin Negative (Negative) Urine Urobilinogen 1.0 (<2.0) mg/dL Leukocyte Esterase Rfl 3+ H (Negative) TOSHIA/UL Urine RBC 0-2 (0-2) /hpf Urine WBC >100 H (0-3) /hpf Ur Squamous Epith Cells Few (Few) /hpf Urine Bacteria 4+ H /hpf Urine Casts 0-2 <Erica Norman MD - Last Filed: 01/29/25 18:29> Imaging Data Radiologist's impression: CT Abd & Pelvis Stat Rad: Soft tissue abscess in the pelvis, which measures 9.8 x 6.1 cm and is adherent to the sigmoid colon. It is likely the result of a perforated sigmoid colitis. Surgical evaluation recommended. Mild fullness of the ureters which is likely secondary to partial obstruction from the pelvic abscess. <Erica Norman MD - Last Filed: 01/29/25 18:29> Discharge Plan Discharge Clinical Impression: Pyelonephritis, Abscess of female pelvis, Perforated sigmoid colon <Burt Sam PA-C - Last Filed: 01/29/25 02:09> Patient Disposition: Still a Patient <Burt Sam PA-C - Last Filed: 01/29/25 02:09> Condition: Stable <Burt Sam PA-C - Last Filed: 01/29/25 02:09>
[2025-01-29] MEDS: ONDANSETRON INJ 4 MG/2 ML VIAL IV PUSH (00:57)
[2025-01-29] MEDS: HYDROmorphone HCL INJ (*CRX) 1 MG/ML SYR 0.5 MG IV PUSH (00:57)
[2025-01-29] MEDS: LACTATED RINGERS 1,000 ML 999 ML IV CONT (00:57)
[2025-01-29 01:10] LABS: Basophils Percent Auto 0.3 % (0.2-1.2); Eosinophils Absolute Auto 0.1 K/mm3 (0-0.3); Eosinophils Percent Auto 0.9 % (0-4.4); Hematocrit 34.4 % (37.0-47.0); Hemoglobin 10.9 g/dL (12.0-15.0); Immature Granulocyte Absolute 0.24 K/mm3 (0.00-0.031); Immature Granulocyte Percent A 2.1 % (0-0.5); Lymphocytes Absolute Auto 0.94 K/mm3 (0.9-3.2); Lymphocytes Percent Auto 8.3 % (18.3-44.2); Mean Corpuscular HGB Conc 31.7 g/dl (32-36); Mean Corpuscular Volume 91.5 fl (80-100); Mean Platelet Volume 8.9 fl (7.4-10.4); Monocytes Absolute Auto 0.9 K/mm3 (0.1-0.6); Monocytes Percent Auto 8.1 % (2.6-8.5); Neutrophils Absolute Auto 9.1 K/mm3 (1.3-6.7); Neutrophils Percent Auto 80.3 % (45.5-73.1); Platelet Count Result 329 k/mm3 (150-375); Red Blood Count 3.76 M/mm3 (4.2-5.4); Red Cell Distribution Width 12.5 % (11.5-14.5); White Blood Count 11.3 K/mm3 (4.5-10.0)
[2025-01-29 01:13] LABS: Alanine Aminotransferase 27 U/L (6-35); Albumin Level 3.9 g/dL (3.5-5.1); Alkaline Phosphatase 119 U/L (38-126); Anion Gap 11 mmol/L (4-12); Aspartate Amino Transferase 25 U/L (14-36); Bilirubin,Total 0.8 mg/dL (0.2-1.3); Blood Urea Nitrogen 8 mg/dL (7-17); Carbon Dioxide 22 mmol/L (22-30); Chloride 101 mmol/L (98-107); Estimated CRCL calculation 143 ml/min; Estimated Glomerular Filt Rate > 60; Glucose 121 mg/dL (65-110); Lipase 23 U/L (23-300); Potassium 3.5 mmol/L (3.4-5.0); Sodium 134 mmol/L (137-145)
[2025-01-29 01:14] LABS: Lactic Acid Reflex 0.8 mmol/L (0.7-2.0)
--- NOTE | 2025-01-29 04:00 | PC.NURSE ---
Patient requesting pain medication. ERP notified.
[2025-01-29] MEDS: HYDROmorphone HCL INJ (*CRX) 1 MG/ML SYR IV PUSH ×3 (04:32→20:37)
[2025-01-29] MEDS: SODIUM CHLORIDE 0.9% IV 1,000 ML 999 ML IV CONT (05:29)
--- NOTE | 2025-01-29 06:10 | PC.NURSE ---
[id number] Olena with [facility] transfer center calls to get triage info. Olena states she will call back when bed is available.
[2025-01-29] MEDS: HYDROmorphone HCL INJ (*CRX) 1 MG/ML SYR IM (09:14)
[2025-01-29] MEDS: ACETAMINOPHEN 325 MG TABLET 650 MG PO ×2 (09:21→17:10)
[2025-01-29] MEDS: LACTATED RINGERS 1,000 ML 125 ML IV CONT (09:22)
--- NOTE | 2025-01-29 10:55 | P.CONS_ITS ---
Assessment and Plan Assessment and plan (1) Abscess of female pelvis: Code(s): N73.9 - Female pelvic inflammatory disease, unspecified Status: Acute Assessment and Plan: Patient now has a 9cm abscess in the pelvis associated with fever and pelvic pain. Five days ago she had a robotic assisted laparoscopic total abdominal hysterectomy here at [facility]. Possibility of colon injury and resulting pelvic abscess is 1 possibility for this pain. Currently she is not septic and is [place] [address]. Lactic acid level is normal. Exam is expected mildly tender but no evidence of diffuse peritoneal signs suggestive of an acute surgical abdomen. We will have Interventional Radiology available tomorrow and I will plan on having are IR radiologist place a pelvic drain to treat the abscess. Subsequently then further workup for possible colon injury to be initiated which may include a water-soluble contrast lower GI study. For now continue with IV antibiotics with Zosyn. Will get scheduled blood sugar checks and give D50 if needed for hypoglycemia. She needs to stay NPO right now except for ice chips. (2) Pyelonephritis: Code(s): N12 - Tubulo-interstitial nephritis, not specified as acute or chronic Status: Acute HPI Data of Consult Date/Time: 01/29/25 10:55 Requesting Physician: Oliver Patricia MD Primary Care Provider: Ruma,Fanny Ayala CNP Consult Narrative Reason for consult: Pelvic abscess Narrative: Kaitlin Abraham is a 44 year old female who 4 days ago underwent a robotic assisted laparoscopic total hysterectomy by Dr. Patricia. Over the last couple days she has been noticing more pelvic pressure and left flank pain. Today she has more right lower quadrant pain. She also had a fever at home a 101? F. When she came to the emergency room she was not toxic although she was a little tachycardic. This responded to administration of IV fluids. CT scan abdomen pelvis was performed showing evidence of a 9cm abscess in the pelvis. This was thought to possibly be due to perforated colon. Patient has had no prior history of diverticulitis but she did have recent history of robotic assisted laparoscopic hysterectomy 5 days ago. Urinalysis also shows leukocyte esterase positive as well as many white blood cells and bacteria consistent with a urinary tract infection. No nausea or vomiting. Her abdomen is not distended. Her pain is better after being given some IV pain medication is currently a level of 3/10. She answers questions easily and is very cooperative. Does not appear toxic whatsoever. White blood cell count is 11,300 and lactic acid level is normal. She states that she does have issues with hypoglycemia no issues with diabetes, congestive heart failure, myocardial infarction, strokes, or kidney disease. She only takes Claritin for allergies. She otherwise takes no regular scheduled medications. Review of Systems 2 Review of Systems: The remainder of the review of systems to include constitutional, HEENT, cardiovascular, respiratory, GI, , integumentary, musculoskeletal, endocrine, immunologic, hematologic, psychiatric, and neurologic are all negative except for which is mentioned above in the HPI. [facility] Past Medical History Medical History Morbid obesity with BMI of 40.0-44.9, adult PONV (postoperative nausea and vomiting) Chronic GERD Partial thickness tear of left rotator cuff Surgical History Surgical History History of shoulder surgery Family History Family History Father Diabetes mellitus Cerebrovascular accident Mother Melanoma Sibling PCOS (polycystic ovarian syndrome) Social History Social History Social History: Caffeine-daily Smoking status: Never smoker Alcohol intake: current Alcohol use details: RARE Substance use: never Substance use type: does not use Do You Feel Safe in your Home?: Yes Lack of Transportation: No Lack of Food: Never True Current Housing: I Have Housing Concerned About Future Housing: No Difficulty Paying Gas/Electric Bills: No Difficulty Paying for Meds: No Currently Unemployed: No Education: Bachelor's Degree Difficulty w/ Childcare or Family Care: No Living arrangements: with family Spiritual care concerns: No Meds Home Medications and Allergies Home Medications ?Medication ?Instructions ?Recorded ?Confirmed ?Type loratadine 10 mg tablet (Claritin) 10 mg PO HS 04/18/24 01/29/25 History estradiol 1 mg tablet 1 mg PO DAILY #30 tabs 01/25/25 01/29/25 Rx hydrocodone 5 mg-acetaminophen 325 1 - 2 tablet PO Q6H PRN pain #25 01/25/25 01/29/25 Rx mg tablet tabs cefdinir 300 mg capsule 300 mg PO Q12H 1 week #14 caps 01/29/25 Rx Allergies Allergy/AdvReac Type Severity Reaction Status Date / Time No Known Allergies Allergy Verified 01/28/25 23:27 Vital Signs Vital Signs - 24 hr 01/28/25 21:52 01/28/25 21:55 01/28/25 23:25 Temperature 36.8 C 36.9 C 36.9 C Pulse Rate 110 H 103 H Respiratory Rate 16 16 Blood Pressure 147/86 H 143/81 H Pulse Oximetry 100 97 Oxygen Delivery Room Air 01/28/25 23:30 01/28/25 23:31 01/28/25 23:32 Temperature Pulse Rate 101 H 94 Respiratory Rate 14 18 9 L Blood Pressure 143/77 H Pulse Oximetry 93 95 96 Oxygen Delivery 01/28/25 23:45 01/29/25 00:02 01/29/25 00:15 Temperature Pulse Rate 112 H 101 H 105 H Respiratory Rate 23 H 18 20 Blood Pressure Pulse Oximetry 96 99 95 Oxygen Delivery 01/29/25 00:30 01/29/25 00:31 01/29/25 00:45 Temperature Pulse Rate 105 H 117 H 103 H Respiratory Rate 13 22 H 15 Blood Pressure 152/87 H Pulse Oximetry 96 97 96 Oxygen Delivery 01/29/25 01:00 01/29/25 01:15 01/29/25 01:44 Temperature Pulse Rate 111 H 106 H 98 Respiratory Rate 17 18 13 Blood Pressure Pulse Oximetry 98 96 100 Oxygen Delivery 01/29/25 02:20 01/29/25 02:25 01/29/25 02:30 Temperature Pulse Rate 98 101 H 96 Respiratory Rate 13 16 14 Blood Pressure 161/95 H Pulse Oximetry 99 100 99 Oxygen Delivery 01/29/25 02:31 01/29/25 02:45 01/29/25 03:00 Temperature Pulse Rate 104 H 101 H 95 Respiratory Rate 24 H 22 H 15 Blood Pressure 168/91 H Pulse Oximetry 100 100 100 Oxygen Delivery 01/29/25 03:01 01/29/25 03:35 01/29/25 03:45 Temperature Pulse Rate 105 H 96 106 H Respiratory Rate 19 15 17 Blood Pressure 165/85 H Pulse Oximetry 99 100 100 Oxygen Delivery 01/29/25 04:00 01/29/25 04:02 01/29/25 04:15 Temperature Pulse Rate 108 H 106 H 109 H Respiratory Rate 15 15 15 Blood Pressure 183/93 H Pulse Oximetry 99 99 100 Oxygen Delivery 01/29/25 04:49 01/29/25 05:00 01/29/25 05:01 Temperature Pulse Rate 110 H 100 104 H Respiratory Rate 18 16 20 Blood Pressure 138/73 Pulse Oximetry 95 94 96 Oxygen Delivery 01/29/25 05:15 01/29/25 05:30 01/29/25 05:31 Temperature Pulse Rate 106 H 106 H 110 H Respiratory Rate 18 15 19 Blood Pressure 144/79 H Pulse Oximetry 100 100 98 Oxygen Delivery 01/29/25 05:54 01/29/25 06:00 01/29/25 06:01 Temperature Pulse Rate 109 H 103 H 106 H Respiratory Rate 17 12 19 Blood Pressure 139/76 Pulse Oximetry 99 99 98 Oxygen Delivery 01/29/25 06:02 01/29/25 06:25 01/29/25 06:30 Temperature Pulse Rate 110 H 107 H 106 H Respiratory Rate 19 20 15 Blood Pressure Pulse Oximetry 100 97 97 Oxygen Delivery 01/29/25 06:45 01/29/25 09:18 01/29/25 09:21 Temperature 37.7 C H 37.7 C H Pulse Rate 106 H 111 H Respiratory Rate 21 H 18 Blood Pressure 140/80 141/71 H Pulse Oximetry 100 99 Oxygen Delivery 01/29/25 09:58 Temperature 36.4 C Pulse Rate 114 H Respiratory Rate 18 Blood Pressure 144/81 H Pulse Oximetry 99 Oxygen Delivery Exam 2 Const: General: comfortable and no acute distress HENMT: Ears: TM's normal bilaterally Face/Nose/Sinus: Normal nares present Mouth: Yes moist mucous membranes Eyes: General: appearance normal, both eyes and all related structures S clera: sclerae normal Pupils: Equal, round and reactive pupils present E OM: EOMs intact bilaterally Neck: Neck: supple and no JVD Resp: Effort & Inspection: normal respiratory effort Auscultation: clear to auscultation bilaterally Cardio: Rate: regular rate Rhythm: regular rhythm GI: Other: Abdomen is obese but soft. Nondistended. She has mild to moderate tenderness in the right lower quadrant and suprapubic region. No guarding. No generalized peritoneal signs. No masses. Laparoscopic port site incisions are healing well without any redness or drainage. No ventral or incisional hernias. Skin: General skin exam: normal color and no rashes or lesions noted Neuro: General: gait normal Speech: normal speech Motor exam (neuro): 5 /5 motor strength present throughout Sensory Exam: normal sensation Extrem: General: normal to inspection Psych: Mental Status: mental status grossly normal Affect: normal affect Results Labs 01/29/25 00:55 01/29/25 00:55 Labs: Short CBC 01/29/25 Range/Units 00:55 WBC 11.3 H (4.5-10.0) K/mm3 Hgb 10.9 L (12.0-15.0) g/dL Hct 34.4 L (37.0-47.0) % Plt Count 329 (150-375) k/mm3 BMP 01/29/25 00:55 Sodium 134 L Potassium 3.5 Chloride 101 Carbon Dioxide 22 BUN 8 D Creatinine 0.62 L Glucose 121 H Calcium 9.0 Liver Function 01/29/25 Range/Units 00:55 Total Bilirubin 0.8 (0.2-1.3) mg/dL AST 25 (14-36) U/L ALT 27 (6-35) U/L Alkaline Phosphatase 119 (38-126) U/L Albumin 3.9 (3.5-5.1) g/dL Urine 01/28/25 Range/Units 23:28 Urine Color Yellow (Yellow) Urine Appearance Cloudy H (Clear) Urine pH 6.5 (5.0-9.0) Ur Specific [place] 1.003 (1.001-1.035) Urine Protein 2+ H (Negative) mg/dL Urine Glucose (UA) Negative (Negative) mg/dL Imaging My impression: Patient appears to have a large 9cm abscess in the pelvis. Is between the rectum and the bladder. No free air in the abdomen is seen on my interpretation.
[2025-01-29 12:39] LABS: Glucose Point of Care 110 mg/dl (65-105)
[2025-01-29] MEDS: ERTAPENEM 1 GM/NS 50 ML 1 GM/50 ML BAG IVPB (13:02)
[2025-01-29] MEDS: DEXTROSE 5%/0.9% SOD CHL 1,000 ML 130 ML IV CONT ×2 (14:00→22:03)
--- NOTE | 2025-01-29 16:28 | P.HP_ITS ---
H&P: HPI History of Present Illness Date/Time: 01/29/25 16:28 Chief Complaint: Abdominal pain Narrative: This patient is 44-year-old female who presented emergency department with severe abdominal pain. She was 5 days postop from a robotic assisted hysterectomy with BSO. The surgery was uncomplicated, though there was considerable scar tissue secondary to endometriosis. Patient was evaluated in the emergency department. She was found have a 9 cm abscess in the pelvis/abdomen. It was near the sigmoid colon. The patient has been evaluated by Dr. Clark of general surgery. He has recommended percutaneous drain placement using CT guidance. Further studies will be performed to determine if colon perforation is present. She is receiving broad-spectrum antibiotics intravenously. She is stable. Review of Systems Review of Systems: All systems reviewed & are unremarkable except as noted in HPI and below Constitutional: Constitutional: Denies chills, Denies fatigue, Denies fever(s) and Denies weakness Eyes: Eyes: Denies blurry vision, Denies change in vision, Denies loss of peripheral vision, Denies loss of vision, Denies other visual disturbances and Denies eye pain ENT: Denies vertigo, Denies dizziness, Denies hearing loss, Denies mouth pain, Denies nasal obstruction, Denies neck mass and Denies neck pain Cardiovascular: Cardiovascular: Denies chest pain, Denies diaphoresis, Denies syncope, Denies leg edema and Denies dyspnea Respiratory: Respiratory: Denies chest congestion, Denies cough, Denies hemoptysis, Denies dyspnea and Denies wheezing Gastrointestinal: Gastrointestinal: Reports abdominal pain, Denies constipation, Denies diarrhea, Reports nausea and Denies vomiting Genitourinary: Genitourinary: Denies hematuria, Denies change in libido, Jabari es nocturia, Denies genital lesions, Denies flank pain and Denies urinary urgency Musculoskeletal: Musculoskeletal: Denies abnormal gait, Denies back pain, Denies myalgias, Denies arthralgias, Denies joint swelling, Denies muscle weakness and Denies neck pain Integumentary/Breasts: Skin/Breast: Denies swelling, Denies breast pain, Denies breast mass, Denies dry skin, Denies nipple discharge, Denies unusual bruising and Denies jaundice Neurologic: Denies Neuro-related abnormal movements, Denies Abnormal speech present, Denies abnormal gait, Denies behavioral changes, Denies confusion, Denies vertigo, Denies dizziness, Denies syncope, Denies loss of vision, Denies memory loss, Denies convulsions and Denies weakness Psychiatric: Psychiatric: Denies abnormal sleep pattern, Denies behavioral changes, Denies change in libido, Denies confusion, Denies depression, Denies anhedonia and Denies memory loss Endocrine: Endocrine: Reports no additional endocrine complaints, Denies change in libido and Denies fatigue Hematologic/Lymphatic: Hematologic/Lymphatic: Reports no additional hematologic/lymphatic complaints Allergic/Immunologic: Allergic/Immunologic: Reports no additional allergic/immunologic complaints and Denies wheezing PMFSH Past Medical History Medical History Morbid obesity with BMI of 40.0-44.9, adult PONV (postoperative nausea and vomiting) Chronic GERD Partial thickness tear of left rotator cuff Surgical History Surgical History History of shoulder surgery Family History Family History (Updated 01/29/25 @ 11:04 by Paola Corral RN) Father Diabetes mellitus Cerebrovascular accident Mother Melanoma Sibling PCOS (polycystic ovarian syndrome) Social History Social History Social History: Caffeine-daily Smoking status: Never smoker Alcohol intake: never Alcohol use details: RARE Substance use: never Substance use type: does not use Do You Feel Safe in your Home?: Yes Lack of Transportation: No Lack of Food: Never True Current Housing: I Have Housing Concerned About Future Housing: No Difficulty Paying Gas/Electric Bills: No Difficulty Paying for Meds: No Currently Unemployed: No Education: Bachelor's Degree Difficulty w/ Childcare or Family Care: No Living arrangements: with family Spiritual care concerns: No Meds Home Medications and Allergies Home Medications ?Medication ?Instructions ?Recorded ?Confirmed ?Type loratadine 10 mg tablet (Claritin) 10 mg PO HS 04/18/24 01/29/25 History estradiol 1 mg tablet 1 mg PO DAILY #30 tabs 01/25/25 01/29/25 Rx hydrocodone 5 mg-acetaminophen 325 1 - 2 tablet PO Q6H PRN pain #25 01/25/25 01/29/25 Rx mg tablet tabs cefdinir 300 mg capsule 300 mg PO Q12H 1 week #14 caps 01/29/25 Rx Allergies Allergy/AdvReac Type Severity Reaction Status Date / Time No Known Allergies Allergy Verified 01/28/25 23:27 Vital Signs Vital Signs - 24 hr 01/28/25 21:52 01/28/25 21:55 01/28/25 23:25 Temperature 98.2 F 98.4 F 98.4 F Pulse Rate 110 H 103 H Respiratory Rate 16 16 Blood Pressure 147/86 H 143/81 H Pulse Oximetry 100 97 Oxygen Delivery Room Air 01/28/25 23:30 01/28/25 23:31 01/28/25 23:32 Temperature Pulse Rate 101 H 94 Respiratory Rate 14 18 9 L Blood Pressure 143/77 H Pulse Oximetry 93 95 96 Oxygen Delivery 01/28/25 23:45 01/29/25 00:02 01/29/25 00:15 Temperature Pulse Rate 112 H 101 H 105 H Respiratory Rate 23 H 18 20 Blood Pressure Pulse Oximetry 96 99 95 Oxygen Delivery 01/29/25 00:30 01/29/25 00:31 01/29/25 00:45 Temperature Pulse Rate 105 H 117 H 103 H Respiratory Rate 13 22 H 15 Blood Pressure 152/87 H Pulse Oximetry 96 97 96 Oxygen Delivery 01/29/25 01:00 01/29/25 01:15 01/29/25 01:44 Temperature Pulse Rate 111 H 106 H 98 Respiratory Rate 17 18 13 Blood Pressure Pulse Oximetry 98 96 100 Oxygen Delivery 01/29/25 02:20 01/29/25 02:25 01/29/25 02:30 Temperature Pulse Rate 98 101 H 96 Respiratory Rate 13 16 14 Blood Pressure 161/95 H Pulse Oximetry 99 100 99 Oxygen Delivery 01/29/25 02:31 01/29/25 02:45 01/29/25 03:00 Temperature Pulse Rate 104 H 101 H 95 Respiratory Rate 24 H 22 H 15 Blood Pressure 168/91 H Pulse Oximetry 100 100 100 Oxygen Delivery 01/29/25 03:01 01/29/25 03:35 01/29/25 03:45 Temperature Pulse Rate 105 H 96 106 H Respiratory Rate 19 15 17 Blood Pressure 165/85 H Pulse Oximetry 99 100 100 Oxygen Delivery 01/29/25 04:00 01/29/25 04:02 01/29/25 04:15 Temperature Pulse Rate 108 H 106 H 109 H Respiratory Rate 15 15 15 Blood Pressure 183/93 H Pulse Oximetry 99 99 100 Oxygen Delivery 01/29/25 04:49 01/29/25 05:00 01/29/25 05:01 Temperature Pulse Rate 110 H 100 104 H Respiratory Rate 18 16 20 Blood Pressure 138/73 Pulse Oximetry 95 94 96 Oxygen Delivery 01/29/25 05:15 01/29/25 05:30 01/29/25 05:31 Temperature Pulse Rate 106 H 106 H 110 H Respiratory Rate 18 15 19 Blood Pressure 144/79 H Pulse Oximetry 100 100 98 Oxygen Delivery 01/29/25 05:54 01/29/25 06:00 01/29/25 06:01 Temperature Pulse Rate 109 H 103 H 106 H Respiratory Rate 17 12 19 Blood Pressure 139/76 Pulse Oximetry 99 99 98 Oxygen Delivery 01/29/25 06:02 01/29/25 06:25 01/29/25 06:30 Temperature Pulse Rate 110 H 107 H 106 H Respiratory Rate 19 20 15 Blood Pressure Pulse Oximetry 100 97 97 Oxygen Delivery 01/29/25 06:45 01/29/25 09:18 01/29/25 09:21 Temperature 99.9 F H 99.9 F H Pulse Rate 106 H 111 H Respiratory Rate 21 H 18 Blood Pressure 140/80 141/71 H Pulse Oximetry 100 99 Oxygen Delivery 01/29/25 09:58 01/29/25 10:43 01/29/25 14:00 Temperature 97.6 F 97.6 F Pulse Rate 114 H 105 H Respiratory Rate 18 16 Blood Pressure 144/81 H 145/81 H Pulse Oximetry 99 100 Oxygen Delivery Room Air Exam Const: General: cooperative, healthy appearing, comfortable and no acute distress Orientation/consciousness: oriented to person, oriented to place and oriented to time HENMT: Head: normal to inspection Ears: external ears normal Face/Nose/Sinus: Normal external nose present and normal facial exam Face and sinus: normal facial exam Eyes: General: appearance normal, both eyes and all related structures Neck: Neck: normal visual inspection, trachea midline and supple Resp: Auscultation: clear to auscultation bilaterally, no crackles, no rales, no rhonchi and no wheezes Cardio: Rate: regular rate Rhythm: regular rhythm Heart sounds: no click, no murmurs and no rubs GI: GI Palp: No abdominal tenderness, No Soft to palpation, No Tenderness to palpation present (GI) and No Palpable mass present Auscultation: normal bowel sounds Skin: General skin exam: normal color and no rashes or lesions noted Neuro: General: oriented to person, oriented to place and oriented to time Extrem: General: normal to inspection, no joint enlargement, no clubbing, cyanosis or edema, no pedal edema and no calf tenderness Psych: Appearance: grossly normal Mental Status: mental status grossly normal Speech and movement: Normal speech and movement present H&P: Results Labs Labs: Short CBC 01/29/25 Range/Units 00:55 WBC 11.3 H (4.5-10.0) K/mm3 Hgb 10.9 L (12.0-15.0) g/dL Hct 34.4 L (37.0-47.0) % Plt Count 329 (150-375) k/mm3 BMP 01/29/25 00:55 Sodium 134 L Potassium 3.5 Chloride 101 Carbon Dioxide 22 BUN 8 D Creatinine 0.62 L Glucose 121 H Calcium 9.0 Liver Function 01/29/25 Range/Units 00:55 Total Bilirubin 0.8 (0.2-1.3) mg/dL AST 25 (14-36) U/L ALT 27 (6-35) U/L Alkaline Phosphatase 119 (38-126) U/L Albumin 3.9 (3.5-5.1) g/dL Urine 01/28/25 Range/Units 23:28 Urine Color Yellow (Yellow) Urine Appearance Cloudy H (Clear) Urine pH 6.5 (5.0-9.0) Ur Specific [place] 1.003 (1.001-1.035) Urine Protein 2+ H (Negative) mg/dL Urine Glucose (UA) Negative (Negative) mg/dL Assessment and Plan Assessment and plan (1) Abscess of female pelvis: Code(s): N73.9 - Female pelvic inflammatory disease, unspecified Status: Acute Plan This patient is 44-year-old female who presented emergency department with severe abdominal pain. She was 5 days postop from a robotic assisted hyster ectomy with BSO. The surgery was uncomplicated, though there was considerable scar tissue secondary to endometriosis. Patient was evaluated in the emergency department. She was found have a 9 cm abscess in the pelvis/abdomen. It was near the sigmoid colon. The patient has been evaluated by Dr. Clark of general surgery. He has recommended percutaneous drain placement using CT guidance. Further studies will be performed to determine if colon perforation is present. She is receiving broad-spectrum antibiotics intravenously. She is stable.
[2025-01-29 18:36] LABS: Glucose Point of Care 115 mg/dl (65-105)
[2025-01-29 23:35] LABS: Glucose Point of Care 117 mg/dl (65-105)
[2025-01-30] VITALS (21 sets, daily range): BP systolic 131–156; BP diastolic 85–95; PULSE 98–111; RESP 16–25; TEMP 36.5–36.9; O2SAT 97–100
[2025-01-30] MEDS: ACETAMINOPHEN 325 MG TABLET 650 MG PO ×3 (00:04→11:31)
[2025-01-30] MEDS: HYDROmorphone HCL INJ (*CRX) 1 MG/ML SYR IV PUSH ×6 (03:28→23:10)
[2025-01-30 05:33] LABS: Glucose Point of Care 120 mg/dl (65-105)
[2025-01-30] MEDS: DEXTROSE 5%/0.9% SOD CHL 1,000 ML 130 ML IV CONT ×3 (05:46→23:13)
[2025-01-30 06:05] LABS: Basophils Percent Auto 0.2 % (0.2-1.2); Eosinophils Absolute Auto 0.1 K/mm3 (0-0.3); Eosinophils Percent Auto 0.9 % (0-4.4); Hematocrit 32.7 % (37.0-47.0); Hemoglobin 10.5 g/dL (12.0-15.0); Immature Granulocyte Absolute 0.04 K/mm3 (0.00-0.031); Immature Granulocyte Percent A 0.5 % (0-0.5); Lymphocytes Absolute Auto 0.82 K/mm3 (0.9-3.2); Lymphocytes Percent Auto 10.2 % (18.3-44.2); Mean Corpuscular HGB Conc 32.1 g/dl (32-36); Mean Corpuscular Hemoglobin 29.3 pg (26-34); Mean Corpuscular Volume 91.3 fl (80-100); Mean Platelet Volume 8.4 fl (7.4-10.4); Monocytes Absolute Auto 0.7 K/mm3 (0.1-0.6); Monocytes Percent Auto 9.1 % (2.6-8.5); Neutrophils Absolute Auto 6.4 K/mm3 (1.3-6.7); Neutrophils Percent Auto 79.1 % (45.5-73.1); Platelet Count Result 300 k/mm3 (150-375); Red Blood Count 3.58 M/mm3 (4.2-5.4); Red Cell Distribution Width 12.5 % (11.5-14.5)
[2025-01-30 06:19] LABS: INR 1.1; Prothrombin Time 14.8 Seconds (11.1-14.7)
[2025-01-30 06:22] LABS: Alanine Aminotransferase 21 U/L (6-35); Albumin Level 3.6 g/dL (3.5-5.1); Alkaline Phosphatase 93 U/L (38-126); Anion Gap 9 mmol/L (4-12); Aspartate Amino Transferase 22 U/L (14-36); Bilirubin,Total 0.4 mg/dL (0.2-1.3); Blood Urea Nitrogen 5 mg/dL (7-17); Calcium 8.6 mg/dL (8.4-10.2); Carbon Dioxide 25 mmol/L (22-30); Chloride 102 mmol/L (98-107); Estimated CRCL calculation 151 ml/min; Estimated Glomerular Filt Rate > 60; Glucose 115 mg/dL (65-110); Potassium 3.8 mmol/L (3.4-5.0); Sodium 136 mmol/L (137-145)
[2025-01-30] MEDS: ERTAPENEM 1 GM/NS 50 ML 1 GM/50 ML BAG IVPB (11:31)
[2025-01-30 11:35] LABS: Glucose Point of Care 108 mg/dl (65-105)
--- NOTE | 2025-01-30 14:03 | P.PNGS_ITS ---
Progress Note: A&P Assessment and Plan (1) Abscess of female pelvis: Code(s): N73.9 - Female pelvic inflammatory disease, unspecified Status: Acute Assessment and Plan: Patient found to have a 9 cm pelvic abscess with recent robotic assisted laparoscopic total abdominal hysterectomy here at [facility] on 01/24/25. She continues to have mild expected tenderness in the lower abdomen, but no diffuse peritoneal signs. Plan for percutaneous drainage of pelvic abscess in IR today. Continue IV Invanz. We will plan to keep her NPO for today, even after drainage procedure. Will repeat labs again tomorrow and decide on further workup, which may include Hypaque enema at some point. (2) Pyelonephritis: Code(s): N12 - Tubulo-interstitial nephritis, not specified as acute or chronic Status: Acute Plan I have discussed the patient's case and plan of care with Dr. Clark. Subjective Subjective Date/Time Seen: 01/30/25 14:03 Patient reports: feels better, flatus, no bowel movement and afebrile Interval history: Patient still having suprapubic and RLQ abdominal pain, but reportedly improved since admission. WBC count normal. No nausea or vomiting. Exam Const: General: comfortable and no acute distress Orientation/consciousness: patient oriented x3 GI: Inspection: non-distended, Pannus present and obesity GI Palp: Yes Soft to palpation, Yes Tenderness to palpation present (GI) (Suprapubic and right lower quadrant), No Guarding due to palpation present (GI) and No Rebound te nderness present Auscultation: Hypoactive bowel sounds present Objective Data Vital Signs Vital Signs: Vital Signs - 24 hr 01/29/25 20:37 01/29/25 21:51 01/30/25 05:45 Temperature 98 F 98.3 F Pulse Rate 103 H 110 H Respiratory Rate 18 18 Blood Pressure 133/85 139/93 H Pulse Oximetry 98 97 Oxygen Delivery Room Air 01/30/25 08:00 01/30/25 09:00 Temperature Pulse Rate 110 H Respiratory Rate 18 Blood Pressure Pulse Oximetry 97 97 Oxygen Delivery Room Air Room Air Intake/Output Intake/Output: Intake & Output 01/27/25 01/28/25 01/29/25 01/30/25 23:59 23:59 23:59 23:59 Intake Total 3554.2 2050 Output Total 1050 1500 Balance 2504.2 550 Meds/Results Medications: Active Medications Generic Name Dose Route Start Last Admin Trade Name Freq PRN Reason Stop Dose Admin Acetaminophen 650 mg 01/29/25 08:03 01/30/25 11:31 Acetaminophen 325 Mg Tablet PO 650 mg Q4H PRN Administration Mild Pain (1-3) or Fever Dextrose 25 gm 01/29/25 11:07 Dextrose 50% 25 Gm/50 Ml Syringe IV PUSH PRN PRN Hypoglycemia Hydromorphone HCl 1 mg 01/29/25 08:03 01/30/25 13:04 Hydromorphone Hcl Inj (*Crx) 1 Mg/Ml Syr IV PUSH 1 mg Q4H PRN Administration Pain Rated 7-10 Ertapenem 1 gm in 50 mls @ 100 mls/hr 01/29/25 12:00 01/30/25 12:01 Invanz 1 Gm/Ns 50 Ml IVPB Infused Q24H [facility] Infusion Dextrose/Sodium Chloride 1,000 mls @ 130 mls/hr 01/29/25 11:15 01/30/25 14:03 Dextrose 5% Sodium Chloride 0.9% IV CONT 130 mls/hr .Q7H42M [facility] Administration Ondansetron HCl 4 mg 01/29/25 08:03 Ondansetron Inj 4 Mg/2 Ml Vial IV PUSH Q4H PRN Nausea Radiology Results: ITS Impressions Abdomen/Pelvis CT 01/29/25 11:42 IMPRESSION: 1. Pelvic abscess which may be due to perforated bowel due to colitis or diverticulitis. 2. Minimal fullness of the renal pelvis and ureters bilaterally. 3. Hepatomegaly with fat infiltration. Labs Labs: Laboratory Results - last 24 hr 01/29/25 01/29/25 01/30/25 18:30 23:32 05:21 WBC RBC Hgb Hct MCV MCH MCHC RDW Plt Count MPV Immature Gran % (Auto) Neut % (Auto) Lymph % (Auto) [place] % (Auto) Eos % (Auto) Baso % (Auto) Lymph # (Auto) [place] # (Auto) Eos # (Auto) Baso # (Auto) Abs Immat Gran (auto) Absolute Neuts (auto) Absolute Nucleated RBC Nucleated RBC % PT INR Sodium Potassium Chloride Carbon Dioxide Anion Gap BUN Creatinine Estim Creat Clear Calc Estimated GFR Glucose POC Capillary Glucose 115 H 117 H 120 H Calcium Total Bilirubin AST ALT Alkaline Phosphatase Total Protein Albumin Blood Type Antibody Screen 01/30/25 01/30/25 05:56 11:31 WBC 8.0 RBC 3.58 L Hgb 10.5 L Hct 32.7 L MCV 91.3 MCH 29.3 MCHC 32.1 RDW 12.5 Plt Count 300 MPV 8.4 Immature Gran % (Auto) 0.5 Neut % (Auto) 79.1 H Lymph % (Auto) 10.2 L [place] % (Auto) 9.1 H Eos % (Auto) 0.9 Baso % (Auto) 0.2 Lymph # (Auto) 0.82 L [place] # (Auto) 0.7 H Eos # (Auto) 0.1 Baso # (Auto) 0.0 Abs Immat Gran (auto) 0.04 H Absolute Neuts (auto) 6.4 Absolute Nucleated RBC 0.000 Nucleated RBC % 0.0 PT 14.8 H INR 1.1 Sodium 136 L Potassium 3.8 Chloride 102 Carbon Dioxide 25 Anion Gap 9 BUN 5 L Creatinine 0.59 L Estim Creat Clear Calc 151 Estimated GFR > 60 Glucose 115 H POC Capillary Glucose 108 H Calcium 8.6 Total Bilirubin 0.4 AST 22 ALT 21 Alkaline Phosphatase 93 Total Protein 7.0 Albumin 3.6 Blood Type O Positive Antibody Screen Negative
--- NOTE | 2025-01-30 14:38 | PC.NURSE ---
Patient down to radiology via stretcher.
--- NOTE | 2025-01-30 14:51 | P.SEDATION_ITS ---
Moderate Sedation Note-Pt Data Patient Data Diagnosis: pelvic abscess Present Complaint: pelvic pain Procedure to be performed/Plan: ct guided abscess drain placement Allergies Allergy/AdvReac Type Severity Reaction Status Date / Time No Known Allergies Allergy Verified 01/28/25 23:27 Home Medications ?Medication ?Instructions ?Recorded ?Confirmed ?Type loratadine 10 mg tablet (Claritin) 10 mg PO HS 04/18/24 01/29/25 History estradiol 1 mg tablet 1 mg PO DAILY #30 tabs 01/25/25 01/29/25 Rx hydrocodone 5 mg-acetaminophen 325 1 - 2 tablet PO Q6H PRN pain #25 01/25/25 01/29/25 Rx mg tablet tabs cefdinir 300 mg capsule 300 mg PO Q12H 1 week #14 caps 01/29/25 Rx Current Medications: Active Medications Acetaminophen (Acetaminophen 325 Mg Tablet) 650 mg PO Q4H PRN PRN Reason: Mild Pain (1-3) or Fever Last Admin: 01/30/25 11:31 Dose: 650 mg Dextrose (Dextrose 50% 25 Gm/50 Ml Syringe) 25 gm IV PUSH PRN PRN PRN Reason: Hypoglycemia Hydromorphone HCl (Hydromorphone Hcl Inj (*Crx) 1 Mg/Ml Syr) 1 mg IV PUSH Q4H PRN PRN Reason: Pain Rated 7-10 Last Admin: 01/30/25 13:04 Dose: 1 mg Ertapenem (Invanz 1 Gm/Ns 50 Ml) 1 gm in 50 mls @ 100 mls/hr IVPB Q24H [facility] Last Infusion: 01/30/25 12:01 Dose: Infused Dextrose/Sodium Chloride (Dextrose 5% Sodium Chloride 0.9%) 1,000 mls @ 130 mls/hr IV CONT .Q7H42M [facility] Last Admin: 01/30/25 14:03 Dose: 130 mls/hr Ondansetron HCl (Ondansetron Inj 4 Mg/2 Ml Vial) 4 mg IV PUSH Q4H PRN PRN Reason: Nausea Sedation/Anesthesia: No previous sedation/anesthesia problems (including family history). [facility] Past Medical History Medical History Morbid obesity with BMI of 40.0-44.9, adult PONV (postoperative nausea and vomiting) Chronic GERD Partial thickness tear of left rotator cuff Surgical History Surgical History History of shoulder surgery Family History Family History (Updated 01/29/25 @ 11:04 by Paola Corral RN) Father Diabetes mellitus Cerebrovascular accident Mother Melanoma Sibling PCOS (polycystic ovarian syndrome) Social History Social History Social History: Caffeine-daily Smoking status: Never smoker Alcohol intake: never Alcohol use details: RARE Substance use: never Substance use type: does not use Do You Feel Safe in your Home?: Yes Lack of Transportation: No Lack of Food: Never True Current Housing: I Have Housing Concerned About Future Housing: No Difficulty Paying Gas/Electric Bills: No Difficulty Paying for Meds: No Currently Unemployed: No Education: Bachelor's Degree Difficulty w/ Childcare or Family Care: No Living arrangements: with family Spiritual care concerns: No Mod Sed Physical Exam Physical Exam Pre Procedural Exam: Normal: Throat, Lungs and Heart Rhythm and Variation: Appearance (obese) and Heart Rate (tachycardia) Hours since solid foods: 48 Hours since liquid intake: 15 Mallampati Classification: class 1 Internal Medicine - PN: Obj Da Vital Signs Vital Signs: Vital Signs - 24 hr 01/29/25 20:37 01/29/25 21:51 01/30/25 05:45 Temperature 98 F 98.3 F Pulse Rate 103 H 110 H Respiratory Rate 18 18 Blood Pressure 133/85 139/93 H Pulse Oximetry 98 97 Oxygen Delivery Room Air 01/30/25 08:00 01/30/25 09:00 Temperature Pulse Rate 110 H Respiratory Rate 18 Blood Pressure Pulse Oximetry 97 97 Oxygen Delivery Room Air Room Air Intake/Output Intake/Output: Intake & Output 01/27/25 01/28/25 01/29/25 01/30/25 23:59 23:59 23:59 23:59 Intake Total 3554.2 2050 Output Total 1050 1500 Balance 2504.2 550 Meds/Results Medications: Active Medications Generic Name Dose Route Start Last Admin Trade Name Freq PRN Reason Stop Dose Admin Acetaminophen 650 mg 01/29/25 08:03 01/30/25 11:31 Acetaminophen 325 Mg Tablet PO 650 mg Q4H PRN Administration Mild Pain (1-3) or Fever Dextrose 25 gm 01/29/25 11:07 Dextrose 50% 25 Gm/50 Ml Syringe IV PUSH PRN PRN Hypoglycemia Hydromorphone HCl 1 mg 01/29/25 08:03 01/30/25 13:04 Hydromorphone Hcl Inj (*Crx) 1 Mg/Ml Syr IV PUSH 1 mg Q4H PRN Administration Pain Rated 7-10 Ertapenem 1 gm in 50 mls @ 100 mls/hr 01/29/25 12:00 01/30/25 12:01 Invanz 1 Gm/Ns 50 Ml IVPB Infused Q24H [facility] Infusion Dextrose/Sodium Chloride 1,000 mls @ 130 mls/hr 01/29/25 11:15 01/30/25 14:03 Dextrose 5% Sodium Chloride 0.9% IV CONT 130 mls/hr .Q7H42M [facility] Administration Ondansetron HCl 4 mg 01/29/25 08:03 Ondansetron Inj 4 Mg/2 Ml Vial IV PUSH Q4H PRN Nausea Radiology Results: ITS Impressions Abdomen/Pelvis CT 01/29/25 11:42 IMPRESSION: 1. Pelvic abscess which may be due to perforated bowel due to colitis or diverticulitis. 2. Minimal fullness of the renal pelvis and ureters bilaterally. 3. Hepatomegaly with fat infiltration. Labs 01/30/25 05:56 01/30/25 05:56 Labs: Laboratory Results - last 24 hr 01/29/25 01/29/25 01/30/25 18:30 23:32 05:21 WBC RBC Hgb Hct MCV MCH MCHC RDW Plt Count MPV Immature Gran % (Auto) Neut % (Auto) Lymph % (Auto) [place] % (Auto) Eos % (Auto) Baso % (Auto) Lymph # (Auto) [place] # (Auto) Eos # (Auto) Baso # (Auto) Abs Immat Gran (auto) Absolute Neuts (auto) Absolute Nucleated RBC Nucleated RBC % PT INR Sodium Potassium Chloride Carbon Dioxide Anion Gap BUN Creatinine Estim Creat Clear Calc Estimated GFR Glucose POC Capillary Glucose 115 H 117 H 120 H Calcium Total Bilirubin AST ALT Alkaline Phosphatase Total Protein Albumin Blood Type Antibody Screen 01/30/25 01/30/25 05:56 11:31 WBC 8.0 RBC 3.58 L Hgb 10.5 L Hct 32.7 L MCV 91.3 MCH 29.3 MCHC 32.1 RDW 12.5 Plt Count 300 MPV 8.4 Immature Gran % (Auto) 0.5 Neut % (Auto) 79.1 H Lymph % (Auto) 10.2 L [place] % (Auto) 9.1 H Eos % (Auto) 0.9 Baso % (Auto) 0.2 Lymph # (Auto) 0.82 L [place] # (Auto) 0.7 H Eos # (Auto) 0.1 Baso # (Auto) 0.0 Abs Immat Gran (auto) 0.04 H Absolute Neuts (auto) 6.4 Absolute Nucleated RBC 0.000 Nucleated RBC % 0.0 PT 14.8 H INR 1.1 Sodium 136 L Potassium 3.8 Chloride 102 Carbon Dioxide 25 Anion Gap 9 BUN 5 L Creatinine 0.59 L Estim Creat Clear Calc 151 Estimated GFR > 60 Glucose 115 H POC Capillary Glucose 108 H Calcium 8.6 Total Bilirubin 0.4 AST 22 ALT 21 Alkaline Phosphatase 93 Total Protein 7.0 Albumin 3.6 Blood Type O Positive Antibody Screen Negative ASA Classification/Sedation ASA Classification/Sedation ASA Class: II Emergent: No Risks: Risks, benefits and alternatives explained and patient/family accepted plan for sedation. Patient re-evaluated immediately prior to sedation.
--- NOTE | 2025-01-30 16:03 | PC.NURSE ---
Patient back to room at 16:00 via stretcher. Drain dressing C/D/I and drain itself draining bloody fluid.
--- NOTE | 2025-01-30 18:06 | P.PNOB_ITS ---
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 - A/P Assessment and plan (1) Abscess of female pelvis: Code(s): N73.9 - Female pelvic inflammatory disease, unspecified Status: Acute Postoperative Procedures: Procedures Operation Date: 01/30/25 14:30 Actual Procedure Side Surgeon p Computed Tomography Guided Abscess Catheter Placement Kadeem Carrasquillo MD Time Spent With Patient Time: Total time spent is greater than 50% in coordination of care (as documented) at patient's floor/unit and/or counseling patient: Time with patient: 15 - 25 minutes 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- PN:Subj Post-Op Subjective Date/time seen: 01/30/25 18:06 Some pain relief noted after drain placement. CT and drain placement in the pelvic fluid collection, presumably abscess. Moderate amount of fluid aspirated and moderate amount of tissue returned currently into the drain collection container. Afebrile, normal white count, improved/lower heart rate post drain placement. Continue observation, await direction from general surgery 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 - PN: Obj Data Vital Signs Vital Signs: Vital Signs - 24 hr 01/29/25 20:37 01/29/25 21:51 01/30/25 05:45 Temperature 98 F 98.3 F Pulse Rate 103 H 110 H Respiratory Rate 18 18 Blood Pressure 133/85 139/93 H Pulse Oximetry 98 97 Oxygen Delivery Room Air 01/30/25 08:00 01/30/25 09:00 01/30/25 14:50 Temperature Pulse Rate 110 H 107 H Respiratory Rate 18 17 Blood Pressure 139/93 H Pulse Oximetry 97 97 97 Oxygen Delivery Room Air Room Air Room Air 01/30/25 14:55 01/30/25 15:00 01/30/25 15:05 Temperature Pulse Rate 106 H 110 H 111 H Respiratory Rate 19 21 H 21 H Blood Pressure 138/91 H 132/87 133/86 Pulse Oximetry 98 100 100 Oxygen Delivery Room Air Room Air Room Air 01/30/25 15:10 01/30/25 15:15 01/30/25 15:20 Temperature Pulse Rate 110 H 108 H 111 H Respiratory Rate 20 22 H 24 H Blood Pressure 135/87 135/86 131/86 Pulse Oximetry 97 99 98 Oxygen Delivery Room Air Room Air Room Air 01/30/25 15:25 01/30/25 15:30 01/30/25 15:35 Temperature Pulse Rate 109 H 107 H 109 H Respiratory Rate 23 H 25 H 16 Blood Pressure 133/87 136/85 131/87 Pulse Oximetry 99 99 99 Oxygen Delivery Room Air 01/30/25 15:40 01/30/25 15:45 01/30/25 16:00 Temperature 97.7 F Pulse Rate 107 H 106 H 104 H Respiratory Rate 23 H 18 18 Blood Pressure 133/89 131/87 156/95 H Pulse Oximetry 99 100 99 Oxygen Delivery 01/30/25 16:03 01/30/25 16:18 01/30/25 16:38 Temperature 97.9 F 98.4 F 98.4 F Pulse Rate 104 H 98 98 Respiratory Rate 18 16 16 Blood Pressure 156/95 H 147/89 H 147/89 H Pulse Oximetry 99 99 99 Oxygen Delivery 01/30/25 16:48 Temperature 97.7 F Pulse Rate 99 Respiratory Rate 16 Blood Pressure 148/95 H Pulse Oximetry 98 Oxygen Delivery Intake/Output Intake/Output: Intake & Output 01/27/25 01/28/25 01/29/25 01/30/25 23:59 23:59 23:59 23:59 Intake Total 3554.2 2050 Output Total 1050 1500 Balance 2504.2 550 Meds/Results Medications: Active Medications Generic Name Dose Route Start Last Admin Trade Name Freq PRN Reason Stop Dose Admin Acetaminophen 650 mg 01/29/25 08:03 01/30/25 11:31 Acetaminophen 325 Mg Tablet PO 650 mg Q4H PRN Administration Mild Pain (1-3) or Fever Dextrose 25 gm 01/29/25 11:07 Dextrose 50% 25 Gm/50 Ml Syringe IV PUSH PRN PRN Hypoglycemia Hydromorphone HCl 1 mg 01/30/25 16:16 01/30/25 16:20 Hydromorphone Hcl Inj (*Crx) 1 Mg/Ml Syr IV PUSH 1 mg Q3H PRN Administration Pain Rated 7-10 Ertapenem 1 gm in 50 mls @ 100 mls/hr 01/29/25 12:00 01/30/25 12:01 Invanz 1 Gm/Ns 50 Ml IVPB Infused Q24H [facility] Infusion Dextrose/Sodium Chloride 1,000 mls @ 130 mls/hr 01/29/25 11:15 01/30/25 14:03 Dextrose 5% Sodium Chloride 0.9% IV CONT 130 mls/hr .Q7H42M [facility] Administration Ondansetron HCl 4 mg 01/29/25 08:03 Ondansetron Inj 4 Mg/2 Ml Vial IV PUSH Q4H PRN Nausea Radiology Results: ITS Impressions Abdomen/Pelvis CT 01/29/25 11:42 IMPRESSION: 1. Pelvic abscess which may be due to perforated bowel due to colitis or diverticulitis. 2. Minimal fullness of the renal pelvis and ureters bilaterally. 3. Hepatomegaly with fat infiltration. Catheter Placement CT 01/30/25 15:59 IMPRESSION: 1. Successful CT-guided pelvic abscess drainage catheter placement. 2. 20 mL fluid was sent for Gram stain and aerobic and anaerobic cultures. 3. The catheter will be managed by Dr. Clark. Labs 01/30/25 05:56 01/30/25 05:56 Labs: Laboratory Results - last 24 hr 01/29/25 01/29/25 01/30/25 18:30 23:32 05:21 WBC RBC Hgb Hct MCV MCH MCHC RDW Plt Count MPV Immature Gran % (Auto) Neut % (Auto) Lymph % (Auto) [place] % (Auto) Eos % (Auto) Baso % (Auto) Lymph # (Auto) [place] # (Auto) Eos # (Auto) Baso # (Auto) Abs Immat Gran (auto) Absolute Neuts (auto) Absolute Nucleated RBC Nucleated RBC % PT INR Sodium Potassium Chloride Carbon Dioxide Anion Gap BUN Creatinine Estim Creat Clear Calc Estimated GFR Glucose POC Capillary Glucose 115 H 117 H 120 H Calcium Total Bilirubin AST ALT Alkaline Phosphatase Total Protein Albumin Blood Type Antibody Screen 01/30/25 01/30/25 05:56 11:31 WBC 8.0 RBC 3.58 L Hgb 10.5 L Hct 32.7 L MCV 91.3 MCH 29.3 MCHC 32.1 RDW 12.5 Plt Count 300 MPV 8.4 Immature Gran % (Auto) 0.5 Neut % (Auto) 79.1 H Lymph % (Auto) 10.2 L [place] % (Auto) 9.1 H Eos % (Auto) 0.9 Baso % (Auto) 0.2 Lymph # (Auto) 0.82 L [place] # (Auto) 0.7 H Eos # (Auto) 0.1 Baso # (Auto) 0.0 Abs Immat Gran (auto) 0.04 H Absolute Neuts (auto) 6.4 Absolute Nucleated RBC 0.000 Nucleated RBC % 0.0 PT 14.8 H INR 1.1 Sodium 136 L Potassium 3.8 Chloride 102 Carbon Dioxide 25 Anion Gap 9 BUN 5 L Creatinine 0.59 L Estim Creat Clear Calc 151 Estimated GFR > 60 Glucose 115 H POC Capillary Glucose 108 H Calcium 8.6 Total Bilirubin 0.4 AST 22 ALT 21 Alkaline Phosphatase 93 Total Protein 7.0 Albumin 3.6 Blood Type O Positive Antibody Screen Negative
[2025-01-30 18:39] LABS: Glucose Point of Care 113 mg/dl (65-105)
[2025-01-31] VITALS (9 sets, daily range): BP systolic 126–151; BP diastolic 76–96; PULSE 98–108; RESP 16–18; TEMP 35.9–37.4; O2SAT 97–100
[2025-01-31 00:38] LABS: Glucose Point of Care 121 mg/dl (65-105)
[2025-01-31] MEDS: HYDROmorphone HCL INJ (*CRX) 1 MG/ML SYR IV PUSH ×7 (02:26→21:41)
[2025-01-31 05:32] LABS: Glucose Point of Care 110 mg/dl (65-105)
[2025-01-31 06:12] LABS: Hematocrit 29.7 % (37.0-47.0); Hemoglobin 9.2 g/dL (12.0-15.0); Mean Corpuscular Volume 93.7 fl (80-100); Mean Platelet Volume 8.8 fl (7.4-10.4); Platelet Count Result 292 k/mm3 (150-375); Red Blood Count 3.17 M/mm3 (4.2-5.4); Red Cell Distribution Width 12.6 % (11.5-14.5); White Blood Count 6.5 K/mm3 (4.5-10.0)
[2025-01-31 06:22] LABS: Anion Gap 7 mmol/L (4-12); Blood Urea Nitrogen 5 mg/dL (7-17); Calcium 8.2 mg/dL (8.4-10.2); Carbon Dioxide 26 mmol/L (22-30); Chloride 104 mmol/L (98-107); Estimated CRCL calculation 146 ml/min; Estimated Glomerular Filt Rate > 60; Glucose 109 mg/dL (65-110); Potassium 3.5 mmol/L (3.4-5.0); Sodium 137 mmol/L (137-145)
--- NOTE | 2025-01-31 07:59 | P.PNOB_ITS ---
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 She understands that more imaging will be performed today. Normal vital signs. Normal white count Postoperative Procedures: Procedures Operation Date: 01/30/25 14:30 Actual Procedure Side Surgeon p Computed Tomography Guided Abscess Catheter Placement Kadeem Carrasquillo MD Time Spent With Patient Time: Total time spent is greater than 50% in coordination of care (as documented) at patient's floor/unit and/or counseling patient: Time with patient: less than 15 minutes [employer]EL[employer]- PN:Subj Post-Op Subjective Date/time seen: 01/31/25 07:59 patient reports continuing improvement of her pain, denies nausea, vomiting, fever, chills. She understands that more imaging will be performed today. Normal vital signs. Normal white count [employer] - PN: Obj Data Vital Signs Vital Signs: Vital Signs - 24 hr 01/30/25 08:00 01/30/25 09:00 01/30/25 14:50 Temperature Pulse Rate 110 H 107 H Respiratory Rate 18 17 Blood Pressure 139/93 H Pulse Oximetry 97 97 97 Oxygen Delivery Room Air Room Air Room Air 01/30/25 14:55 01/30/25 15:00 01/30/25 15:05 Temperature Pulse Rate 106 H 110 H 111 H Respiratory Rate 19 21 H 21 H Blood Pressure 138/91 H 132/87 133/86 Pulse Oximetry 98 100 100 Oxygen Delivery Room Air Room Air Room Air 01/30/25 15:10 01/30/25 15:15 01/30/25 15:20 Temperature Pulse Rate 110 H 108 H 111 H Respiratory Rate 20 22 H 24 H Blood Pressure 135/87 135/86 131/86 Pulse Oximetry 97 99 98 Oxygen Delivery Room Air Room Air Room Air 01/30/25 15:25 01/30/25 15:30 01/30/25 15:35 Temperature Pulse Rate 109 H 107 H 109 H Respiratory Rate 23 H 25 H 16 Blood Pressure 133/87 136/85 131/87 Pulse Oximetry 99 99 99 Oxygen Delivery Room Air 01/30/25 15:40 01/30/25 15:45 01/30/25 16:00 Temperature 97.7 F Pulse Rate 107 H 106 H 104 H Respiratory Rate 23 H 18 18 Blood Pressure 133/89 131/87 156/95 H Pulse Oximetry 99 100 99 Oxygen Delivery 01/30/25 16:03 01/30/25 16:18 01/30/25 16:38 Temperature 97.9 F 98.4 F 98.4 F Pulse Rate 104 H 98 98 Respiratory Rate 18 16 16 Blood Pressure 156/95 H 147/89 H 147/89 H Pulse Oximetry 99 99 99 Oxygen Delivery 01/30/25 16:48 01/30/25 20:00 01/30/25 21:48 Temperature 97.7 F 98.4 F Pulse Rate 99 100 Respiratory Rate 16 18 Blood Pressure 148/95 H 153/87 H Pulse Oximetry 98 98 Oxygen Delivery Room Air 01/31/25 01:48 01/31/25 05:48 01/31/25 07:45 Temperature 99.3 F 98.8 F 97.1 F L Pulse Rate 104 H 98 104 H Respiratory Rate 18 18 18 Blood Pressure 130/80 132/81 136/86 Pulse Oximetry 97 98 97 Oxygen Delivery Intake/Output Intake/Output: Intake & Output 01/28/25 01/29/25 01/30/25 01/31/25 23:59 23:59 23:59 23:59 Intake Total 3554.2 3050 0 Output Total 1050 2050 Balance 2504.2 1000 0 Meds/Results Medications: Active Medications Generic Name Dose Route Start Last Admin Trade Name Freq PRN Reason Stop Dose Admin Acetaminophen 650 mg 01/29/25 08:03 01/30/25 11:31 Acetaminophen 325 Mg Tablet PO 650 mg Q4H PRN Administration Mild Pain (1-3) or Fever Dextrose 25 gm 01/29/25 11:07 Dextrose 50% 25 Gm/50 Ml Syringe IV PUSH PRN PRN Hypoglycemia Hydromorphone HCl 1 mg 01/30/25 16:16 01/31/25 05:10 Hydromorphone Hcl Inj (*Crx) 1 Mg/Ml Syr IV PUSH 1 mg Q3H PRN Administration Pain Rated 7-10 Ertapenem 1 gm in 50 mls @ 100 mls/hr 01/29/25 12:00 01/30/25 12:01 Invanz 1 Gm/Ns 50 Ml IVPB Infused Q24H [facility] Infusion Dextrose/Sodium Chloride 1,000 mls @ 130 mls/hr 01/29/25 11:15 01/30/25 23:13 Dextrose 5% Sodium Chloride 0.9% IV CONT 130 mls/hr .Q7H42M [facility] Administration Ondansetron HCl 4 mg 01/29/25 08:03 Ondansetron Inj 4 Mg/2 Ml Vial IV PUSH Q4H PRN Nausea Radiology Results: ITS Impressions Abdomen/Pelvis CT 01/29/25 11:42 IMPRESSION: 1. Pelvic abscess which may be due to perforated bowel due to colitis or diverticulitis. 2. Minimal fullness of the renal pelvis and ureters bilaterally. 3. Hepatomegaly with fat infiltration. Catheter Placement CT 01/30/25 15:59 IMPRESSION: 1. Successful CT-guided pelvic abscess drainage catheter placement. 2. 20 mL fluid was sent for Gram stain and aerobic and anaerobic cultures. 3. The catheter will be managed by Dr. Clark. Labs 01/31/25 05:41 01/31/25 05:41 Labs: Laboratory Results - last 24 hr 01/30/25 01/30/25 01/31/25 11:31 18:33 00:34 WBC RBC Hgb Hct MCV MCH MCHC RDW Plt Count MPV Sodium Potassium Chloride Carbon Dioxide Anion Gap BUN Creatinine Estim Creat Clear Calc Estimated GFR Glucose POC Capillary Glucose 108 H 113 H 121 H Calcium 01/31/25 01/31/25 05:13 05:41 WBC 6.5 RBC 3.17 L Hgb 9.2 L Hct 29.7 L MCV 93.7 MCH 29.0 MCHC 31.0 L RDW 12.6 Plt Count 292 MPV 8.8 Sodium 137 Potassium 3.5 Chloride 104 Carbon Dioxide 26 Anion Gap 7 BUN 5 L Creatinine 0.61 L Estim Creat Clear Calc 146 Estimated GFR > 60 Glucose 109 POC Capillary Glucose 110 H Calcium 8.2 L
--- NOTE | 2025-01-31 09:27 | PM.PNGS ---
Progress Note: A&P Assessment and Plan (1) Abscess of female pelvis: Code(s): N73.9 - Female pelvic inflammatory disease, unspecified Status: Acute Assessment and Plan: Pelvic abscess s/p percutaneous drainage on 01/30/25. Cultures pending. Abdominal pain and tenderness improved following drainage. WBC normal. Will order water-soluble contrast enema today to further evaluate for colonic injury due to recent hysterectomy. Continue IV ertapenem. Will keep her NPO for now while awaiting results of the contrast study. Plan I have discussed the patient's case and plan of care with Dr. Clark. Subjective Subjective Date/Time Seen: 01/31/25 09:27 Patient reports: afebrile Interval history: Patient feeling better status post percutaneous drainage. She feels her abdominal pain has improved and she is no longer having lower back pain. She is passing more flatus. Still no BM since Thursday. No nausea. Exam Const: General: comfortable and no acute distress GI: Inspection: non-distended and obesity GI Palp: Yes Soft to palpation, Yes Tenderness to palpation present (GI) (Minimal right lower quadrant and suprapubic tenderness, much improved), No Guarding due to palpation present (GI) and No Rebound tenderness present Other: Mid lower abdominal perc drain with minimal cloudy serosanguineous drainage, gauze dressing dry and intact Objective Data Vital Signs Vital Signs: Vital Signs - 24 hr 01/30/25 14:50 01/30/25 14:55 01/30/25 15:00 Temperature Pulse Rate 107 H 106 H 110 H Respiratory Rate 17 19 21 H Blood Pressure 139/93 H 138/91 H 132/87 Pulse Oximetry 97 98 100 Oxygen Delivery Room Air Room Air Room Air 01/30/25 15:05 01/30/25 15:10 01/30/25 15:15 Temperature Pulse Rate 111 H 110 H 108 H Respiratory Rate 21 H 20 22 H Blood Pressure 133/86 135/87 135/86 Pulse Oximetry 100 97 99 Oxygen Delivery Room Air Room Air Room Air 01/30/25 15:20 01/30/25 15:25 01/30/25 15:30 Temperature Pulse Rate 111 H 109 H 107 H Respiratory Rate 24 H 23 H 25 H Blood Pressure 131/86 133/87 136/85 Pulse Oximetry 98 99 99 Oxygen Delivery Room Air Room Air 01/30/25 15:35 01/30/25 15:40 01/30/25 15:45 Temperature Pulse Rate 109 H 107 H 106 H Respiratory Rate 16 23 H 18 Blood Pressure 131/87 133/89 131/87 Pulse Oximetry 99 99 100 Oxygen Delivery 01/30/25 16:00 01/30/25 16:03 01/30/25 16:18 Temperature 97.7 F 97.9 F 98.4 F Pulse Rate 104 H 104 H 98 Respiratory Rate 18 18 16 Blood Pressure 156/95 H 156/95 H 147/89 H Pulse Oximetry 99 99 99 Oxygen Delivery 01/30/25 16:38 01/30/25 16:48 01/30/25 20:00 Temperature 98.4 F 97.7 F Pulse Rate 98 99 Respiratory Rate 16 16 Blood Pressure 147/89 H 148/95 H Pulse Oximetry 99 98 Oxygen Delivery Room Air 01/30/25 21:48 01/31/25 01:48 01/31/25 05:48 Temperature 98.4 F 99.3 F 98.8 F Pulse Rate 100 104 H 98 Respiratory Rate 18 18 18 Blood Pressure 153/87 H 130/80 132/81 Pulse Oximetry 98 97 98 Oxygen Delivery 01/31/25 07:45 01/31/25 08:34 Temperature 97.1 F L 96.7 F L Pulse Rate 104 H 98 Respiratory Rate 18 16 Blood Pressure 136/86 135/83 Pulse Oximetry 97 99 Oxygen Delivery Intake/Output Intake/Output: Intake & Output 01/28/25 01/29/25 01/30/25 01/31/25 23:59 23:59 23:59 23:59 Intake Total 3554.2 3050 0 Output Total 1050 2050 400 Balance 2504.2 1000 -400 Meds/Results Medications: Active Medications Generic Name Dose Route Start Last Admin Trade Name Freq PRN Reason Stop Dose Admin Acetaminophen 650 mg 01/29/25 08:03 01/30/25 11:31 Acetaminophen 325 Mg Tablet PO 650 mg Q4H PRN Administration Mild Pain (1-3) or Fever Dextrose 25 gm 01/29/25 11:07 Dextrose 50% 25 Gm/50 Ml Syringe IV PUSH PRN PRN Hypoglycemia Hydromorphone HCl 1 mg 01/30/25 16:16 01/31/25 08:43 Hydromorphone Hcl Inj (*Crx) 1 Mg/Ml Syr IV PUSH 1 mg Q3H PRN Administration Pain Rated 7-10 Ertapenem 1 gm in 50 mls @ 100 mls/hr 01/29/25 12:00 01/30/25 12:01 Invanz 1 Gm/Ns 50 Ml IVPB Infused Q24H SLADE Infusion Dextrose/Sodium Chloride 1,000 mls @ 130 mls/hr 01/29/25 11:15 01/30/25 23:13 Dextrose 5% Sodium Chloride 0.9% IV CONT 130 mls/hr .Q7H42M SLADE Administration Ondansetron HCl 4 mg 01/29/25 08:03 Ondansetron Inj 4 Mg/2 Ml Vial IV PUSH Q4H PRN Nausea Radiology Results: ITS Impressions Abdomen/Pelvis CT 01/29/25 11:42 IMPRESSION: 1. Pelvic abscess which may be due to perforated bowel due to colitis or diverticulitis. 2. Minimal fullness of the renal pelvis and ureters bilaterally. 3. Hepatomegaly with fat infiltration. Catheter Placement CT 01/30/25 15:59 IMPRESSION: 1. Successful CT-guided pelvic abscess drainage catheter placement. 2. 20 mL fluid was sent for Gram stain and aerobic and anaerobic cultures. 3. The catheter will be managed by Dr. Clark. Labs Labs: Laboratory Results - last 24 hr 01/30/25 01/30/25 01/31/25 11:31 18:33 00:34 WBC RBC Hgb Hct MCV MCH MCHC RDW Plt Count MPV Sodium Potassium Chloride Carbon Dioxide Anion Gap BUN Creatinine Estim Creat Clear Calc Estimated GFR Glucose POC Capillary Glucose 108 H 113 H 121 H Calcium 01/31/25 01/31/25 05:13 05:41 WBC 6.5 RBC 3.17 L Hgb 9.2 L Hct 29.7 L MCV 93.7 MCH 29.0 MCHC 31.0 L RDW 12.6 Plt Count 292 MPV 8.8 Sodium 137 Potassium 3.5 Chloride 104 Carbon Dioxide 26 Anion Gap 7 BUN 5 L Creatinine 0.61 L Estim Creat Clear Calc 146 Estimated GFR > 60 Glucose 109 POC Capillary Glucose 110 H Calcium 8.2 L
[2025-01-31 12:01] LABS: Glucose Point of Care 109 mg/dl (65-105)
[2025-01-31] MEDS: ERTAPENEM 1 GM/NS 50 ML 1 GM/50 ML BAG IVPB (14:34)
[2025-01-31] MEDS: DEXTROSE 5%/0.9% SOD CHL 1,000 ML 130 ML IV CONT (17:50)
[2025-01-31 18:14] LABS: Glucose Point of Care 112 mg/dl (65-105)
[2025-02-01] VITALS: BP 144/84; PULSE 101; RESP 16; TEMP 36.8; O2SAT 96
[2025-02-01 00:01] LABS: Glucose Point of Care 113 mg/dl (65-105)
[2025-02-01] MEDS: DEXTROSE 5%/0.9% SOD CHL 1,000 ML 130 ML IV CONT ×2 (01:19→09:27)
[2025-02-01] MEDS: HYDROmorphone HCL INJ (*CRX) 1 MG/ML SYR IV PUSH ×3 (01:21→07:59)
[2025-02-01] MEDS: ACETAMINOPHEN 325 MG TABLET 650 MG PO ×4 (03:36→21:55)
[2025-02-01 03:57] VITALS: BP 144/86; PULSE 102; RESP 16; TEMP 36.9; O2SAT 97
[2025-02-01 06:26] LABS: Hematocrit 27.9 % (37.0-47.0); Hemoglobin 8.8 g/dL (12.0-15.0); Mean Corpuscular HGB Conc 31.5 g/dl (32-36); Mean Corpuscular Hemoglobin 28.7 pg (26-34); Mean Corpuscular Volume 90.9 fl (80-100); Mean Platelet Volume 8.7 fl (7.4-10.4); Platelet Count Result 279 k/mm3 (150-375); Red Blood Count 3.07 M/mm3 (4.2-5.4); Red Cell Distribution Width 12.8 % (11.5-14.5); White Blood Count 6.5 K/mm3 (4.5-10.0)
[2025-02-01 06:38] LABS: Anion Gap 6 mmol/L (4-12); Blood Urea Nitrogen 4 mg/dL (7-17); Calcium 8.2 mg/dL (8.4-10.2); Carbon Dioxide 25 mmol/L (22-30); Chloride 103 mmol/L (98-107); Estimated CRCL calculation 163 ml/min; Estimated Glomerular Filt Rate > 60; Glucose 109 mg/dL (65-110); Potassium 3.2 mmol/L (3.4-5.0); Sodium 134 mmol/L (137-145)
[2025-02-01 07:57] LABS: Glucose Point of Care 117 mg/dl (65-105)
[2025-02-01 08:00] VITALS: BP 145/82; PULSE 100; RESP 18; TEMP 36.6; O2SAT 99
[2025-02-01 08:21] LABS: Glucose Point of Care 108 mg/dl (65-105)
--- NOTE | 2025-02-01 09:33 | P.PNOB_ITS ---
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 Denies nausea, vomiting, fever, chills. Passing flatus. No bowel movement for 4 days. Improved low back pain. Contrast enema did not show defect in the colon in the area of the abscess. We will continue to look for direction from general surgery. LABOR RELATIONS OR PERSONNEL NEGOTIATOR - PN: Obj Data Vital Signs Vital Signs: Vital Signs - 24 hr 01/31/25 12:10 01/31/25 13:43 01/31/25 16:28 Temperature 99.3 F 99.0 F Pulse Rate 98 108 H Respiratory Rate 18 18 Blood Pressure 142/96 H 151/87 H 126/95 H Pulse Oximetry 97 100 01/31/25 20:38 02/01/25 00:00 02/01/25 03:57 Temperature 98.5 F 98.2 F 98.4 F Pulse Rate 108 H 101 H 102 H Respiratory Rate 16 16 16 Blood Pressure 150/76 H 144/84 H 144/86 H Pulse Oximetry 98 96 97 02/01/25 08:00 Temperature 97.9 F Pulse Rate 100 Respiratory Rate 18 Blood Pressure 145/82 H Pulse Oximetry 99 Intake/Output Intake/Output: Intake & Output 01/29/25 01/30/25 01/31/25 02/01/25 23:59 23:59 23:59 23:59 Intake Total 3554.2 3050 1290 2372.8 Output Total 1050 2050 1375 950 Balance 2504.2 1000 -85 1422.8 Meds/Results Medications: Active Medications Generic Name Dose Route Start Last Admin Trade Name Freq PRN Reason Stop Dose Admin Acetaminophen 650 mg 01/29/25 08:03 02/01/25 03:36 Acetaminophen 325 Mg Tablet PO 650 mg Q4H PRN Administration Mild Pain (1-3) or Fever Amoxicillin/Clavulanate Potassium 1 tablet 02/01/25 09:00 Amoxicillin/Clavulanate K 875-125 Mg Tab PO 02/11/25 21:01 Q12HR SLADE Dextrose 25 gm 01/29/25 11:07 Dextrose 50% 25 Gm/50 Ml Syringe IV PUSH PRN PRN Hypoglycemia Hydromorphone HCl 1 mg 01/30/25 16:16 02/01/25 07:59 Hydromorphone Hcl Inj (*Crx) 1 Mg/Ml Syr IV PUSH 1 mg Q3H PRN Administration Pain Rated 7-10 Dextrose/Sodium Chloride 1,000 mls @ 130 mls/hr 01/29/25 11:15 02/01/25 09:27 Dextrose 5% Sodium Chloride 0.9% IV CONT 130 mls/hr .Q7H42M SLADE Administration Ondansetron HCl 4 mg 01/29/25 08:03 Ondansetron Inj 4 Mg/2 Ml Vial IV PUSH Q4H PRN Nausea Radiology Results: ITS Impressions Abdomen/Pelvis CT 01/29/25 11:42 IMPRESSION: 1. Pelvic abscess which may be due to perforated bowel due to colitis or diverticulitis. 2. Minimal fullness of the renal pelvis and ureters bilaterally. 3. Hepatomegaly with fat infiltration. Catheter Placement CT 01/30/25 15:59 IMPRESSION: 1. Successful CT-guided pelvic abscess drainage catheter placement. 2. 20 mL fluid was sent for Gram stain and aerobic and anaerobic cultures. 3. The catheter will be managed by Dr. Clark. Enema w/Water Soluble 01/31/25 11:27 IMPRESSION: 1. No evident colon leak. 2. Loop of a percutaneous abscess drain projecting over the central pelvis. Labs 02/01/25 05:55 02/01/25 05:55 Labs: Laboratory Results - last 24 hr 01/31/25 01/31/25 01/31/25 11:57 18:11 23:47 WBC RBC Hgb Hct MCV MCH MCHC RDW Plt Count MPV Sodium Potassium Chloride Carbon Dioxide Anion Gap BUN Creatinine Estim Creat Clear Calc Estimated GFR Glucose POC Capillary Glucose 109 H 112 H 113 H Calcium 02/01/25 02/01/25 02/01/25 05:52 05:55 08:17 WBC 6.5 RBC 3.07 L Hgb 8.8 L Hct 27.9 L MCV 90.9 MCH 28.7 MCHC 31.5 L RDW 12.8 Plt Count 279 MPV 8.7 Sodium 134 L Potassium 3.2 L Chloride 103 Carbon Dioxide 25 Anion Gap 6 BUN 4 L Creatinine 0.54 L Estim Creat Clear Calc 163 Estimated GFR > 60 Glucose 109 POC Capillary Glucose 117 H 108 H Calcium 8.2 L
[2025-02-01] MEDS: AMOXICILLIN/CLAVULANATE K 875-125 MG TAB 1 TABLET PO ×2 (10:13→20:51)
--- NOTE | 2025-02-01 11:11 | P.PNGS_ITS ---
Progress Note: A&P Assessment and Plan (1) Abscess of female pelvis: Code(s): N73.9 - Female pelvic inflammatory disease, unspecified Status: Acute Assessment and Plan: Pelvic abscess s/p percutaneous drainage on 01/30/25. Cultures pending, gram stain showed gram-positive cocci. Minimal abdominal pain and tenderness today. WBC normal. WS contrast enema showed no evidence of a colon leak. Will advance diet as tolerated to regular diet. Will also stop the IV antibiotics and switch to Augmentin. She will need treatment for at least 14 days. Potassium 3.2 this morning and replaced with oral KCL. Repeat labs tomorrow and we will also order a repeat CT scan of the abdomen and pelvis to re-evaluate the pelvic abscess. Plan I have discussed the patient's case and plan of care with Dr. Clark. Subjective Subjective Date/Time Seen: 02/01/25 11:11 Patient reports: no new complaints, feels better, pain is less, flatus, bowel movement and afebrile Interval history: Patient's pain continues to improve. She reports some dull soreness in the suprapubic area near the drain and near her incisions. No significant pelvic pain or back pain today. She is tolerating full liquids and has been advanced to a regular diet for lunch. She had multiple bowel movements after the contrast enema yesterday. White blood cell count remains normal. Exam Const: General: comfortable and no acute distress Nutritional Appearance: obese GI: Inspection: non-distended, Pannus present and obesity GI Palp: Yes Soft to palpation, Yes Tenderness to palpation present (GI) (Very minimal tenderness in the suprapubic area near the drain), No Guarding due to palpation present (GI) and No Rebound tenderness present Auscultation: normal bowel sounds O ther: Mid lower abdominal perc drain with minimal cloudy serosanguineous drainage, gauze dressing dry and intact Objective Data Vital Signs Vital Signs: Vital Signs - 24 hr 01/31/25 12:10 01/31/25 13:43 01/31/25 16:28 Temperature 99.3 F 99.0 F Pulse Rate 98 108 H Respiratory Rate 18 18 Blood Pressure 142/96 H 151/87 H 126/95 H Pulse Oximetry 97 100 01/31/25 20:38 02/01/25 00:00 02/01/25 03:57 Temperature 98.5 F 98.2 F 98.4 F Pulse Rate 108 H 101 H 102 H Respiratory Rate 16 16 16 Blood Pressure 150/76 H 144/84 H 144/86 H Pulse Oximetry 98 96 97 02/01/25 08:00 Temperature 97.9 F Pulse Rate 100 Respiratory Rate 18 Blood Pressure 145/82 H Pulse Oximetry 99 Intake/Output Intake/Output: Intake & Output 01/29/25 01/30/25 01/31/25 02/01/25 23:59 23:59 23:59 23:59 Intake Total 3554.2 3050 1290 2609.8 Output Total 1050 2050 1375 1950 Balance 2504.2 1000 -85 659.8 Meds/Results Medications: Active Medications Generic Name Dose Route Start Last Admin Trade Name Freq PRN Reason Stop Dose Admin Acetaminophen 650 mg 01/29/25 08:03 02/01/25 03:36 Acetaminophen 325 Mg Tablet PO 650 mg Q4H PRN Administration Mild Pain (1-3) or Fever Amoxicillin/Clavulanate Potassium 1 tablet 02/01/25 09:00 02/01/25 10:13 Amoxicillin/Clavulanate K 875-125 Mg Tab PO 02/11/25 21:01 1 tablet Q12HR SLADE Administration Dextrose 25 gm 01/29/25 11:07 Dextrose 50% 25 Gm/50 Ml Syringe IV PUSH PRN PRN Hypoglycemia Hydromorphone HCl 1 mg 01/30/25 16:16 02/01/25 07:59 Hydromorphone Hcl Inj (*Crx) 1 Mg/Ml Syr IV PUSH 1 mg Q3H PRN Administration Pain Rated 7-10 Ondansetron HCl 4 mg 01/29/25 08:03 Ondansetron Inj 4 Mg/2 Ml Vial IV PUSH Q4H PRN Nausea Radiology Results: ITS Impressions Abdomen/Pelvis CT 01/29/25 11:42 IMPRESSION: 1. Pelvic abscess which may be due to perforated bowel due to colitis or diverticulitis. 2. Minimal fullness of the renal pelvis and ureters bilaterally. 3. Hepatomegaly with fat infiltration. Catheter Placement CT 01/30/25 15:59 IMPRESSION: 1. Successful CT-guided pelvic abscess drainage catheter placement. 2. 20 mL fluid was sent for Gram stain and aerobic and anaerobic cultures. 3. The catheter will be managed by Dr. Clark. Enema w/Water Soluble 01/31/25 11:27 IMPRESSION: 1. No evident colon leak. 2. Loop of a percutaneous abscess drain projecting over the central pelvis. Labs Labs: Laboratory Results - last 24 hr 01/31/25 01/31/25 01/31/25 11:57 18:11 23:47 WBC RBC Hgb Hct MCV MCH MCHC RDW Plt Count MPV Sodium Potassium Chloride Carbon Dioxide Anion Gap BUN Creatinine Estim Creat Clear Calc Estimated GFR Glucose POC Capillary Glucose 109 H 112 H 113 H Calcium 02/01/25 02/01/25 02/01/25 05:52 05:55 08:17 WBC 6.5 RBC 3.07 L Hgb 8.8 L Hct 27.9 L MCV 90.9 MCH 28.7 MCHC 31.5 L RDW 12.8 Plt Count 279 MPV 8.7 Sodium 134 L Potassium 3.2 L Chloride 103 Carbon Dioxide 25 Anion Gap 6 BUN 4 L Creatinine 0.54 L Estim Creat Clear Calc 163 Estimated GFR > 60 Glucose 109 POC Capillary Glucose 117 H 108 H Calcium 8.2 L
[2025-02-01 12:00] VITALS: BP 146/84; PULSE 110; RESP 14; TEMP 36.8; O2SAT 100
[2025-02-01 12:02] LABS: Glucose Point of Care 94 mg/dl (65-105)
[2025-02-01] MEDS: POTASSIUM CHLORIDE 20 MEQ ER TABLET 40 MEQ PO (12:16)
[2025-02-01] MEDS: DICYCLOMINE HCL 10 MG CAPSULE 20 MG PO ×2 (13:27→20:48)
[2025-02-01 16:00] VITALS: BP 144/95; PULSE 105; RESP 16; TEMP 36.9; O2SAT 100
[2025-02-01 17:10] LABS: Glucose Point of Care 111 mg/dl (65-105)
[2025-02-01 20:00] VITALS: BP 137/91; PULSE 72; RESP 16; TEMP 36.9; O2SAT 98
[2025-02-01 23:52] LABS: Glucose Point of Care 108 mg/dl (65-105)
[2025-02-02] MEDS: DICYCLOMINE HCL 10 MG CAPSULE 20 MG PO ×4 (03:20→23:49)
[2025-02-02] MEDS: ACETAMINOPHEN 325 MG TABLET 650 MG PO ×4 (03:20→20:22)
[2025-02-02 04:59] VITALS: BP 145/87; PULSE 82; RESP 16; TEMP 36.7; O2SAT 100
[2025-02-02 05:56] LABS: Glucose Point of Care 107 mg/dl (65-105)
[2025-02-02 06:16] LABS: Hemoglobin 9.4 g/dL (12.0-15.0); Mean Corpuscular HGB Conc 31.3 g/dl (32-36); Mean Corpuscular Hemoglobin 28.6 pg (26-34); Mean Corpuscular Volume 91.2 fl (80-100); Mean Platelet Volume 8.8 fl (7.4-10.4); Platelet Count Result 316 k/mm3 (150-375); Red Blood Count 3.29 M/mm3 (4.2-5.4); Red Cell Distribution Width 12.7 % (11.5-14.5); White Blood Count 7.6 K/mm3 (4.5-10.0)
[2025-02-02 06:36] LABS: Anion Gap 6 mmol/L (4-12); Blood Urea Nitrogen 7 mg/dL (7-17); Calcium 8.6 mg/dL (8.4-10.2); Carbon Dioxide 26 mmol/L (22-30); Chloride 105 mmol/L (98-107); Estimated CRCL calculation 158 ml/min; Estimated Glomerular Filt Rate > 60; Glucose 96 mg/dL (65-110); Potassium 3.5 mmol/L (3.4-5.0); Sodium 137 mmol/L (137-145)
--- NOTE | 2025-02-02 08:17 | P.PNOB_ITS ---
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 Minimal pain. Multiple bowel movements. Flatus. No nausea, vomiting, fever, chills. Await repeat CT and culture results. Postoperative Procedures: Procedures Operation Date: 01/30/25 14:30 Actual Procedure Side Surgeon p Computed Tomography Guided Abscess Catheter Placement Kadeem Carrasquillo MD Time Spent With Patient Time: Total time spent is greater than 50% in coordination of care (as documented) at patient's floor/unit and/or counseling patient: Time with patient: less than 15 minutes MATERIALS MANAGER- PN:Subj Post-Op Subjective Date/time seen: 02/02/25 08:17 patient appears well. Minimal pain. Multiple bowel movements. Flatus. No nausea, vomiting, fever, chills. Await repeat CT and culture results. MATERIALS MANAGER - PN: Obj Data Vital Signs Vital Signs: Vital Signs - 24 hr 02/01/25 12:00 02/01/25 16:00 02/01/25 20:00 Temperature 98.3 F 98.4 F 98.4 F Pulse Rate 110 H 105 H 72 Respiratory Rate 14 16 16 Blood Pressure 146/84 H 144/95 H 137/91 H Pulse Oximetry 100 100 98 02/02/25 04:59 Temperature 98.1 F Pulse Rate 82 Respiratory Rate 16 Blood Pressure 145/87 H Pulse Oximetry 100 Intake/Output Intake/Output: Intake & Output 01/30/25 01/31/25 02/01/25 02/02/25 23:59 23:59 23:59 23:59 Intake Total 3050 1290 2849.8 Output Total 2050 1375 4165 700 Balance 1000 -85 -1315.2 -700 Meds/Results Medications: Active Medications Generic Name Dose Route Start Last Admin Trade Name Freq PRN Reason Stop Dose Admin Acetaminophen 650 mg 01/29/25 08:03 02/02/25 03:20 Acetaminophen 325 Mg Tablet PO 650 mg Q4H PRN Administration Mild Pain (1-3) or Fever Amoxicillin/Clavulanate Potassium 1 tablet 02/01/25 09:00 02/01/25 20:51 Amoxicillin/Clavulanate K 875-125 Mg Tab PO 02/11/25 21:01 1 tablet Q12HR SLADE Administration Dextrose 25 gm 01/29/25 11:07 Dextrose 50% 25 Gm/50 Ml Syringe IV PUSH PRN PRN Hypoglycemia Dicyclomine HCl 20 mg 02/01/25 12:01 02/02/25 03:20 Dicyclomine Hcl 10 Mg Capsule PO 20 mg QID PRN Administration Abdominal Cramping Hydromorphone HCl 1 mg 01/30/25 16:16 02/01/25 07:59 Hydromorphone Hcl Inj (*Crx) 1 Mg/Ml Syr IV PUSH 1 mg Q3H PRN Administration Pain Rated 7-10 Ondansetron HCl 4 mg 01/29/25 08:03 Ondansetron Inj 4 Mg/2 Ml Vial IV PUSH Q4H PRN Nausea Radiology Results: ITS Impressions Catheter Placement CT 01/30/25 15:59 IMPRESSION: 1. Successful CT-guided pelvic abscess drainage catheter placement. 2. 20 mL fluid was sent for Gram stain and aerobic and anaerobic cultures. 3. The catheter will be managed by Dr. Clark. Enema w/Water Soluble 01/31/25 11:27 IMPRESSION: 1. No evident colon leak. 2. Loop of a percutaneous abscess drain projecting over the central pelvis. Labs 02/02/25 05:43 02/02/25 05:44 Labs: Laboratory Results - last 24 hr 02/01/25 02/01/25 02/01/25 08:17 11:58 17:01 WBC RBC Hgb Hct MCV MCH MCHC RDW Plt Count MPV Sodium Potassium Chloride Carbon Dioxide Anion Gap BUN Creatinine Estim Creat Clear Calc Estimated GFR Glucose POC Capillary Glucose 108 H 94 111 H Calcium Magnesium 02/01/25 02/02/25 02/02/25 23:41 05:38 05:43 WBC 7.6 RBC 3.29 L Hgb 9.4 L Hct 30.0 L MCV 91.2 MCH 28.6 MCHC 31.3 L RDW 12.7 Plt Count 316 MPV 8.8 Sodium Potassium Chloride Carbon Dioxide Anion Gap BUN Creatinine Estim Creat Clear Calc Estimated GFR Glucose POC Capillary Glucose 108 H 107 H Calcium Magnesium 02/02/25 05:44 WBC RBC Hgb Hct MCV MCH MCHC RDW Plt Count MPV Sodium 137 Potassium 3.5 Chloride 105 Carbon Dioxide 26 Anion Gap 6 BUN 7 Creatinine 0.56 L Estim Creat Clear Calc 158 Estimated GFR > 60 Glucose 96 POC Capillary Glucose Calcium 8.6 Magnesium 2.0
[2025-02-02] MEDS: AMOXICILLIN/CLAVULANATE K 875-125 MG TAB 1 TABLET PO ×2 (09:50→20:22)
[2025-02-02 11:47] LABS: Glucose Point of Care 110 mg/dl (65-105)
--- NOTE | 2025-02-02 12:40 | PM.PNGS ---
Progress Note: A&P Assessment and Plan (1) Abscess of female pelvis: Code(s): N73.9 - Female pelvic inflammatory disease, unspecified Status: Acute Assessment and Plan: Pelvic abscess s/p percutaneous drainage on 01/30/25. Cultures pending, gram stain showed gram-positive cocci. Repeat CT abdomen and pelvis today showed a decrease in size of the pelvic abscess and a new abscess along the anterior dome of the bladder. Will discuss with IR to see if the new abscess would be amenable to percutaneous drainage. The current drain will need to stay and place for now. Once the second abscess is drained, she could discharge home on oral antibiotics with both drains and plan to follow-up as an outpatient next week in our office with a repeat CT scan. She will need to be on oral antibiotics for at least 2 weeks, likely longer. Plan I have discussed the patient's case and plan of care with Dr. Clark. Subjective Subjective Date/Time Seen: 02/02/25 12:40 Patient reports: no new complaints, flatus, bowel movement and afebrile Interval history: Patient is doing well. Still reports some lower abdominal soreness with movement and when she is up walking, but no significant pain. Overall much improved. No nausea or vomiting. She is tolerating her diet well. Exam GI: Inspection: non-distended, Pannus present and obesity GI Palp: Yes Soft to palpation, Yes Tenderness to palpation present (GI) (mild suprapubic tenderness, no more tenderness in the RLQ), No Guarding due to palpation present (GI) and No Rebound tenderness present Auscultation: normal bowel sounds Other: Mid lower abdominal perc drain with moderate amount of cloudy serosanguineous drainage, gauze dressing dry and intact Objective Data Vital Signs Vital Signs: Vital Signs - 24 hr 02/01/25 16:00 02/01/25 20:00 02/02/25 04:59 Temperature 98.4 F 98.4 F 98.1 F Pulse Rate 105 H 72 82 Respiratory Rate 16 16 16 Blood Pressure 144/95 H 137/91 H 145/87 H Pulse Oximetry 100 98 100 Oxygen Delivery 02/02/25 08:00 Temperature Pulse Rate Respiratory Rate Blood Pressure Pulse Oximetry Oxygen Delivery Room Air Intake/Output Intake/Output: Intake & Output 01/30/25 01/31/25 02/01/25 02/02/25 23:59 23:59 23:59 23:59 Intake Total 3050 1290 2849.8 480 Output Total 7100 1375 4165 1330 Balance 1000 -85 -1315.2 -850 Meds/Results Medications: Active Medications Generic Name Dose Route Start Last Admin Trade Name Freq PRN Reason Stop Dose Admin Acetaminophen 650 mg 01/29/25 08:03 02/02/25 09:57 Acetaminophen 325 Mg Tablet PO 650 mg Q4H PRN Administration Mild Pain (1-3) or Fever Amoxicillin/Clavulanate Potassium 1 tablet 02/01/25 09:00 02/02/25 09:50 Amoxicillin/Clavulanate K 875-125 Mg Tab PO 02/11/25 21:01 1 tablet Q12HR SLADE Administration Dextrose 25 gm 01/29/25 11:07 Dextrose 50% 25 Gm/50 Ml Syringe IV PUSH PRN PRN Hypoglycemia Dicyclomine HCl 20 mg 02/01/25 12:01 02/02/25 11:04 Dicyclomine Hcl 10 Mg Capsule PO 20 mg QID PRN Administration Abdominal Cramping Hydromorphone HCl 1 mg 01/30/25 16:16 02/01/25 07:59 Hydromorphone Hcl Inj (*Crx) 1 Mg/Ml Syr IV PUSH 1 mg Q3H PRN Administration Pain Rated 7-10 Ondansetron HCl 4 mg 01/29/25 08:03 Ondansetron Inj 4 Mg/2 Ml Vial IV PUSH Q4H PRN Nausea Radiology Results: ITS Impressions Catheter Placement CT 01/30/25 15:59 IMPRESSION: 1. Successful CT-guided pelvic abscess drainage catheter placement. 2. 20 mL fluid was sent for Gram stain and aerobic and anaerobic cultures. 3. The catheter will be managed by Dr. Clark. Enema w/Water Soluble 01/31/25 11:27 IMPRESSION: 1. No evident colon leak. 2. Loop of a percutaneous abscess drain projecting over the central pelvis. Abdomen/Pelvis CT 02/02/25 09:37 IMPRESSION: 1. Significant decrease in size of a abscess cavity at the uterine fossa post percutaneous abscess drainage catheter placement. 2. Increase in size and more organized appearance to a second abscess more anteriorly in the pelvis along the anterior dome of the bladder. 3. Mild bilateral hydroureteronephrosis without evident obstructing stone and likely secondary to the residual postoperative inflammatory changes in the pelvis. Labs Labs: Laboratory Results - last 24 hr 02/01/25 02/01/25 02/02/25 17:01 23:41 05:38 WBC RBC Hgb Hct MCV MCH MCHC RDW Plt Count MPV Sodium Potassium Chloride Carbon Dioxide Anion Gap BUN Creatinine Estim Creat Clear Calc Estimated GFR Glucose POC Capillary Glucose 111 H 108 H 107 H Calcium Magnesium 02/02/25 02/02/25 02/02/25 05:43 05:44 11:45 WBC 7.6 RBC 3.29 L Hgb 9.4 L Hct 30.0 L MCV 91.2 MCH 28.6 MCHC 31.3 L RDW 12.7 Plt Count 316 MPV 8.8 Sodium 137 Potassium 3.5 Chloride 105 Carbon Dioxide 26 Anion Gap 6 BUN 7 Creatinine 0.56 L Estim Creat Clear Calc 158 Estimated GFR > 60 Glucose 96 POC Capillary Glucose 110 H Calcium 8.6 Magnesium 2.0
[2025-02-02 13:58] VITALS: BP 137/81; PULSE 99; RESP 16; TEMP 36.4; O2SAT 99
[2025-02-02 16:55] LABS: Glucose Point of Care 105 mg/dl (65-105)
[2025-02-02 20:00] VITALS: BP 142/84; PULSE 95; RESP 14; TEMP 36.6; O2SAT 100
[2025-02-02 21:03] LABS: Glucose Point of Care 107 mg/dl (65-105)
[2025-02-03] MEDS: ACETAMINOPHEN 325 MG TABLET 650 MG PO ×2 (04:00→12:52)
[2025-02-03 05:52] VITALS: BP 144/82; PULSE 86; RESP 13; TEMP 36.4; O2SAT 99
[2025-02-03 07:57] LABS: Glucose Point of Care 104 mg/dl (65-105)
[2025-02-03] MEDS: HYDROmorphone HCL INJ (*CRX) 1 MG/ML SYR IV PUSH (08:30)
[2025-02-03] MEDS: AMOXICILLIN/CLAVULANATE K 875-125 MG TAB 1 TABLET PO (08:30)
--- NOTE | 2025-02-03 09:28 | WPDPN ---
Progress Note: A&P Assessment and Plan (1) Abscess of female pelvis: Code(s): N73.9 - Female pelvic inflammatory disease, unspecified Status: Acute Assessment and Plan: Patient admitted with a postoperative pelvic abscess after robotic assisted laparoscopic total abdominal hysterectomy and bilateral salpingo oophorectomy. Does not appear to have any evidence of a bowel injury by clinical exam, labs or imaging studies. She is having bowel movements and tolerating diet. Second pelvic drain is replaced today. After the drain is in place she is doing well she can be discharged home on oral antibiotics. Cultures show Gram-positive cocci in the anaerobic culture and no growth in the aerobic culture. Will keep her on Flagyl and Augmentin orally for 14 days after discharge from the hospital. She will call my office on Thursday to get directions on when to get a CT scan abdomen pelvis with IV contrast next week. Depending on the results of that CT scan will contact her for follow-up in the office and hopefully have her drains removed. Subjective Date/time seen: 02/03/25 09:28 Interval history: Patient is doing pretty well. Minimal abdominal pelvic pain. No nausea. She is having bowel movements which are loose. No blood in her bowel movements. No fever. Blood count is normal. She is to get a 2nd pelvic drain today by Interventional Radiology and CT guidance for a residual abscess in the pelvis. She already has existing CT-guided drain which is working well. Exam GI: Other: Soft and obese. Nondistended. Left lower quadrant CT guided drain in place. Dressing is dry. Output from the drain is minimal bloody serous. No feculent material. No guarding or peritoneal signs. Objective Data Vital Signs Vital Signs: Vital Signs - 24 hr 02/02/25 13:58 02/02/25 20:00 02/03/25 05:52 Temperature 36.4 C L 36.6 C 36.4 C Pulse Rate 99 95 86 Respiratory Rate 16 14 13 Blood Pressure 137/81 142/84 H 144/82 H Pulse Oximetry 99 100 99 Intake/Output Intake/Output: Intake & Output 01/31/25 02/01/25 02/02/25 02/03/25 23:59 23:59 23:59 23:59 Intake Total 1290 2849.8 720 350 Output Total 1375 4165 2980 1200 Balance -85 -1315.2 -2260 -850 Meds/Results Medications: Active Medications Generic Name Dose Route Start Last Admin Trade Name Freq PRN Reason Stop Dose Admin Acetaminophen 650 mg 01/29/25 08:03 02/03/25 04:00 Acetaminophen 325 Mg Tablet PO 650 mg Q4H PRN Administration Mild Pain (1-3) or Fever Amoxicillin/Clavulanate Potassium 1 tablet 02/01/25 09:00 02/03/25 08:30 Amoxicillin/Clavulanate K 875-125 Mg Tab PO 02/11/25 21:01 1 tablet Q12HR SLADE Administration Dextrose 25 gm 01/29/25 11:07 Dextrose 50% 25 Gm/50 Ml Syringe IV PUSH PRN PRN Hypoglycemia Dicyclomine HCl 20 mg 02/01/25 12:01 02/02/25 23:49 Dicyclomine Hcl 10 Mg Capsule PO 20 mg QID PRN Administration Abdominal Cramping Hydromorphone HCl 1 mg 01/30/25 16:16 02/03/25 08:30 Hydromorphone Hcl Inj (*Crx) 1 Mg/Ml Syr IV PUSH 1 mg Q3H PRN Administration Pain Rated 7-10 Metronidazole 500 mg 02/03/25 14:00 Metronidazole 500 Mg Tablet PO Q8HR SLADE Ondansetron HCl 4 mg 01/29/25 08:03 Ondansetron Inj 4 Mg/2 Ml Vial IV PUSH Q4H PRN Nausea Radiology Results: ITS Impressions Catheter Placement CT 01/30/25 15:59 IMPRESSION: 1. Successful CT-guided pelvic abscess drainage catheter placement. 2. 20 mL fluid was sent for Gram stain and aerobic and anaerobic cultures. 3. The catheter will be managed by Dr. Clark. Enema w/Water Soluble 01/31/25 11:27 IMPRESSION: 1. No evident colon leak. 2. Loop of a percutaneous abscess drain projecting over the central pelvis. Abdomen/Pelvis CT 02/02/25 09:37 IMPRESSION: 1. Significant decrease in size of a abscess cavity at the uterine fossa post percutaneous abscess drainage catheter placement. 2. Increase in size and more organized appearance to a second abscess more anteriorly in the pelvis along the anterior dome of the bladder. 3. Mild bilateral hydroureteronephrosis without evident obstructing stone and likely secondary to the residual postoperative inflammatory changes in the pelvis. Labs Labs: Laboratory Results - last 24 hr 04/08/1902/02/25 02/02/25 11:45 16:44 20:49 POC Capillary Glucose 110 H 105 107 H 02/03/25 07:52 POC Capillary Glucose 104
[2025-02-03 12:04] LABS: Glucose Point of Care 89 mg/dl (65-105)
[2025-02-03] MEDS: DICYCLOMINE HCL 10 MG CAPSULE 20 MG PO (12:52)
[2025-02-03] MEDS: metroNIDAZOLE 500 MG TABLET PO (12:53)
--- NOTE | 2025-02-03 13:56 | PM.GYNPNOP ---
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 Patient is to be discharged home. She has been prescribed antibiotics by Dr. Clark. She will follow-up with me next week. She is doing very we Postoperative Procedures: Procedures Operation Date: 01/30/25 14:30 Actual Procedure Side Surgeon p Computed Tomography Guided Abscess Catheter Placement Kadeem Carrasquillo MD Operation Date: 02/03/25 11:00 <No data on this case meets the specified criteria> Time Spent With Patient Time: Total time spent is greater than 50% in coordination of care (as documented) at patient's floor/unit and/or counseling patient: Time with patient: 15 - 25 minutes COAT HANGER SHAPER MACHINE OPERATOR- PN:Subj Post-Op Subjective Date/time seen: 02/03/25 13:56 No 2nd drain was placed today, neither abscess cavity could be visualized on CT scan. Patient is to be discharged home. She has been prescribed antibiotics by Dr. Clark. She will follow-up with me next week. She is doing very well. Interval history: Patient is doing pretty well. Minimal abdominal pelvic pain. No nausea. She is having bowel movements which are loose. No blood in her bowel movements. No fever. Blood count is normal. She is to get a 2nd pelvic drain today by Interventional Radiology and CT guidance for a residual abscess in the pelvis. She already has existing CT-guided drain which is working well. COAT HANGER SHAPER MACHINE OPERATOR - PN: Obj Data Vital Signs Vital Signs: Vital Signs - 24 hr 02/02/25 13:58 02/02/25 20:00 02/03/25 05:52 Temperature 97.5 F L 97.8 F 97.6 F Pulse Rate 99 95 86 Respiratory Rate 16 14 13 Blood Pressure 137/81 142/84 H 144/82 H Pulse Oximetry 99 100 99 Intake/Output Intake/Output: Intake & Output 01/31/25 02/01/25 02/02/25 02/03/25 23:59 23:59 23:59 23:59 Intake Total 1290 2849.8 720 350 Output Total 1375 4165 2980 1200 Balance -85 -1315.2 -2260 -850 Meds/Results Medications: Active Medications Generic Name Dose Route Start Last Admin Trade Name Freq PRN Reason Stop Dose Admin Acetaminophen 650 mg 01/29/25 08:03 02/03/25 12:52 Acetaminophen 325 Mg Tablet PO 650 mg Q4H PRN Administration Mild Pain (1-3) or Fever Amoxicillin/Clavulanate Potassium 1 tablet 02/01/25 09:00 02/03/25 08:30 Amoxicillin/Clavulanate K 875-125 Mg Tab PO 02/11/25 21:01 1 tablet Q12HR SLADE Administration Dextrose 25 gm 01/29/25 11:07 Dextrose 50% 25 Gm/50 Ml Syringe IV PUSH PRN PRN Hypoglycemia Dicyclomine HCl 20 mg 02/01/25 12:01 02/03/25 12:52 Dicyclomine Hcl 10 Mg Capsule PO 20 mg QID PRN Administration Abdominal Cramping Hydromorphone HCl 1 mg 01/30/25 16:16 02/03/25 08:30 Hydromorphone Hcl Inj (*Crx) 1 Mg/Ml Syr IV PUSH 1 mg Q3H PRN Administration Pain Rated 7-10 Metronidazole 500 mg 02/03/25 14:00 02/03/25 12:53 Metronidazole 500 Mg Tablet PO 500 mg Q8HR SLADE Administration Ondansetron HCl 4 mg 01/29/25 08:03 Ondansetron Inj 4 Mg/2 Ml Vial IV PUSH Q4H PRN Nausea Radiology Results: ITS Impressions Catheter Placement CT 01/30/25 15:59 IMPRESSION: 1. Successful CT-guided pelvic abscess drainage catheter placement. 2. 20 mL fluid was sent for Gram stain and aerobic and anaerobic cultures. 3. The catheter will be managed by Dr. Clark. Enema w/Water Soluble 01/31/25 11:27 IMPRESSION: 1. No evident colon leak. 2. Loop of a percutaneous abscess drain projecting over the central pelvis. Abdomen/Pelvis CT 02/02/25 09:37 IMPRESSION: 1. Significant decrease in size of a abscess cavity at the uterine fossa post percutaneous abscess drainage catheter placement. 2. Increase in size and more organized appearance to a second abscess more anteriorly in the pelvis along the anterior dome of the bladder. 3. Mild bilateral hydroureteronephrosis without evident obstructing stone and likely secondary to the residual postoperative inflammatory changes in the pelvis. Labs 02/02/25 05:43 02/02/25 05:44 Labs: Laboratory Results - last 24 hr 02/02/25 02/02/25 02/03/25 16:44 20:49 07:52 POC Capillary Glucose 105 107 H 104 02/03/25 11:41 POC Capillary Glucose 89
--- NOTE | 2025-02-03 13:57 | PM.DS ---
DS: Admitting Diagnosis Discharge Date February 03, 2025 Admitting Diagnosis Postop pelvic abscess. DS: Discharge Diagnosis Discharge Diagnosis (1) Abscess of female pelvis: Code(s): N73.9 - Female pelvic inflammatory disease, unspecified Status: Acute DS: Summary Hospital Course Hospital Course: 44-year-old female who was admitted to the hospital after ER evaluation for pelvic pain. Evaluation revealed a pelvic abscess. A drain was placed by interventional radiology. Over the following days she improved. Her symptoms improved. Abscess became smaller care. A 2nd abscess was observed on 1 CT scan. It was absent on a follow-up CT scan. A 2nd drain was not necessary. She was afebrile throughout her stay. Her mildly elevated white count quickly resolved. She received antibiotics throughout her stay. She was discharged home after 4 days in the hospital. She is discharged home on antibiotics and has pain meds from her operation. Time Spent with Patient Time attestation: Total time spent providing and/or coordinating discharge services: DS: Data Data Completed and Pending Labs on day of discharge: Labs from last 24 hours 02/03/25 02/03/25 02/02/25 11:41 07:52 20:49 POC Capillary Glucose 89 104 107 H 02/02/25 16:44 POC Capillary Glucose 105 Preliminary micro results at discharge 01/30/25 15:48 Anaerobic Culture - Preliminary Abscess Prevotella species Discharge Plan Discharge Consulting providers: Chapito Clark Discharging Clinician: Oliver Patricia Patient Disposition: Home Activity: no shower and other - see discharge instructions Diet: low fiber and other - see discharge instructions Wound Care Instructions: other - see discharge instructions Discharge Instructions: Patient may discharge home today after CT-guided drain placement is doing well. Patient to call my office on ThursdayFebruary 06 for directions on getting outpatient CT scan of the abdomen pelvis next week. My office will arrange for the CT scan. Follow-up will be pending the results of that CT scan in my office. Patient will need to sponge bath until drains are removed. Please make sure patient is taught drain care before she is discharged. Patient have a low-fiber diet at home. Patient was also instructed to take a probiotic in her the cephalad [id number] or any eat yogurt with active cultures. Prescriptions for oral pain medications are written. Patient Instructions: Antibiotic Form Patient Language: Jamaican Stand Alone Forms: General Discharge Information Follow-up/Referrals: Chapito Clark MD [Physician] - (Call Dr. Clark office on ThursdayFebruary 06 for instructions on getting CT scan as an outpatient. ) Discharge Medications: New amoxicillin-pot clavulanate 875-125 mg tablet 1 tablet PO Q12H Qty: 30 0RF dicyclomine 10 mg capsule 10 mg PO BID PRN (Reason: abdominal pain) Qty: 20 0RF metronidazole 500 mg tablet 500 mg PO Q8H Qty: 45 0RF No Action loratadine [Claritin] 10 mg tablet 10 mg PO HS hydrocodone-acetaminophen 5-325 mg tablet 1 - 2 tablet PO Q6H PRN (Reason: pain) Qty: 25 0RF estradiol 1 mg tablet 1 mg PO DAILY Qty: 30 12RF Date of admission: 01/30/25 10:19 Primary Care Provider: Ruma,Fanny Ayala Admitting Provider: Oliver Patricia Attending physician on admission: Oliver Patricia Condition: Stable
== END 2025-02-03 15:30 | disposition home or self-care (01) | DRG 863 ==
LOC: ANHED 01-29 08:06 → ANH3MEDSUR 01-29 09:03
PROVIDERS: Nurse Practitioner Family; Physician Assistant; Radiology Diagnostic Radiology; Radiology Vascular & Interventional Radiology; Surgery; Admitting Provider Obstetrics & Gynecology; Emergency Provider Student in an Organized Health Care Education/Training Program; PCP Nurse Practitioner; Visit Provider Obstetrics & Gynecology
PROC: 0W9J30Z Drainage of Pelvic Cavity with Drainage Device, Percutaneous Approach (ICD-10-PCS; CPT 75989; principal; 2025-01-30 14:30)
PROC: (CPT 75989; principal; 2025-02-03 11:00)
DX: T81.43XA Infection following a procedure, organ and space surgical site, initial encounter (principal); N12 Tubulo-interstitial nephritis, not specified as acute or chronic; Z68.41 Body mass index [BMI] 40.0-44.9, adult; N73.9 Female pelvic inflammatory disease, unspecified; K21.9 Gastro-esophageal reflux disease without esophagitis; E66.01 Morbid (severe) obesity due to excess calories
CPT/HCPCS: 36415; 72192; 74177; 74270; 75989; 80048; 80053; 81001; 82948; 83605; 83690; 83735; 85025; 85027; 85610; 86850; 86900; 86901; 87040; 87070; 87075; 87086; 87205; 96361; 96365; 96367; 96375; 96376; 99285; A9270; C1729; G0378; J0696; J1171; J1335; J2250; J2405; J3010; J7030; J7040; J7042; J7120; Q9967

== ENCOUNTER 2025-02-08 12:21 | Outpatient (CLI) | payer BC, SELFPAY ==
--- NOTE | ~2025-02-08 | CT_ITS ---
CLINICAL INDICATION: Follow-up pelvic abscesses COMPARISON: 02/03/2025 and dating back to 12/03/2024. TECHNIQUE: Multiple contiguous axial images of the abdomen and pelvis were performed following the ad ministration of with 100 mL Omnipaque-350 intravenous contrast The dose-length product (DLP) was 1418.03 mGy-cm. Automated exposure control and iterative reconstruction technique were employed. FINDINGS/OBSERVATIONS: Visualized lower thorax: The bilateral lung bases are clear. The heart is of normal size, without pericardial effusion. Liver: The liver demonstrates homogeneous enhancement and is enlarged measuring 23 cm in longitudinal dimens ion. Gallbladder and biliary system: The gallbladder is only minimally distended, and otherwise unremarkable. Pancreas: The pancreas enhances homogeneously without ductal dilatation. Spleen: The spleen enhances homogeneously and is enlarged measuring 13 cm in longitudinal dimension. Kidneys: 3 mm nonobstructing calculus within the lower pole of the left kidney, unchanged from prior The remainder bilateral kidneys otherwise enhance symmetrically without hydronephrosis or additional renal calculi. Adrenal glands: Unremarkable. Gastrointestinal tract: Redemonstration of a complex rim-enhancing fluid collection within the vesicouterine pouch with a kelly inage catheter in excellent position, although with incomplete drainage of the entirety of the collec tion. The majority of the collection extends into the right hemipelvis and then cranially and anterio rly towards the midline. The collection within the vesicouterine pouch measures 6.5 x 2.8 cm, with a drainage catheter in plac e. The portion with anterior and cranial extension measures an additional 5.3 x 2.7 cm (cranial to cauda l dimension by medial to lateral dimension). Appendix: The appendix is not definitively visualized. However, no pericecal inflammatory change is identified suggest the presence of acute appendicitis. Vasculature: Unremarkable. Lymph nodes: No pathologically enlarged or morphologically suspicious lymph nodes within the retroperitoneum or at the root of the mesentery. Pelvic structures: The bladder is decompressed, and otherwise unremarkable. The uterus is surgically absent Body wall and musculoskeletal: Small fat-containing umbilical hernia. No significant degenerative disease within the lower thoracic or lumbosacral spine. IMPRESSION: Near complete resolution of the rim-enhancing fluid collection within the vesicouterine pouch, with o nly a small residual collection remaining, as detailed above. Reviewed, dictated and finalized at location A. IMPRESSION: Near complete resolution of the rim-enhancing fluid collection within the vesic outerine pouch, with only a small residual collection remaining, as detailed ab ove.
--- OUTSIDE RECORDS SUMMARY | 2025-02-08 13:26 | XMS_ITS | Clinical Summary ---
Author Organization [facility] [address] [place] [address] [address] [place] [address] Care Team Providers Care Humidifier Attendant Name Role Phone Fanny Aguayo NP Primary Care Provider [phone] Allergies No known active allergies Medications No [...] Department Care Team Description 11/17/2024 7:49 AM LABOR EMPLOYMENT ASSOCIATE - 11/17/2024 11:59 PM LABOR EMPLOYMENT ASSOCIATE Hospital Encounter [facility] [address] [place] [id number] Mass of upper outer quadrant of right breast Discharge Disposition: Discharge to home or self care 11/17/2024 7:48 AM LABOR EMPLOYMENT ASSOCIATE - 11/17/2024 11:59 PM LABOR EMPLOYMENT ASSOCIATE Hospital Encounter [facility] [address] [place] [id number] Mass of upper outer quadrant of right [...] on file Legal Sex Female 8:59 AM LABOR EMPLOYMENT ASSOCIATE Gender Identity Not on file Sexual Orientation Not on file Obstetrics History Para Term AB IAB SAB Ectopic Multiple Livin g Live Births 2 Date Outcome GA Total Labor Labor/2nd/3rd Weight Sex Type Anes PTL Sivan A1 A5 Name Clin Last Filed Vital Signs Vital Sign Reading Time Taken Comments Blood Pressure 124/72 10/06/2024 7:23 AM LABOR EMPLOYMENT ASSOCIATE Pulse 84 10/06/2024 7:23 AM LABOR EMPLOYMENT ASSOCIATE Temperature 36.2 C (97.2 F) 10/06/2024 7:23 AM LABOR EMPLOYMENT ASSOCIATE Respiratory Rate - - Oxygen Saturation 99% 10/06/2024 7:23 AM LABOR EMPLOYMENT ASSOCIATE Inhaled Oxygen Concentration - - Weight 122.5 kg (270 lb) 10/06/2024 7:23 AM LABOR EMPLOYMENT ASSOCIATE Height 177.8 cm (5' 10 ) 11/17/2024 8:02 AM LABOR EMPLOYMENT ASSOCIATE Body Mass Index 38.74 10/06/2024 7:23 AM LABOR EMPLOYMENT ASSOCIATE Plan of Treatment Health Maintenance Due Date Last Done Comments Cervical Cancer Screening 1982 Depression Screening 1982 DTaP/Tdap/Td Vaccine (1 - Tdap) 1993 Varicella Vaccines (1 of 2 - 13+ 2-dose series) 1995 Influenza Vaccine (Season Ended) 2025 Regular Well Visit/Exam 18-64 10/06/2025 10/06/2024 Breast [...] Read Routine (OP Routine) 11/17/2024 8:46 AM LABOR EMPLOYMENT ASSOCIATE Mass of upper outer quadrant of right breast DIAGNOSTIC MAMMOGRAM BILATERAL W BETHANY Schedule Routine, Read Routine (OP Routine) 11/17/2024 8:03 AM LABOR EMPLOYMENT ASSOCIATE Mass of upper outer quadrant of right breast HEPATITIS C ANTIBODY Routine 10/06/2024 8:40 AM LABOR EMPLOYMENT ASSOCIATE Encounter for hepatitis C screening test for low risk patient from Last 3 Months or Most Recently Relevant to Health Maintenance Results * US Breast Right Limited (11/17/2024 8:46 AM LABOR EMPLOYMENT ASSOCIATE) Anatomical Region Laterality Modality Breast Right Ultrasound 11/17/2024 9:00 AM LABOR EMPLOYMENT ASSOCIATE Impressions 11/17/2024 9:00 AM LABOR EMPLOYMENT ASSOCIATE No mammographic or sonographic evidence of malignancy. [...] Fitz Turcios M.D. Narrative 11/17/2024 9:00 AM LABOR EMPLOYMENT ASSOCIATE EXAMINATION: DIAGNOSTIC MAMMOGRAM BILATERAL W BETHANY, US [...] targeted right breast ultrasound. us Fanny Aguayo ELEMENTARY ESL TEACHER IMG MAMMO PROCEDURES Final Re sult * DIAGNOSTIC MAMMOGRAM BILATERAL W BETHANY (11/17/2024 8:03 AM LABOR EMPLOYMENT ASSOCIATE) Anatomical Region Laterality Modality Breast Bilateral Mammography 11/17/2024 9:00 AM LABOR EMPLOYMENT ASSOCIATE Impressions 11/17/2024 9:00 AM LABOR EMPLOYMENT ASSOCIATE No mammographic or sonographic evidence of malignancy. [...] Fitz Turcios M.D. Narrative 11/17/2024 9:00 AM LABOR EMPLOYMENT ASSOCIATE EXAMINATION: DIAGNOSTIC MAMMOGRAM BILATERAL W BETHANY, US [...] mammogram or targeted right breast ultrasound. Result [facility] Fanny Aguayo ELEMENTARY ESL TEACHER IMG MAMMO PROCEDURES Final Re sult * Hepatitis C antibody Blood (10/06/2024 8:40 AM LABOR EMPLOYMENT ASSOCIATE) Hep C Ab Nonreactive Nonreactive Comment: Interpretive [...] revised on 2020. Blood 10/06/2024 8:40 AM LABOR EMPLOYMENT ASSOCIATE 10/06/2024 3:05 PM LABOR EMPLOYMENT ASSOCIATE us Fanny Aguayo NP LAB MICROBIOLOGY - GENERAL OR DERABLES Final Result [facility] [id number] [place] [address] from Last 3 Months or Most Recently Relevant to Health Maintenance Insurance [facility] ACCESS CHOICE Care Teams Humidifier Attendant Relationship Specialty Start Date End Date Fanny Aguayo NP [address] [id number] PCP - General Family Medicine 10/06/24
--- OUTSIDE RECORDS SUMMARY | 2025-02-08 13:27 | XMS_ITS | Referral Summary ---
Author Organization [facility] [address] [place] [address] [address] [place] [address] Care Team Providers Care Cement Car Dumper Name Role Phone Fanny Aguayo NP Primary Care Provider [phone] Encounters Date Type Department Care Team Description 11/17/2024 7:49 AM DEPUTY MANAGER - 11/17/2024 11:59 PM DEPUTY MANAGER Hospital Encounter [facility] [address] [place] [address] Mass of upper outer quadrant of right breast Discharge Disposition: Discharge to home or self care 11/17/2024 7:48 AM DEPUTY MANAGER - 11/17/2024 11:59 PM DEPUTY MANAGER Hospital Encounter [facility] [address] [place] [address] Mass of upper outer quadrant of right [...] on file Legal Sex Female 8:59 AM DEPUTY MANAGER Gender Identity Not on file Sexual Orientation Not on file Last Filed Vital Signs Vital Sign Reading Time Taken Comments Blood Pressure 124/72 10/06/2024 7:23 AM DEPUTY MANAGER Pulse 84 10/06/2024 7:23 AM DEPUTY MANAGER Temperature 36.2 C (97.2 F) 10/06/2024 7:23 AM DEPUTY MANAGER Respiratory Rate - - Oxygen Saturation 99% 10/06/2024 7:23 AM DEPUTY MANAGER Inhaled Oxygen Concentration - - Weight 122.5 kg (270 lb) 10/06/2024 7:23 AM DEPUTY MANAGER Height 177.8 cm (5' 10 ) 11/17/2024 8:02 AM DEPUTY MANAGER Body Mass Index 38.74 10/06/2024 7:23 AM DEPUTY MANAGER Plan of Treatment Not on file Procedures Procedure Name Priority Date/Time Associated Diagnosis Comments US BREAST RIGHT LIMITED Schedule Routine, Read Routine (OP Routine) 11/17/2024 8:46 AM DEPUTY MANAGER Mass of upper outer quadrant of right breast DIAGNOSTIC MAMMOGRAM BILATERAL W BETHANY Schedule Routine, Read Routine (OP Routine) 11/17/2024 8:03 AM DEPUTY MANAGER Mass of upper outer quadrant of right breast HEPATITIS C ANTIBODY Routine 10/06/2024 8:40 AM DEPUTY MANAGER Encounter for hepatitis C screening test for low risk patient from Last 3 Months or Most Recently Relevant to Health Maintenance Results * US Breast Right Limited (11/17/2024 8:46 AM DEPUTY MANAGER) Anatomical Region Laterality Modality Breast Right Ultrasound 11/17/2024 9:00 AM DEPUTY MANAGER Impressions 11/17/2024 9:00 AM DEPUTY MANAGER No mammographic or sonographic evidence of malignancy. [...] Fitz Turcios M.D. Narrative 11/17/2024 9:00 AM DEPUTY MANAGER EXAMINATION: DIAGNOSTIC MAMMOGRAM BILATERAL W BETHANY, US [...] or targeted right breast ultrasound. Fanny Aguayo DIRECTOR OF OPERATIONS SUPPORT IMG MAMMO PROCEDURES Final Re sult * DIAGNOSTIC MAMMOGRAM BILATERAL W BETHANY (11/17/2024 8:03 AM DEPUTY MANAGER) Anatomical Region Laterality Modality Breast Bilateral Mammography 11/17/2024 9:00 AM DEPUTY MANAGER Impressions 11/17/2024 9:00 AM DEPUTY MANAGER No mammographic or sonographic evidence of malignancy. [...] Fitz Turcios M.D. Narrative 11/17/2024 9:00 AM DEPUTY MANAGER EXAMINATION: DIAGNOSTIC MAMMOGRAM BILATERAL W BETHANY, US [...] or targeted right breast ultrasound. Fanny Aguayo DIRECTOR OF OPERATIONS SUPPORT IMG MAMMO PROCEDURES Final Re sult * Hepatitis C antibody Blood (10/06/2024 8:40 AM DEPUTY MANAGER) Hep C Ab Nonreactive Nonreactive Comment: Interpretive [...] revised on 2020. Blood 10/06/2024 8:40 AM DEPUTY MANAGER 10/06/2024 3:05 PM DEPUTY MANAGER us Fanny Aguayo NP LAB MICROBIOLOGY - GENERAL OR DERABLES Final Result [facility] [id number] Department [place] [address] from Last 3 Months or Most Recently Relevant to Health Maintenance Insurance [facility] ACCESS CHOICE Care Teams Cement Car Dumper Relationship Specialty Start Date End Date Fanny Aguayo NP [address] [facility] [address] [place] [address] PCP - General Family Medicine 10/06/24
--- OUTSIDE RECORDS SUMMARY | 2025-02-08 13:27 | XMS_ITS | Data Portability ---
Author Organization [place] [facility] [email or web address], Main Office Address [address] [place] [id number] Assessment Encounter Date Assessment Date Assessment LastModified [...] will reassess and discuss surgery with her. [email or web address] Not available 01/13/2023 14:34:31 02/10/2023 02/10/2023 Patient [...] would relieve all of her symptoms discussed. [email or web address] Not available 02/10/2023 15:31:29 04/13/2023 04/13/2023 Patient [...] ...should start week of May [id number] 023 [facility], [address], [place], [address], 3 12:10:34 Procedures injection/ aspiration joint/burs a (PROC) - in office procedure, administer ed by provider 2022 023 [email or web address] In-Office Order, Internal Use Only DO Not Attach Compendium DO Not Attach Compendium, Do Not Delete/merge, 13218 3 14:36:51 injection/ aspiration joint/burs a (PROC) - in office procedure, administer ed by provider 2022 023 [email or web address] In-Office Order, Internal Use Only DO Not Attach Compendium DO Not Attach Compendium, Do Not Delete/merge, [id number] 3 14:34:18 Surgeries None recorded. Imaging None recorded. Medication Orders Kenalog 10 mg/mL suspension for injection 2022 023 [facility], [address] [place], [place], [id number], 3 14:38:47 ropivacain e (PF) 5 mg/mL (0.5 %) injection solution 2022 023 [facility] [place], [place] [address], [address] [place], [place], [phone], 3 14:38:47 Kenalog 10 mg/mL suspension for injection [address] [place], [place] [id number], [address], [place], [id number], 3 14:35:02 ropivacain e (PF) 5 mg/mL (0.5 %) injection solution 2022 023 [facility] [place] [address] [facility] #60224, [address], [place], [id number], 3 14:35:02 Patient TargetsNo targets recorded. Patient [...] contr ast No observ ation record ed. [id number] [facility] [address], [place], [address], 12/25/2022 01:48:55 Result Notes None recorded. Problems Name Problem SNOMED Code Status Onset Date Resolution Date Notes Provider Name and Address Organization Details Recorded Time Pain of left shoulder joint 5299124029738 9109 Active 2022 Not Available [facility] 3 01:48:21 Tendinitis of left rotator cuff 6443819988754 9101 Active 2022 Not Available [facility] 3 01:48:21 Partial thickness rotator cuff tear 166163194 Active 2022 Not Available [facility] 3 01:48:21 Strain of rotator cuff of shoulder 202472586 Active 2022 Not Available [facility] 3 01:48:21 Arthritis of acromiocla vicular joint 309260811 Active 2022 Michel Hong MD [address], [place], [address] , [employer] [facility] [employer] 3 14:45:13 Problem Notes None recorded. Procedures Surgical History Date Name Laterality Status Provider Name and Address Organization Details Recorded Time 3 Ortho - Cortisone Injection completed Michel Hong MD [address], [place], [address], [employer] [facility] [employer] 02/10/2023 15:29:36 3 Ortho - Cortisone Injection completed Michel Hong MD [address], [place], [address], [employer] [facility] [employer] [facility] 01/13/2023 14:33:36 Knee completed Not Available [facility] 11/2022 01:47:59 section completed Not Available [facility] 12/25/2022 01:47:59 procedure on wrist completed Not Available [facility] 12/25/2022 01:47:59 Imaging Results Imaging Date Name Status LastModified by Organiz ation Details LastModified Time 12/12/2022 MRI, shoulder, w/o contrast completed [id number] [facility] [address], [place], [address], 12/25/2022 01:48:55 Procedure Notes None recorded. Medical [...] 40 mg by injection route. 2022 active [facility]: 0003- [id number]- [id number] Not Available Not Available [...] Updated DateTime 01/13/2023 177.8 cm 40.2 kg/m2 628060.[address] 01/13/2023 14:24:20 Date Recorded Body height Body mass index (BMI) Body weight Provider Name and Address Organization Details Last Updated DateTime 02/10/2023 177.8 cm 40.2 kg/m2 735245.86 g ABBI Valdez [email or web address] 02/10/2023 14:11:36 Date Recorded Body height Body mass index (BMI) Body weight Provider Name and Address Organization Details Last Updated DateTime 04/13/2023 177.8 cm 39.5 kg/m2 274527.9 ABBI Valentin [facility] [employer] [facility] 04/13/2023 09:25:14 Date Recorded Body height Body mass index (BMI) Body weight Provider Name and Address Organization Details Last Updated DateTime 05/04/2023 177.8 cm 39.5 kg/m2 704573.9 gerardo Garcia CNA [facility] [employer] [facility] 05/04/2023 10:11:06 Date Recorded Body height Body mass index (BMI) Body weight Provider Name and Address Organization Details Last Updated DateTime 06/09/2023 177.8 cm 39.5 kg/m2 700007.9 gerardo Ramos Pro [facility] [employer] [facility] 06/09/2023 14:19:06 Social History Question Answer Notes LastModified by Buy buy teaizat ion Details LastModified Time Tobacco Smoking Status Never Smoker [facility] 01/13/2023 14:21:15 What Is Your Level Of Alcohol Consumption? Occasional [id number] Information not available 12/25/2022 Sex: Unknown Functional Status None recorded. Mental Status None recorded. Family History Relationship Description Onset Age of this Age Resolved Age Notes LastModified by Organization Details LastModified Time Father Heart disease [email or web address] [id number] Not available 12/25/2022 01:48:00 Father Hypertensive disorder [id number] [id number] Not available 12/25/2022 01:48:00 Father Diabetes mellitus [email or web address] [id number] Not available 12/25/2022 01:48:00 Father Cerebrovascu lar accident [email or web address] Not available 14:21:15 Mother Family history of malignant neoplasm [email or web address] Not available 01/13 14:21:15 Mother Hypertensive disorder [email or web address] [id number] Not available 12/25/2022 01:48:00 Medical History No medical history recorded. Gynecological HistoryNo gynecological history recorded. Obstetrics History GPAL:G 0 P 0 0 0 0 Past Encounters Encounter ID Performer Location Encounter Start Date Encounter Closed Date Diagnosis/Indication Diagnosis SNOMED-CT Code Diagnosis ICD10 Code Diagnosis Note [id number] [facility] [address] [place] [address] 11/06/2022 00:00:00 11/06/2022 14:16:52 [id number] [facility] [address] [place] [address] 12/04/2022 00:00:00 12/04/2022 15:31:33 [id number] [facility] [address] [place] [address] 12/16/2022 00:00:00 12/16/2022 15:52:05 [id number] Michel Hong MD [facility] [address] [place] [address] 01/13/2023 14:19:14 01/13/2023 15:17:10 Tendinitis of left rotator cuff 2917437293 8410837 M67.814 Strain of rotator cuff of shoulder 692843566 S46.011D [id number] Michel Hong MD [facility] [address] [place] [address] 02/10/2023 14:07:16 02/10/2023 16:00:45 Tendinitis of left rotator cuff 8295137668 2723768 M67.814 Strain of rotator cuff of shoulder 894084405 S46.011D [id number] Michel Hong MD [facility] [address] [place] [address] 04/13/2023 09:22:56 04/13/2023 11:08:14 Strain of rotator cuff of shoulder 684819882 S46.011D Tendinitis of left rotator cuff 4733390420 4993747 M67.814 [id number] Michel Hong MD [facility] [address] [place] [address] 05/04/2023 10:04:56 05/04/2023 11:02:02 Tendinitis of left rotator cuff 3949227593 9653592 M67.814 Strain of rotator cuff of shoulder 522913440 S46.011D Postoperative visit 1836 [id number] Z09 [id number] Michel Hong MD [facility] [address] [place] [address] 06/09/2023 14:14:51 06/09/2023 15:42:32 Tendinitis of left rotator cuff 7060467686 4775622 M67.814 Partial th ickness rotator cuff tear 715289866 M75.102 Arthritis of acromioclavicular joint 796856767 M13.819 M13.812 Health Concerns Section Related Observation [...] better. Michel Hong MD [address] [place] [address], [place], [address], [address] 01/13/2023 14:34:58 02/10/2023 text/html Patient returns shoulder [...] otherwise. Michel Hong MD [address], [place] [address], [place], [address], [address] 02/10/2023 15:31:32 04/13/2023 text/html Patient returns status post rotator cuff debridement repair left distal clavicle excision. She is doing okay pain is tolerable and she is moving arm reasonably well. Michel Hong MD [address], [place], [address], [employer] 04/13/2023 10:15:53 05/04/2023 text/html Patient returns status post rotator cuff debridement repair left distal clavicle excision. She is doing okay pain is tolerable and she is moving arm reasonably well. The pain is improved quite a bit over the last month and she is doing much better than she was before surgery. Michel Hong MD [address], [place], [address], [employer] 05/04/2023 11:00:40 06/09/2023 text/html Patient returns status post rotator cuff debridement repair left distal clavicle excision. She is doing okay pain is tolerable and she is moving arm reasonably well. The pain is improved quite a bit over the last month and she is doing much better than she was before surgery. Michel Hong MD [address], [place], [address], [employer] 06/09/2023 14:45:47 OBGyn Episode No OBEpisode recorded.
== END 2025-02-08 12:22 | disposition home or self-care (01) ==
PROVIDERS: PCP Nurse Practitioner; Visit Provider Surgery
DX: N73.9 Female pelvic inflammatory disease, unspecified (principal)
CPT/HCPCS: 74177; Q9967

== ENCOUNTER 2025-07-08 12:20 | Emergency (ER) | payer BC, SELFPAY ==
--- NOTE | ~2025-07-08 | XR_ITS ---
EXAMINATION: XR foot RT min 3V, 07/08/2025 12:45 CDT HISTORY: Medial foot pain, posterior arch COMPARISON: No comparisons available. Findings: No acute fracture or malalignment. No significant degenerative changes. Soft tissues unremarkable. Impression: No acute fracture or malalignment. Reviewed, dictated and finalized at location A. Impression: No acute fracture or malalignment.
[2025-07-08 12:27] VITALS: BP 133/91; PULSE 89; RESP 14; TEMP 36.9; O2SAT 100
--- NOTE | 2025-07-08 12:31 | ED.EXTPRO ---
HPI - Extremity Problem General Chief complaint: Extremity Injury, Lower Stated complaint: Injured R Foot Time Seen by Provider: 07/08/25 12:34 Source: patient, RN notes reviewed and old records reviewed Mode of arrival: ambulatory Limitations: no limitations History of Present Illness HPI Narrative: 45-year-old female presents to the [facility] with right foot pain. Denies any injury. Pain to the medial posterior arch, heel area. Has taken Tylenol and ibuprofen. Symptoms started about a week ago. No bruising or swelling noted. Positive pedal pulse. Related Data Home Medications ?Medication ?Instructions ?Recorded ?Confirmed ?Last Taken ?Type loratadine 10 mg tablet (Claritin) 10 mg PO HS 04/18/24 03/01/25 01/28/25 08:00 History estradiol 2 mg tablet mg 07/08/25 Unknown History Allergies Allergy/AdvReac Type Severity Reaction Status Date / Time No Known Allergies Allergy Verified 07/08/25 12:32 Review of Systems Review of Systems: All systems reviewed & are unremarkable except as noted in HPI and below Constitutional: Constitutional: Reports no additional constitutional complaints Musculoskeletal: Musculoskeletal: Reports as per HPI Integumentary/Breasts: Skin/Breast: Reports system reviewed and no additional complaints, except [facility] Past Medical History Medical History Morbid obesity with BMI of 40.0-44.9, adult PONV (postoperative nausea and vomiting) Chronic GERD Partial thickness tear of left rotator cuff Surgical History Surgical History History of shoulder surgery Family History Family History Father Diabetes mellitus Cerebrovascular accident Mother Melanoma Sibling PCOS (polycystic ovarian syndrome) Social History Social History Social History: Caffeine-daily Smoking status: Never smoker Alcohol intake: never Alcohol use details: RARE Substance use: never Substance use type: does not use Do You Feel Safe in your Home?: Yes Lack of Transportation: No Lack of Food: Never True Current Housing: I Have Housing Concerned About Future Housing: No Difficulty Paying Gas/Electric Bills: No Difficulty Paying for Meds: No Currently Unemployed: No Education: Bachelor's Degree Difficulty w/ Childcare or Family Care: No Living arrangements: with family Spiritual care concerns: No Comments At the time of my signature, I reviewed and agree with the nursing past medical, surgical, social, and family history. There is no relevant family history pertinent to the patient complaint. Exam Const: General: cooperative, healthy appearing, comfortable, no acute distress, well developed, alert and well nourished Nutritional Appearance: well nourished and obese Orientation/consciousness: patient oriented x3 Limitations: no limitations HENMT: Head: normal to inspection Eyes: General: appearance normal, both eyes and all related structures Alignment and Position: alignment normal Neck: Neck: normal visual inspection, full ROM, no lymphadenopathy and no meningeal signs Chest: Chest palpation & inspection: normal inspection of the chest Resp: Effort & Inspection: normal respiratory effort and able to speak in complete sentences Cardio: Rate: regular rate Skin: General skin exam: normal color and no rashes or lesions noted Neuro: General: patient oriented x3, moves all extremities and no meningeal signs Cognition (Neuro): normal cognition Speech: normal speech Extrem: General: normal to inspection, full ROM, capillary refill normal and normal gait Right lower extremity: foot Details: normal capillary refill, tenderness Location: of the plantar foot Location: other and of the medial foot; not of the calcaneus, toes with normal ROM, no edema and vascular exam Details: dorsalis pedis pulse present and normal capillary refill; no abrasion, no laceration, no ecchymosis, no foreign bodies and no puncture wound Psych: Appearance: grossly normal and well kempt Mental Status: mental status grossly normal Speech and movement: Normal speech and movement present and Clear speech present Affect: normal affect Attitude: cooperative Course Course Level of Care: Express Care Visit Vital Signs Vital signs: Vital Signs Temperature 98.5 F 07/08/25 12:27 Pulse Rate 89 07/08/25 12:27 Respiratory Rate 14 07/08/25 12:27 Blood Pressure 133/91 H 07/08/25 12:27 Pulse Oximetry 100 07/08/25 12:27 Oxygen Delivery Room Air 07/08/25 12:27 Temperature 98.5 F 07/08/25 12:27 Pulse Rate 89 07/08/25 12:27 Respiratory Rate 14 07/08/25 12:27 Blood Pressure 133/91 H 07/08/25 12:27 Pulse Oximetry 100 07/08/25 12:27 Oxygen Delivery Room Air 07/08/25 12:27 Reviewed MDM - Extremity (Nontraumatic) MDM Narrative Medical decision making narrative: Patient sitting in exam room. Patient is nontoxic, vitals are stable. Patient presents with 1 week history of foot pain, tenderness to the heel, arch area. X-ray negative Exam consistent with plantar fasciitis Patient appropriate for outpatient treatment with close follow-up Discharge instructions reviewed with patient, as well as provided in writing per nursing staff. The instructions also include specific and strict return/GO TO THE ER as well as f/u information. All questions have been answered, and the patient deny any further questions with discharge and discharge plan. Some parts of this dictation were generated by voice recognition software and may contain typographical and/or grammatical inaccuracies. Imaging Data Radiologist's impression: EXAMINATION: XR foot RT min 3V, 07/08/2025 12:45 CDT HISTORY: Medial foot pain, posterior arch COMPARISON: No comparisons available. Findings: No acute fracture or malalignment. No significant degenerative changes. Soft tissues unremarkable. Impression: No acute fracture or malalignment. Critical Care Time Critical Care Time Critical Care Time: No Discharge Plan Discharge Clinical Impression: Acute pain of right foot Patient Disposition: Home Condition: Stable Instructions: Plantar Fasciitis (ED), Plantar Fasciitis Exercises (ED) Additional Instructions: Your Xray did not show a fracture. Wear good supportive shoes at all times. You can alternate ibuprofen 600mg and Tylenol 650mg every 4 hours as needed for pain Please schedule a follow-up visit with your personal physician for further evaluation and treatment within 2 weeks especially if symptoms persist. Follow-up with podiatry For new or worsening symptoms go directly to the emergency room Patient Language: Peruvian Prescriptions: No Action estradiol 2 mg tablet loratadine [Claritin] 10 mg tablet 10 mg PO HS Follow-up/Referrals: Timmy Padilla Jr., DPM [Physician, Podiatry] - 3 Days Ruma,Fanny Ayala CNP [Primary Care Provider] - 2 Weeks Clinical Impression: Acute pain of right foot Rupesh Jordan DPM [Physician, Podiatry] Time of Disposition: 13:10
== END 2025-07-08 13:13 | disposition home or self-care (01) ==
PROVIDERS: Emergency Provider Nurse Practitioner; PCP Nurse Practitioner
DX: M79.671 Pain in right foot (principal); K21.9 Gastro-esophageal reflux disease without esophagitis; E66.01 Morbid (severe) obesity due to excess calories; Z68.38 Body mass index [BMI] 38.0-38.9, adult
CPT/HCPCS: 73630; 99213; G0463

== ENCOUNTER 2025-10-16 14:03 | Outpatient (CLI) | payer BC, SELFPAY ==
--- NOTE | ~2025-10-16 | MR_ITS ---
EXAMINATION: MR foot RT wo con DATE: 10/16/2025 14:43 INDICATION: Spontaneous rupture flexor tendons presented with a few months of right hindfoot pain TECHNIQUE: Magnetic resonance imaging (MRI) of the right mid/hindfoot and ankle was performed without intravenous contrast. Sequences included sagittal T1- weighted FSE, sagittal fluid sensitive FSE STIR, coronal PD-weighted FS FSE, coronal T1-weighted FSE, axial PD-weighted FS FSE, and axial PD-weighted FSE. COMPARISON: None. FINDINGS: Medial ankle ligaments: Deep and superficial deltoid ligaments as well as the spring ligament are normal. Lateral ankle ligaments: The anterior and posterior inferior tibiofibular ligaments are normal. The anterior talofibular, calcaneofibular and posterior talofibular ligaments are normal. Tendons: Achilles tendon is normal. Small amount of fluid extending along the otherwise normal peroneus longus and brevis tendons consistent with mild tenosynovitis. The tibialis anterior and extensor hallucis longus and extensor digitorum longus tendons are normal. The tibialis posterior, flexor digitorum longus and flexor hallucis longus tendons are normal. Plantar fascia: Plantar aponeurosis is normal. Bones/other: Bone alignment is normal. Normal bone marrow signal throughout with no fracture or pathologic marrow replacing process. 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 Fluid: Physiologic amount fluid in the joint spaces. IMPRESSION: 1. Mild peroneal tenosynovitis extending along the otherwise normal tendons. 2. 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 Reviewed, dictated and finalized at location A. LOPMENT TEAM LEAD
== END 2025-10-16 14:04 | disposition home or self-care (01) ==
LOC: MICIMG 14:03
PROVIDERS: PCP Nurse Practitioner; Visit Provider Podiatrist Foot & Ankle Surgery
DX: M66.371 Spontaneous rupture of flexor tendons, right ankle and foot (principal); M19.071 Primary osteoarthritis, right ankle and foot
CPT/HCPCS: 73718